=== PATIENT | female | born 1950 | race Caucasian/White ===

== ENCOUNTER 2018-04-23 22:34 | Inpatient (IN) ==
[2018-04-23] MEDS ORDERED: methylPREDNISolone SOD SUC 125 MG/2 ML VIAL IV STA (23:21)
[2018-04-23] MEDS ORDERED: FUROSEMIDE 100 MG/10 ML VIAL IV STA (23:21)
[2018-04-23] MEDS ORDERED: ONDANSETRON 4 MG/2 ML VIAL IV STA (23:21)
[2018-04-23] MEDS ORDERED: ALBUTEROL 2.5 MG/3 ML NEB RESP TX SCH (23:30)
[2018-04-23 23:50] LABS: Basophils # 0.1 10*3/uL (0.0-0.2); Basophils % 0.6 % (0.0-0.8); Eosinophils # 0.1 10*3/uL (0.0-0.87); Eosinophils % 1.5 % (0.00-10.9); Hemoglobin 10.6 GM/DL (12.0-16.0); Immature Granulocytes % 0.6 %; Immature Granulocytes Absolute 0.05 #; Lymphocytes # 0.7 10*3/uL (1.4-4.0); Lymphocytes % 8.8 % (21.3-54.2); Mean Corpuscular HGB Conc 30.3 GM/DL (32-36); Mean Corpuscular Hemoglobin 27 PG (27-34); Mean Corpuscular Volume 89.7 FL (87-102); Mean Platelet Volume 10.4 FL (9.6-12.0); Monocytes # 0.8 10*3/uL (0.11-0.8); Monocytes % 9.5 % (1.7-12.7); Neutrophils # 6.4 10*3/uL (1.4-7.4); Platelet Count 214 T/CUMM (130-400); Red Cell Distribution Width 15.9 % (9.3-17.3); White Blood Count 8.1 T/CUMM (4-12)
[2018-04-24 00:01] LABS: INR 2.1
[2018-04-24 00:07] LABS: PT Patient Result 22.9 SECS
[2018-04-24 00:11] LABS: Albumin 3.3 G/DL (3.4-5.0); Bilirubin,Total 1.1 MG/DL (0.2-1.0); Calcium 8.6 MG/DL (8.5-10.1); Potassium 4.3 MMOL/L (3.5-5.1); Total Protein 7.2 G/DL (6.4-8.3)
[2018-04-24 01:09] LABS: Apearance,Urine CLEAR (Clear); Bilirubin,Urine Negative (Negative); Blood, Urine Moderate mg/dL (Negative); Glucose,Urine (UA) Negative (Negative); Ketones,Urine Negative (Negative); Mucus,Urine Occasional /LPF (Occasional); Nitrite,Urine Negative (Negative); Protein,Urine Negative; RBC,Urine 7 /HPF (0-4); Urine Color Yellow (Yellow); Urine Specific Gravity 1.027 (1.001-1.035); Urine Urobilinogen < 2.0 EU/DL (0.2-1.0); WBC,Urine 2 /HPF (0-6)
[2018-04-24] MEDS ORDERED: MORPHINE 4 MG/1 ML VIAL IV PRN (02:35)
[2018-04-24] MEDS ORDERED: ONDANSETRON 4 MG/2 ML VIAL IV PRN (02:35)
[2018-04-24] MEDS ORDERED: GLUCAGON 1 MG VIAL IM PRN (02:35)
[2018-04-24] MEDS ORDERED: DEXTROSE 50% 25 GM/50 ML SYRINGE IV PRN (02:35)
[2018-04-24] MEDS ORDERED: ACETAMINOPHEN 325 MG TABLET PO PRN (02:35)
[2018-04-24] MEDS: ALBUTEROL/IPRATROPIUM 3 ML NEB RESP TX SCH ×6 (02:50→23:39)
[2018-04-24] MEDS: SODIUM CHLORIDE 0.9% 1,000 ML IV SCH (03:40)
[2018-04-24] MEDS: CEFTAROLINE 600 MG in SODIUM CHLORIDE 0.9% 100 ML IV SCH ×2 (03:45→15:40)
[2018-04-24 05:30] LABS: Basophils % 0.4 % (0.0-0.8); Eosinophils % 0.1 % (0.00-10.9); Hemoglobin 10.1 GM/DL (12.0-16.0); Immature Granulocytes % 0.6 %; Immature Granulocytes Absolute 0.05 #; Lymphocytes # 0.4 10*3/uL (1.4-4.0); Lymphocytes % 5.2 % (21.3-54.2); Mean Corpuscular HGB Conc 30.6 GM/DL (32-36); Mean Corpuscular Hemoglobin 27 PG (27-34); Mean Corpuscular Volume 89.2 FL (87-102); Mean Platelet Volume 10.9 FL (9.6-12.0); Monocytes # 0.1 10*3/uL (0.11-0.8); Monocytes % 1.8 % (1.7-12.7); Neutrophils # 7.3 10*3/uL (1.4-7.4); Neutrophils % 91.9 % (38.7-73.9); Platelet Count 184 T/CUMM (130-400); Red Cell Distribution Width 15.9 % (9.3-17.3); White Blood Count 7.9 T/CUMM (4-12)
[2018-04-24 05:45] LABS: Troponin I < 0.015 NG/ML (0.00-0.045)
[2018-04-24 05:48] LABS: Albumin 3.2 G/DL (3.4-5.0); Calcium 8.4 MG/DL (8.5-10.1); Osmolality,Calculated 284.8 MOS/KG (273-304); Potassium 4.3 MMOL/L (3.5-5.1); Risk Ratio 3.38; Total Protein 6.8 G/DL (6.4-8.3); VLDL CHOLESTEROL 17.2 MG/DL
[2018-04-24 05:56] LABS: Segmented Neutrophils 99 % (50-85); Total Cells Counted 100
[2018-04-24 05:57] LABS: Platelet Estimate Adequate; Polychromasia Few
[2018-04-24] MEDS: INSULIN REGULAR 100 UNIT/ML SUBCUT SCH ×3 (06:20→17:37)
[2018-04-24] MEDS ORDERED: FUROSEMIDE 40 MG TABLET PO SCH (08:00)
[2018-04-24] MEDS: CARVEDILOL 12.5 MG TABLET PO SCH ×2 (09:56→17:00)
[2018-04-24] MEDS: DOCUSATE SODIUM 100 MG CAPSULE PO SCH ×2 (09:57→22:11)
[2018-04-24] MEDS: LISINOPRIL 20 MG TABLET PO SCH (09:57)
[2018-04-24] MEDS: GABAPENTIN 300 MG CAPSULE PO SCH ×2 (09:58→22:11)
[2018-04-24] MEDS: busPIRone 5 MG TABLET PO SCH ×2 (10:03→22:10)
[2018-04-24] MEDS: PANTOPRAZOLE 40 MG VIAL IV SCH (12:08)
[2018-04-24] MEDS: methylPREDNISolone SOD SUC 40 MG/1 ML VIAL IV SCH ×2 (12:11→22:13)
[2018-04-24] MEDS: FUROSEMIDE 20 MG/2 ML VIAL IV SCH ×2 (12:12→17:09)
[2018-04-24 13:22] LABS: PT Patient Result 21.7 SECS
[2018-04-24] MEDS: PYRILAMINE PO SCH ×2 (15:33→22:15)
[2018-04-24] MEDS: CHLOPHEDIANOL PO SCH ×2 (15:33→22:15)
[2018-04-24] MEDS: PIOGLITAZONE HCL 30 MG PO SCH (15:34)
[2018-04-24] MEDS: BUDESONIDE/FORMOTEROL 160-4.5 INHALER 6 GM INH SCH ×3 (15:35→22:11)
[2018-04-24] MEDS: WARFARIN 4 MG TABLET PO SCH (17:37)
[2018-04-24] MEDS ORDERED: WARFARIN 3 MG TABLET PO SCH (18:00)
[2018-04-24] MEDS: MONTELUKAST 10 MG TABLET PO SCH (22:11)
[2018-04-24] MEDS: ATORVASTATIN 80 MG TABLET PO SCH (22:11)
[2018-04-25] MEDS: INSULIN REGULAR 100 UNIT/ML SUBCUT SCH ×4 (00:05→18:07)
[2018-04-25] MEDS: ALBUTEROL/IPRATROPIUM 3 ML NEB RESP TX SCH ×5 (02:51→20:09)
[2018-04-25] MEDS: methylPREDNISolone SOD SUC 40 MG/1 ML VIAL IV SCH ×3 (04:30→18:30)
[2018-04-25] MEDS: CEFTAROLINE 600 MG in SODIUM CHLORIDE 0.9% 100 ML IV SCH ×2 (04:32→15:38)
[2018-04-25 05:45] LABS: Basophils % 0.1 % (0.0-0.8); Hematocrit 32.6 VOL% (35.7-47.0); Hemoglobin 9.7 GM/DL (12.0-16.0); Immature Granulocytes % 1.1 %; Immature Granulocytes Absolute 0.12 #; Lymphocytes # 0.3 10*3/uL (1.4-4.0); Mean Corpuscular HGB Conc 29.8 GM/DL (32-36); Mean Corpuscular Hemoglobin 27 PG (27-34); Mean Corpuscular Volume 90.3 FL (87-102); Mean Platelet Volume 11.1 FL (9.6-12.0); Monocytes # 0.5 10*3/uL (0.11-0.8); Monocytes % 4.6 % (1.7-12.7); Neutrophils # 10.4 10*3/uL (1.4-7.4); Neutrophils % 91.2 % (38.7-73.9); Platelet Count 200 T/CUMM (130-400); Red Blood Count 3.61 MC/CUMM (3.8-5.5); Red Cell Distribution Width 15.8 % (9.3-17.3); White Blood Count 11.3 T/CUMM (4-12)
[2018-04-25 05:55] LABS: Calcium 8.3 MG/DL (8.5-10.1); INR 2.3; Osmolality,Calculated 289.8 MOS/KG (273-304); Potassium 4.4 MMOL/L (3.5-5.1)
[2018-04-25 06:12] LABS: Hypochromasia 1+; Lymphocytes 4 % (20-55); Platelet Estimate Adequate; Segmented Neutrophils 91 % (50-85); Total Cells Counted 100
[2018-04-25] MEDS: SODIUM CHLORIDE 0.9% 1,000 ML IV SCH (07:16)
[2018-04-25] MEDS: FUROSEMIDE 20 MG/2 ML VIAL IV SCH ×2 (08:40→15:41)
[2018-04-25] MEDS: PANTOPRAZOLE 40 MG VIAL IV SCH (08:42)
[2018-04-25] MEDS: PYRILAMINE PO SCH ×2 (09:15→20:43)
[2018-04-25] MEDS: CARVEDILOL 12.5 MG TABLET PO SCH ×2 (09:15→18:27)
[2018-04-25] MEDS: CHLOPHEDIANOL PO SCH ×2 (09:15→20:43)
[2018-04-25] MEDS: GABAPENTIN 300 MG CAPSULE PO SCH ×2 (09:15→20:41)
[2018-04-25] MEDS: LISINOPRIL 20 MG TABLET PO SCH (09:16)
[2018-04-25] MEDS: DOCUSATE SODIUM 100 MG CAPSULE PO SCH ×2 (09:16→20:41)
[2018-04-25] MEDS: PIOGLITAZONE HCL 30 MG PO SCH (09:16)
[2018-04-25] MEDS: busPIRone 5 MG TABLET PO SCH ×2 (09:16→20:41)
[2018-04-25] MEDS: BUDESONIDE/FORMOTEROL 160-4.5 INHALER 6 GM INH SCH (11:10)
[2018-04-25] MEDS: WARFARIN 4 MG TABLET PO SCH (18:27)
[2018-04-25] MEDS: MONTELUKAST 10 MG TABLET PO SCH (20:41)
[2018-04-25] MEDS: ATORVASTATIN 80 MG TABLET PO SCH (20:41)
[2018-04-26] MEDS: INSULIN REGULAR 100 UNIT/ML SUBCUT SCH ×4 (00:15→17:59)
[2018-04-26] MEDS: ALBUTEROL/IPRATROPIUM 3 ML NEB RESP TX SCH ×6 (00:37→20:08)
[2018-04-26] MEDS: CEFTAROLINE 600 MG in SODIUM CHLORIDE 0.9% 100 ML IV SCH ×2 (03:35→16:04)
[2018-04-26 05:24] LABS: Basophils % 0.2 % (0.0-0.8); Hematocrit 31.1 VOL% (35.7-47.0); Hemoglobin 9.2 GM/DL (12.0-16.0); Immature Granulocytes % 0.9 %; Lymphocytes # 0.9 10*3/uL (1.4-4.0); Lymphocytes % 8.6 % (21.3-54.2); Mean Corpuscular HGB Conc 29.6 GM/DL (32-36); Mean Corpuscular Hemoglobin 27 PG (27-34); Mean Corpuscular Volume 91.7 FL (87-102); Mean Platelet Volume 10.9 FL (9.6-12.0); Monocytes # 0.6 10*3/uL (0.11-0.8); Monocytes % 5.5 % (1.7-12.7); Neutrophils # 8.9 10*3/uL (1.4-7.4); Neutrophils % 84.8 % (38.7-73.9); Platelet Count 178 T/CUMM (130-400); Red Blood Count 3.39 MC/CUMM (3.8-5.5); Red Cell Distribution Width 15.7 % (9.3-17.3); White Blood Count 10.5 T/CUMM (4-12)
[2018-04-26 05:33] LABS: Calcium 8.1 MG/DL (8.5-10.1); Osmolality,Calculated 287.7 MOS/KG (273-304); Potassium 4.3 MMOL/L (3.5-5.1)
[2018-04-26 05:38] LABS: INR 3.4
[2018-04-26] MEDS: methylPREDNISolone SOD SUC 40 MG/1 ML VIAL IV SCH ×2 (05:41→20:21)
[2018-04-26 05:54] LABS: PT Patient Result 36.3 SECS
[2018-04-26] MEDS: CHLOPHEDIANOL PO SCH ×2 (08:48→20:12)
[2018-04-26] MEDS: PYRILAMINE PO SCH ×2 (08:48→20:12)
[2018-04-26] MEDS: PIOGLITAZONE HCL 30 MG PO SCH (08:48)
[2018-04-26] MEDS: LISINOPRIL 20 MG TABLET PO SCH (08:49)
[2018-04-26] MEDS: GABAPENTIN 300 MG CAPSULE PO SCH ×2 (08:50→20:08)
[2018-04-26] MEDS: FUROSEMIDE 20 MG/2 ML VIAL IV SCH ×2 (08:52→16:01)
[2018-04-26] MEDS: PANTOPRAZOLE 40 MG VIAL IV SCH (08:56)
[2018-04-26] MEDS: CARVEDILOL 12.5 MG TABLET PO SCH ×2 (09:21→16:01)
[2018-04-26] MEDS: DOCUSATE SODIUM 100 MG CAPSULE PO SCH ×2 (09:22→20:08)
[2018-04-26] MEDS: busPIRone 5 MG TABLET PO SCH ×2 (09:26→20:21)
[2018-04-26] MEDS: WARFARIN 4 MG TABLET PO SCH (18:33)
[2018-04-26] MEDS: ATORVASTATIN 80 MG TABLET PO SCH (20:08)
[2018-04-26] MEDS: MONTELUKAST 10 MG TABLET PO SCH (20:08)
[2018-04-26] MEDS: DORNASE ALFA 2.5 MG/2.5 ML VIAL RESP TX SCH (20:08)
[2018-04-26] MEDS: SODIUM CHLORIDE 0.9% 1,000 ML IV SCH (20:20)
[2018-04-27] MEDS: ALBUTEROL/IPRATROPIUM 3 ML NEB RESP TX SCH ×7 (00:16→23:59)
[2018-04-27] MEDS: INSULIN REGULAR 100 UNIT/ML SUBCUT SCH ×5 (00:37→23:41)
[2018-04-27] MEDS: CEFTAROLINE 600 MG in SODIUM CHLORIDE 0.9% 100 ML IV SCH ×2 (04:08→16:29)
[2018-04-27 04:56] LABS: INR 3.3; PT Patient Result 35.9 SECS
[2018-04-27] MEDS: SODIUM CHLORIDE 0.9% 1,000 ML IV SCH (05:24)
[2018-04-27] MEDS: DORNASE ALFA 2.5 MG/2.5 ML VIAL RESP TX SCH ×2 (07:57→19:03)
[2018-04-27] MEDS: LISINOPRIL 20 MG TABLET PO SCH (08:43)
[2018-04-27] MEDS: busPIRone 5 MG TABLET PO SCH ×2 (08:44→20:34)
[2018-04-27] MEDS: DOCUSATE SODIUM 100 MG CAPSULE PO SCH ×2 (08:44→20:34)
[2018-04-27] MEDS: methylPREDNISolone SOD SUC 40 MG/1 ML VIAL IV SCH ×2 (08:44→20:34)
[2018-04-27] MEDS: CARVEDILOL 12.5 MG TABLET PO SCH ×2 (08:44→16:30)
[2018-04-27] MEDS: GABAPENTIN 300 MG CAPSULE PO SCH ×2 (08:44→20:34)
[2018-04-27] MEDS: FUROSEMIDE 20 MG/2 ML VIAL IV SCH ×2 (08:45→16:29)
[2018-04-27] MEDS: PANTOPRAZOLE 40 MG VIAL IV SCH (08:45)
[2018-04-27] MEDS: BREO ELLIPTA RESP TX SCH (08:50)
[2018-04-27] MEDS: PIOGLITAZONE HCL 30 MG PO SCH (10:19)
[2018-04-27] MEDS: CHLOPHEDIANOL PO SCH ×2 (10:20→20:33)
[2018-04-27] MEDS: PYRILAMINE PO SCH ×2 (10:20→20:33)
[2018-04-27] MEDS: WARFARIN 4 MG TABLET PO SCH (17:40)
[2018-04-27] MEDS: ATORVASTATIN 80 MG TABLET PO SCH (20:34)
[2018-04-27] MEDS: MONTELUKAST 10 MG TABLET PO SCH (20:34)
[2018-04-28] MEDS: CEFTAROLINE 600 MG in SODIUM CHLORIDE 0.9% 100 ML IV SCH (03:40)
[2018-04-28] MEDS: ALBUTEROL/IPRATROPIUM 3 ML NEB RESP TX SCH ×3 (03:58→11:16)
[2018-04-28] MEDS: INSULIN REGULAR 100 UNIT/ML SUBCUT SCH ×2 (06:15→12:47)
[2018-04-28] MEDS: DORNASE ALFA 2.5 MG/2.5 ML VIAL RESP TX SCH (07:55)
[2018-04-28 08:19] VITALS: BP 128/77
[2018-04-28] MEDS: CARVEDILOL 12.5 MG TABLET PO SCH (09:12)
[2018-04-28] MEDS: GABAPENTIN 300 MG CAPSULE PO SCH (09:12)
[2018-04-28] MEDS: DOCUSATE SODIUM 100 MG CAPSULE PO SCH (09:12)
[2018-04-28] MEDS: LISINOPRIL 20 MG TABLET PO SCH (09:12)
[2018-04-28] MEDS: FUROSEMIDE 20 MG/2 ML VIAL IV SCH (09:13)
[2018-04-28] MEDS: methylPREDNISolone SOD SUC 40 MG/1 ML VIAL IV SCH (09:13)
[2018-04-28] MEDS: PIOGLITAZONE HCL 30 MG PO SCH (09:14)
[2018-04-28] MEDS: PANTOPRAZOLE 40 MG VIAL IV SCH (09:14)
[2018-04-28] MEDS: CHLOPHEDIANOL PO SCH (09:15)
[2018-04-28] MEDS: BREO ELLIPTA RESP TX SCH (09:15)
[2018-04-28] MEDS: PYRILAMINE PO SCH (09:15)
[2018-04-28] MEDS: busPIRone 5 MG TABLET PO SCH (09:27)
[2018-04-28 12:01] LABS: INR 3.9
[2018-04-28 12:06] LABS: PT Patient Result 41.8 SECS
== END 2018-04-28 13:37 | disposition home or self-care (01) | DRG 202 ==
LOC: N.ED 22:34 → N.EDINP 04-24 00:59 → N.TELEN 04-24 01:44
PROVIDERS: ADMIT Family Medicine; ATTEND Family Medicine

== ENCOUNTER 2019-03-31 15:07 | Inpatient (IN) ==
[2019-03-31] MEDS ORDERED: ALBUTEROL/IPRATROPIUM 3 ML NEB RESP TX STA (16:08)
[2019-03-31 16:16] LABS: Basophils % 0.3 % (0.0-0.8); Hematocrit 33.3 VOL% (35.7-47.0); Hemoglobin 9.7 GM/DL (12.0-16.0); Immature Granulocytes Absolute 0.14 #; Lymphocytes # 0.5 10*3/uL (1.4-4.0); Mean Corpuscular HGB Conc 29.1 GM/DL (32-36); Mean Platelet Volume 10.7 FL (9.6-12.0); Monocytes % 2.6 % (1.7-12.7); Neutrophils % 92.1 % (38.7-73.9); Platelet Count 240 T/CUMM (130-400); Red Cell Distribution Width 16.7 % (9.3-17.3); White Blood Count 13.5 T/CUMM (4-12)
[2019-03-31 16:27] LABS: Albumin 3.3 G/DL (3.4-5.0); Bilirubin,Total 0.4 MG/DL (0.2-1.0); Calcium 8.7 MG/DL (8.5-10.1); Osmolality,Calculated 287.8 MOS/KG (273-304); Total Protein 6.5 G/DL (6.4-8.3)
[2019-03-31 16:35] LABS: Band Neutrophils 1 % (0-10); Hypochromasia 1+; Lymphocytes 2 % (20-55); Segmented Neutrophils 94 % (50-85); Total Cells Counted 100
[2019-03-31 16:36] LABS: Elliptocytes Few
[2019-03-31 16:37] LABS: Platelet Estimate Adequate; Polychromasia Few; Tear Drop Cells Few
[2019-03-31] MEDS ORDERED: ONDANSETRON 4 MG/2 ML VIAL IV PRN (17:16)
[2019-03-31] MEDS ORDERED: ACETAMINOPHEN 325 MG TABLET PO PRN (17:16)
[2019-03-31] MEDS ORDERED: DEXTROSE 50% 25 GM/50 ML VIAL IV PRN (17:16)
[2019-03-31] MEDS ORDERED: GLUCAGON 1 MG VIAL IM PRN (17:16)
[2019-03-31] MEDS ORDERED: methylPREDNISolone SOD SUC 125 MG/2 ML VIAL IV SCH (17:30)
[2019-03-31] MEDS ORDERED: LEVOFLOXACIN INJ 750 MG in PREMIX 1 EACH IV SCH (17:30)
[2019-03-31] MEDS ORDERED: WARFARIN 3 MG TABLET PO SCH (19:52)
[2019-03-31] MEDS: GABAPENTIN 300 MG CAPSULE PO SCH (20:10)
[2019-03-31] MEDS: ALBUTEROL/IPRATROPIUM 3 ML NEB RESP TX SCH (21:08)
[2019-03-31] MEDS: INSULIN REGULAR 100 UNIT/ML SUBCUT SCH (22:02)
[2019-03-31] MEDS: MONTELUKAST 10 MG TABLET PO SCH (22:02)
[2019-03-31] MEDS: carvediloL 12.5 MG TABLET PO SCH (22:03)
[2019-03-31] MEDS: busPIRone 5 MG TABLET PO SCH (22:03)
[2019-03-31] MEDS: ATORVASTATIN 80 MG TABLET PO SCH (22:03)
[2019-04-01] MEDS: ALBUTEROL/IPRATROPIUM 3 ML NEB RESP TX SCH ×4 (01:10→19:05)
[2019-04-01] MEDS: methylPREDNISolone SOD SUC 40 MG/1 ML VIAL IV SCH ×2 (02:39→10:59)
[2019-04-01 05:03] LABS: Basophils % 0.2 % (0.0-0.8); Hematocrit 31.3 VOL% (35.7-47.0); Hemoglobin 9.3 GM/DL (12.0-16.0); Immature Granulocytes % 1.2 %; Immature Granulocytes Absolute 0.14 #; Lymphocytes # 0.5 10*3/uL (1.4-4.0); Mean Corpuscular HGB Conc 29.7 GM/DL (32-36); Mean Corpuscular Volume 89.4 FL (87-102); Mean Platelet Volume 10.9 FL (9.6-12.0); Monocytes % 0.9 % (1.7-12.7); Neutrophils % 93.7 % (38.7-73.9); Platelet Count 214 T/CUMM (130-400); Red Cell Distribution Width 16.4 % (9.3-17.3); White Blood Count 11.4 T/CUMM (4-12)
[2019-04-01 05:16] LABS: INR 2.1
[2019-04-01 05:18] LABS: Calcium 8.6 MG/DL (8.5-10.1); Osmolality,Calculated 293.7 MOS/KG (273-304)
[2019-04-01 05:25] LABS: Band Neutrophils 1 % (0-10); Hypochromasia 1+; Lymphocytes 2 % (20-55); Ovalocytes Slight; Platelet Estimate Adequate; Segmented Neutrophils 96 % (50-85); Total Cells Counted 100
[2019-04-01 05:29] LABS: PT Patient Result 22.7 SECS (9.6-12.2)
[2019-04-01] MEDS: metOLazone 5 MG TABLET PO SCH (05:29)
[2019-04-01] MEDS ORDERED: Fluticasone Furoate-Vilanterol [Breo Ellipta] 1 inh INH SCH (06:00)
[2019-04-01] MEDS ORDERED: carvediloL 25 MG TABLET PO SCH (08:00)
[2019-04-01] MEDS ORDERED: FUROSEMIDE 40 MG/4 ML VIAL IV SCH (08:00)
[2019-04-01] MEDS: INSULIN REGULAR 100 UNIT/ML SUBCUT SCH ×4 (09:06→21:50)
[2019-04-01] MEDS: PIOGLITAZONE 15 MG TABLET PO SCH (09:23)
[2019-04-01] MEDS: cefTRIAXone 1,000 MG in SYRINGE 1 EACH IV SCH (09:24)
[2019-04-01] MEDS: GABAPENTIN 300 MG CAPSULE PO SCH ×2 (09:24→21:41)
[2019-04-01] MEDS: PANTOPRAZOLE 40 MG TABLET PO SCH (09:25)
[2019-04-01] MEDS: POTASSIUM CHLORIDE 20 MEQ TABLET PO SCH (09:25)
[2019-04-01] MEDS: carvediloL 12.5 MG TABLET PO SCH ×2 (09:25→21:41)
[2019-04-01] MEDS: lisinopriL 20 MG TABLET PO SCH (09:25)
[2019-04-01] MEDS: busPIRone 5 MG TABLET PO SCH ×2 (09:25→21:42)
[2019-04-01] MEDS: FUROSEMIDE 80 MG TABLET PO SCH ×2 (09:27→17:02)
[2019-04-01] MEDS: FLUTICASONE 50 MCG NASAL SPRAY 16 GM BOTTLE BOTH NARES SCH (09:32)
[2019-04-01] MEDS ORDERED: FUROSEMIDE 20 MG/2 ML VIAL IV ONE (12:10)
[2019-04-01] MEDS: WARFARIN 5 MG TABLET PO SCH (17:02)
[2019-04-01] MEDS ORDERED: WARFARIN 4 MG TABLET PO SCH (18:00)
[2019-04-01] MEDS: MONTELUKAST 10 MG TABLET PO SCH (21:41)
[2019-04-01] MEDS: ATORVASTATIN 80 MG TABLET PO SCH (21:42)
[2019-04-02] MEDS: ALBUTEROL/IPRATROPIUM 3 ML NEB RESP TX SCH ×4 (00:05→20:46)
[2019-04-02] MEDS: methylPREDNISolone SOD SUC 40 MG/1 ML VIAL IV SCH ×2 (00:54→12:14)
[2019-04-02 06:44] LABS: INR 2.3
[2019-04-02 06:47] LABS: PT Patient Result 24.3 SECS (9.6-12.2)
[2019-04-02 07:10] LABS: Basophils % 0.2 % (0.0-0.8); Hematocrit 34.5 VOL% (35.7-47.0); Immature Granulocytes % 1.4 %; Lymphocytes # 0.8 10*3/uL (1.4-4.0); Lymphocytes % 5.4 % (21.3-54.2); Mean Corpuscular HGB Conc 29.6 GM/DL (32-36); Mean Corpuscular Volume 90.3 FL (87-102); Mean Platelet Volume 11.3 FL (9.6-12.0); Platelet Count 213 T/CUMM (130-400); Red Blood Count 3.82 MC/CUMM (3.8-5.5); Red Cell Distribution Width 16.5 % (9.3-17.3); White Blood Count 14.3 T/CUMM (4-12)
[2019-04-02 07:11] LABS: Hemoglobin 10.2 GM/DL (12.0-16.0)
[2019-04-02] MEDS ORDERED: FUROSEMIDE 20 MG/2 ML VIAL IV ONE ×2 (09:13→12:00)
[2019-04-02] MEDS: cefTRIAXone 1,000 MG in SYRINGE 1 EACH IV SCH (09:14)
[2019-04-02] MEDS: PIOGLITAZONE 15 MG TABLET PO SCH (09:14)
[2019-04-02] MEDS: FUROSEMIDE 80 MG TABLET PO SCH ×2 (09:15→17:02)
[2019-04-02] MEDS: INSULIN REGULAR 100 UNIT/ML SUBCUT SCH ×4 (09:15→20:37)
[2019-04-02] MEDS: lisinopriL 20 MG TABLET PO SCH (09:15)
[2019-04-02] MEDS: busPIRone 5 MG TABLET PO SCH ×2 (09:15→20:37)
[2019-04-02] MEDS: PANTOPRAZOLE 40 MG TABLET PO SCH (09:16)
[2019-04-02] MEDS: GABAPENTIN 300 MG CAPSULE PO SCH ×2 (09:16→20:36)
[2019-04-02] MEDS: carvediloL 12.5 MG TABLET PO SCH ×2 (09:16→20:38)
[2019-04-02] MEDS: POTASSIUM CHLORIDE 20 MEQ TABLET PO SCH (09:16)
[2019-04-02] MEDS: FLUTICASONE 50 MCG NASAL SPRAY 16 GM BOTTLE BOTH NARES SCH (09:20)
[2019-04-02] MEDS: WARFARIN 5 MG TABLET PO SCH (17:02)
[2019-04-02] MEDS: MONTELUKAST 10 MG TABLET PO SCH (18:06)
[2019-04-02] MEDS: ATORVASTATIN 80 MG TABLET PO SCH (20:36)
[2019-04-03] MEDS: methylPREDNISolone SOD SUC 40 MG/1 ML VIAL IV SCH ×2 (00:13→10:55)
[2019-04-03] MEDS: ALBUTEROL/IPRATROPIUM 3 ML NEB RESP TX SCH ×3 (02:29→14:30)
[2019-04-03 05:20] LABS: INR 2.6
[2019-04-03 05:21] LABS: PT Patient Result 27.9 SECS (9.6-12.2)
[2019-04-03] MEDS: metOLazone 5 MG TABLET PO SCH (06:10)
[2019-04-03] MEDS: INSULIN REGULAR 100 UNIT/ML SUBCUT SCH ×2 (08:42→12:48)
[2019-04-03] MEDS: PIOGLITAZONE 15 MG TABLET PO SCH (08:43)
[2019-04-03] MEDS: GABAPENTIN 300 MG CAPSULE PO SCH (08:43)
[2019-04-03] MEDS: PANTOPRAZOLE 40 MG TABLET PO SCH (08:43)
[2019-04-03] MEDS: cefTRIAXone 1,000 MG in SYRINGE 1 EACH IV SCH (08:43)
[2019-04-03] MEDS: busPIRone 5 MG TABLET PO SCH (08:44)
[2019-04-03] MEDS: FUROSEMIDE 80 MG TABLET PO SCH (08:44)
[2019-04-03] MEDS: carvediloL 12.5 MG TABLET PO SCH (08:44)
[2019-04-03] MEDS: lisinopriL 20 MG TABLET PO SCH (08:44)
[2019-04-03] MEDS: POTASSIUM CHLORIDE 20 MEQ TABLET PO SCH (08:44)
[2019-04-03] MEDS: FLUTICASONE 50 MCG NASAL SPRAY 16 GM BOTTLE BOTH NARES SCH (08:45)
[2019-04-03 11:47] VITALS: BP 135/83
== END 2019-04-03 14:45 | disposition home health service (06) | DRG 202 ==
LOC: N.ED 15:07 → N.EDINP 17:14 → N.TELES 17:42
PROVIDERS: ADMIT Family Medicine; ATTEND Family Medicine

== ENCOUNTER 2019-06-23 13:12 | Inpatient (IN) ==
[2019-06-23 14:31] LABS: Basophils # 0.1 10*3/uL (0.0-0.2); Basophils % 0.3 % (0.0-0.8); Hematocrit 33.8 VOL% (35.7-47.0); Hemoglobin 10.1 GM/DL (12.0-16.0); Immature Granulocytes % 0.9 %; Immature Granulocytes Absolute 0.23 #; Lymphocytes # 0.5 10*3/uL (1.4-4.0); Lymphocytes % 1.8 % (21.3-54.2); Mean Corpuscular HGB Conc 29.9 GM/DL (32-36); Mean Corpuscular Volume 86.4 FL (87-102); Mean Platelet Volume 10.5 FL (9.6-12.0); Monocytes % 3.9 % (1.7-12.7); Neutrophils % 93.1 % (38.7-73.9); Platelet Count 241 T/CUMM (130-400); Red Blood Count 3.91 MC/CUMM (3.8-5.5); Red Cell Distribution Width 16.5 % (9.3-17.3); White Blood Count 25.6 T/CUMM (4-12)
[2019-06-23 14:41] LABS: INR 3.9; PT Patient Result 38.6 SECS (9.8-11.9); Partial Thromboplastin Time 59.9 SECS (23.9-33.8)
[2019-06-23 14:50] LABS: Anisocytosis Slight; Band Neutrophils 2 % (0-10); Lymphocytes 1 % (20-55); Platelet Estimate Adequate; Polychromasia Few; Segmented Neutrophils 92 % (50-85); Total Cells Counted 100
[2019-06-23 14:51] LABS: Hypochromasia 1+
[2019-06-23 14:52] LABS: Alanine Aminotransferase 17 U/L (13-56); Albumin 3.1 G/DL (3.4-5.0); Alkaline Phosphatase 104 U/L (45-117); Aspartate Amino Transferase 13 U/L (0-37); Blood Urea Nitrogen 17 MG/DL (7-18); Calcium 8.5 MG/DL (8.5-10.1); Estimated Glom Filtration Rate 62 ML/MIN; Glucose 248 MG/DL (74-106); Osmolality,Calculated 279.1 MOS/KG (273-304)
[2019-06-23] MEDS ORDERED: SODIUM CHLORIDE 0.9% 1,000 ML IV STA (15:22)
[2019-06-23] MEDS ORDERED: VANCOMYCIN INJ 1,000 MG in SODIUM CHLORIDE 0.9% 250 ML IV STA (15:22)
[2019-06-23 16:18] LABS: Apearance,Urine CLOUDY (Clear); Bilirubin,Urine Negative (Negative); Blood, Urine Large mg/dL (Negative); Glucose,Urine (UA) 50 mg/dL (Negative); Ketones,Urine Negative (Negative); Mucus,Urine Occasional /LPF (Occasional); Nitrite,Urine Negative (Negative); Protein,Urine 30 MG/DL; RBC,Urine 65 /HPF (0-4); Squamous Epithelial Cell,Urine Few /HPF (0-10); Urine Color Yellow (Yellow); Urine Specific Gravity 1.024 (1.001-1.035); Urine Urobilinogen < 2.0 EU/DL (0.2-1.0); WBC,Urine 422 /HPF (0-6)
[2019-06-23] MEDS ORDERED: ALBUTEROL/IPRATROPIUM 3 ML NEB RESP TX ONE (17:34)
[2019-06-23] MEDS ORDERED: GLUCAGON 1 MG VIAL IM PRN (18:28)
[2019-06-23] MEDS ORDERED: ONDANSETRON 4 MG/2 ML VIAL IV PRN (18:28)
[2019-06-23] MEDS ORDERED: SODIUM CHLORIDE 0.9% 1,000 ML IV SCH (18:28)
[2019-06-23] MEDS ORDERED: traMADol 50 MG TABLET PO PRN (18:28)
[2019-06-23] MEDS ORDERED: ALBUTEROL 2.5 MG/3 ML NEB RESP TX PRN (18:28)
[2019-06-23] MEDS ORDERED: DEXTROSE 10% 250 ML BAG IV PRN (18:28)
[2019-06-23] MEDS ORDERED: ALBUTEROL/IPRATROPIUM 3 ML NEB RESP TX SCH (19:00)
[2019-06-23] MEDS: ACETAMINOPHEN 325 MG TABLET PO PRN (22:30)
[2019-06-23] MEDS: methylPREDNISolone SOD SUC 40 MG/1 ML VIAL IV SCH (22:41)
[2019-06-23] MEDS: DOCUSATE SODIUM 100 MG CAPSULE PO SCH (22:41)
[2019-06-23] MEDS: INSULIN REGULAR 100 UNIT/ML SUBCUT SCH (22:41)
[2019-06-23] MEDS: SODIUM CHLORIDE 0.9% 1,000 ML IV SCH (22:41)
[2019-06-23] MEDS: LEVOFLOXACIN INJ 750 MG in PREMIX 1 EACH IV SCH (22:41)
[2019-06-24] MEDS: ALBUTEROL INHALER 18 GM INH SCH ×4 (01:35→21:48)
[2019-06-24] MEDS: methylPREDNISolone SOD SUC 40 MG/1 ML VIAL IV SCH ×2 (05:59→14:20)
[2019-06-24 06:06] LABS: Basophils % 0.2 % (0.0-0.8); Hematocrit 32.7 VOL% (35.7-47.0); Hemoglobin 9.7 GM/DL (12.0-16.0); Immature Granulocytes % 0.9 %; Immature Granulocytes Absolute 0.16 #; Lymphocytes # 0.4 10*3/uL (1.4-4.0); Lymphocytes % 2.2 % (21.3-54.2); Mean Corpuscular HGB Conc 29.7 GM/DL (32-36); Mean Corpuscular Volume 86.1 FL (87-102); Mean Platelet Volume 12.6 FL (9.6-12.0); Monocytes % 2.1 % (1.7-12.7); Neutrophils % 94.6 % (38.7-73.9); Red Cell Distribution Width 16.7 % (9.3-17.3); White Blood Count 18.4 T/CUMM (4-12)
[2019-06-24 06:19] LABS: Platelet Count 128 T/CUMM (130-400)
[2019-06-24 06:22] LABS: Calcium 8.6 MG/DL (8.5-10.1); Osmolality,Calculated 274.2 MOS/KG (273-304)
[2019-06-24 06:33] LABS: Hypochromasia 1+; Lymphocytes 3 % (20-55); Microcytosis Slight; Segmented Neutrophils 96 % (50-85); Total Cells Counted 100
[2019-06-24] MEDS: INSULIN REGULAR 100 UNIT/ML SUBCUT SCH ×4 (08:18→22:26)
[2019-06-24] MEDS: DOCUSATE SODIUM 100 MG CAPSULE PO SCH ×2 (08:18→21:53)
[2019-06-24] MEDS: PANTOPRAZOLE 40 MG TABLET PO SCH (08:18)
[2019-06-24] MEDS: SODIUM CHLORIDE 0.9% 1,000 ML IV SCH ×2 (10:20→17:13)
[2019-06-24] MEDS ORDERED: buPROPion 75 MG TABLET PO PRN (11:38)
[2019-06-24 13:08] LABS: INR 3.3
[2019-06-24 13:09] LABS: PT Patient Result 32.5 SECS (9.8-11.9)
[2019-06-24] MEDS: busPIRone 5 MG TABLET PO SCH ×2 (16:58→21:53)
[2019-06-24] MEDS ORDERED: hydrALAZINE 20 MG/1 ML VIAL IV PRN (18:48)
[2019-06-24] MEDS ORDERED: FUROSEMIDE 40 MG/4 ML VIAL IM ONE (19:04)
[2019-06-24] MEDS: SPIRONOLACTONE 25 MG TABLET PO SCH (21:52)
[2019-06-24] MEDS: ATORVASTATIN 80 MG TABLET PO SCH (21:53)
[2019-06-24] MEDS: LEVOFLOXACIN INJ 750 MG in PREMIX 1 EACH IV SCH (21:53)
[2019-06-24] MEDS: MONTELUKAST 10 MG TABLET PO SCH (21:54)
[2019-06-24] MEDS: carvediloL 12.5 MG TABLET PO SCH (22:26)
[2019-06-25] MEDS: ALBUTEROL INHALER 18 GM INH SCH ×4 (01:25→19:03)
[2019-06-25 06:17] LABS: Basophils % 0.2 % (0.0-0.8); Eosinophils % 0.1 % (0.00-10.9); Hematocrit 32.5 VOL% (35.7-47.0); Hemoglobin 9.5 GM/DL (12.0-16.0); Immature Granulocytes % 0.8 %; Immature Granulocytes Absolute 0.13 #; Lymphocytes # 1.1 10*3/uL (1.4-4.0); Lymphocytes % 6.7 % (21.3-54.2); Mean Corpuscular HGB Conc 29.2 GM/DL (32-36); Mean Corpuscular Volume 88.6 FL (87-102); Mean Platelet Volume 10.7 FL (9.6-12.0); Monocytes % 7.5 % (1.7-12.7); Neutrophils % 84.7 % (38.7-73.9); Platelet Count 195 T/CUMM (130-400); Red Blood Count 3.67 MC/CUMM (3.8-5.5); Red Cell Distribution Width 16.6 % (9.3-17.3); White Blood Count 16.6 T/CUMM (4-12)
[2019-06-25 06:30] LABS: INR 3.7; PT Patient Result 36.9 SECS (9.8-11.9)
[2019-06-25 06:45] LABS: Calcium 8.4 MG/DL (8.5-10.1); Osmolality,Calculated 276.8 MOS/KG (273-304)
[2019-06-25] MEDS: lisinopriL 20 MG TABLET PO SCH (08:40)
[2019-06-25] MEDS: PANTOPRAZOLE 40 MG TABLET PO SCH (08:40)
[2019-06-25] MEDS: Fluticasone Furoate-Vilanterol [Breo Ellipta] INH SCH (08:40)
[2019-06-25] MEDS: POTASSIUM CHLORIDE 20 MEQ TABLET PO SCH (08:40)
[2019-06-25] MEDS: busPIRone 5 MG TABLET PO SCH ×3 (08:40→22:38)
[2019-06-25] MEDS: DOCUSATE SODIUM 100 MG CAPSULE PO SCH ×2 (08:40→22:38)
[2019-06-25] MEDS: SPIRONOLACTONE 25 MG TABLET PO SCH ×2 (08:40→22:38)
[2019-06-25] MEDS: carvediloL 12.5 MG TABLET PO SCH ×2 (08:40→22:39)
[2019-06-25] MEDS ORDERED: FUROSEMIDE 40 MG/4 ML VIAL IV SCH (09:00)
[2019-06-25] MEDS: INSULIN REGULAR 100 UNIT/ML SUBCUT SCH ×4 (09:55→22:55)
[2019-06-25] MEDS: FUROSEMIDE 80 MG TABLET PO SCH (11:15)
[2019-06-25] MEDS: LEVOFLOXACIN INJ 750 MG in PREMIX 1 EACH IV SCH ×2 (22:39→22:55)
[2019-06-25] MEDS: ATORVASTATIN 80 MG TABLET PO SCH (22:39)
[2019-06-25] MEDS: MONTELUKAST 10 MG TABLET PO SCH (22:39)
[2019-06-26] MEDS: ALBUTEROL INHALER 18 GM INH SCH ×4 (01:42→21:28)
[2019-06-26 04:34] LABS: Basophils # 0.1 10*3/uL (0.0-0.2); Basophils % 0.6 % (0.0-0.8); Eosinophils # 0.1 10*3/uL (0.0-0.87); Eosinophils % 1.4 % (0.00-10.9); Hematocrit 30.2 VOL% (35.7-47.0); Immature Granulocytes % 0.7 %; Immature Granulocytes Absolute 0.07 #; Lymphocytes # 1.2 10*3/uL (1.4-4.0); Lymphocytes % 12.1 % (21.3-54.2); Mean Corpuscular HGB Conc 29.8 GM/DL (32-36); Mean Corpuscular Volume 85.8 FL (87-102); Mean Platelet Volume 10.6 FL (9.6-12.0); Monocytes % 8.5 % (1.7-12.7); Neutrophils % 76.7 % (38.7-73.9); Platelet Count 215 T/CUMM (130-400); Red Blood Count 3.52 MC/CUMM (3.8-5.5); Red Cell Distribution Width 16.7 % (9.3-17.3); White Blood Count 9.6 T/CUMM (4-12)
[2019-06-26 04:47] LABS: INR 2.9; PT Patient Result 29.5 SECS (9.8-11.9)
[2019-06-26 04:57] LABS: Calcium 8.3 MG/DL (8.5-10.1); Osmolality,Calculated 281.7 MOS/KG (273-304)
[2019-06-26] MEDS: metOLazone 5 MG TABLET PO SCH (05:58)
[2019-06-26] MEDS: SPIRONOLACTONE 25 MG TABLET PO SCH ×2 (08:37→21:29)
[2019-06-26] MEDS: POTASSIUM CHLORIDE 20 MEQ TABLET PO SCH (08:38)
[2019-06-26] MEDS: DOCUSATE SODIUM 100 MG CAPSULE PO SCH ×2 (08:38→21:29)
[2019-06-26] MEDS: carvediloL 12.5 MG TABLET PO SCH ×2 (08:38→21:29)
[2019-06-26] MEDS: busPIRone 5 MG TABLET PO SCH ×3 (08:38→21:29)
[2019-06-26] MEDS: FUROSEMIDE 80 MG TABLET PO SCH (08:38)
[2019-06-26] MEDS: lisinopriL 20 MG TABLET PO SCH (08:39)
[2019-06-26] MEDS: Fluticasone Furoate-Vilanterol [Breo Ellipta] INH SCH (08:50)
[2019-06-26] MEDS: INSULIN REGULAR 100 UNIT/ML SUBCUT SCH ×4 (08:51→21:47)
[2019-06-26] MEDS: PANTOPRAZOLE 40 MG TABLET PO SCH (11:14)
[2019-06-26] MEDS: CEFDINIR 300 MG CAPSULE PO SCH (21:29)
[2019-06-26] MEDS: MONTELUKAST 10 MG TABLET PO SCH (21:29)
[2019-06-26] MEDS: ATORVASTATIN 80 MG TABLET PO SCH (21:29)
[2019-06-26] MEDS: ACETAMINOPHEN 325 MG TABLET PO PRN (21:47)
[2019-06-27] MEDS: ALBUTEROL INHALER 18 GM INH SCH ×4 (00:27→20:16)
[2019-06-27 06:39] LABS: Basophils % 0.5 % (0.0-0.8); Eosinophils # 0.1 10*3/uL (0.0-0.87); Eosinophils % 1.3 % (0.00-10.9); Hematocrit 33.3 VOL% (35.7-47.0); Hemoglobin 9.8 GM/DL (12.0-16.0); Immature Granulocytes % 1.1 %; Lymphocytes # 1.2 10*3/uL (1.4-4.0); Lymphocytes % 14.1 % (21.3-54.2); Mean Corpuscular HGB Conc 29.4 GM/DL (32-36); Mean Corpuscular Volume 86.3 FL (87-102); Monocytes % 8.4 % (1.7-12.7); Neutrophils % 74.6 % (38.7-73.9); Platelet Count 273 T/CUMM (130-400); Red Blood Count 3.86 MC/CUMM (3.8-5.5); Red Cell Distribution Width 16.3 % (9.3-17.3); White Blood Count 8.8 T/CUMM (4-12)
[2019-06-27 06:49] LABS: INR 2.3; PT Patient Result 23.8 SECS (9.8-11.9)
[2019-06-27 07:00] LABS: Calcium 9.1 MG/DL (8.5-10.1); Osmolality,Calculated 275.2 MOS/KG (273-304)
[2019-06-27] MEDS ORDERED: WARFARIN 5 MG TABLET PO SCH (08:30)
[2019-06-27] MEDS ORDERED: WARFARIN 5 MG TABLET PO ONE (09:00)
[2019-06-27] MEDS ORDERED: WARFARIN 3 MG TABLET PO SCH (09:00)
[2019-06-27] MEDS: busPIRone 5 MG TABLET PO SCH ×3 (09:38→21:21)
[2019-06-27] MEDS: SPIRONOLACTONE 25 MG TABLET PO SCH ×2 (09:38→21:21)
[2019-06-27] MEDS: DOCUSATE SODIUM 100 MG CAPSULE PO SCH ×2 (09:53→21:21)
[2019-06-27] MEDS: Fluticasone Furoate-Vilanterol [Breo Ellipta] INH SCH (09:56)
[2019-06-27] MEDS: PANTOPRAZOLE 40 MG TABLET PO SCH (09:56)
[2019-06-27] MEDS: carvediloL 12.5 MG TABLET PO SCH ×2 (09:56→21:21)
[2019-06-27] MEDS: FUROSEMIDE 80 MG TABLET PO SCH (09:56)
[2019-06-27] MEDS: CEFDINIR 300 MG CAPSULE PO SCH ×2 (09:56→21:22)
[2019-06-27] MEDS: lisinopriL 20 MG TABLET PO SCH (09:56)
[2019-06-27] MEDS: INSULIN REGULAR 100 UNIT/ML SUBCUT SCH ×4 (09:57→21:22)
[2019-06-27] MEDS: ACETAMINOPHEN 325 MG TABLET PO PRN (13:07)
[2019-06-27] MEDS: POTASSIUM CHLORIDE 20 MEQ TABLET PO SCH (13:07)
[2019-06-27] MEDS: ATORVASTATIN 80 MG TABLET PO SCH (21:21)
[2019-06-27] MEDS: MONTELUKAST 10 MG TABLET PO SCH (21:22)
[2019-06-27] MEDS: POTASSIUM CHLORIDE 20 MEQ/15 ML UDCUP PO ONE ×2 (21:23→22:14)
[2019-06-28] MEDS: ALBUTEROL INHALER 18 GM INH SCH ×3 (00:59→13:07)
[2019-06-28] MEDS: ACETAMINOPHEN 325 MG TABLET PO PRN ×2 (04:35→13:45)
[2019-06-28] MEDS: metOLazone 5 MG TABLET PO SCH (05:49)
[2019-06-28 06:34] LABS: Basophils # 0.1 10*3/uL (0.0-0.2); Basophils % 0.5 % (0.0-0.8); Eosinophils # 0.2 10*3/uL (0.0-0.87); Eosinophils % 1.6 % (0.00-10.9); Hematocrit 31.7 VOL% (35.7-47.0); Hemoglobin 9.4 GM/DL (12.0-16.0); Immature Granulocytes % 1.6 %; Immature Granulocytes Absolute 0.15 #; Lymphocytes # 1.4 10*3/uL (1.4-4.0); Lymphocytes % 14.3 % (21.3-54.2); Mean Corpuscular HGB Conc 29.7 GM/DL (32-36); Mean Corpuscular Volume 86.1 FL (87-102); Mean Platelet Volume 10.1 FL (9.6-12.0); Monocytes % 7.8 % (1.7-12.7); Neutrophils % 74.2 % (38.7-73.9); Platelet Count 252 T/CUMM (130-400); Red Blood Count 3.68 MC/CUMM (3.8-5.5); White Blood Count 9.7 T/CUMM (4-12)
[2019-06-28 06:42] LABS: PT Patient Result 20.8 SECS (9.8-11.9)
[2019-06-28 06:58] LABS: Calcium 8.7 MG/DL (8.5-10.1); Osmolality,Calculated 272.2 MOS/KG (273-304)
[2019-06-28] MEDS ORDERED: POTASSIUM CHLORIDE 20 MEQ TABLET PO ONE (07:43)
[2019-06-28] MEDS: busPIRone 5 MG TABLET PO SCH (08:15)
[2019-06-28] MEDS: INSULIN REGULAR 100 UNIT/ML SUBCUT SCH ×2 (08:15→13:07)
[2019-06-28] MEDS: lisinopriL 20 MG TABLET PO SCH (08:15)
[2019-06-28] MEDS: POTASSIUM CHLORIDE 20 MEQ TABLET PO SCH (08:15)
[2019-06-28] MEDS: Fluticasone Furoate-Vilanterol [Breo Ellipta] INH SCH (08:15)
[2019-06-28] MEDS: CEFDINIR 300 MG CAPSULE PO SCH (08:15)
[2019-06-28] MEDS: PANTOPRAZOLE 40 MG TABLET PO SCH (08:15)
[2019-06-28] MEDS ORDERED: WARFARIN 5 MG TABLET PO ONE (08:32)
[2019-06-28] MEDS ORDERED: METOPROLOL TARTRATE 25 MG TABLET PO SCH (09:00)
[2019-06-28] MEDS: SPIRONOLACTONE 25 MG TABLET PO SCH (10:28)
[2019-06-28] MEDS: DOCUSATE SODIUM 100 MG CAPSULE PO SCH (10:29)
[2019-06-28] MEDS: FUROSEMIDE 80 MG TABLET PO SCH (10:30)
[2019-06-28 13:13] VITALS: BP 113/54
[2019-06-28] MEDS ORDERED: WARFARIN 5 MG TABLET PO SCH (18:00)
== END 2019-06-28 14:35 | disposition home health service (06) | DRG 690 ==
LOC: N.ED 13:12 → N.EDINP 16:56 → N.2E 17:20
PROVIDERS: ADMIT Family Medicine; ATTEND Family Medicine

== ENCOUNTER 2020-01-21 14:32 | Inpatient (IN) ==
[2020-01-21] MEDS ORDERED: methylPREDNISolone SOD SUC 125 MG/2 ML VIAL IV STA (15:11)
[2020-01-21] MEDS ORDERED: ALBUTEROL NEB SOLN 5 MG/ML 20 ML/BOTTLE CONT NEB SCH (15:30)
[2020-01-21 16:00] LABS: Basophils # 0.1 10*3/uL (0.0-0.2); Basophils % 0.4 % (0.0-0.8); Eosinophils # 0.1 10*3/uL (0.0-0.87); Eosinophils % 0.9 % (0.00-10.9); Hematocrit 36.8 VOL% (35.7-47.0); Immature Granulocytes % 0.7 %; Immature Granulocytes Absolute 0.11 #; Lymphocytes # 1.2 10*3/uL (1.4-4.0); Lymphocytes % 7.6 % (21.3-54.2); Mean Corpuscular HGB Conc 29.9 GM/DL (32-36); Mean Corpuscular Volume 84.4 FL (87-102); Mean Platelet Volume 10.6 FL (9.6-12.0); Neutrophils % 84.4 % (38.7-73.9); Platelet Count 290 T/CUMM (130-400); Red Blood Count 4.36 MC/CUMM (3.8-5.5); Red Cell Distribution Width 17.2 % (9.3-17.3)
[2020-01-21 16:14] LABS: INR 3.6; PT Patient Result 36.1 SECS (9.8-11.9); Partial Thromboplastin Time 48.5 SECS (23.9-33.8)
[2020-01-21 16:19] LABS: Albumin 3.6 G/DL (3.4-5.0); Bilirubin,Total 0.5 MG/DL (0.2-1.0); Calcium 8.4 MG/DL (8.5-10.1); Osmolality,Calculated 287.7 MOS/KG (273-304); Total Protein 7.4 G/DL (6.4-8.3)
[2020-01-21] MEDS ORDERED: LEVOFLOXACIN INJ 750 MG in PREMIX 1 EACH IV STA (18:12)
[2020-01-21] MEDS ORDERED: GLUCAGON 1 MG VIAL IM PRN (21:22)
[2020-01-21] MEDS ORDERED: ACETAMINOPHEN 325 MG TABLET PO PRN (21:22)
[2020-01-21] MEDS ORDERED: DEXTROSE 50% 25 GM/50 ML SYRINGE IV PRN (21:22)
[2020-01-21] MEDS ORDERED: ALBUTEROL 2.5 MG/3 ML NEB RESP TX PRN (21:22)
[2020-01-21] MEDS ORDERED: ONDANSETRON 4 MG/2 ML VIAL IV PRN (21:22)
[2020-01-21] MEDS: methylPREDNISolone SOD SUC 125 MG/2 ML VIAL IV SCH (23:30)
[2020-01-21] MEDS: DOCUSATE SODIUM 100 MG CAPSULE PO SCH (23:30)
[2020-01-21] MEDS: INSULIN REGULAR 100 UNIT/ML SUBCUT SCH (23:31)
[2020-01-21] MEDS: SODIUM CHLORIDE 0.45% 1,000 ML IV SCH (23:33)
[2020-01-22] MEDS: ALBUTEROL/IPRATROPIUM 3 ML NEB RESP TX SCH ×4 (01:49→18:57)
[2020-01-22] MEDS: INSULIN REGULAR 100 UNIT/ML SUBCUT SCH ×5 (02:23→17:05)
[2020-01-22] MEDS: SODIUM CHLORIDE 0.45% 1,000 ML IV SCH ×2 (09:25→16:10)
[2020-01-22] MEDS: PANTOPRAZOLE 40 MG TABLET PO SCH (09:26)
[2020-01-22] MEDS: DOCUSATE SODIUM 100 MG CAPSULE PO SCH ×2 (09:26→20:32)
[2020-01-22] MEDS: methylPREDNISolone SOD SUC 125 MG/2 ML VIAL IV SCH ×2 (09:27→13:51)
[2020-01-22] MEDS ORDERED: hydrOXYzine HCL 25 MG TABLET PO PRN (15:11)
[2020-01-22] MEDS: cefTRIAXone 1,000 MG in SYRINGE 1 EACH IV SCH (16:59)
[2020-01-22] MEDS ORDERED: ALBUTEROL 2.5 MG/3 ML NEB RESP TX PRN (19:00)
[2020-01-22] MEDS: ATORVASTATIN 80 MG TABLET PO SCH (20:30)
[2020-01-22] MEDS: SPIRONOLACTONE 25 MG TABLET PO SCH (20:30)
[2020-01-22] MEDS: MONTELUKAST 10 MG TABLET PO SCH (20:30)
[2020-01-22] MEDS: METOPROLOL TARTRATE 25 MG TABLET PO SCH (20:31)
[2020-01-22] MEDS: busPIRone 5 MG TABLET PO SCH (20:32)
[2020-01-22] MEDS: INSULIN NPH/REGULAR 70/30 100 UNIT/ML SUBCUT SCH (20:32)
[2020-01-23] MEDS: INSULIN REGULAR 100 UNIT/ML SUBCUT SCH ×4 (00:32→18:26)
[2020-01-23] MEDS: ALBUTEROL/IPRATROPIUM 3 ML NEB RESP TX SCH ×4 (01:25→18:47)
[2020-01-23] MEDS: methylPREDNISolone SOD SUC 125 MG/2 ML VIAL IV SCH ×2 (02:43→15:36)
[2020-01-23] MEDS: PIOGLITAZONE 15 MG TABLET PO SCH (05:11)
[2020-01-23] MEDS: FLUTICASONE FUROATE VILANTEROL INH SCH (05:16)
[2020-01-23] MEDS: [UNRECOGNIZED DRUG - OTHER] INH SCH (05:16)
[2020-01-23 05:49] LABS: Basophils % 0.1 % (0.0-0.8); Hemoglobin 9.8 GM/DL (12.0-16.0); Immature Granulocytes % 1.4 %; Immature Granulocytes Absolute 0.21 #; Lymphocytes # 0.5 10*3/uL (1.4-4.0); Lymphocytes % 3.3 % (21.3-54.2); Mean Corpuscular HGB Conc 29.7 GM/DL (32-36); Mean Corpuscular Volume 84.6 FL (87-102); Mean Platelet Volume 10.7 FL (9.6-12.0); Monocytes % 2.9 % (1.7-12.7); Neutrophils % 92.3 % (38.7-73.9); Platelet Count 236 T/CUMM (130-400); Red Cell Distribution Width 17.2 % (9.3-17.3); White Blood Count 15.4 T/CUMM (4-12)
[2020-01-23 05:55] LABS: Calcium 8.6 MG/DL (8.5-10.1); Osmolality,Calculated 283.8 MOS/KG (273-304)
[2020-01-23 06:00] LABS: Hypochromasia 1+; Lymphocytes 6 % (20-55); Microcytosis 1+; Ovalocytes Slight; Segmented Neutrophils 93 % (50-85); Total Cells Counted 100
[2020-01-23 06:01] LABS: Platelet Estimate Normal
[2020-01-23] MEDS: PANTOPRAZOLE 40 MG TABLET PO SCH (09:37)
[2020-01-23] MEDS: SPIRONOLACTONE 25 MG TABLET PO SCH ×2 (09:37→21:07)
[2020-01-23] MEDS: busPIRone 5 MG TABLET PO SCH ×3 (09:37→21:07)
[2020-01-23] MEDS: METOPROLOL TARTRATE 25 MG TABLET PO SCH ×2 (09:38→21:09)
[2020-01-23] MEDS: POTASSIUM CHLORIDE 20 MEQ TABLET PO SCH (09:39)
[2020-01-23] MEDS: DOCUSATE SODIUM 100 MG CAPSULE PO SCH ×2 (09:39→21:07)
[2020-01-23] MEDS: lisinopriL 2.5 MG TABLET PO SCH (09:39)
[2020-01-23] MEDS: INSULIN NPH/REGULAR 70/30 100 UNIT/ML SUBCUT SCH ×2 (09:40→21:11)
[2020-01-23] MEDS: FUROSEMIDE 40 MG/4 ML VIAL IV SCH (09:40)
[2020-01-23 11:48] LABS: INR 3.4
[2020-01-23] MEDS: cefTRIAXone 1,000 MG in SYRINGE 1 EACH IV SCH (15:45)
[2020-01-23] MEDS ORDERED: WARFARIN 3 MG TABLET PO SCH (17:00)
[2020-01-23] MEDS: MONTELUKAST 10 MG TABLET PO SCH (21:07)
[2020-01-23] MEDS: ATORVASTATIN 80 MG TABLET PO SCH (21:07)
[2020-01-24] MEDS: ALBUTEROL/IPRATROPIUM 3 ML NEB RESP TX SCH ×4 (01:12→18:58)
[2020-01-24] MEDS: methylPREDNISolone SOD SUC 125 MG/2 ML VIAL IV SCH ×2 (02:50→15:54)
[2020-01-24] MEDS: [UNRECOGNIZED DRUG - OTHER] INH SCH (05:00)
[2020-01-24] MEDS: FLUTICASONE FUROATE VILANTEROL INH SCH (05:00)
[2020-01-24] MEDS: PIOGLITAZONE 15 MG TABLET PO SCH (06:00)
[2020-01-24 06:09] LABS: Calcium 8.4 MG/DL (8.5-10.1)
[2020-01-24] MEDS: INSULIN REGULAR 100 UNIT/ML SUBCUT SCH ×4 (06:33→17:51)
[2020-01-24 06:41] LABS: INR 2.8; PT Patient Result 28.2 SECS (9.8-11.9)
[2020-01-24 07:18] LABS: Basophils % 0.1 % (0.0-0.8); Eosinophils % 0.1 % (0.00-10.9); Hematocrit 31.7 VOL% (35.7-47.0); Hemoglobin 9.4 GM/DL (12.0-16.0); Immature Granulocytes % 2.1 %; Lymphocytes # 0.6 10*3/uL (1.4-4.0); Lymphocytes % 4.2 % (21.3-54.2); Mean Corpuscular HGB Conc 29.7 GM/DL (32-36); Mean Corpuscular Volume 83.9 FL (87-102); Mean Platelet Volume 10.7 FL (9.6-12.0); Monocytes % 3.2 % (1.7-12.7); Neutrophils % 90.3 % (38.7-73.9); Platelet Count 230 T/CUMM (130-400); Red Blood Count 3.78 MC/CUMM (3.8-5.5); Red Cell Distribution Width 17.3 % (9.3-17.3); White Blood Count 14.2 T/CUMM (4-12)
[2020-01-24 08:05] LABS: Band Neutrophils 1 % (0-10); Hypochromasia 2+; Lymphocytes 2 % (20-55); Microcytosis 1+; Ovalocytes Slight; Segmented Neutrophils 95 % (50-85); Total Cells Counted 100
[2020-01-24 08:06] LABS: Platelet Estimate Normal
[2020-01-24] MEDS: busPIRone 5 MG TABLET PO SCH ×3 (10:22→21:02)
[2020-01-24] MEDS: DOCUSATE SODIUM 100 MG CAPSULE PO SCH ×2 (10:22→21:01)
[2020-01-24] MEDS: POTASSIUM CHLORIDE 20 MEQ TABLET PO SCH (10:22)
[2020-01-24] MEDS: PANTOPRAZOLE 40 MG TABLET PO SCH (10:22)
[2020-01-24] MEDS ORDERED: FUROSEMIDE 20 MG/2 ML VIAL IV ONE (10:22)
[2020-01-24] MEDS: METOPROLOL TARTRATE 25 MG TABLET PO SCH ×2 (10:23→21:02)
[2020-01-24] MEDS: lisinopriL 2.5 MG TABLET PO SCH (10:23)
[2020-01-24] MEDS: SPIRONOLACTONE 25 MG TABLET PO SCH ×2 (10:23→21:01)
[2020-01-24] MEDS: INSULIN NPH/REGULAR 70/30 100 UNIT/ML SUBCUT SCH ×2 (10:25→21:02)
[2020-01-24] MEDS: FUROSEMIDE 40 MG/4 ML VIAL IV SCH (10:25)
[2020-01-24] MEDS: cefTRIAXone 1,000 MG in SYRINGE 1 EACH IV SCH (16:00)
[2020-01-24] MEDS: ATORVASTATIN 80 MG TABLET PO SCH (21:01)
[2020-01-24] MEDS: MONTELUKAST 10 MG TABLET PO SCH (21:01)
[2020-01-25] MEDS: ALBUTEROL/IPRATROPIUM 3 ML NEB RESP TX SCH ×4 (00:10→19:42)
[2020-01-25] MEDS: INSULIN REGULAR 100 UNIT/ML SUBCUT SCH ×4 (00:57→17:22)
[2020-01-25] MEDS: methylPREDNISolone SOD SUC 125 MG/2 ML VIAL IV SCH (01:09)
[2020-01-25] MEDS: PIOGLITAZONE 15 MG TABLET PO SCH (05:28)
[2020-01-25] MEDS: FLUTICASONE FUROATE VILANTEROL INH SCH (05:34)
[2020-01-25] MEDS: [UNRECOGNIZED DRUG - OTHER] INH SCH (05:34)
[2020-01-25 06:50] LABS: Calcium 8.4 MG/DL (8.5-10.1); Osmolality,Calculated 286.1 MOS/KG (273-304)
[2020-01-25 06:57] LABS: INR 1.9; PT Patient Result 19.7 SECS (9.8-11.9)
[2020-01-25 07:05] LABS: Basophils % 0.2 % (0.0-0.8); Eosinophils % 0.1 % (0.00-10.9); Hematocrit 35.9 VOL% (35.7-47.0); Hemoglobin 10.7 GM/DL (12.0-16.0); Immature Granulocytes % 4.6 %; Immature Granulocytes Absolute 0.78 #; Lymphocytes # 0.7 10*3/uL (1.4-4.0); Mean Corpuscular HGB Conc 29.8 GM/DL (32-36); Mean Corpuscular Volume 84.1 FL (87-102); Mean Platelet Volume 10.6 FL (9.6-12.0); Monocytes % 2.5 % (1.7-12.7); NRBC # 0.02 10*3/uL; Neutrophils % 88.6 % (38.7-73.9); Platelet Count 265 T/CUMM (130-400); Red Blood Count 4.27 MC/CUMM (3.8-5.5); Red Cell Distribution Width 17.3 % (9.3-17.3); White Blood Count 16.9 T/CUMM (4-12)
[2020-01-25 09:06] LABS: Band Neutrophils 1 % (0-10); Eosinophils 1 % (0-10); Lymphocytes 4 % (20-55); Metamyelocytes 1 %; Platelet Estimate Normal; Segmented Neutrophils 90 % (50-85); Total Cells Counted 100
[2020-01-25] MEDS: DOCUSATE SODIUM 100 MG CAPSULE PO SCH ×2 (09:20→20:43)
[2020-01-25] MEDS: busPIRone 5 MG TABLET PO SCH ×3 (09:20→20:44)
[2020-01-25] MEDS: lisinopriL 2.5 MG TABLET PO SCH (09:20)
[2020-01-25] MEDS: SPIRONOLACTONE 25 MG TABLET PO SCH ×2 (09:20→20:43)
[2020-01-25] MEDS: METOPROLOL TARTRATE 25 MG TABLET PO SCH ×2 (09:20→20:43)
[2020-01-25] MEDS: PANTOPRAZOLE 40 MG TABLET PO SCH (09:21)
[2020-01-25] MEDS: POTASSIUM CHLORIDE 20 MEQ TABLET PO SCH (09:21)
[2020-01-25] MEDS: INSULIN NPH/REGULAR 70/30 100 UNIT/ML SUBCUT SCH ×2 (09:24→20:43)
[2020-01-25] MEDS: FUROSEMIDE 40 MG/4 ML VIAL IV SCH (09:24)
[2020-01-25] MEDS: BUDESONIDE 0.25 MG/2 ML NEB RESP TX SCH ×2 (13:51→19:42)
[2020-01-25] MEDS: methylPREDNISolone SOD SUC 40 MG/1 ML VIAL IV SCH (16:49)
[2020-01-25] MEDS: cefTRIAXone 1,000 MG in SYRINGE 1 EACH IV SCH (16:52)
[2020-01-25] MEDS: MONTELUKAST 10 MG TABLET PO SCH (20:43)
[2020-01-25] MEDS: ATORVASTATIN 80 MG TABLET PO SCH (20:44)
[2020-01-26] MEDS: INSULIN REGULAR 100 UNIT/ML SUBCUT SCH ×4 (00:56→17:28)
[2020-01-26] MEDS: methylPREDNISolone SOD SUC 40 MG/1 ML VIAL IV SCH ×3 (00:57→16:14)
[2020-01-26] MEDS: ALBUTEROL/IPRATROPIUM 3 ML NEB RESP TX SCH ×4 (01:05→19:09)
[2020-01-26] MEDS: PIOGLITAZONE 15 MG TABLET PO SCH (05:14)
[2020-01-26 06:06] LABS: Basophils # 0.1 10*3/uL (0.0-0.2); Basophils % 0.4 % (0.0-0.8); Hematocrit 34.3 VOL% (35.7-47.0); Hemoglobin 10.1 GM/DL (12.0-16.0); Immature Granulocytes Absolute 0.68 #; Lymphocytes # 0.7 10*3/uL (1.4-4.0); Lymphocytes % 4.9 % (21.3-54.2); Mean Corpuscular HGB Conc 29.4 GM/DL (32-36); Mean Corpuscular Volume 84.3 FL (87-102); Mean Platelet Volume 10.7 FL (9.6-12.0); Monocytes % 2.6 % (1.7-12.7); Neutrophils % 87.1 % (38.7-73.9); Platelet Count 241 T/CUMM (130-400); Red Blood Count 4.07 MC/CUMM (3.8-5.5); Red Cell Distribution Width 17.2 % (9.3-17.3); White Blood Count 13.6 T/CUMM (4-12)
[2020-01-26 06:17] LABS: INR 1.5
[2020-01-26 06:30] LABS: Calcium 8.2 MG/DL (8.5-10.1); Osmolality,Calculated 279.2 MOS/KG (273-304)
[2020-01-26 06:42] LABS: Band Neutrophils 1 % (0-10); Lymphocytes 9 % (20-55); Platelet Estimate Normal; Segmented Neutrophils 87 % (50-85); Total Cells Counted 100
[2020-01-26 06:43] LABS: Anisocytosis 1+; Burr Cells Few; Hypochromasia Slight
[2020-01-26] MEDS: BUDESONIDE 0.25 MG/2 ML NEB RESP TX SCH ×2 (07:20→19:09)
[2020-01-26] MEDS: FUROSEMIDE 40 MG/4 ML VIAL IV SCH (08:51)
[2020-01-26] MEDS: busPIRone 5 MG TABLET PO SCH ×3 (08:52→21:39)
[2020-01-26] MEDS: PANTOPRAZOLE 40 MG TABLET PO SCH (08:52)
[2020-01-26] MEDS: DOCUSATE SODIUM 100 MG CAPSULE PO SCH ×2 (08:52→21:39)
[2020-01-26] MEDS: lisinopriL 10 MG TABLET PO SCH (08:52)
[2020-01-26] MEDS: SPIRONOLACTONE 25 MG TABLET PO SCH ×2 (08:53→21:39)
[2020-01-26] MEDS: METOPROLOL TARTRATE 25 MG TABLET PO SCH ×2 (08:53→21:39)
[2020-01-26] MEDS: POTASSIUM CHLORIDE 20 MEQ TABLET PO SCH (08:54)
[2020-01-26] MEDS: INSULIN NPH/REGULAR 70/30 100 UNIT/ML SUBCUT SCH ×2 (08:55→21:40)
[2020-01-26] MEDS: CETIRIZINE 10 MG TABLET PO SCH (14:50)
[2020-01-26] MEDS: cefTRIAXone 1,000 MG in SYRINGE 1 EACH IV SCH (16:13)
[2020-01-26] MEDS: ATORVASTATIN 80 MG TABLET PO SCH (21:39)
[2020-01-26] MEDS: MONTELUKAST 10 MG TABLET PO SCH (21:39)
[2020-01-27] MEDS: INSULIN REGULAR 100 UNIT/ML SUBCUT SCH ×4 (01:14→17:59)
[2020-01-27] MEDS: methylPREDNISolone SOD SUC 40 MG/1 ML VIAL IV SCH ×3 (01:14→18:00)
[2020-01-27] MEDS: INSULIN NPH/REGULAR 70/30 100 UNIT/ML SUBCUT SCH ×2 (01:22→21:43)
[2020-01-27] MEDS: ALBUTEROL/IPRATROPIUM 3 ML NEB RESP TX SCH ×4 (01:27→20:23)
[2020-01-27] MEDS: PIOGLITAZONE 15 MG TABLET PO SCH (05:21)
[2020-01-27 06:36] LABS: Basophils # 0.1 10*3/uL (0.0-0.2); Basophils % 0.3 % (0.0-0.8); Hematocrit 34.4 VOL% (35.7-47.0); Hemoglobin 10.2 GM/DL (12.0-16.0); Immature Granulocytes % 6.2 %; Immature Granulocytes Absolute 0.91 #; Lymphocytes # 0.7 10*3/uL (1.4-4.0); Lymphocytes % 4.5 % (21.3-54.2); Mean Corpuscular HGB Conc 29.7 GM/DL (32-36); Mean Corpuscular Volume 83.7 FL (87-102); Mean Platelet Volume 10.2 FL (9.6-12.0); Monocytes % 2.8 % (1.7-12.7); Neutrophils % 86.2 % (38.7-73.9); Platelet Count 232 T/CUMM (130-400); Red Blood Count 4.11 MC/CUMM (3.8-5.5); Red Cell Distribution Width 17.3 % (9.3-17.3); White Blood Count 14.7 T/CUMM (4-12)
[2020-01-27 06:44] LABS: INR 1.3; PT Patient Result 13.3 SECS (9.8-11.9)
[2020-01-27 07:03] LABS: Calcium 8.2 MG/DL (8.5-10.1); Osmolality,Calculated 286.1 MOS/KG (273-304)
[2020-01-27] MEDS: BUDESONIDE 0.25 MG/2 ML NEB RESP TX SCH ×2 (07:35→20:26)
[2020-01-27] MEDS ORDERED: WARFARIN 5 MG TABLET PO ONE (08:36)
[2020-01-27] MEDS ORDERED: FLUTICASONE 50 MCG NASAL SPRAY 16 GM BOTTLE BOTH NARES PRN (09:00)
[2020-01-27 09:10] LABS: Band Neutrophils 3 % (0-10); Lymphocytes 9 % (20-55); Myelocytes 3 %; Platelet Estimate Normal; Segmented Neutrophils 82 % (50-85); Total Cells Counted 100
[2020-01-27 09:11] LABS: Anisocytosis 2+; Ovalocytes Few; Polychromasia Slight
[2020-01-27] MEDS: DOCUSATE SODIUM 100 MG CAPSULE PO SCH ×2 (09:24→21:38)
[2020-01-27] MEDS: METOPROLOL TARTRATE 25 MG TABLET PO SCH ×2 (09:24→21:42)
[2020-01-27] MEDS: POTASSIUM CHLORIDE 20 MEQ TABLET PO SCH (09:24)
[2020-01-27] MEDS: CETIRIZINE 10 MG TABLET PO SCH (09:25)
[2020-01-27] MEDS: busPIRone 5 MG TABLET PO SCH ×3 (09:25→21:38)
[2020-01-27] MEDS: SPIRONOLACTONE 25 MG TABLET PO SCH ×2 (09:25→21:39)
[2020-01-27] MEDS: PANTOPRAZOLE 40 MG TABLET PO SCH (09:25)
[2020-01-27] MEDS: lisinopriL 10 MG TABLET PO SCH (09:25)
[2020-01-27] MEDS: FUROSEMIDE 40 MG/4 ML VIAL IV SCH (09:26)
[2020-01-27] MEDS: HEPARIN DRIP 25,000 UNITS/500 ML PREMIX IV SCH (10:03)
[2020-01-27] MEDS: cefTRIAXone 1,000 MG in SYRINGE 1 EACH IV SCH (15:17)
[2020-01-27] MEDS: MONTELUKAST 10 MG TABLET PO SCH (21:38)
[2020-01-27] MEDS: ATORVASTATIN 80 MG TABLET PO SCH (21:39)
[2020-01-28] MEDS: methylPREDNISolone SOD SUC 40 MG/1 ML VIAL IV SCH ×3 (00:44→16:35)
[2020-01-28] MEDS: INSULIN REGULAR 100 UNIT/ML SUBCUT SCH ×4 (00:50→18:15)
[2020-01-28] MEDS: ALBUTEROL/IPRATROPIUM 3 ML NEB RESP TX SCH ×4 (02:26→19:35)
[2020-01-28 06:05] LABS: Calcium 8.2 MG/DL (8.5-10.1); Osmolality,Calculated 283.4 MOS/KG (273-304)
[2020-01-28 06:07] LABS: INR 1.3; PT Patient Result 13.5 SECS (9.8-11.9)
[2020-01-28 06:15] LABS: Basophils # 0.1 10*3/uL (0.0-0.2); Basophils % 0.6 % (0.0-0.8); Eosinophils % 0.1 % (0.00-10.9); Hematocrit 35.9 VOL% (35.7-47.0); Hemoglobin 10.8 GM/DL (12.0-16.0); Immature Granulocytes % 6.7 %; Immature Granulocytes Absolute 1.18 #; Lymphocytes # 0.8 10*3/uL (1.4-4.0); Lymphocytes % 4.5 % (21.3-54.2); Mean Corpuscular HGB Conc 30.1 GM/DL (32-36); Mean Corpuscular Volume 83.9 FL (87-102); Mean Platelet Volume 11.1 FL (9.6-12.0); Monocytes % 3.9 % (1.7-12.7); NRBC # 0.02 10*3/uL; Neutrophils % 84.2 % (38.7-73.9); Platelet Count 260 T/CUMM (130-400); Red Blood Count 4.28 MC/CUMM (3.8-5.5); Red Cell Distribution Width 17.3 % (9.3-17.3); White Blood Count 17.6 T/CUMM (4-12)
[2020-01-28] MEDS: PIOGLITAZONE 15 MG TABLET PO SCH (06:22)
[2020-01-28] MEDS ORDERED: WARFARIN 5 MG TABLET PO ONE (07:25)
[2020-01-28 07:27] LABS: Anisocytosis 1+; Band Neutrophils 4 % (0-10); Lymphocytes 6 % (20-55); Metamyelocytes 3 %; Myelocytes 1 %; Platelet Estimate Normal; Segmented Neutrophils 79 % (50-85); Spherocytes Few; Total Cells Counted 100
[2020-01-28] MEDS: BUDESONIDE 0.25 MG/2 ML NEB RESP TX SCH ×2 (07:30→19:35)
[2020-01-28] MEDS: CETIRIZINE 10 MG TABLET PO SCH (08:47)
[2020-01-28] MEDS: PANTOPRAZOLE 40 MG TABLET PO SCH (08:47)
[2020-01-28] MEDS: METOPROLOL TARTRATE 25 MG TABLET PO SCH ×2 (08:47→21:20)
[2020-01-28] MEDS: POTASSIUM CHLORIDE 20 MEQ TABLET PO SCH (08:48)
[2020-01-28] MEDS: busPIRone 5 MG TABLET PO SCH ×3 (08:48→21:20)
[2020-01-28] MEDS: SPIRONOLACTONE 25 MG TABLET PO SCH ×2 (08:48→21:21)
[2020-01-28] MEDS: lisinopriL 10 MG TABLET PO SCH (08:48)
[2020-01-28] MEDS: DOCUSATE SODIUM 100 MG CAPSULE PO SCH ×2 (08:48→21:20)
[2020-01-28] MEDS: INSULIN NPH/REGULAR 70/30 100 UNIT/ML SUBCUT SCH ×2 (08:49→21:21)
[2020-01-28] MEDS: FUROSEMIDE 40 MG/4 ML VIAL IV SCH (08:50)
[2020-01-28] MEDS: HEPARIN DRIP 25,000 UNITS/500 ML PREMIX IV SCH ×2 (09:33→23:41)
[2020-01-28] MEDS: cefTRIAXone 1,000 MG in SYRINGE 1 EACH IV SCH (16:34)
[2020-01-28] MEDS: MONTELUKAST 10 MG TABLET PO SCH (21:20)
[2020-01-28] MEDS: ATORVASTATIN 80 MG TABLET PO SCH (21:20)
[2020-01-28] MEDS: NYSTATIN/TRIAMCINOLONE CREAM 15 GM TUBE TOP SCH (21:30)
[2020-01-29 01:19] LABS: Basophils # 0.1 10*3/uL (0.0-0.2); Basophils % 0.6 % (0.0-0.8); Hematocrit 36.3 VOL% (35.7-47.0); Lymphocytes # 1.2 10*3/uL (1.4-4.0); Lymphocytes % 5.6 % (21.3-54.2); Mean Corpuscular HGB Conc 30.3 GM/DL (32-36); Mean Corpuscular Volume 83.3 FL (87-102); Mean Platelet Volume 10.9 FL (9.6-12.0); Monocytes % 3.8 % (1.7-12.7); Platelet Count 281 T/CUMM (130-400); Red Blood Count 4.36 MC/CUMM (3.8-5.5); Red Cell Distribution Width 17.4 % (9.3-17.3); White Blood Count 21.6 T/CUMM (4-12)
[2020-01-29 01:29] LABS: Osmolality,Calculated 284.4 MOS/KG (273-304)
[2020-01-29 01:52] LABS: INR 1.5; PT Patient Result 15.6 SECS (9.8-11.9)
[2020-01-29] MEDS: INSULIN REGULAR 100 UNIT/ML SUBCUT SCH ×4 (01:58→17:34)
[2020-01-29] MEDS: methylPREDNISolone SOD SUC 40 MG/1 ML VIAL IV SCH ×4 (01:58→16:38)
[2020-01-29] MEDS: ALBUTEROL/IPRATROPIUM 3 ML NEB RESP TX SCH ×4 (02:16→19:46)
[2020-01-29 03:42] LABS: Band Neutrophils 4 % (0-10); Lymphocytes 6 % (20-55); Metamyelocytes 3 %; Platelet Estimate Normal; Segmented Neutrophils 83 % (50-85); Total Cells Counted 100
[2020-01-29 03:43] LABS: Hypochromasia 2+; Reactive Lymphocytes Few
[2020-01-29] MEDS: PIOGLITAZONE 15 MG TABLET PO SCH (06:24)
[2020-01-29] MEDS: BUDESONIDE 0.25 MG/2 ML NEB RESP TX SCH ×2 (07:25→19:46)
[2020-01-29] MEDS ORDERED: WARFARIN 5 MG TABLET PO ONE (08:43)
[2020-01-29] MEDS: HEPARIN DRIP 25,000 UNITS/500 ML PREMIX IV SCH ×2 (09:16→23:42)
[2020-01-29] MEDS: POTASSIUM CHLORIDE 20 MEQ TABLET PO SCH (09:17)
[2020-01-29] MEDS: lisinopriL 10 MG TABLET PO SCH (09:17)
[2020-01-29] MEDS: PANTOPRAZOLE 40 MG TABLET PO SCH (09:18)
[2020-01-29] MEDS: DOCUSATE SODIUM 100 MG CAPSULE PO SCH ×2 (09:18→21:43)
[2020-01-29] MEDS: NYSTATIN/TRIAMCINOLONE CREAM 15 GM TUBE TOP SCH ×2 (09:19→21:44)
[2020-01-29] MEDS: CETIRIZINE 10 MG TABLET PO SCH (09:19)
[2020-01-29] MEDS: METOPROLOL TARTRATE 25 MG TABLET PO SCH ×2 (09:20→21:44)
[2020-01-29] MEDS: SPIRONOLACTONE 25 MG TABLET PO SCH ×2 (09:21→21:43)
[2020-01-29] MEDS: busPIRone 5 MG TABLET PO SCH ×3 (09:21→21:43)
[2020-01-29] MEDS: FUROSEMIDE 40 MG/4 ML VIAL IV SCH (09:22)
[2020-01-29] MEDS: INSULIN NPH/REGULAR 70/30 100 UNIT/ML SUBCUT SCH ×2 (09:30→21:43)
[2020-01-29] MEDS ORDERED: WARFARIN 2 MG TABLET PO SCH (09:35)
[2020-01-29] MEDS: cefTRIAXone 1,000 MG in SYRINGE 1 EACH IV SCH (16:33)
[2020-01-29] MEDS: glipiZIDE 10 MG TABLET PO SCH (17:49)
[2020-01-29] MEDS: MONTELUKAST 10 MG TABLET PO SCH (21:42)
[2020-01-29] MEDS: ATORVASTATIN 80 MG TABLET PO SCH (21:43)
[2020-01-30] MEDS: methylPREDNISolone SOD SUC 40 MG/1 ML VIAL IV SCH ×3 (00:22→09:19)
[2020-01-30] MEDS: INSULIN REGULAR 100 UNIT/ML SUBCUT SCH ×2 (00:23→05:48)
[2020-01-30] MEDS: ALBUTEROL/IPRATROPIUM 3 ML NEB RESP TX SCH ×2 (00:43→07:18)
[2020-01-30 05:35] LABS: Basophils # 0.1 10*3/uL (0.0-0.2); Basophils % 0.5 % (0.0-0.8); Eosinophils % 0.1 % (0.00-10.9); Hematocrit 35.3 VOL% (35.7-47.0); Hemoglobin 10.5 GM/DL (12.0-16.0); Immature Granulocytes % 5.7 %; Immature Granulocytes Absolute 1.08 #; Lymphocytes % 5.2 % (21.3-54.2); Mean Corpuscular HGB Conc 29.7 GM/DL (32-36); Mean Corpuscular Volume 83.5 FL (87-102); Mean Platelet Volume 11.1 FL (9.6-12.0); Monocytes % 5.3 % (1.7-12.7); Neutrophils % 83.2 % (38.7-73.9); Platelet Count 248 T/CUMM (130-400); Red Blood Count 4.23 MC/CUMM (3.8-5.5); Red Cell Distribution Width 17.7 % (9.3-17.3); White Blood Count 18.9 T/CUMM (4-12)
[2020-01-30] MEDS: PIOGLITAZONE 15 MG TABLET PO SCH (05:48)
[2020-01-30 06:07] LABS: Calcium 8.2 MG/DL (8.5-10.1); Osmolality,Calculated 283.2 MOS/KG (273-304)
[2020-01-30 06:36] LABS: Anisocytosis 1+; Band Neutrophils 3 % (0-10); Lymphocytes 9 % (20-55); Metamyelocytes 1 %; Platelet Estimate Normal; Segmented Neutrophils 81 % (50-85); Total Cells Counted 100
[2020-01-30 06:37] LABS: Macrocytosis Slight; Ovalocytes Few
[2020-01-30] MEDS: BUDESONIDE 0.25 MG/2 ML NEB RESP TX SCH (07:18)
[2020-01-30 08:07] LABS: INR 2.4; PT Patient Result 24.5 SECS (9.8-11.9)
[2020-01-30 08:45] VITALS: BP 158/83
[2020-01-30] MEDS: METOPROLOL TARTRATE 25 MG TABLET PO SCH (09:15)
[2020-01-30] MEDS: PANTOPRAZOLE 40 MG TABLET PO SCH (09:16)
[2020-01-30] MEDS: CETIRIZINE 10 MG TABLET PO SCH (09:16)
[2020-01-30] MEDS: busPIRone 5 MG TABLET PO SCH (09:16)
[2020-01-30] MEDS: glipiZIDE 10 MG TABLET PO SCH (09:16)
[2020-01-30] MEDS: SPIRONOLACTONE 25 MG TABLET PO SCH (09:17)
[2020-01-30] MEDS: lisinopriL 10 MG TABLET PO SCH (09:17)
[2020-01-30] MEDS: INSULIN NPH/REGULAR 70/30 100 UNIT/ML SUBCUT SCH (09:18)
[2020-01-30] MEDS: FUROSEMIDE 40 MG/4 ML VIAL IV SCH (09:19)
[2020-01-30] MEDS: DOCUSATE SODIUM 100 MG CAPSULE PO SCH (09:20)
[2020-01-30] MEDS: POTASSIUM CHLORIDE 20 MEQ TABLET PO SCH (09:20)
[2020-01-30] MEDS: NYSTATIN/TRIAMCINOLONE CREAM 15 GM TUBE TOP SCH (09:24)
[2020-01-30] MEDS: HEPARIN DRIP 25,000 UNITS/500 ML PREMIX IV SCH (09:24)
[2020-01-30] MEDS ORDERED: glipiZIDE 10 MG TABLET PO SCH (17:14)
== END 2020-01-30 11:43 | disposition home health service (06) | DRG 202 ==
LOC: N.ED 14:32 → N.EDINP 18:13 → N.TELES 01-22 01:38
PROVIDERS: ADMIT Family Medicine; ATTEND Family Medicine

== ENCOUNTER 2020-03-17 15:40 | Inpatient (IN) ==
[2020-03-17] MEDS ORDERED: ONDANSETRON 4 MG/2 ML VIAL IV PRN (16:31)
[2020-03-17] MEDS ORDERED: ACETAMINOPHEN 325 MG TABLET PO PRN (16:31)
[2020-03-17] MEDS ORDERED: VANCOMYCIN INJ 1,000 MG in SODIUM CHLORIDE 0.9% 250 ML IV STA (16:35)
[2020-03-17] MEDS ORDERED: HydrOXYzine PAMOATE 25 MG CAPSULE PO STA (16:35)
[2020-03-17 17:45] LABS: Basophils # 0.1 10*3/uL (0.0-0.2); Basophils % 0.5 % (0.0-0.8); Eosinophils # 0.4 10*3/uL (0.0-0.87); Eosinophils % 2.7 % (0.00-10.9); Hematocrit 37.5 VOL% (35.7-47.0); Hemoglobin 11.2 GM/DL (12.0-16.0); Immature Granulocytes % 0.6 %; Immature Granulocytes Absolute 0.08 #; Lymphocytes # 1.4 10*3/uL (1.4-4.0); Lymphocytes % 10.3 % (21.3-54.2); Mean Corpuscular HGB Conc 29.9 GM/DL (32-36); Mean Corpuscular Volume 84.5 FL (87-102); Mean Platelet Volume 9.8 FL (9.6-12.0); Monocytes % 5.5 % (1.7-12.7); Neutrophils % 80.4 % (38.7-73.9); Platelet Count 324 T/CUMM (130-400); Red Blood Count 4.44 MC/CUMM (3.8-5.5); Red Cell Distribution Width 17.9 % (9.3-17.3); White Blood Count 13.1 T/CUMM (4-12)
[2020-03-17 17:59] LABS: Albumin 3.3 G/DL (3.4-5.0); Bilirubin,Total 0.5 MG/DL (0.2-1.0); Calcium 8.8 MG/DL (8.5-10.1); Potassium 3.5 MMOL/L (3.5-5.1); Total Protein 7.5 G/DL (6.4-8.3)
[2020-03-17] MEDS ORDERED: ALBUTEROL 2.5 MG/3 ML NEB RESP TX PRN (19:01)
[2020-03-17] MEDS ORDERED: hydrALAZINE 20 MG/1 ML VIAL IV PRN (19:04)
[2020-03-17 19:05] LABS: Bacteria,Urine Occasional /HPF (Few); Bilirubin,Urine Negative (Negative); Blood, Urine Small mg/dL (Negative); Glucose,Urine (UA) Negative (Negative); Hyaline Casts,Urine 8 /LPF (0-3); Ketones,Urine Negative (Negative); Mucus,Urine Occasional /LPF (Occasional); Nitrite,Urine Negative (Negative); Protein,Urine Negative; RBC,Urine 2 /HPF (0-4); Squamous Epithelial Cell,Urine Occasional /HPF (0-10); Urine Appearance CLEAR (Clear); Urine Color Straw (Yellow); Urine Specific Gravity 1.008 (1.001-1.035); Urine Urobilinogen < 2.0 EU/DL (0.2-1.0); WBC,Urine 1 /HPF (0-6)
[2020-03-17] MEDS ORDERED: GLUCAGON 1 MG VIAL IM PRN (19:10)
[2020-03-17] MEDS ORDERED: DEXTROSE 50% 25 GM/50 ML VIAL IV PRN (19:10)
[2020-03-17] MEDS ORDERED: WARFARIN 3 MG TABLET PO SCH (19:30)
[2020-03-17] MEDS ORDERED: INSULIN NPH/REGULAR 70/30 100 UNIT/ML SUBCUT SCH (21:00)
[2020-03-17] MEDS: FUROSEMIDE 40 MG/4 ML VIAL IV SCH (21:36)
[2020-03-17] MEDS: METOPROLOL TARTRATE 25 MG TABLET PO SCH (21:37)
[2020-03-17] MEDS: cilostazoL 50 MG TABLET PO SCH (21:37)
[2020-03-17] MEDS: PANTOPRAZOLE 40 MG TABLET PO SCH (21:38)
[2020-03-17] MEDS: busPIRone 5 MG TABLET PO SCH (21:38)
[2020-03-17] MEDS: DOCUSATE SODIUM 100 MG CAPSULE PO SCH (21:53)
[2020-03-17] MEDS: INSULIN REGULAR 100 UNIT/ML SUBCUT SCH (21:56)
[2020-03-17] MEDS: INSULIN NPH/REGULAR 70/30 100 UNIT/ML SUBCUT SCH (21:58)
[2020-03-17] MEDS: VANCOMYCIN INJ 2,000 MG in SODIUM CHLORIDE 0.9% 500 ML IV SCH (21:58)
[2020-03-17 22:10] LABS: INR 3.8; PT Patient Result 35.3 SECS (9.8-11.9)
[2020-03-18] MEDS: hydrOXYzine HCL 25 MG TABLET PO PRN (01:39)
[2020-03-18 05:11] LABS: Basophils % 0.4 % (0.0-0.8); Eosinophils # 0.4 10*3/uL (0.0-0.87); Eosinophils % 3.3 % (0.00-10.9); Hematocrit 33.1 VOL% (35.7-47.0); Hemoglobin 10.1 GM/DL (12.0-16.0); Immature Granulocytes % 0.6 %; Immature Granulocytes Absolute 0.07 #; Lymphocytes % 9.2 % (21.3-54.2); Mean Corpuscular HGB Conc 30.5 GM/DL (32-36); Mean Corpuscular Volume 82.8 FL (87-102); Mean Platelet Volume 9.8 FL (9.6-12.0); Monocytes % 6.5 % (1.7-12.7); Platelet Count 291 T/CUMM (130-400); Red Cell Distribution Width 17.9 % (9.3-17.3); White Blood Count 11.1 T/CUMM (4-12)
[2020-03-18 05:42] LABS: Calcium 8.4 MG/DL (8.5-10.1); Osmolality,Calculated 279.8 MOS/KG (273-304); Potassium 3.1 MMOL/L (3.5-5.1)
[2020-03-18] MEDS: PIOGLITAZONE 15 MG TABLET PO SCH (06:22)
[2020-03-18] MEDS: NON-FORMULARY MEDICATION (Fluticasone Furoate-Vilanterol [Breo Ellipta] 100-25 mcg/dose Bl INH SCH (06:23)
[2020-03-18] MEDS ORDERED: INSULIN NPH/REGULAR 70/30 100 UNIT/ML SUBCUT SCH (09:00)
[2020-03-18] MEDS: INSULIN NPH/REGULAR 70/30 100 UNIT/ML SUBCUT SCH ×2 (10:12→21:08)
[2020-03-18] MEDS: INSULIN REGULAR 100 UNIT/ML SUBCUT SCH ×4 (10:12→21:08)
[2020-03-18] MEDS: MONTELUKAST 10 MG TABLET PO SCH (10:12)
[2020-03-18] MEDS: SPIRONOLACTONE 25 MG TABLET PO SCH (10:13)
[2020-03-18] MEDS: cilostazoL 50 MG TABLET PO SCH ×2 (10:13→21:06)
[2020-03-18] MEDS: PANTOPRAZOLE 40 MG TABLET PO SCH (10:13)
[2020-03-18] MEDS: busPIRone 5 MG TABLET PO SCH ×3 (10:13→21:06)
[2020-03-18] MEDS: POTASSIUM CHLORIDE 20 MEQ TABLET PO SCH (10:13)
[2020-03-18] MEDS: ATORVASTATIN 80 MG TABLET PO SCH (10:13)
[2020-03-18] MEDS: FUROSEMIDE 40 MG/4 ML VIAL IV SCH ×2 (10:14→15:59)
[2020-03-18] MEDS: METOPROLOL TARTRATE 25 MG TABLET PO SCH ×2 (10:14→21:06)
[2020-03-18] MEDS: lisinopriL 10 MG TABLET PO SCH (10:14)
[2020-03-18] MEDS: DOCUSATE SODIUM 100 MG CAPSULE PO SCH ×2 (10:14→21:06)
[2020-03-18] MEDS: VANCOMYCIN INJ 2,000 MG in SODIUM CHLORIDE 0.9% 500 ML IV SCH ×2 (10:19→21:09)
[2020-03-18] MEDS: diphenhydrAMINE 50 MG/1 ML VIAL IV PRN (15:58)
[2020-03-18] MEDS ORDERED: WARFARIN 3 MG TABLET PO SCH (18:00)
[2020-03-19] MEDS: hydrOXYzine HCL 25 MG TABLET PO PRN ×2 (01:41→21:06)
[2020-03-19 05:32] LABS: Basophils % 0.4 % (0.0-0.8); Eosinophils # 0.4 10*3/uL (0.0-0.87); Eosinophils % 4.6 % (0.00-10.9); Hematocrit 31.6 VOL% (35.7-47.0); Hemoglobin 9.5 GM/DL (12.0-16.0); Immature Granulocytes % 0.9 %; Immature Granulocytes Absolute 0.08 #; Lymphocytes # 0.9 10*3/uL (1.4-4.0); Lymphocytes % 9.1 % (21.3-54.2); Mean Corpuscular HGB Conc 30.1 GM/DL (32-36); Mean Platelet Volume 9.9 FL (9.6-12.0); Monocytes % 6.3 % (1.7-12.7); Neutrophils % 78.7 % (38.7-73.9); Platelet Count 294 T/CUMM (130-400); Red Blood Count 3.76 MC/CUMM (3.8-5.5); Red Cell Distribution Width 17.9 % (9.3-17.3); White Blood Count 9.3 T/CUMM (4-12)
[2020-03-19] MEDS: PIOGLITAZONE 15 MG TABLET PO SCH (05:40)
[2020-03-19 05:41] LABS: INR 3.9; PT Patient Result 38.8 SECS (9.8-11.9)
[2020-03-19 06:09] LABS: Calcium 8.2 MG/DL (8.5-10.1); Osmolality,Calculated 278.1 MOS/KG (273-304); Potassium 3.2 MMOL/L (3.5-5.1)
[2020-03-19] MEDS: NON-FORMULARY MEDICATION (Fluticasone Furoate-Vilanterol [Breo Ellipta] 100-25 mcg/dose Bl INH SCH (06:54)
[2020-03-19] MEDS: ATORVASTATIN 80 MG TABLET PO SCH (09:57)
[2020-03-19] MEDS: INSULIN NPH/REGULAR 70/30 100 UNIT/ML SUBCUT SCH ×2 (09:57→21:08)
[2020-03-19] MEDS: DOCUSATE SODIUM 100 MG CAPSULE PO SCH ×2 (09:57→21:06)
[2020-03-19] MEDS: INSULIN REGULAR 100 UNIT/ML SUBCUT SCH ×4 (09:57→21:09)
[2020-03-19] MEDS: SPIRONOLACTONE 25 MG TABLET PO SCH (09:58)
[2020-03-19] MEDS: MONTELUKAST 10 MG TABLET PO SCH (09:58)
[2020-03-19] MEDS: POTASSIUM CHLORIDE 20 MEQ TABLET PO SCH (09:58)
[2020-03-19] MEDS: cilostazoL 50 MG TABLET PO SCH ×2 (09:58→21:06)
[2020-03-19] MEDS: PANTOPRAZOLE 40 MG TABLET PO SCH (09:58)
[2020-03-19] MEDS: METOPROLOL TARTRATE 25 MG TABLET PO SCH ×2 (09:58→21:50)
[2020-03-19] MEDS: busPIRone 5 MG TABLET PO SCH ×3 (09:58→21:07)
[2020-03-19] MEDS: lisinopriL 10 MG TABLET PO SCH (09:58)
[2020-03-19] MEDS: FUROSEMIDE 40 MG/4 ML VIAL IV SCH ×2 (10:03→16:09)
[2020-03-19] MEDS: diphenhydrAMINE 50 MG/1 ML VIAL IV PRN (10:05)
[2020-03-19] MEDS: VANCOMYCIN INJ 2,000 MG in SODIUM CHLORIDE 0.9% 500 ML IV SCH ×2 (10:06→21:11)
[2020-03-20] MEDS: PIOGLITAZONE 15 MG TABLET PO SCH (05:19)
[2020-03-20] MEDS: NON-FORMULARY MEDICATION (Fluticasone Furoate-Vilanterol [Breo Ellipta] 100-25 mcg/dose Bl INH SCH (05:20)
[2020-03-20 06:07] LABS: Basophils % 0.4 % (0.0-0.8); Eosinophils # 0.4 10*3/uL (0.0-0.87); Eosinophils % 4.7 % (0.00-10.9); Hematocrit 30.9 VOL% (35.7-47.0); Hemoglobin 9.5 GM/DL (12.0-16.0); Immature Granulocytes % 0.9 %; Immature Granulocytes Absolute 0.08 #; Lymphocytes % 10.8 % (21.3-54.2); Mean Corpuscular HGB Conc 30.7 GM/DL (32-36); Mean Corpuscular Volume 83.1 FL (87-102); Mean Platelet Volume 10.1 FL (9.6-12.0); Monocytes % 7.2 % (1.7-12.7); Platelet Count 279 T/CUMM (130-400); Red Blood Count 3.72 MC/CUMM (3.8-5.5); Red Cell Distribution Width 17.9 % (9.3-17.3); White Blood Count 9.1 T/CUMM (4-12)
[2020-03-20 06:17] LABS: INR 3.1
[2020-03-20 06:20] LABS: Calcium 8.1 MG/DL (8.5-10.1); Potassium 3.3 MMOL/L (3.5-5.1)
[2020-03-20] MEDS: INSULIN NPH/REGULAR 70/30 100 UNIT/ML SUBCUT SCH ×2 (08:55→21:48)
[2020-03-20] MEDS: INSULIN REGULAR 100 UNIT/ML SUBCUT SCH ×4 (08:56→21:49)
[2020-03-20] MEDS: cilostazoL 50 MG TABLET PO SCH ×2 (09:02→21:47)
[2020-03-20] MEDS: MONTELUKAST 10 MG TABLET PO SCH (09:02)
[2020-03-20] MEDS: lisinopriL 10 MG TABLET PO SCH (09:02)
[2020-03-20] MEDS: FUROSEMIDE 40 MG/4 ML VIAL IV SCH ×2 (09:02→15:18)
[2020-03-20] MEDS: DOCUSATE SODIUM 100 MG CAPSULE PO SCH ×2 (09:03→21:47)
[2020-03-20] MEDS: METOPROLOL TARTRATE 25 MG TABLET PO SCH ×2 (09:03→21:48)
[2020-03-20] MEDS: ATORVASTATIN 80 MG TABLET PO SCH (09:03)
[2020-03-20] MEDS: busPIRone 5 MG TABLET PO SCH ×3 (09:03→21:47)
[2020-03-20] MEDS: SPIRONOLACTONE 25 MG TABLET PO SCH (09:03)
[2020-03-20] MEDS: PANTOPRAZOLE 40 MG TABLET PO SCH (09:04)
[2020-03-20] MEDS: POTASSIUM CHLORIDE 20 MEQ TABLET PO SCH (09:04)
[2020-03-20] MEDS: VANCOMYCIN INJ 2,000 MG in SODIUM CHLORIDE 0.9% 500 ML IV SCH (10:46)
[2020-03-20] MEDS: hydrOXYzine HCL 25 MG TABLET PO PRN ×2 (15:12→21:48)
[2020-03-20] MEDS ORDERED: WARFARIN 3 MG TABLET PO SCH (18:00)
[2020-03-21] MEDS: NON-FORMULARY MEDICATION (Fluticasone Furoate-Vilanterol [Breo Ellipta] 100-25 mcg/dose Bl INH SCH (05:17)
[2020-03-21] MEDS: PIOGLITAZONE 15 MG TABLET PO SCH (05:17)
[2020-03-21] MEDS: hydrOXYzine HCL 25 MG TABLET PO PRN (05:19)
[2020-03-21 06:22] LABS: Basophils # 0.1 10*3/uL (0.0-0.2); Basophils % 0.5 % (0.0-0.8); Eosinophils # 0.5 10*3/uL (0.0-0.87); Eosinophils % 4.5 % (0.00-10.9); Immature Granulocytes % 0.7 %; Immature Granulocytes Absolute 0.07 #; Lymphocytes # 1.1 10*3/uL (1.4-4.0); Lymphocytes % 10.2 % (21.3-54.2); Mean Corpuscular HGB Conc 30.3 GM/DL (32-36); Mean Corpuscular Volume 83.5 FL (87-102); Monocytes % 7.1 % (1.7-12.7); Platelet Count 319 T/CUMM (130-400); Red Blood Count 3.95 MC/CUMM (3.8-5.5); White Blood Count 10.4 T/CUMM (4-12)
[2020-03-21 06:32] LABS: INR 2.7; PT Patient Result 27.8 SECS (9.8-11.9)
[2020-03-21 06:41] LABS: Calcium 8.2 MG/DL (8.5-10.1); Potassium 3.3 MMOL/L (3.5-5.1)
[2020-03-21] MEDS: busPIRone 5 MG TABLET PO SCH ×3 (08:41→21:03)
[2020-03-21] MEDS: ATORVASTATIN 80 MG TABLET PO SCH (08:41)
[2020-03-21] MEDS: MONTELUKAST 10 MG TABLET PO SCH (08:41)
[2020-03-21] MEDS: METOPROLOL TARTRATE 25 MG TABLET PO SCH ×2 (08:41→21:03)
[2020-03-21] MEDS: POTASSIUM CHLORIDE 20 MEQ TABLET PO SCH ×2 (08:42→21:03)
[2020-03-21] MEDS: PANTOPRAZOLE 40 MG TABLET PO SCH (08:42)
[2020-03-21] MEDS: lisinopriL 10 MG TABLET PO SCH (08:42)
[2020-03-21] MEDS: SPIRONOLACTONE 25 MG TABLET PO SCH (08:42)
[2020-03-21] MEDS: DOCUSATE SODIUM 100 MG CAPSULE PO SCH ×2 (08:42→21:03)
[2020-03-21] MEDS: cilostazoL 50 MG TABLET PO SCH ×2 (08:42→21:03)
[2020-03-21] MEDS: INSULIN REGULAR 100 UNIT/ML SUBCUT SCH ×4 (08:43→21:03)
[2020-03-21] MEDS: INSULIN NPH/REGULAR 70/30 100 UNIT/ML SUBCUT SCH ×2 (08:44→21:03)
[2020-03-21] MEDS: FUROSEMIDE 40 MG/4 ML VIAL IV SCH ×2 (08:50→15:32)
[2020-03-21] MEDS: diphenhydrAMINE 50 MG/1 ML VIAL IV PRN ×2 (09:59→22:39)
[2020-03-21] MEDS ORDERED: VANCOMYCIN INJ 2,000 MG in SODIUM CHLORIDE 0.9% 500 ML IV PRN (15:00)
[2020-03-21] MEDS ORDERED: VANCOMYCIN INJ 2,000 MG in SODIUM CHLORIDE 0.9% 500 ML IV ONE (16:00)
[2020-03-21] MEDS: WARFARIN 4 MG TABLET PO SCH (17:19)
[2020-03-22] MEDS: diphenhydrAMINE 50 MG/1 ML VIAL IV PRN (03:53)
[2020-03-22 05:37] LABS: Basophils # 0.1 10*3/uL (0.0-0.2); Basophils % 0.6 % (0.0-0.8); Eosinophils # 0.4 10*3/uL (0.0-0.87); Eosinophils % 4.3 % (0.00-10.9); Hematocrit 32.6 VOL% (35.7-47.0); Hemoglobin 9.9 GM/DL (12.0-16.0); Immature Granulocytes % 0.7 %; Immature Granulocytes Absolute 0.07 #; Lymphocytes % 10.8 % (21.3-54.2); Mean Corpuscular HGB Conc 30.4 GM/DL (32-36); Mean Corpuscular Volume 83.8 FL (87-102); Monocytes % 7.3 % (1.7-12.7); Neutrophils % 76.3 % (38.7-73.9); Platelet Count 327 T/CUMM (130-400); Red Blood Count 3.89 MC/CUMM (3.8-5.5); Red Cell Distribution Width 18.1 % (9.3-17.3); White Blood Count 9.5 T/CUMM (4-12)
[2020-03-22 06:08] LABS: Calcium 8.1 MG/DL (8.5-10.1); Osmolality,Calculated 281.8 MOS/KG (273-304); Potassium 3.6 MMOL/L (3.5-5.1)
[2020-03-22] MEDS: NON-FORMULARY MEDICATION (Fluticasone Furoate-Vilanterol [Breo Ellipta] 100-25 mcg/dose Bl INH SCH (06:11)
[2020-03-22] MEDS: PIOGLITAZONE 15 MG TABLET PO SCH (06:11)
[2020-03-22 07:23] LABS: INR 2.9; PT Patient Result 29.7 SECS (9.8-11.9)
[2020-03-22] MEDS: INSULIN REGULAR 100 UNIT/ML SUBCUT SCH ×4 (07:55→21:29)
[2020-03-22] MEDS: INSULIN NPH/REGULAR 70/30 100 UNIT/ML SUBCUT SCH ×2 (08:31→21:28)
[2020-03-22] MEDS: busPIRone 5 MG TABLET PO SCH ×3 (08:32→21:26)
[2020-03-22] MEDS: METOPROLOL TARTRATE 25 MG TABLET PO SCH ×2 (08:33→21:27)
[2020-03-22] MEDS: MONTELUKAST 10 MG TABLET PO SCH (08:33)
[2020-03-22] MEDS: DOCUSATE SODIUM 100 MG CAPSULE PO SCH ×2 (08:33→21:26)
[2020-03-22] MEDS: ATORVASTATIN 80 MG TABLET PO SCH (08:33)
[2020-03-22] MEDS: PANTOPRAZOLE 40 MG TABLET PO SCH (08:33)
[2020-03-22] MEDS: SPIRONOLACTONE 25 MG TABLET PO SCH (08:33)
[2020-03-22] MEDS: cilostazoL 50 MG TABLET PO SCH ×2 (08:34→21:27)
[2020-03-22] MEDS: POTASSIUM CHLORIDE 20 MEQ TABLET PO SCH ×2 (08:34→21:27)
[2020-03-22] MEDS: FUROSEMIDE 40 MG/4 ML VIAL IV SCH ×2 (08:49→15:55)
[2020-03-22] MEDS: lisinopriL 10 MG TABLET PO SCH (10:29)
[2020-03-22] MEDS: hydrOXYzine HCL 25 MG TABLET PO PRN (14:04)
[2020-03-22] MEDS: WARFARIN 4 MG TABLET PO SCH (17:09)
[2020-03-23] MEDS: diphenhydrAMINE 50 MG/1 ML VIAL IV PRN (00:30)
[2020-03-23] MEDS: hydrOXYzine HCL 25 MG TABLET PO PRN (01:37)
[2020-03-23] MEDS ORDERED: VANCOMYCIN INJ 2,000 MG in SODIUM CHLORIDE 0.9% 500 ML IV SCH (03:00)
[2020-03-23 04:20] LABS: Basophils # 0.1 10*3/uL (0.0-0.2); Basophils % 0.6 % (0.0-0.8); Eosinophils # 0.4 10*3/uL (0.0-0.87); Eosinophils % 3.8 % (0.00-10.9); Hematocrit 33.4 VOL% (35.7-47.0); Hemoglobin 10.2 GM/DL (12.0-16.0); Immature Granulocytes % 0.6 %; Immature Granulocytes Absolute 0.07 #; Lymphocytes # 1.2 10*3/uL (1.4-4.0); Lymphocytes % 10.5 % (21.3-54.2); Mean Corpuscular HGB Conc 30.5 GM/DL (32-36); Mean Corpuscular Volume 83.1 FL (87-102); Mean Platelet Volume 9.9 FL (9.6-12.0); Monocytes % 7.1 % (1.7-12.7); Neutrophils % 77.4 % (38.7-73.9); Platelet Count 346 T/CUMM (130-400); Red Blood Count 4.02 MC/CUMM (3.8-5.5); White Blood Count 11.1 T/CUMM (4-12)
[2020-03-23 04:37] LABS: Calcium 8.1 MG/DL (8.5-10.1); Osmolality,Calculated 277.8 MOS/KG (273-304); Potassium 3.6 MMOL/L (3.5-5.1)
[2020-03-23 04:42] LABS: INR 3.1; PT Patient Result 31.4 SECS (9.8-11.9)
[2020-03-23] MEDS: PIOGLITAZONE 15 MG TABLET PO SCH (07:14)
[2020-03-23] MEDS: NON-FORMULARY MEDICATION (Fluticasone Furoate-Vilanterol [Breo Ellipta] 100-25 mcg/dose Bl INH SCH (07:51)
[2020-03-23] MEDS: INSULIN REGULAR 100 UNIT/ML SUBCUT SCH ×2 (09:14→12:31)
[2020-03-23] MEDS: FUROSEMIDE 40 MG/4 ML VIAL IV SCH (09:14)
[2020-03-23] MEDS: DOCUSATE SODIUM 100 MG CAPSULE PO SCH (09:15)
[2020-03-23] MEDS: INSULIN NPH/REGULAR 70/30 100 UNIT/ML SUBCUT SCH (09:15)
[2020-03-23] MEDS: cilostazoL 50 MG TABLET PO SCH (09:15)
[2020-03-23] MEDS: busPIRone 5 MG TABLET PO SCH (09:15)
[2020-03-23] MEDS: lisinopriL 10 MG TABLET PO SCH (09:15)
[2020-03-23] MEDS: SPIRONOLACTONE 25 MG TABLET PO SCH (09:15)
[2020-03-23] MEDS: POTASSIUM CHLORIDE 20 MEQ TABLET PO SCH (09:16)
[2020-03-23] MEDS: ATORVASTATIN 80 MG TABLET PO SCH (09:16)
[2020-03-23] MEDS: MONTELUKAST 10 MG TABLET PO SCH (09:17)
[2020-03-23] MEDS: METOPROLOL TARTRATE 25 MG TABLET PO SCH (09:17)
[2020-03-23] MEDS: PANTOPRAZOLE 40 MG TABLET PO SCH (09:17)
[2020-03-23 11:32] VITALS: BP 122/75
== END 2020-03-23 12:43 | disposition home health service (06) | DRG 638 ==
LOC: N.EDINP 15:40 → N.ED 15:40 → N.3E 19:48
PROVIDERS: ADMIT Family Medicine; ATTEND Family Medicine

== ENCOUNTER 2020-11-27 13:34 | Inpatient (IN) ==
[2020-11-27] MEDS ORDERED: ALBUTEROL 2.5 MG/3 ML NEB RESP TX STA (13:59)
[2020-11-27] MEDS ORDERED: methylPREDNISolone SOD SUC 125 MG/2 ML VIAL IV STA (13:59)
[2020-11-27 14:50] LABS: Basophils # 0.1 10*3/uL (0.0-0.2); Basophils % 0.5 % (0.0-0.8); Eosinophils # 0.2 10*3/uL (0.0-0.87); Eosinophils % 1.3 % (0.00-10.9); Hematocrit 34.9 VOL% (35.7-47.0); Hemoglobin 10.8 GM/DL (12.0-16.0); Immature Granulocytes Absolute 0.16 #; Lymphocytes # 0.9 10*3/uL (1.4-4.0); Lymphocytes % 5.8 % (21.3-54.2); Mean Corpuscular HGB Conc 30.9 GM/DL (32-36); Mean Corpuscular Volume 84.7 FL (87-102); Mean Platelet Volume 10.9 FL (9.6-12.0); Monocytes % 7.2 % (1.7-12.7); Neutrophils % 84.2 % (38.7-73.9); Platelet Count 269 T/CUMM (130-400); Red Blood Count 4.12 MC/CUMM (3.8-5.5); Red Cell Distribution Width 16.4 % (9.3-17.3); White Blood Count 15.6 T/CUMM (4-12)
[2020-11-27 15:09] LABS: Albumin 3.3 G/DL (3.4-5.0); Bilirubin,Total 0.9 MG/DL (0.20-1.00); Calcium 8.5 MG/DL (8.5-10.1); Osmolality,Calculated 278.7 MOS/KG (273-304); PT Patient Result 73.3 SECS (10.5-12.0); Potassium 4.6 MMOL/L (3.5-5.1); Total Protein 6.9 G/DL (6.4-8.2)
[2020-11-27 15:15] LABS: INR 7.5
[2020-11-27] MEDS ORDERED: LEVOFLOXACIN INJ 500 MG/100 ML PREMIX IV STA (16:09)
[2020-11-27] MEDS ORDERED: SODIUM CHLORIDE 0.9% 500 ML IV STA (16:13)
[2020-11-27] MEDS ORDERED: DEXTROSE 50% 25 GM/50 ML VIAL IV PRN ×2 (16:15→21:42)
[2020-11-27] MEDS ORDERED: GLUCAGON 1 MG VIAL IM PRN ×2 (16:15→21:42)
[2020-11-27] MEDS ORDERED: ACETAMINOPHEN 325 MG TABLET PO PRN (16:15)
[2020-11-27] MEDS ORDERED: ONDANSETRON 4 MG/2 ML VIAL IV PRN (16:15)
[2020-11-27] MEDS ORDERED: methylPREDNISolone SOD SUC 40 MG/1 ML VIAL IV SCH (16:30)
[2020-11-27] MEDS ORDERED: ALBUTEROL 2.5 MG/3 ML NEB RESP TX PRN (17:00)
[2020-11-27] MEDS: SODIUM CHLORIDE 0.9% 1,000 ML IV SCH (17:51)
[2020-11-27] MEDS ORDERED: ALBUTEROL 2.5 MG/3 ML NEB RESP TX SCH (19:00)
[2020-11-27] MEDS ORDERED: FUROSEMIDE 40 MG TABLET PO SCH (21:00)
[2020-11-27] MEDS ORDERED: INFLUENZA VIRUS VACCINE 0.5 ML SYRINGE IM ONE (21:00)
[2020-11-27] MEDS ORDERED: FUROSEMIDE 40 MG/4 ML VIAL IV ONE (21:34)
[2020-11-27] MEDS ORDERED: BUDESONIDE 0.25 MG/2 ML NEB RESP TX ONE (21:36)
[2020-11-27] MEDS: PHENYTOIN ER 100 MG CAPSULE PO SCH (21:59)
[2020-11-27] MEDS: DOCUSATE SODIUM 100 MG CAPSULE PO SCH (21:59)
[2020-11-27] MEDS: levETIRAcetam 500 MG TABLET PO SCH (21:59)
[2020-11-27] MEDS: busPIRone 5 MG TABLET PO SCH (22:00)
[2020-11-27] MEDS: METOPROLOL TARTRATE 25 MG TABLET PO SCH (22:00)
[2020-11-27] MEDS: INSULIN NPH/REGULAR 70/30 100 UNIT/ML SUBCUT SCH (22:01)
[2020-11-27] MEDS: MONTELUKAST 10 MG TABLET PO SCH (22:27)
[2020-11-28] MEDS: ALBUTEROL/IPRATROPIUM 3 ML NEB RESP TX SCH ×5 (00:21→20:02)
[2020-11-28] MEDS: cefTRIAXone 1,000 MG in SODIUM CHLORIDE 0.9% 100 ML IV SCH ×2 (02:03→23:04)
[2020-11-28] MEDS: AZITHROMYCIN INJ 500 MG in SODIUM CHLORIDE 0.9% 250 ML IV SCH (02:44)
[2020-11-28] MEDS: methylPREDNISolone SOD SUC 40 MG/1 ML VIAL IV SCH ×4 (02:44→22:22)
[2020-11-28] MEDS: SODIUM CHLORIDE 0.9% 1,000 ML IV SCH ×3 (02:49→22:23)
[2020-11-28 04:26] LABS: Basophils % 0.2 % (0.0-0.8); Hematocrit 36.5 VOL% (35.7-47.0); Hemoglobin 11.2 GM/DL (12.0-16.0); Immature Granulocytes % 1.6 %; Immature Granulocytes Absolute 0.21 #; Lymphocytes # 0.3 10*3/uL (1.4-4.0); Lymphocytes % 2.1 % (21.3-54.2); Mean Corpuscular HGB Conc 30.7 GM/DL (32-36); Mean Corpuscular Volume 85.3 FL (87-102); Mean Platelet Volume 10.8 FL (9.6-12.0); Monocytes % 2.7 % (1.7-12.7); Neutrophils % 93.4 % (38.7-73.9); Platelet Count 260 T/CUMM (130-400); Red Blood Count 4.28 MC/CUMM (3.8-5.5); Red Cell Distribution Width 16.6 % (9.3-17.3); White Blood Count 13.2 T/CUMM (4-12)
[2020-11-28 04:45] LABS: Albumin 3.2 G/DL (3.4-5.0); Bilirubin,Total 0.4 MG/DL (0.20-1.00); Osmolality,Calculated 288.8 MOS/KG (273-304); Potassium 5.3 MMOL/L (3.5-5.1); Total Protein 6.8 G/DL (6.4-8.2)
[2020-11-28 05:09] LABS: Hypochromasia 1+; Lymphocytes 4 % (20-55); Microcytosis 1+; Platelet Estimate Normal; Segmented Neutrophils 95 % (50-85); Total Cells Counted 100
[2020-11-28 05:10] LABS: Anisocytosis Slight; Ovalocytes 1+; Polychromasia Few
[2020-11-28] MEDS ORDERED: ATORVASTATIN 80 MG TABLET PO SCH (09:00)
[2020-11-28] MEDS: PANTOPRAZOLE 40 MG TABLET PO SCH (09:42)
[2020-11-28] MEDS: lisinopriL 10 MG TABLET PO SCH (09:42)
[2020-11-28] MEDS: DOCUSATE SODIUM 100 MG CAPSULE PO SCH ×2 (09:42→22:16)
[2020-11-28] MEDS: BENZONATATE 100 MG CAPSULE PO PRN ×2 (09:43→17:37)
[2020-11-28] MEDS: INSULIN REGULAR 100 UNIT/ML SUBCUT SCH ×4 (09:43→22:17)
[2020-11-28] MEDS: busPIRone 5 MG TABLET PO SCH ×2 (09:43→22:16)
[2020-11-28] MEDS: levETIRAcetam 500 MG TABLET PO SCH ×2 (09:43→22:16)
[2020-11-28] MEDS: METOPROLOL TARTRATE 25 MG TABLET PO SCH ×2 (09:43→22:16)
[2020-11-28] MEDS: FUROSEMIDE 40 MG/4 ML VIAL IV SCH (09:44)
[2020-11-28] MEDS: BUDESONIDE 0.25 MG/2 ML NEB RESP TX SCH ×2 (11:23→20:02)
[2020-11-28] MEDS: FLUTICASONE 50 MCG NASAL SPRAY 16 GM BOTTLE BOTH NARES SCH (13:07)
[2020-11-28] MEDS: BACITRACIN OINT 0.9 GM PACK TOP SCH (22:15)
[2020-11-28] MEDS: PHENYTOIN ER 100 MG CAPSULE PO SCH (22:15)
[2020-11-28] MEDS: MONTELUKAST 10 MG TABLET PO SCH (22:16)
[2020-11-28] MEDS: INSULIN NPH/REGULAR 70/30 100 UNIT/ML SUBCUT SCH (22:18)
[2020-11-28] MEDS: MICONAZOLE 2% VAG CREAM 45 GM TUBE VAG SCH (23:02)
[2020-11-29] MEDS: ALBUTEROL/IPRATROPIUM 3 ML NEB RESP TX SCH ×4 (01:16→21:36)
[2020-11-29] MEDS: methylPREDNISolone SOD SUC 40 MG/1 ML VIAL IV SCH ×3 (01:26→17:40)
[2020-11-29] MEDS: BENZONATATE 100 MG CAPSULE PO PRN ×2 (01:26→17:42)
[2020-11-29] MEDS: AZITHROMYCIN INJ 500 MG in SODIUM CHLORIDE 0.9% 250 ML IV SCH (01:30)
[2020-11-29 05:39] LABS: Basophils % 0.3 % (0.0-0.8); Hematocrit 35.1 VOL% (35.7-47.0); Hemoglobin 10.8 GM/DL (12.0-16.0); Immature Granulocytes % 2.1 %; Immature Granulocytes Absolute 0.33 #; Lymphocytes # 0.5 10*3/uL (1.4-4.0); Lymphocytes % 3.1 % (21.3-54.2); Mean Corpuscular HGB Conc 30.8 GM/DL (32-36); Mean Corpuscular Volume 85.8 FL (87-102); Mean Platelet Volume 10.3 FL (9.6-12.0); Monocytes % 4.7 % (1.7-12.7); Neutrophils % 89.8 % (38.7-73.9); Platelet Count 253 T/CUMM (130-400); Red Blood Count 4.09 MC/CUMM (3.8-5.5); Red Cell Distribution Width 16.3 % (9.3-17.3); White Blood Count 15.4 T/CUMM (4-12)
[2020-11-29 05:45] LABS: INR 4.6; PT Patient Result 46.8 SECS (10.5-12.0)
[2020-11-29 06:12] LABS: Albumin 3.2 G/DL (3.4-5.0); Bilirubin,Total 0.8 MG/DL (0.20-1.00); Calcium 7.9 MG/DL (8.5-10.1); Osmolality,Calculated 290.1 MOS/KG (273-304); Total Protein 6.6 G/DL (6.4-8.2)
[2020-11-29 06:39] LABS: Anisocytosis 1+; Band Neutrophils 4 % (0-10); Lymphocytes 5 % (20-55); Ovalocytes Few; Platelet Estimate Normal; Segmented Neutrophils 85 % (50-85); Total Cells Counted 100
[2020-11-29] MEDS: BUDESONIDE 0.25 MG/2 ML NEB RESP TX SCH ×2 (07:55→21:36)
[2020-11-29] MEDS: SODIUM CHLORIDE 0.9% 1,000 ML IV SCH ×3 (08:23→19:03)
[2020-11-29] MEDS: FUROSEMIDE 40 MG/4 ML VIAL IV SCH ×2 (08:40→15:47)
[2020-11-29] MEDS: FLUTICASONE 50 MCG NASAL SPRAY 16 GM BOTTLE BOTH NARES SCH (08:47)
[2020-11-29] MEDS: INSULIN REGULAR 100 UNIT/ML SUBCUT SCH ×4 (08:48→20:07)
[2020-11-29] MEDS: lisinopriL 10 MG TABLET PO SCH (08:49)
[2020-11-29] MEDS: DOCUSATE SODIUM 100 MG CAPSULE PO SCH ×3 (08:49→21:49)
[2020-11-29] MEDS: busPIRone 5 MG TABLET PO SCH ×2 (08:49→21:48)
[2020-11-29] MEDS: PANTOPRAZOLE 40 MG TABLET PO SCH (08:50)
[2020-11-29] MEDS: levETIRAcetam 500 MG TABLET PO SCH ×2 (08:50→21:47)
[2020-11-29] MEDS: METOPROLOL TARTRATE 25 MG TABLET PO SCH ×2 (08:50→21:48)
[2020-11-29] MEDS: BACITRACIN OINT 0.9 GM PACK TOP SCH (08:51)
[2020-11-29] MEDS: INSULIN NPH/REGULAR 70/30 100 UNIT/ML SUBCUT SCH (08:51)
[2020-11-29] MEDS ORDERED: diphenhydrAMINE CAP 25 MG CAPSULE PO PRN (15:03)
[2020-11-29] MEDS: PHENYTOIN ER 100 MG CAPSULE PO SCH (21:48)
[2020-11-29] MEDS: MONTELUKAST 10 MG TABLET PO SCH (21:49)
[2020-11-29] MEDS: cilostazoL 50 MG TABLET PO SCH (21:49)
[2020-11-29] MEDS: TEMAZEPAM 15 MG CAPSULE PO SCH (21:49)
[2020-11-29] MEDS: INSULIN GLARGINE 100 UNIT/ML SUBCUT SCH (21:56)
[2020-11-29] MEDS: MICONAZOLE 2% VAG CREAM 45 GM TUBE VAG SCH (21:59)
[2020-11-29] MEDS: cefTRIAXone 1,000 MG in SODIUM CHLORIDE 0.9% 100 ML IV SCH (22:01)
[2020-11-30] MEDS: ALBUTEROL/IPRATROPIUM 3 ML NEB RESP TX SCH ×4 (00:39→19:13)
[2020-11-30] MEDS: methylPREDNISolone SOD SUC 40 MG/1 ML VIAL IV SCH ×3 (02:56→17:10)
[2020-11-30] MEDS: AZITHROMYCIN INJ 500 MG in SODIUM CHLORIDE 0.9% 250 ML IV SCH (02:56)
[2020-11-30 06:29] LABS: INR 2.1; PT Patient Result 22.2 SECS (10.5-12.0)
[2020-11-30 06:57] LABS: Albumin 3.2 G/DL (3.4-5.0); Bilirubin,Total 0.8 MG/DL (0.20-1.00); Calcium 8.3 MG/DL (8.5-10.1); Potassium 4.5 MMOL/L (3.5-5.1); Total Protein 6.6 G/DL (6.4-8.2)
[2020-11-30] MEDS: BUDESONIDE 0.25 MG/2 ML NEB RESP TX SCH ×2 (07:09→19:13)
[2020-11-30 07:27] LABS: Basophils # 0.1 10*3/uL (0.0-0.2); Basophils % 0.3 % (0.0-0.8); Eosinophils % 0.1 % (0.00-10.9); Hematocrit 36.3 VOL% (35.7-47.0); Immature Granulocytes % 2.1 %; Immature Granulocytes Absolute 0.34 #; Lymphocytes # 0.9 10*3/uL (1.4-4.0); Lymphocytes % 5.5 % (21.3-54.2); Mean Corpuscular HGB Conc 30.3 GM/DL (32-36); Mean Corpuscular Volume 86.2 FL (87-102); Mean Platelet Volume 10.5 FL (9.6-12.0); Monocytes % 6.1 % (1.7-12.7); Neutrophils % 85.9 % (38.7-73.9); Platelet Count 264 T/CUMM (130-400); Red Blood Count 4.21 MC/CUMM (3.8-5.5); Red Cell Distribution Width 16.6 % (9.3-17.3)
[2020-11-30] MEDS: DOCUSATE SODIUM 100 MG CAPSULE PO SCH ×4 (08:51→21:47)
[2020-11-30] MEDS: levETIRAcetam 500 MG TABLET PO SCH ×2 (08:52→21:37)
[2020-11-30] MEDS: cilostazoL 50 MG TABLET PO SCH ×2 (08:52→21:37)
[2020-11-30] MEDS: PANTOPRAZOLE 40 MG TABLET PO SCH (08:53)
[2020-11-30] MEDS: METOPROLOL TARTRATE 25 MG TABLET PO SCH ×2 (08:53→21:37)
[2020-11-30] MEDS: busPIRone 5 MG TABLET PO SCH ×2 (08:53→21:37)
[2020-11-30] MEDS: BACITRACIN OINT 0.9 GM PACK TOP SCH (08:54)
[2020-11-30] MEDS: FUROSEMIDE 40 MG/4 ML VIAL IV SCH ×2 (08:54→15:05)
[2020-11-30] MEDS: INSULIN REGULAR 100 UNIT/ML SUBCUT SCH ×4 (08:54→21:47)
[2020-11-30] MEDS: FLUTICASONE 50 MCG NASAL SPRAY 16 GM BOTTLE BOTH NARES SCH (08:55)
[2020-11-30] MEDS: SODIUM CHLORIDE 0.9% 1,000 ML IV SCH (08:55)
[2020-11-30] MEDS: INSULIN NPH/REGULAR 70/30 100 UNIT/ML SUBCUT SCH (08:55)
[2020-11-30] MEDS ORDERED: PHENYLEPH/MINERAL OIL/PETROLAT 57 GM TUBE TOP PRN (09:48)
[2020-11-30 10:50] LABS: Hepatitis B Core IgM Quant 0.12 Index; Hepatitis B Surface Ag Quant < 0.10 Index; Hepatitis B Surface Ag Result Non-Reactive (NonReactive); Hepatitis C Virus Ab Quant 0.02 Index; Hepatitis C Virus Ab Result Non-Reactive (NonReactive)
[2020-11-30] MEDS: WARFARIN 5 MG TABLET PO SCH (17:10)
[2020-11-30] MEDS: ARFORMOTEROL 15 MCG/2 ML NEB RESP TX SCH (19:13)
[2020-11-30] MEDS: TEMAZEPAM 15 MG CAPSULE PO SCH (21:37)
[2020-11-30] MEDS: MONTELUKAST 10 MG TABLET PO SCH (21:38)
[2020-11-30] MEDS: PHENYTOIN ER 100 MG CAPSULE PO SCH (21:38)
[2020-11-30] MEDS: INSULIN GLARGINE 100 UNIT/ML SUBCUT SCH (21:46)
[2020-11-30] MEDS: MICONAZOLE 2% VAG CREAM 45 GM TUBE VAG SCH (23:02)
[2020-12-01] MEDS: ALBUTEROL/IPRATROPIUM 3 ML NEB RESP TX SCH ×4 (00:36→19:50)
[2020-12-01] MEDS: cefTRIAXone 1,000 MG in SODIUM CHLORIDE 0.9% 100 ML IV SCH (02:12)
[2020-12-01] MEDS: methylPREDNISolone SOD SUC 40 MG/1 ML VIAL IV SCH ×3 (02:27→17:09)
[2020-12-01] MEDS: AZITHROMYCIN INJ 500 MG in SODIUM CHLORIDE 0.9% 250 ML IV SCH (02:31)
[2020-12-01 05:27] LABS: Alanine Aminotransferase 96 U/L (13-56); Albumin 3.2 G/DL (3.4-5.0); Alkaline Phosphatase 189 U/L (45-117); Aspartate Amino Transferase 60 U/L (0-37); Bilirubin,Total < 0.39 MG/DL (0.20-1.00); Blood Urea Nitrogen 26 MG/DL (7-18); Carbon Dioxide 34 MMOL/L (21-32); Estimated Glom Filtration Rate 100 ML/MIN; Glucose 181 MG/DL (74-106); Osmolality,Calculated 286.5 MOS/KG (273-304); Potassium 4.1 MMOL/L (3.5-5.1); Sodium 139 MMOL/L (136-145); Total Protein 6.5 G/DL (6.4-8.2)
[2020-12-01 05:42] LABS: INR 1.5; PT Patient Result 16.7 SECS (10.5-12.0)
[2020-12-01 05:44] LABS: Basophils % 0.3 % (0.0-0.8); Eosinophils # 0.1 10*3/uL (0.0-0.87); Eosinophils % 0.4 % (0.00-10.9); Hematocrit 35.6 VOL% (35.7-47.0); Hemoglobin 10.5 GM/DL (12.0-16.0); Immature Granulocytes % 2.6 %; Immature Granulocytes Absolute 0.33 #; Lymphocytes # 1.1 10*3/uL (1.4-4.0); Lymphocytes % 8.4 % (21.3-54.2); Mean Corpuscular HGB Conc 29.5 GM/DL (32-36); Mean Corpuscular Volume 87.3 FL (87-102); Mean Platelet Volume 10.5 FL (9.6-12.0); Monocytes % 6.2 % (1.7-12.7); Neutrophils % 82.1 % (38.7-73.9); Platelet Count 242 T/CUMM (130-400); Red Blood Count 4.08 MC/CUMM (3.8-5.5); Red Cell Distribution Width 16.7 % (9.3-17.3); White Blood Count 12.6 T/CUMM (4-12)
[2020-12-01] MEDS: ARFORMOTEROL 15 MCG/2 ML NEB RESP TX SCH ×2 (08:06→19:50)
[2020-12-01] MEDS: BUDESONIDE 0.25 MG/2 ML NEB RESP TX SCH ×2 (08:06→19:50)
[2020-12-01] MEDS: DOCUSATE SODIUM 100 MG CAPSULE PO SCH ×4 (09:09→22:59)
[2020-12-01] MEDS: levETIRAcetam 500 MG TABLET PO SCH ×2 (09:10→20:46)
[2020-12-01] MEDS: METOPROLOL TARTRATE 25 MG TABLET PO SCH ×2 (09:11→20:48)
[2020-12-01] MEDS: MULTIVITAMIN (BEROCCA) TABLET PO SCH (09:11)
[2020-12-01] MEDS: cilostazoL 50 MG TABLET PO SCH ×2 (09:12→20:48)
[2020-12-01] MEDS: PANTOPRAZOLE 40 MG TABLET PO SCH (09:13)
[2020-12-01] MEDS: busPIRone 5 MG TABLET PO SCH ×2 (09:13→20:48)
[2020-12-01] MEDS: BACITRACIN OINT 0.9 GM PACK TOP SCH (09:15)
[2020-12-01] MEDS: FLUTICASONE 50 MCG NASAL SPRAY 16 GM BOTTLE BOTH NARES SCH (09:15)
[2020-12-01] MEDS: FUROSEMIDE 40 MG/4 ML VIAL IV SCH ×2 (09:16→17:09)
[2020-12-01] MEDS: INSULIN REGULAR 100 UNIT/ML SUBCUT SCH ×4 (09:32→20:48)
[2020-12-01] MEDS: INSULIN NPH/REGULAR 70/30 100 UNIT/ML SUBCUT SCH (09:33)
[2020-12-01] MEDS: BENZONATATE 100 MG CAPSULE PO PRN ×2 (11:30→17:08)
[2020-12-01] MEDS: WARFARIN 5 MG TABLET PO SCH (17:09)
[2020-12-01] MEDS ORDERED: WARFARIN 3 MG TABLET PO ONE (18:00)
[2020-12-01] MEDS: MONTELUKAST 10 MG TABLET PO SCH (20:46)
[2020-12-01] MEDS: PHENYTOIN ER 100 MG CAPSULE PO SCH (20:47)
[2020-12-01] MEDS: TEMAZEPAM 15 MG CAPSULE PO SCH (20:48)
[2020-12-01] MEDS: INSULIN GLARGINE 100 UNIT/ML SUBCUT SCH (20:49)
[2020-12-01] MEDS: MICONAZOLE 2% VAG CREAM 45 GM TUBE VAG SCH (22:59)
[2020-12-02] MEDS: cefTRIAXone 1,000 MG in SODIUM CHLORIDE 0.9% 100 ML IV SCH ×2 (00:45→23:02)
[2020-12-02] MEDS: ALBUTEROL/IPRATROPIUM 3 ML NEB RESP TX SCH ×4 (01:18→19:20)
[2020-12-02] MEDS: methylPREDNISolone SOD SUC 40 MG/1 ML VIAL IV SCH ×3 (02:27→17:44)
[2020-12-02] MEDS: AZITHROMYCIN INJ 500 MG in SODIUM CHLORIDE 0.9% 250 ML IV SCH (02:28)
[2020-12-02] MEDS: BUDESONIDE 0.25 MG/2 ML NEB RESP TX SCH ×2 (07:05→19:20)
[2020-12-02] MEDS: ARFORMOTEROL 15 MCG/2 ML NEB RESP TX SCH ×2 (07:05→19:30)
[2020-12-02] MEDS: INSULIN NPH/REGULAR 70/30 100 UNIT/ML SUBCUT SCH (10:02)
[2020-12-02] MEDS: INSULIN REGULAR 100 UNIT/ML SUBCUT SCH ×4 (10:03→21:26)
[2020-12-02] MEDS: MULTIVITAMIN (BEROCCA) TABLET PO SCH (10:04)
[2020-12-02] MEDS: levETIRAcetam 500 MG TABLET PO SCH ×2 (10:04→21:23)
[2020-12-02] MEDS: DOCUSATE SODIUM 100 MG CAPSULE PO SCH ×4 (10:04→21:26)
[2020-12-02] MEDS: cilostazoL 50 MG TABLET PO SCH ×2 (10:05→21:23)
[2020-12-02] MEDS: busPIRone 5 MG TABLET PO SCH ×2 (10:05→21:24)
[2020-12-02] MEDS: PANTOPRAZOLE 40 MG TABLET PO SCH (10:05)
[2020-12-02] MEDS: METOPROLOL TARTRATE 25 MG TABLET PO SCH ×2 (10:05→21:24)
[2020-12-02] MEDS: FLUTICASONE 50 MCG NASAL SPRAY 16 GM BOTTLE BOTH NARES SCH (10:06)
[2020-12-02] MEDS: BACITRACIN OINT 0.9 GM PACK TOP SCH (10:06)
[2020-12-02] MEDS: FUROSEMIDE 40 MG/4 ML VIAL IV SCH ×2 (10:16→16:03)
[2020-12-02] MEDS ORDERED: FUROSEMIDE 40 MG/4 ML VIAL IV ONE (10:36)
[2020-12-02 11:19] LABS: INR 1.8; PT Patient Result 19.2 SECS (10.5-12.0)
[2020-12-02 11:27] LABS: Alanine Aminotransferase 76 U/L (13-56); Alkaline Phosphatase 180 U/L (45-117); Aspartate Amino Transferase 37 U/L (0-37); Bilirubin,Direct < 0.050 MG/DL (0.0-0.20); Bilirubin,Indirect 0.8 MG/DL (0.0-1.0); Blood Urea Nitrogen 22 MG/DL (7-18); Calcium 8.2 MG/DL (8.5-10.1); Carbon Dioxide 36 MMOL/L (21-32); Estimated Glom Filtration Rate 100 ML/MIN; Glucose 347 MG/DL (74-106); Potassium 4.2 MMOL/L (3.5-5.1); Sodium 136 MMOL/L (136-145); Total Protein 6.1 G/DL (6.4-8.2)
[2020-12-02] MEDS ORDERED: WARFARIN 2 MG TABLET PO ONE (13:24)
[2020-12-02] MEDS: WARFARIN 3 MG TABLET PO SCH (17:43)
[2020-12-02] MEDS: MONTELUKAST 10 MG TABLET PO SCH (21:24)
[2020-12-02] MEDS: TEMAZEPAM 15 MG CAPSULE PO SCH (21:24)
[2020-12-02] MEDS: PHENYTOIN ER 100 MG CAPSULE PO SCH (21:24)
[2020-12-02] MEDS: INSULIN GLARGINE 100 UNIT/ML SUBCUT SCH (21:25)
[2020-12-02] MEDS: MICONAZOLE 2% VAG CREAM 45 GM TUBE VAG SCH (21:27)
[2020-12-03] MEDS: BENZONATATE 100 MG CAPSULE PO PRN ×3 (01:17→20:54)
[2020-12-03] MEDS: methylPREDNISolone SOD SUC 40 MG/1 ML VIAL IV SCH ×4 (01:18→17:04)
[2020-12-03] MEDS: ALBUTEROL/IPRATROPIUM 3 ML NEB RESP TX SCH ×4 (01:40→19:14)
[2020-12-03] MEDS: ARFORMOTEROL 15 MCG/2 ML NEB RESP TX SCH ×2 (07:00→19:03)
[2020-12-03] MEDS: BUDESONIDE 0.25 MG/2 ML NEB RESP TX SCH ×2 (07:00→19:22)
[2020-12-03 09:07] LABS: INR 2.1; PT Patient Result 22.2 SECS (10.5-12.0)
[2020-12-03 09:09] LABS: Alanine Aminotransferase 67 U/L (13-56); Albumin 3.2 G/DL (3.4-5.0); Alkaline Phosphatase 170 U/L (45-117); Aspartate Amino Transferase 25 U/L (0-37); Bilirubin,Total < 0.39 MG/DL (0.20-1.00); Blood Urea Nitrogen 19 MG/DL (7-18); Calcium 8.5 MG/DL (8.5-10.1); Estimated Glom Filtration Rate 86 ML/MIN; Glucose 327 MG/DL (74-106); Potassium 4.1 MMOL/L (3.5-5.1); Total Protein 6.5 G/DL (6.4-8.2)
[2020-12-03] MEDS: DOCUSATE SODIUM 100 MG CAPSULE PO SCH ×4 (09:22→20:56)
[2020-12-03] MEDS: MULTIVITAMIN (BEROCCA) TABLET PO SCH (09:22)
[2020-12-03] MEDS: levETIRAcetam 500 MG TABLET PO SCH ×2 (09:22→20:55)
[2020-12-03] MEDS: PANTOPRAZOLE 40 MG TABLET PO SCH (09:23)
[2020-12-03] MEDS: cilostazoL 50 MG TABLET PO SCH ×2 (09:23→20:55)
[2020-12-03] MEDS: busPIRone 5 MG TABLET PO SCH ×2 (09:23→20:55)
[2020-12-03] MEDS: INSULIN NPH/REGULAR 70/30 100 UNIT/ML SUBCUT SCH (09:24)
[2020-12-03] MEDS: INSULIN REGULAR 100 UNIT/ML SUBCUT SCH ×4 (09:24→20:54)
[2020-12-03 09:26] LABS: Basophils # 0.1 10*3/uL (0.0-0.2); Basophils % 0.5 % (0.0-0.8); Eosinophils # 0.1 10*3/uL (0.0-0.87); Eosinophils % 0.6 % (0.00-10.9); Hematocrit 35.8 VOL% (35.7-47.0); Hemoglobin 10.7 GM/DL (12.0-16.0); Immature Granulocytes % 4.8 %; Immature Granulocytes Absolute 0.54 #; Lymphocytes # 1.3 10*3/uL (1.4-4.0); Lymphocytes % 11.4 % (21.3-54.2); Mean Corpuscular HGB Conc 29.9 GM/DL (32-36); Mean Corpuscular Volume 87.1 FL (87-102); Monocytes % 4.6 % (1.7-12.7); Neutrophils % 78.1 % (38.7-73.9); Platelet Count 231 T/CUMM (130-400); Red Blood Count 4.11 MC/CUMM (3.8-5.5); Red Cell Distribution Width 16.7 % (9.3-17.3); White Blood Count 11.1 T/CUMM (4-12)
[2020-12-03 09:27] LABS: Osmolality,Calculated 282.2 MOS/KG (273-304); Sodium 134 MMOL/L (136-145)
[2020-12-03 09:30] LABS: Carbon Dioxide 36 MMOL/L (21-32)
[2020-12-03] MEDS: METOPROLOL TARTRATE 25 MG TABLET PO SCH ×2 (09:30→20:56)
[2020-12-03] MEDS: FUROSEMIDE 40 MG/4 ML VIAL IV SCH ×2 (09:31→17:02)
[2020-12-03] MEDS: FLUTICASONE 50 MCG NASAL SPRAY 16 GM BOTTLE BOTH NARES SCH (09:34)
[2020-12-03] MEDS: BACITRACIN OINT 0.9 GM PACK TOP SCH (09:34)
[2020-12-03] MEDS: WARFARIN 3 MG TABLET PO SCH ×2 (16:56→17:04)
[2020-12-03] MEDS: INSULIN GLARGINE 100 UNIT/ML SUBCUT SCH (20:53)
[2020-12-03] MEDS: PHENYTOIN ER 100 MG CAPSULE PO SCH (20:54)
[2020-12-03] MEDS: MONTELUKAST 10 MG TABLET PO SCH (20:55)
[2020-12-03] MEDS: TEMAZEPAM 15 MG CAPSULE PO SCH (20:56)
[2020-12-03] MEDS: MICONAZOLE 2% VAG CREAM 45 GM TUBE VAG SCH (20:57)
[2020-12-03] MEDS: cefTRIAXone 1,000 MG in SODIUM CHLORIDE 0.9% 100 ML IV SCH (23:48)
[2020-12-04] MEDS: ALBUTEROL/IPRATROPIUM 3 ML NEB RESP TX SCH ×4 (01:55→18:39)
[2020-12-04] MEDS: methylPREDNISolone SOD SUC 40 MG/1 ML VIAL IV SCH ×3 (02:44→17:45)
[2020-12-04 05:15] LABS: Basophils % 0.4 % (0.0-0.8); Eosinophils # 0.2 10*3/uL (0.0-0.87); Eosinophils % 1.3 % (0.00-10.9); Hematocrit 36.6 VOL% (35.7-47.0); Hemoglobin 10.9 GM/DL (12.0-16.0); Immature Granulocytes % 2.8 %; Immature Granulocytes Absolute 0.31 #; Lymphocytes # 1.5 10*3/uL (1.4-4.0); Lymphocytes % 13.2 % (21.3-54.2); Mean Corpuscular HGB Conc 29.8 GM/DL (32-36); Mean Corpuscular Volume 86.7 FL (87-102); Mean Platelet Volume 9.8 FL (9.6-12.0); Monocytes % 5.6 % (1.7-12.7); Neutrophils % 76.7 % (38.7-73.9); Platelet Count 245 T/CUMM (130-400); Red Blood Count 4.22 MC/CUMM (3.8-5.5); Red Cell Distribution Width 16.9 % (9.3-17.3); White Blood Count 11.3 T/CUMM (4-12)
[2020-12-04 05:38] LABS: INR 2.4; PT Patient Result 25.4 SECS (10.5-12.0)
[2020-12-04 05:42] LABS: Bilirubin,Total 0.5 MG/DL (0.20-1.00); Calcium 8.3 MG/DL (8.5-10.1); Potassium 3.5 MMOL/L (3.5-5.1)
[2020-12-04 05:49] LABS: Osmolality,Calculated 278.8 MOS/KG (273-304)
[2020-12-04] MEDS: ARFORMOTEROL 15 MCG/2 ML NEB RESP TX SCH ×2 (07:03→18:39)
[2020-12-04] MEDS: BUDESONIDE 0.25 MG/2 ML NEB RESP TX SCH ×2 (07:03→18:39)
[2020-12-04] MEDS: INSULIN REGULAR 100 UNIT/ML SUBCUT SCH ×4 (08:51→22:21)
[2020-12-04] MEDS: INSULIN NPH/REGULAR 70/30 100 UNIT/ML SUBCUT SCH (08:51)
[2020-12-04] MEDS: levETIRAcetam 500 MG TABLET PO SCH ×2 (08:55→21:32)
[2020-12-04] MEDS: METOPROLOL TARTRATE 25 MG TABLET PO SCH ×2 (08:55→21:32)
[2020-12-04] MEDS: busPIRone 5 MG TABLET PO SCH ×2 (08:56→21:33)
[2020-12-04] MEDS: MULTIVITAMIN (BEROCCA) TABLET PO SCH (08:56)
[2020-12-04] MEDS: PANTOPRAZOLE 40 MG TABLET PO SCH (08:56)
[2020-12-04] MEDS: cilostazoL 50 MG TABLET PO SCH ×2 (08:56→21:32)
[2020-12-04] MEDS: DOCUSATE SODIUM 100 MG CAPSULE PO SCH ×4 (08:57→21:35)
[2020-12-04] MEDS: BACITRACIN OINT 0.9 GM PACK TOP SCH (08:57)
[2020-12-04] MEDS: FUROSEMIDE 40 MG/4 ML VIAL IV SCH ×2 (08:58→16:03)
[2020-12-04] MEDS: FLUTICASONE 50 MCG NASAL SPRAY 16 GM BOTTLE BOTH NARES SCH (08:59)
[2020-12-04] MEDS: BENZONATATE 100 MG CAPSULE PO PRN (13:31)
[2020-12-04] MEDS: NYSTATIN POWDER 15 GM BOTTLE TOP SCH ×2 (15:57→21:33)
[2020-12-04] MEDS: WARFARIN 3 MG TABLET PO SCH (17:42)
[2020-12-04] MEDS: MONTELUKAST 10 MG TABLET PO SCH (21:32)
[2020-12-04] MEDS: PHENYTOIN ER 100 MG CAPSULE PO SCH (21:33)
[2020-12-04] MEDS: TEMAZEPAM 15 MG CAPSULE PO SCH (21:33)
[2020-12-04] MEDS: MICONAZOLE 2% VAG CREAM 45 GM TUBE VAG SCH (21:34)
[2020-12-04] MEDS: INSULIN GLARGINE 100 UNIT/ML SUBCUT SCH (22:21)
[2020-12-04] MEDS: cefTRIAXone 1,000 MG in SODIUM CHLORIDE 0.9% 100 ML IV SCH (22:42)
[2020-12-05] MEDS: ACETYLCYSTEINE 20% 800 MG/4 ML VIAL RESP TX SCH
[2020-12-05] MEDS: ALBUTEROL/IPRATROPIUM 3 ML NEB RESP TX SCH ×5 (01:37→18:06)
[2020-12-05] MEDS: methylPREDNISolone SOD SUC 40 MG/1 ML VIAL IV SCH ×3 (03:16→21:20)
[2020-12-05] MEDS: ARFORMOTEROL 15 MCG/2 ML NEB RESP TX SCH ×2 (07:34→18:06)
[2020-12-05] MEDS: BUDESONIDE 0.25 MG/2 ML NEB RESP TX SCH ×2 (07:34→18:06)
[2020-12-05] MEDS: cilostazoL 50 MG TABLET PO SCH ×2 (09:12→21:20)
[2020-12-05] MEDS: DOCUSATE SODIUM 100 MG CAPSULE PO SCH ×4 (09:13→21:20)
[2020-12-05] MEDS: MULTIVITAMIN (BEROCCA) TABLET PO SCH (09:14)
[2020-12-05] MEDS: busPIRone 5 MG TABLET PO SCH ×2 (09:14→21:16)
[2020-12-05] MEDS: levETIRAcetam 500 MG TABLET PO SCH ×2 (09:14→21:18)
[2020-12-05] MEDS: PANTOPRAZOLE 40 MG TABLET PO SCH (09:14)
[2020-12-05] MEDS: METOPROLOL TARTRATE 25 MG TABLET PO SCH ×2 (09:15→21:19)
[2020-12-05] MEDS: INSULIN NPH/REGULAR 70/30 100 UNIT/ML SUBCUT SCH (09:16)
[2020-12-05] MEDS: INSULIN REGULAR 100 UNIT/ML SUBCUT SCH ×4 (09:17→21:20)
[2020-12-05] MEDS: FUROSEMIDE 40 MG/4 ML VIAL IV SCH ×2 (09:26→16:45)
[2020-12-05] MEDS: FLUTICASONE 50 MCG NASAL SPRAY 16 GM BOTTLE BOTH NARES SCH (09:26)
[2020-12-05] MEDS: NYSTATIN POWDER 15 GM BOTTLE TOP SCH ×3 (09:28→21:24)
[2020-12-05] MEDS: BACITRACIN OINT 0.9 GM PACK TOP SCH (09:31)
[2020-12-05 11:42] LABS: Basophils % 0.4 % (0.0-0.8); Eosinophils % 0.4 % (0.00-10.9); Hematocrit 37.5 VOL% (35.7-47.0); Hemoglobin 11.4 GM/DL (12.0-16.0); Immature Granulocytes % 1.4 %; Immature Granulocytes Absolute 0.16 #; Lymphocytes # 0.6 10*3/uL (1.4-4.0); Mean Corpuscular HGB Conc 30.4 GM/DL (32-36); Mean Corpuscular Volume 86.2 FL (87-102); Mean Platelet Volume 9.8 FL (9.6-12.0); Monocytes % 3.6 % (1.7-12.7); Neutrophils % 89.2 % (38.7-73.9); Platelet Count 262 T/CUMM (130-400); Red Blood Count 4.35 MC/CUMM (3.8-5.5); Red Cell Distribution Width 16.9 % (9.3-17.3); White Blood Count 11.4 T/CUMM (4-12)
[2020-12-05 12:04] LABS: INR 2.4; PT Patient Result 25.8 SECS (10.5-12.0)
[2020-12-05] MEDS: WARFARIN 5 MG TABLET PO SCH (18:02)
[2020-12-05] MEDS: THEOPHYLLINE ER (24 HR) 300 MG CAPSULE PO SCH (18:02)
[2020-12-05] MEDS: WARFARIN 2 MG TABLET PO SCH (18:02)
[2020-12-05] MEDS: MONTELUKAST 10 MG TABLET PO SCH (21:16)
[2020-12-05] MEDS: PHENYTOIN ER 100 MG CAPSULE PO SCH (21:19)
[2020-12-05] MEDS: TEMAZEPAM 15 MG CAPSULE PO SCH (21:19)
[2020-12-05] MEDS: INSULIN GLARGINE 100 UNIT/ML SUBCUT SCH (21:20)
[2020-12-06] MEDS: ACETYLCYSTEINE 20% 800 MG/4 ML VIAL RESP TX SCH ×2 (06:53→16:40)
[2020-12-06] MEDS: ALBUTEROL/IPRATROPIUM 3 ML NEB RESP TX SCH ×3 (06:53→19:20)
[2020-12-06] MEDS: BUDESONIDE 0.25 MG/2 ML NEB RESP TX SCH ×2 (06:53→19:20)
[2020-12-06] MEDS: ARFORMOTEROL 15 MCG/2 ML NEB RESP TX SCH ×2 (06:53→19:20)
[2020-12-06 07:03] LABS: Basophils # 0.1 10*3/uL (0.0-0.2); Basophils % 0.4 % (0.0-0.8); Eosinophils # 0.1 10*3/uL (0.0-0.87); Eosinophils % 0.8 % (0.00-10.9); Hematocrit 36.5 VOL% (35.7-47.0); Immature Granulocytes % 1.1 %; Immature Granulocytes Absolute 0.12 #; Lymphocytes # 1.2 10*3/uL (1.4-4.0); Mean Corpuscular HGB Conc 30.1 GM/DL (32-36); Mean Corpuscular Volume 87.3 FL (87-102); Mean Platelet Volume 9.7 FL (9.6-12.0); Monocytes % 4.9 % (1.7-12.7); Neutrophils % 81.8 % (38.7-73.9); Platelet Count 231 T/CUMM (130-400); Red Blood Count 4.18 MC/CUMM (3.8-5.5); Red Cell Distribution Width 16.9 % (9.3-17.3); White Blood Count 11.2 T/CUMM (4-12)
[2020-12-06 07:14] LABS: INR 2.6; PT Patient Result 27.7 SECS (10.5-12.0)
[2020-12-06 07:17] LABS: Alanine Aminotransferase 41 U/L (13-56); Albumin 2.9 G/DL (3.4-5.0); Alkaline Phosphatase 150 U/L (45-117); Aspartate Amino Transferase 19 U/L (0-37); Bilirubin,Total < 0.39 MG/DL (0.20-1.00); Blood Urea Nitrogen 20 MG/DL (7-18); Calcium 7.9 MG/DL (8.5-10.1); Carbon Dioxide 36 MMOL/L (21-32); Estimated Glom Filtration Rate 97 ML/MIN; Glucose 275 MG/DL (74-106); Osmolality,Calculated 280.2 MOS/KG (273-304); Potassium 3.7 MMOL/L (3.5-5.1); Sodium 134 MMOL/L (136-145); Total Protein 6.1 G/DL (6.4-8.2)
[2020-12-06] MEDS: DOCUSATE SODIUM 100 MG CAPSULE PO SCH ×4 (09:33→22:01)
[2020-12-06] MEDS: levETIRAcetam 500 MG TABLET PO SCH ×2 (09:34→22:01)
[2020-12-06] MEDS: MULTIVITAMIN (BEROCCA) TABLET PO SCH (09:34)
[2020-12-06] MEDS: cilostazoL 50 MG TABLET PO SCH ×2 (09:34→22:03)
[2020-12-06] MEDS: busPIRone 5 MG TABLET PO SCH ×2 (09:35→22:01)
[2020-12-06] MEDS: METOPROLOL TARTRATE 25 MG TABLET PO SCH ×2 (09:35→22:01)
[2020-12-06] MEDS: PANTOPRAZOLE 40 MG TABLET PO SCH (09:35)
[2020-12-06] MEDS: THEOPHYLLINE ER (24 HR) 300 MG CAPSULE PO SCH (09:36)
[2020-12-06] MEDS: BACITRACIN OINT 0.9 GM PACK TOP SCH (09:36)
[2020-12-06] MEDS: methylPREDNISolone SOD SUC 40 MG/1 ML VIAL IV SCH ×2 (09:38→22:04)
[2020-12-06] MEDS: FLUTICASONE 50 MCG NASAL SPRAY 16 GM BOTTLE BOTH NARES SCH (09:41)
[2020-12-06] MEDS: FUROSEMIDE 40 MG/4 ML VIAL IV SCH ×2 (09:41→17:57)
[2020-12-06] MEDS: INSULIN NPH/REGULAR 70/30 100 UNIT/ML SUBCUT SCH (09:42)
[2020-12-06] MEDS: INSULIN REGULAR 100 UNIT/ML SUBCUT SCH ×4 (09:42→22:01)
[2020-12-06] MEDS: NYSTATIN POWDER 15 GM BOTTLE TOP SCH ×3 (09:42→22:05)
[2020-12-06] MEDS: hydrOXYzine HCL 25 MG TABLET PO PRN (12:23)
[2020-12-06] MEDS: WARFARIN 5 MG TABLET PO SCH (17:53)
[2020-12-06] MEDS: WARFARIN 2 MG TABLET PO SCH (17:53)
[2020-12-06] MEDS: TEMAZEPAM 15 MG CAPSULE PO SCH (22:01)
[2020-12-06] MEDS: INSULIN GLARGINE 100 UNIT/ML SUBCUT SCH (22:02)
[2020-12-06] MEDS: MONTELUKAST 10 MG TABLET PO SCH (22:02)
[2020-12-06] MEDS: PHENYTOIN ER 100 MG CAPSULE PO SCH (22:02)
[2020-12-07] MEDS: BENZONATATE 100 MG CAPSULE PO PRN (00:08)
[2020-12-07] MEDS: ALBUTEROL/IPRATROPIUM 3 ML NEB RESP TX SCH ×3 (00:33→13:04)
[2020-12-07] MEDS: ACETYLCYSTEINE 20% 800 MG/4 ML VIAL RESP TX SCH ×3 (00:33→13:04)
[2020-12-07] MEDS: BUDESONIDE 0.25 MG/2 ML NEB RESP TX SCH (07:08)
[2020-12-07] MEDS: ARFORMOTEROL 15 MCG/2 ML NEB RESP TX SCH (07:08)
[2020-12-07] MEDS: hydrOXYzine HCL 25 MG TABLET PO PRN (08:13)
[2020-12-07 09:31] LABS: INR 2.8; PT Patient Result 29.1 SECS (10.5-12.0)
[2020-12-07] MEDS: DOCUSATE SODIUM 100 MG CAPSULE PO SCH ×2 (10:26→10:35)
[2020-12-07] MEDS: busPIRone 5 MG TABLET PO SCH (10:27)
[2020-12-07] MEDS: THEOPHYLLINE ER (24 HR) 300 MG CAPSULE PO SCH (10:27)
[2020-12-07] MEDS: PANTOPRAZOLE 40 MG TABLET PO SCH (10:27)
[2020-12-07] MEDS: levETIRAcetam 500 MG TABLET PO SCH (10:27)
[2020-12-07] MEDS: cilostazoL 50 MG TABLET PO SCH (10:27)
[2020-12-07] MEDS: METOPROLOL TARTRATE 25 MG TABLET PO SCH (10:27)
[2020-12-07] MEDS: INSULIN REGULAR 100 UNIT/ML SUBCUT SCH ×2 (10:28→13:02)
[2020-12-07] MEDS: MULTIVITAMIN (BEROCCA) TABLET PO SCH (10:28)
[2020-12-07] MEDS: INSULIN NPH/REGULAR 70/30 100 UNIT/ML SUBCUT SCH (10:29)
[2020-12-07] MEDS: FLUTICASONE 50 MCG NASAL SPRAY 16 GM BOTTLE BOTH NARES SCH (10:29)
[2020-12-07] MEDS: FUROSEMIDE 40 MG/4 ML VIAL IV SCH (10:29)
[2020-12-07] MEDS: methylPREDNISolone SOD SUC 40 MG/1 ML VIAL IV SCH (10:30)
[2020-12-07] MEDS: NYSTATIN POWDER 15 GM BOTTLE TOP SCH (10:35)
[2020-12-07] MEDS: BACITRACIN OINT 0.9 GM PACK TOP SCH ×2 (10:38→13:02)
[2020-12-07 11:40] VITALS: BP 123/87
== END 2020-12-07 13:45 | disposition home health service (06) | DRG 202 ==
LOC: N.ED 13:34 → N.EDINP 13:34 → N.TELES 18:15
PROVIDERS: ADMIT Family Medicine; ATTEND Family Medicine

== ENCOUNTER 2021-04-01 16:09 | Inpatient (IN) ==
[2021-04-01] MEDS ORDERED: methylPREDNISolone SOD SUC 125 MG/2 ML VIAL IV STA (18:59)
[2021-04-01] MEDS ORDERED: FUROSEMIDE 100 MG/10 ML VIAL IV STA (18:59)
[2021-04-01] MEDS ORDERED: ONDANSETRON 4 MG/2 ML VIAL IV STA (18:59)
[2021-04-01] MEDS ORDERED: ALBUTEROL NEB SOLN 5 MG/ML 20 ML/BOTTLE CONT NEB SCH (19:00)
[2021-04-01 21:05] LABS: Basophils % 0.3 % (0.0-0.8); Eosinophils # 0.3 10*3/uL (0.0-0.87); Eosinophils % 2.4 % (0.00-10.9); Hematocrit 36.6 VOL% (35.7-47.0); Hemoglobin 11.5 GM/DL (12.0-16.0); Immature Granulocytes % 0.8 %; Immature Granulocytes Absolute 0.09 #; Lymphocytes # 1.4 10*3/uL (1.4-4.0); Lymphocytes % 12.8 % (21.3-54.2); Mean Corpuscular HGB Conc 31.4 GM/DL (32-36); Mean Corpuscular Volume 88.4 FL (87-102); Mean Platelet Volume 9.3 FL (9.6-12.0); Monocytes % 6.2 % (1.7-12.7); Neutrophils % 77.5 % (38.7-73.9); Platelet Count 268 T/CUMM (130-400); Red Blood Count 4.14 MC/CUMM (3.8-5.5); Red Cell Distribution Width 15.7 % (9.3-17.3)
[2021-04-01 21:12] LABS: PT Patient Result 21.6 SECS (10.5-12.0)
[2021-04-01 21:34] LABS: Alanine Aminotransferase 27 U/L (13-56); Alkaline Phosphatase 194 U/L (45-117); Aspartate Amino Transferase 23 U/L (0-37); Bilirubin,Total < 0.39 MG/DL (0.20-1.00); Blood Urea Nitrogen 13 MG/DL (7-18); Calcium 8.3 MG/DL (8.5-10.1); Carbon Dioxide 31 MMOL/L (21-32); Estimated Glom Filtration Rate 84 ML/MIN; Glucose 149 MG/DL (74-106); Osmolality,Calculated 279.5 MOS/KG (273-304); Potassium 4.1 MMOL/L (3.5-5.1); Sodium 139 MMOL/L (136-145); Total Protein 6.1 G/DL (6.4-8.2)
[2021-04-01] MEDS ORDERED: GLUCAGON 1 MG VIAL IM PRN (22:20)
[2021-04-01] MEDS ORDERED: ONDANSETRON 4 MG/2 ML VIAL IV PRN (22:20)
[2021-04-01] MEDS ORDERED: ALBUTEROL 2.5 MG/3 ML NEB RESP TX PRN (22:20)
[2021-04-01] MEDS ORDERED: hydrOXYzine HCL 25 MG TABLET PO PRN (22:20)
[2021-04-01] MEDS ORDERED: BENZONATATE 200 MG PO PRN (22:20)
[2021-04-01] MEDS ORDERED: diphenhydrAMINE CAP 25 MG CAPSULE PO PRN (22:20)
[2021-04-01] MEDS ORDERED: busPIRone 10 MG TABLET PO PRN (22:20)
[2021-04-01] MEDS ORDERED: ACETAMINOPHEN 325 MG TABLET PO PRN (22:20)
[2021-04-01] MEDS ORDERED: DEXTROSE 10% 250 ML BAG IV PRN (22:34)
[2021-04-01] MEDS ORDERED: MORPHINE 4 MG/1 ML VIAL IV PRN (22:35)
[2021-04-02] MEDS: ALBUTEROL/IPRATROPIUM 3 ML NEB RESP TX SCH ×7 (00:48→23:52)
[2021-04-02] MEDS: methylPREDNISolone SOD SUC 40 MG/1 ML VIAL IV SCH ×4 (00:51→21:45)
[2021-04-02] MEDS: SODIUM CHLORIDE 0.9% 1,000 ML IV SCH ×2 (04:21→23:32)
[2021-04-02] MEDS: INSULIN REGULAR 100 UNIT/ML SUBCUT SCH ×4 (04:21→17:30)
[2021-04-02] MEDS ORDERED: ALBUTEROL/IPRATROPIUM 3 ML NEB RESP TX SCH (06:00)
[2021-04-02 06:01] LABS: Basophils # 0.1 10*3/uL (0.0-0.2); Basophils % 0.4 % (0.0-0.8); Eosinophils % 0.1 % (0.00-10.9); Hematocrit 32.9 VOL% (35.7-47.0); Hemoglobin 10.3 GM/DL (12.0-16.0); Immature Granulocytes % 1.2 %; Immature Granulocytes Absolute 0.15 #; Lymphocytes # 0.6 10*3/uL (1.4-4.0); Lymphocytes % 4.6 % (21.3-54.2); Mean Corpuscular HGB Conc 31.3 GM/DL (32-36); Mean Corpuscular Volume 88.7 FL (87-102); Mean Platelet Volume 9.7 FL (9.6-12.0); Monocytes % 2.6 % (1.7-12.7); Neutrophils % 91.1 % (38.7-73.9); Platelet Count 231 T/CUMM (130-400); Red Blood Count 3.71 MC/CUMM (3.8-5.5); Red Cell Distribution Width 15.5 % (9.3-17.3); White Blood Count 12.7 T/CUMM (4-12)
[2021-04-02 06:11] LABS: Albumin 2.6 G/DL (3.4-5.0); Bilirubin,Total 0.6 MG/DL (0.20-1.00); Calcium 8.1 MG/DL (8.5-10.1); Osmolality,Calculated 287.1 MOS/KG (273-304); Potassium 4.5 MMOL/L (3.5-5.1); Total Protein 6.1 G/DL (6.4-8.2)
[2021-04-02 06:25] LABS: Hypochromia 1+; Lymphocytes 5 % (20-55); Microcytosis 1+; Platelet Estimate Adequate; Segmented Neutrophils 94 % (50-85); Total Cells Counted 100
[2021-04-02] MEDS ORDERED: DOCUSATE SODIUM 100 MG CAPSULE PO SCH (09:00)
[2021-04-02] MEDS ORDERED: PANTOPRAZOLE 40 MG TABLET PO SCH (09:00)
[2021-04-02] MEDS: SPIRONOLACTONE 25 MG TABLET PO SCH (09:17)
[2021-04-02] MEDS: lisinopriL 10 MG TABLET PO SCH (09:17)
[2021-04-02] MEDS: levETIRAcetam 500 MG TABLET PO SCH ×2 (09:17→21:43)
[2021-04-02] MEDS: FUROSEMIDE 40 MG TABLET PO SCH (09:18)
[2021-04-02] MEDS: METOPROLOL TARTRATE 25 MG TABLET PO SCH ×2 (09:18→21:44)
[2021-04-02] MEDS: ATORVASTATIN 40 MG TABLET PO SCH (09:19)
[2021-04-02] MEDS: POTASSIUM CHLORIDE 20 MEQ TABLET PO SCH (09:19)
[2021-04-02] MEDS: PANTOPRAZOLE 40 MG TABLET PO SCH (09:19)
[2021-04-02] MEDS: DOCUSATE SODIUM 100 MG CAPSULE PO SCH ×2 (09:19→21:44)
[2021-04-02] MEDS: cilostazoL 50 MG TABLET PO SCH ×2 (09:19→21:43)
[2021-04-02] MEDS: WARFARIN 5 MG TABLET PO SCH (09:19)
[2021-04-02] MEDS: INSULIN NPH/REGULAR 70/30 100 UNIT/ML SUBCUT SCH (09:26)
[2021-04-02 11:36] LABS: PT Patient Result 20.8 SECS (10.5-12.0)
[2021-04-02] MEDS: DOXYCYCLINE HYCLATE INJ 100 MG in SODIUM CHLORIDE 0.9% 100 ML IV SCH ×2 (13:54→21:45)
[2021-04-02] MEDS: MONTELUKAST 10 MG TABLET PO SCH (21:44)
[2021-04-02] MEDS: PHENYTOIN ER 100 MG CAPSULE PO SCH (21:44)
[2021-04-02] MEDS ORDERED: ERGOCALCIFEROL 50,000 UNIT CAPSULE PO SCH (22:01)
[2021-04-03] MEDS: INSULIN REGULAR 100 UNIT/ML SUBCUT SCH ×4 (00:38→19:03)
[2021-04-03] MEDS: ALBUTEROL/IPRATROPIUM 3 ML NEB RESP TX SCH ×6 (03:24→23:45)
[2021-04-03 06:50] LABS: Basophils % 0.4 % (0.0-0.8); Eosinophils # 0.1 10*3/uL (0.0-0.87); Eosinophils % 0.6 % (0.00-10.9); Hematocrit 33.5 VOL% (35.7-47.0); Hemoglobin 10.6 GM/DL (12.0-16.0); Lymphocytes % 9.5 % (21.3-54.2); Mean Corpuscular HGB Conc 31.6 GM/DL (32-36); Mean Corpuscular Volume 87.9 FL (87-102); Mean Platelet Volume 9.9 FL (9.6-12.0); Monocytes % 3.7 % (1.7-12.7); Neutrophils % 84.8 % (38.7-73.9); Platelet Count 243 T/CUMM (130-400); Red Blood Count 3.81 MC/CUMM (3.8-5.5); Red Cell Distribution Width 15.3 % (9.3-17.3); White Blood Count 10.2 T/CUMM (4-12)
[2021-04-03 06:55] LABS: INR 2.2; PT Patient Result 23.4 SECS (10.5-12.0)
[2021-04-03 07:12] LABS: Albumin 2.6 G/DL (3.4-5.0); Bilirubin,Total 0.5 MG/DL (0.20-1.00); Calcium 8.4 MG/DL (8.5-10.1); Potassium 4.1 MMOL/L (3.5-5.1); Total Protein 6.3 G/DL (6.4-8.2)
[2021-04-03] MEDS: SPIRONOLACTONE 25 MG TABLET PO SCH (09:12)
[2021-04-03] MEDS: POTASSIUM CHLORIDE 20 MEQ TABLET PO SCH (09:12)
[2021-04-03] MEDS: DOCUSATE SODIUM 100 MG CAPSULE PO SCH ×2 (09:12→20:42)
[2021-04-03] MEDS: METOPROLOL TARTRATE 25 MG TABLET PO SCH ×2 (09:13→20:41)
[2021-04-03] MEDS: lisinopriL 10 MG TABLET PO SCH (09:13)
[2021-04-03] MEDS: FUROSEMIDE 40 MG TABLET PO SCH (09:13)
[2021-04-03] MEDS: cilostazoL 50 MG TABLET PO SCH ×2 (09:13→20:41)
[2021-04-03] MEDS: levETIRAcetam 500 MG TABLET PO SCH ×2 (09:13→20:41)
[2021-04-03] MEDS: ATORVASTATIN 40 MG TABLET PO SCH (09:13)
[2021-04-03] MEDS: methylPREDNISolone SOD SUC 40 MG/1 ML VIAL IV SCH ×2 (09:17→20:40)
[2021-04-03] MEDS: INSULIN NPH/REGULAR 70/30 100 UNIT/ML SUBCUT SCH (09:17)
[2021-04-03] MEDS: PANTOPRAZOLE 40 MG TABLET PO SCH (09:19)
[2021-04-03] MEDS: DOXYCYCLINE HYCLATE INJ 100 MG in SODIUM CHLORIDE 0.9% 100 ML IV SCH ×2 (11:52→22:20)
[2021-04-03] MEDS: WARFARIN 5 MG TABLET PO SCH ×2 (17:55→20:42)
[2021-04-03] MEDS: NYSTATIN POWDER 15 GM BOTTLE TOP SCH ×2 (17:55→20:42)
[2021-04-03] MEDS: PHENYTOIN ER 100 MG CAPSULE PO SCH (20:41)
[2021-04-03] MEDS: MONTELUKAST 10 MG TABLET PO SCH (20:41)
[2021-04-03] MEDS: SODIUM CHLORIDE 0.9% 1,000 ML IV SCH (22:26)
[2021-04-04] MEDS: INSULIN REGULAR 100 UNIT/ML SUBCUT SCH ×4 (01:09→18:05)
[2021-04-04] MEDS: ALBUTEROL/IPRATROPIUM 3 ML NEB RESP TX SCH ×6 (03:46→23:24)
[2021-04-04 06:52] LABS: Basophils # 0.1 10*3/uL (0.0-0.2); Basophils % 0.5 % (0.0-0.8); Eosinophils # 0.1 10*3/uL (0.0-0.87); Eosinophils % 0.8 % (0.00-10.9); Hematocrit 35.1 VOL% (35.7-47.0); Hemoglobin 11.1 GM/DL (12.0-16.0); Immature Granulocytes % 1.2 %; Immature Granulocytes Absolute 0.12 #; Lymphocytes # 1.4 10*3/uL (1.4-4.0); Lymphocytes % 13.9 % (21.3-54.2); Mean Corpuscular HGB Conc 31.6 GM/DL (32-36); Mean Corpuscular Volume 89.3 FL (87-102); Mean Platelet Volume 9.7 FL (9.6-12.0); Monocytes % 5.3 % (1.7-12.7); Neutrophils % 78.3 % (38.7-73.9); Platelet Count 260 T/CUMM (130-400); Red Blood Count 3.93 MC/CUMM (3.8-5.5); Red Cell Distribution Width 15.4 % (9.3-17.3); White Blood Count 10.2 T/CUMM (4-12)
[2021-04-04 07:09] LABS: Albumin 2.8 G/DL (3.4-5.0); Bilirubin,Total 0.5 MG/DL (0.20-1.00); Calcium 8.6 MG/DL (8.5-10.1); Osmolality,Calculated 276.1 MOS/KG (273-304); Potassium 4.4 MMOL/L (3.5-5.1); Total Protein 6.6 G/DL (6.4-8.2)
[2021-04-04 07:14] LABS: INR 1.9; PT Patient Result 20.4 SECS (10.5-12.0)
[2021-04-04] MEDS: cilostazoL 50 MG TABLET PO SCH ×2 (09:22→21:33)
[2021-04-04] MEDS: levETIRAcetam 500 MG TABLET PO SCH ×2 (09:22→21:33)
[2021-04-04] MEDS: METOPROLOL TARTRATE 25 MG TABLET PO SCH ×2 (09:22→21:33)
[2021-04-04] MEDS: DOCUSATE SODIUM 100 MG CAPSULE PO SCH ×2 (09:22→21:33)
[2021-04-04] MEDS: ATORVASTATIN 40 MG TABLET PO SCH (09:22)
[2021-04-04] MEDS: POTASSIUM CHLORIDE 20 MEQ TABLET PO SCH (09:22)
[2021-04-04] MEDS: lisinopriL 10 MG TABLET PO SCH (09:23)
[2021-04-04] MEDS: SPIRONOLACTONE 25 MG TABLET PO SCH (09:23)
[2021-04-04] MEDS: FUROSEMIDE 40 MG TABLET PO SCH (09:23)
[2021-04-04] MEDS: PANTOPRAZOLE 40 MG TABLET PO SCH (09:24)
[2021-04-04] MEDS: DOXYCYCLINE HYCLATE INJ 100 MG in SODIUM CHLORIDE 0.9% 100 ML IV SCH ×2 (09:28→21:34)
[2021-04-04] MEDS: NYSTATIN POWDER 15 GM BOTTLE TOP SCH ×3 (09:28→21:35)
[2021-04-04] MEDS: methylPREDNISolone SOD SUC 40 MG/1 ML VIAL IV SCH ×2 (09:30→21:34)
[2021-04-04] MEDS: INSULIN NPH/REGULAR 70/30 100 UNIT/ML SUBCUT SCH (09:31)
[2021-04-04] MEDS: PHENYTOIN ER 100 MG CAPSULE PO SCH (21:33)
[2021-04-04] MEDS: WARFARIN 5 MG TABLET PO SCH (21:33)
[2021-04-04] MEDS: MONTELUKAST 10 MG TABLET PO SCH (21:38)
[2021-04-05] MEDS: INSULIN REGULAR 100 UNIT/ML SUBCUT SCH ×5 (00:58→23:48)
[2021-04-05] MEDS: ALBUTEROL/IPRATROPIUM 3 ML NEB RESP TX SCH ×6 (03:15→23:15)
[2021-04-05 04:39] LABS: Basophils % 0.4 % (0.0-0.8); Eosinophils % 0.4 % (0.00-10.9); Hematocrit 32.6 VOL% (35.7-47.0); Hemoglobin 10.2 GM/DL (12.0-16.0); Immature Granulocytes % 1.6 %; Immature Granulocytes Absolute 0.16 #; Lymphocytes % 9.5 % (21.3-54.2); Mean Corpuscular HGB Conc 31.3 GM/DL (32-36); Mean Corpuscular Volume 88.3 FL (87-102); Mean Platelet Volume 9.3 FL (9.6-12.0); Monocytes % 3.1 % (1.7-12.7); Platelet Count 241 T/CUMM (130-400); Red Blood Count 3.69 MC/CUMM (3.8-5.5); Red Cell Distribution Width 15.3 % (9.3-17.3); White Blood Count 10.2 T/CUMM (4-12)
[2021-04-05 04:48] LABS: PT Patient Result 21.8 SECS (10.5-12.0)
[2021-04-05 04:55] LABS: Albumin 2.5 G/DL (3.4-5.0); Bilirubin,Total 0.4 MG/DL (0.20-1.00); Osmolality,Calculated 283.1 MOS/KG (273-304); Potassium 4.3 MMOL/L (3.5-5.1); Total Protein 5.8 G/DL (6.4-8.2)
[2021-04-05] MEDS: SPIRONOLACTONE 25 MG TABLET PO SCH (09:01)
[2021-04-05] MEDS: levETIRAcetam 500 MG TABLET PO SCH ×2 (09:02→21:54)
[2021-04-05] MEDS: POTASSIUM CHLORIDE 20 MEQ TABLET PO SCH (09:02)
[2021-04-05] MEDS: ATORVASTATIN 40 MG TABLET PO SCH (09:02)
[2021-04-05] MEDS: lisinopriL 10 MG TABLET PO SCH (09:02)
[2021-04-05] MEDS: METOPROLOL TARTRATE 25 MG TABLET PO SCH ×2 (09:02→21:55)
[2021-04-05] MEDS: FUROSEMIDE 40 MG TABLET PO SCH (09:03)
[2021-04-05] MEDS: DOXYCYCLINE HYCLATE INJ 100 MG in SODIUM CHLORIDE 0.9% 100 ML IV SCH ×2 (09:03→21:56)
[2021-04-05] MEDS: INSULIN NPH/REGULAR 70/30 100 UNIT/ML SUBCUT SCH (09:03)
[2021-04-05] MEDS: methylPREDNISolone SOD SUC 40 MG/1 ML VIAL IV SCH ×2 (09:03→21:55)
[2021-04-05] MEDS: PANTOPRAZOLE 40 MG TABLET PO SCH (09:03)
[2021-04-05] MEDS: DOCUSATE SODIUM 100 MG CAPSULE PO SCH ×2 (09:03→21:54)
[2021-04-05] MEDS: cilostazoL 50 MG TABLET PO SCH ×2 (09:03→21:54)
[2021-04-05] MEDS: NYSTATIN POWDER 15 GM BOTTLE TOP SCH ×3 (09:07→21:56)
[2021-04-05] MEDS: SODIUM CHLORIDE 0.9% 1,000 ML IV SCH ×3 (09:08→23:50)
[2021-04-05] MEDS ORDERED: WARFARIN 3 MG TABLET PO SCH (21:00)
[2021-04-05] MEDS: MONTELUKAST 10 MG TABLET PO SCH (21:54)
[2021-04-05] MEDS: PHENYTOIN ER 100 MG CAPSULE PO SCH (21:55)
[2021-04-06] MEDS: ALBUTEROL/IPRATROPIUM 3 ML NEB RESP TX SCH ×2 (04:00→07:05)
[2021-04-06 05:25] LABS: Basophils # 0.1 10*3/uL (0.0-0.2); Basophils % 0.5 % (0.0-0.8); Eosinophils # 0.1 10*3/uL (0.0-0.87); Eosinophils % 0.6 % (0.00-10.9); Hematocrit 33.1 VOL% (35.7-47.0); Hemoglobin 10.4 GM/DL (12.0-16.0); INR 2.2; Immature Granulocytes % 1.6 %; Immature Granulocytes Absolute 0.19 #; Lymphocytes # 1.6 10*3/uL (1.4-4.0); Lymphocytes % 13.3 % (21.3-54.2); Mean Corpuscular HGB Conc 31.4 GM/DL (32-36); Mean Platelet Volume 9.6 FL (9.6-12.0); Monocytes % 4.4 % (1.7-12.7); Neutrophils % 79.6 % (38.7-73.9); PT Patient Result 23.3 SECS (10.5-12.0); Platelet Count 253 T/CUMM (130-400); Red Blood Count 3.76 MC/CUMM (3.8-5.5); Red Cell Distribution Width 15.3 % (9.3-17.3); White Blood Count 11.7 T/CUMM (4-12)
[2021-04-06] MEDS: INSULIN REGULAR 100 UNIT/ML SUBCUT SCH ×2 (05:42→12:49)
[2021-04-06 05:54] LABS: Alanine Aminotransferase 19 U/L (13-56); Albumin 2.5 G/DL (3.4-5.0); Alkaline Phosphatase 162 U/L (45-117); Aspartate Amino Transferase 11 U/L (0-37); Bilirubin,Total < 0.39 MG/DL (0.20-1.00); Blood Urea Nitrogen 26 MG/DL (7-18); Calcium 8.7 MG/DL (8.5-10.1); Carbon Dioxide 29 MMOL/L (21-32); Estimated Glom Filtration Rate 82 ML/MIN; Glucose 238 MG/DL (74-106); Osmolality,Calculated 278.4 MOS/KG (273-304); Potassium 4.1 MMOL/L (3.5-5.1); Sodium 133 MMOL/L (136-145); Total Protein 5.8 G/DL (6.4-8.2)
[2021-04-06] MEDS: SPIRONOLACTONE 25 MG TABLET PO SCH (09:01)
[2021-04-06] MEDS: cilostazoL 50 MG TABLET PO SCH (09:01)
[2021-04-06] MEDS: lisinopriL 10 MG TABLET PO SCH (09:01)
[2021-04-06] MEDS: INSULIN NPH/REGULAR 70/30 100 UNIT/ML SUBCUT SCH (09:02)
[2021-04-06] MEDS: POTASSIUM CHLORIDE 20 MEQ TABLET PO SCH (09:02)
[2021-04-06] MEDS: ATORVASTATIN 40 MG TABLET PO SCH (09:02)
[2021-04-06] MEDS: DOCUSATE SODIUM 100 MG CAPSULE PO SCH (09:02)
[2021-04-06] MEDS: FUROSEMIDE 40 MG TABLET PO SCH (09:02)
[2021-04-06] MEDS: METOPROLOL TARTRATE 25 MG TABLET PO SCH (09:02)
[2021-04-06] MEDS: levETIRAcetam 500 MG TABLET PO SCH (09:02)
[2021-04-06] MEDS: PANTOPRAZOLE 40 MG TABLET PO SCH (09:02)
[2021-04-06] MEDS: methylPREDNISolone SOD SUC 40 MG/1 ML VIAL IV SCH (09:03)
[2021-04-06] MEDS: DOXYCYCLINE HYCLATE INJ 100 MG in SODIUM CHLORIDE 0.9% 100 ML IV SCH (09:03)
[2021-04-06] MEDS: NYSTATIN POWDER 15 GM BOTTLE TOP SCH (09:04)
[2021-04-06 11:30] VITALS: BP 130/63
== END 2021-04-06 15:14 | disposition home health service (06) | DRG 202 ==
LOC: N.EDINP 16:09 → N.ED 16:09 → N.3E 04-02 01:11
PROVIDERS: ADMIT Family Medicine; ATTEND Family Medicine

== ENCOUNTER 2021-07-25 12:54 | Inpatient (IN) ==
[2021-07-25] MEDS ORDERED: LEVOFLOXACIN INJ 750 MG/150 ML PREMIX IV STA (13:26)
[2021-07-25] MEDS ORDERED: ALBUTEROL NEB SOLN 5 MG/ML 20 ML/BOTTLE CONT NEB SCH (13:30)
[2021-07-25] MEDS ORDERED: ALBUTEROL 2.5 MG/3 ML NEB RESP TX ONE (13:35)
[2021-07-25] MEDS ORDERED: methylPREDNISolone SOD SUC 40 MG/1 ML VIAL IV STA (13:50)
[2021-07-25 14:27] LABS: Basophils % 0.2 % (0.0-0.8); Eosinophils # 0.1 10*3/uL (0.0-0.87); Eosinophils % 0.3 % (0.00-10.9); Hematocrit 35.4 VOL% (35.7-47.0); Hemoglobin 11.3 GM/DL (12.0-16.0); Immature Granulocytes % 0.6 %; Immature Granulocytes Absolute 0.12 #; Lymphocytes # 0.7 10*3/uL (1.4-4.0); Lymphocytes % 3.9 % (21.3-54.2); Mean Corpuscular HGB Conc 31.9 GM/DL (32-36); Mean Corpuscular Volume 88.3 FL (87-102); Monocytes # 0.8 10*3/uL (0.11-0.8); Monocytes % 4.4 % (1.7-12.7); Neutrophils % 90.6 % (38.7-73.9); Platelet Count 211 T/CUMM (130-400); Red Blood Count 4.01 MC/CUMM (3.8-5.5); Red Cell Distribution Width 14.7 % (9.3-17.3); White Blood Count 18.5 T/CUMM (4-12)
[2021-07-25] MEDS ORDERED: ACETAMINOPHEN 500 MG TABLET ONE (14:39)
[2021-07-25] MEDS ORDERED: ACETAMINOPHEN 500 MG TABLET PO STA (14:40)
[2021-07-25] MEDS ORDERED: GLUCAGON 1 MG VIAL IM PRN (14:52)
[2021-07-25] MEDS ORDERED: ONDANSETRON 4 MG/2 ML VIAL IV PRN (14:52)
[2021-07-25] MEDS ORDERED: ACETAMINOPHEN 325 MG TABLET PO PRN (14:52)
[2021-07-25 14:53] LABS: Eosinophils 1 % (0-10); Lymphocytes 2 % (20-55); Total Cells Counted 100
[2021-07-25 14:54] LABS: Platelet Estimate Increased; Polychromasia Slight
[2021-07-25 14:55] LABS: Albumin 3.2 G/DL (3.4-5.0); Bilirubin,Total 0.5 MG/DL (0.20-1.00); Calcium 8.2 MG/DL (8.5-10.1); Osmolality,Calculated 273.2 MOS/KG (273-304); Potassium 4.4 MMOL/L (3.5-5.1); Total Protein 6.2 G/DL (6.4-8.2)
[2021-07-25] MEDS ORDERED: DEXTROSE 10% 250 ML BAG IV PRN (14:59)
[2021-07-25] MEDS ORDERED: ALBUTEROL 2.5 MG/3 ML NEB RESP TX SCH (15:00)
[2021-07-25 15:06] LABS: PT Patient Result 30.5 SECS (10.5-12.0)
[2021-07-25] MEDS: SODIUM CHLORIDE 0.45% 1,000 ML IV SCH (16:33)
[2021-07-25] MEDS: INSULIN LISPRO 100 UNIT/ML SUBCUT SCH ×2 (16:40→22:04)
[2021-07-25] MEDS ORDERED: BENZONATATE 100 MG CAPSULE PO PRN (17:28)
[2021-07-25] MEDS: FUROSEMIDE 40 MG TABLET PO SCH (18:31)
[2021-07-25] MEDS: WARFARIN 5 MG TABLET PO SCH (18:31)
[2021-07-25] MEDS: ALBUTEROL/IPRATROPIUM 3 ML NEB RESP TX SCH ×2 (19:43→23:34)
[2021-07-25] MEDS: levETIRAcetam 500 MG TABLET PO SCH (21:55)
[2021-07-25] MEDS: DOCUSATE SODIUM 100 MG CAPSULE PO SCH (21:55)
[2021-07-25] MEDS: MONTELUKAST 10 MG TABLET PO SCH (21:55)
[2021-07-25] MEDS: PHENYTOIN ER 100 MG CAPSULE PO SCH (21:55)
[2021-07-25] MEDS: METOPROLOL TARTRATE 25 MG TABLET PO SCH (21:56)
[2021-07-25] MEDS: methylPREDNISolone SOD SUC 40 MG/1 ML VIAL IV SCH (21:57)
[2021-07-26] MEDS: ALBUTEROL/IPRATROPIUM 3 ML NEB RESP TX SCH ×5 (03:44→20:10)
[2021-07-26 04:41] LABS: Basophils % 0.1 % (0.0-0.8); Hematocrit 33.5 VOL% (35.7-47.0); Hemoglobin 10.6 GM/DL (12.0-16.0); Immature Granulocytes % 0.8 %; Immature Granulocytes Absolute 0.12 #; Lymphocytes # 0.5 10*3/uL (1.4-4.0); Lymphocytes % 3.5 % (21.3-54.2); Mean Corpuscular HGB Conc 31.6 GM/DL (32-36); Mean Corpuscular Volume 87.9 FL (87-102); Mean Platelet Volume 10.3 FL (9.6-12.0); Monocytes # 0.4 10*3/uL (0.11-0.8); Neutrophils % 92.6 % (38.7-73.9); Platelet Count 185 T/CUMM (130-400); Red Blood Count 3.81 MC/CUMM (3.8-5.5); Red Cell Distribution Width 14.6 % (9.3-17.3); White Blood Count 14.5 T/CUMM (4-12)
[2021-07-26 04:59] LABS: Hypochromia Slight; Lymphocytes 1 % (20-55); Microcytosis Slight; Platelet Estimate Adequate; Total Cells Counted 100
[2021-07-26 05:05] LABS: Alanine Aminotransferase 22 U/L (13-56); Albumin 2.5 G/DL (3.4-5.0); Alkaline Phosphatase 136 U/L (45-117); Aspartate Amino Transferase 15 U/L (0-37); Bilirubin,Total < 0.39 MG/DL (0.20-1.00); Blood Urea Nitrogen 13 MG/DL (7-18); Calcium 8.1 MG/DL (8.5-10.1); Carbon Dioxide 23 MMOL/L (21-32); Chloride 103 MMOL/L (98-107); Glucose 354 MG/DL (74-106); Osmolality,Calculated 279.4 MOS/KG (273-304); Potassium 4.4 MMOL/L (3.5-5.1); Sodium 133 MMOL/L (136-145); Total Protein 6.5 G/DL (6.4-8.2)
[2021-07-26 05:23] LABS: INR 3.8; PT Patient Result 38.1 SECS (10.5-12.0)
[2021-07-26] MEDS: methylPREDNISolone SOD SUC 40 MG/1 ML VIAL IV SCH ×3 (06:25→22:22)
[2021-07-26] MEDS: levETIRAcetam 500 MG TABLET PO SCH ×2 (10:41→22:21)
[2021-07-26] MEDS: METOPROLOL TARTRATE 25 MG TABLET PO SCH ×2 (10:41→22:21)
[2021-07-26] MEDS: SPIRONOLACTONE 25 MG TABLET PO SCH (10:41)
[2021-07-26] MEDS: PANTOPRAZOLE 40 MG TABLET PO SCH (10:41)
[2021-07-26] MEDS: FUROSEMIDE 80 MG TABLET PO SCH (10:41)
[2021-07-26] MEDS: lisinopriL 10 MG TABLET PO SCH (10:41)
[2021-07-26] MEDS: DOCUSATE SODIUM 100 MG CAPSULE PO SCH ×2 (10:42→22:22)
[2021-07-26] MEDS: INSULIN LISPRO 100 UNIT/ML SUBCUT SCH ×4 (10:43→22:23)
[2021-07-26] MEDS: LEVOFLOXACIN INJ 750 MG/150 ML PREMIX IV SCH (14:56)
[2021-07-26] MEDS: SODIUM CHLORIDE 0.45% 1,000 ML IV SCH (16:29)
[2021-07-26] MEDS: FUROSEMIDE 40 MG TABLET PO SCH (16:39)
[2021-07-26] MEDS: MONTELUKAST 10 MG TABLET PO SCH (22:22)
[2021-07-26] MEDS: ATORVASTATIN 80 MG TABLET PO SCH (22:22)
[2021-07-26] MEDS: PHENYTOIN ER 100 MG CAPSULE PO SCH (22:22)
[2021-07-26] MEDS: NYSTATIN POWDER 15 GM BOTTLE TOP SCH (22:31)
[2021-07-27] MEDS: ALBUTEROL/IPRATROPIUM 3 ML NEB RESP TX SCH ×7 (00:57→23:43)
[2021-07-27 04:36] LABS: Basophils % 0.1 % (0.0-0.8); Hematocrit 32.8 VOL% (35.7-47.0); Hemoglobin 10.2 GM/DL (12.0-16.0); Immature Granulocytes % 1.1 %; Immature Granulocytes Absolute 0.16 #; Lymphocytes # 0.6 10*3/uL (1.4-4.0); Lymphocytes % 4.3 % (21.3-54.2); Mean Corpuscular HGB Conc 31.1 GM/DL (32-36); Mean Corpuscular Volume 88.9 FL (87-102); Mean Platelet Volume 10.2 FL (9.6-12.0); Monocytes # 0.6 10*3/uL (0.11-0.8); Monocytes % 4.2 % (1.7-12.7); Neutrophils % 90.3 % (38.7-73.9); Platelet Count 201 T/CUMM (130-400); Red Blood Count 3.69 MC/CUMM (3.8-5.5); Red Cell Distribution Width 14.5 % (9.3-17.3); White Blood Count 14.5 T/CUMM (4-12)
[2021-07-27 04:50] LABS: INR 4.7; PT Patient Result 46.1 SECS (10.5-12.0)
[2021-07-27 04:57] LABS: Hypochromia Slight; Lymphocytes 2 % (20-55); Platelet Estimate Adequate; Total Cells Counted 100
[2021-07-27 04:58] LABS: Microcytosis Slight
[2021-07-27 05:08] LABS: Alanine Aminotransferase 25 U/L (13-56); Albumin 2.8 G/DL (3.4-5.0); Alkaline Phosphatase 141 U/L (45-117); Aspartate Amino Transferase 16 U/L (0-37); Bilirubin,Total < 0.39 MG/DL (0.20-1.00); Blood Urea Nitrogen 20 MG/DL (7-18); Calcium 8.2 MG/DL (8.5-10.1); Carbon Dioxide 30 MMOL/L (21-32); Chloride 100 MMOL/L (98-107); Glucose 337 MG/DL (74-106); Osmolality,Calculated 285.1 MOS/KG (273-304); Sodium 135 MMOL/L (136-145); Total Protein 6.2 G/DL (6.4-8.2)
[2021-07-27] MEDS: methylPREDNISolone SOD SUC 40 MG/1 ML VIAL IV SCH ×3 (06:30→21:18)
[2021-07-27] MEDS: PANTOPRAZOLE 40 MG TABLET PO SCH (09:35)
[2021-07-27] MEDS: METOPROLOL TARTRATE 25 MG TABLET PO SCH ×2 (09:36→21:17)
[2021-07-27] MEDS: SPIRONOLACTONE 25 MG TABLET PO SCH (09:36)
[2021-07-27] MEDS: FUROSEMIDE 80 MG TABLET PO SCH (09:36)
[2021-07-27] MEDS: levETIRAcetam 500 MG TABLET PO SCH ×2 (09:36→21:17)
[2021-07-27] MEDS: lisinopriL 10 MG TABLET PO SCH (09:36)
[2021-07-27] MEDS: ENOXAPARIN 100 MG/ML SYRINGE SUBCUT SCH ×2 (09:37→21:24)
[2021-07-27] MEDS: INSULIN LISPRO 100 UNIT/ML SUBCUT SCH ×4 (09:37→21:18)
[2021-07-27] MEDS: NYSTATIN POWDER 15 GM BOTTLE TOP SCH ×2 (09:40→21:25)
[2021-07-27] MEDS: DOCUSATE SODIUM 100 MG CAPSULE PO SCH ×3 (09:41→21:24)
[2021-07-27] MEDS: LEVOFLOXACIN INJ 750 MG/150 ML PREMIX IV SCH (14:51)
[2021-07-27] MEDS: FUROSEMIDE 40 MG TABLET PO SCH (16:38)
[2021-07-27] MEDS: MONTELUKAST 10 MG TABLET PO SCH (21:17)
[2021-07-27] MEDS: PHENYTOIN ER 100 MG CAPSULE PO SCH (21:17)
[2021-07-27] MEDS: ATORVASTATIN 80 MG TABLET PO SCH (21:17)
[2021-07-28] MEDS: ALBUTEROL/IPRATROPIUM 3 ML NEB RESP TX SCH ×5 (03:35→19:05)
[2021-07-28 05:04] LABS: Basophils % 0.2 % (0.0-0.8); Eosinophils % 0.1 % (0.00-10.9); Hematocrit 35.6 VOL% (35.7-47.0); Hemoglobin 11.2 GM/DL (12.0-16.0); Immature Granulocytes % 1.4 %; Immature Granulocytes Absolute 0.16 #; Lymphocytes # 0.8 10*3/uL (1.4-4.0); Lymphocytes % 7.2 % (21.3-54.2); Mean Corpuscular HGB Conc 31.5 GM/DL (32-36); Mean Corpuscular Volume 87.7 FL (87-102); Mean Platelet Volume 10.2 FL (9.6-12.0); Monocytes # 0.6 10*3/uL (0.11-0.8); Neutrophils % 86.1 % (38.7-73.9); Platelet Count 253 T/CUMM (130-400); Red Blood Count 4.06 MC/CUMM (3.8-5.5); Red Cell Distribution Width 14.5 % (9.3-17.3); White Blood Count 11.3 T/CUMM (4-12)
[2021-07-28 05:09] LABS: INR 3.6; PT Patient Result 36.7 SECS (10.5-12.0)
[2021-07-28] MEDS: methylPREDNISolone SOD SUC 40 MG/1 ML VIAL IV SCH ×3 (05:10→22:31)
[2021-07-28 05:24] LABS: Alanine Aminotransferase 25 U/L (13-56); Alkaline Phosphatase 157 U/L (45-117); Aspartate Amino Transferase 17 U/L (0-37); Bilirubin,Total < 0.39 MG/DL (0.20-1.00); Blood Urea Nitrogen 22 MG/DL (7-18); Calcium 8.3 MG/DL (8.5-10.1); Carbon Dioxide 29 MMOL/L (21-32); Chloride 98 MMOL/L (98-107); Glucose 348 MG/DL (74-106); Osmolality,Calculated 286.1 MOS/KG (273-304); Potassium 4.2 MMOL/L (3.5-5.1); Sodium 135 MMOL/L (136-145); Total Protein 6.9 G/DL (6.4-8.2)
[2021-07-28 05:55] LABS: Bacteria,Urine Occasional /HPF (Few); Bilirubin,Urine Negative (Negative); Blood, Urine Negative (Negative); Glucose,Urine (UA) >1000 mg/dL (Negative); Ketones,Urine Negative (Negative); Mucus,Urine Occasional /LPF (Occasional); Nitrite,Urine Negative (Negative); Protein,Urine Negative (Negative); RBC,Urine 2 /HPF (0-4); Squamous Epithelial Cell,Urine Occasional /HPF (0-10); Urine Appearance Clear (Clear); Urine Color Yellow (Yellow)
[2021-07-28 05:56] LABS: Urine Urobilinogen 0.2 eU/dL (<2.0)
[2021-07-28] MEDS: ENOXAPARIN 100 MG/ML SYRINGE SUBCUT SCH ×2 (08:10→22:30)
[2021-07-28] MEDS: DOCUSATE SODIUM 100 MG CAPSULE PO SCH ×3 (08:10→22:34)
[2021-07-28] MEDS: PANTOPRAZOLE 40 MG TABLET PO SCH (08:10)
[2021-07-28] MEDS: levETIRAcetam 500 MG TABLET PO SCH ×2 (08:10→22:32)
[2021-07-28] MEDS: FUROSEMIDE 80 MG TABLET PO SCH (08:10)
[2021-07-28] MEDS: lisinopriL 10 MG TABLET PO SCH (08:11)
[2021-07-28] MEDS: METOPROLOL TARTRATE 25 MG TABLET PO SCH ×2 (08:11→22:33)
[2021-07-28] MEDS: SPIRONOLACTONE 25 MG TABLET PO SCH (08:11)
[2021-07-28] MEDS: INSULIN LISPRO 100 UNIT/ML SUBCUT SCH ×4 (08:31→22:30)
[2021-07-28] MEDS: NYSTATIN POWDER 15 GM BOTTLE TOP SCH ×2 (08:48→22:31)
[2021-07-28] MEDS: LEVOFLOXACIN INJ 750 MG/150 ML PREMIX IV SCH (14:30)
[2021-07-28] MEDS: FUROSEMIDE 40 MG TABLET PO SCH (16:59)
[2021-07-28] MEDS: PHENYTOIN ER 100 MG CAPSULE PO SCH (22:32)
[2021-07-28] MEDS: MONTELUKAST 10 MG TABLET PO SCH (22:32)
[2021-07-28] MEDS: ATORVASTATIN 80 MG TABLET PO SCH (22:33)
[2021-07-29] MEDS: ALBUTEROL/IPRATROPIUM 3 ML NEB RESP TX SCH ×7 (00:05→23:22)
[2021-07-29 04:30] LABS: Basophils % 0.4 % (0.0-0.8); Eosinophils % 0.2 % (0.00-10.9); Hematocrit 36.7 VOL% (35.7-47.0); Hemoglobin 11.4 GM/DL (12.0-16.0); Immature Granulocytes % 2.1 %; Immature Granulocytes Absolute 0.21 #; Lymphocytes # 0.9 10*3/uL (1.4-4.0); Lymphocytes % 8.9 % (21.3-54.2); Mean Corpuscular HGB Conc 31.1 GM/DL (32-36); Mean Corpuscular Volume 88.6 FL (87-102); Mean Platelet Volume 9.8 FL (9.6-12.0); Monocytes # 0.6 10*3/uL (0.11-0.8); Monocytes % 5.9 % (1.7-12.7); Neutrophils % 82.5 % (38.7-73.9); Platelet Count 251 T/CUMM (130-400); Red Blood Count 4.14 MC/CUMM (3.8-5.5); Red Cell Distribution Width 14.6 % (9.3-17.3); White Blood Count 9.9 T/CUMM (4-12)
[2021-07-29 04:37] LABS: INR 2.1; PT Patient Result 22.3 SECS (10.5-12.0)
[2021-07-29 04:57] LABS: Alanine Aminotransferase 22 U/L (13-56); Alkaline Phosphatase 139 U/L (45-117); Aspartate Amino Transferase 17 U/L (0-37); Bilirubin,Total < 0.39 MG/DL (0.20-1.00); Blood Urea Nitrogen 19 MG/DL (7-18); Calcium 8.5 MG/DL (8.5-10.1); Carbon Dioxide 33 MMOL/L (21-32); Chloride 99 MMOL/L (98-107); Glucose 182 MG/DL (74-106); Potassium 3.9 MMOL/L (3.5-5.1); Sodium 136 MMOL/L (136-145); Total Protein 6.8 G/DL (6.4-8.2)
[2021-07-29] MEDS: methylPREDNISolone SOD SUC 40 MG/1 ML VIAL IV SCH ×3 (06:09→21:07)
[2021-07-29] MEDS ORDERED: MEPERIDINE 50 MG/1 ML VIAL IM ONE (07:00)
[2021-07-29] MEDS ORDERED: PROMETHAZINE 25 MG/1 ML VIAL IM ONE (07:00)
[2021-07-29] MEDS ORDERED: LIDOCAINE 2% VISCOUS 100 ML BOTTLE SWISH/SPIT ONE (07:30)
[2021-07-29] MEDS ORDERED: LIDOCAINE 1% 20 ML VIAL MISC INJ ONE (07:30)
[2021-07-29] MEDS ORDERED: LIDOCAINE 2% 20 ML VIAL RESP TX ONE (07:30)
[2021-07-29] MEDS ORDERED: MIDAZOLAM 2 MG/2 ML VIAL IV ONE (07:30)
[2021-07-29] MEDS: ENOXAPARIN 100 MG/ML SYRINGE SUBCUT SCH ×2 (09:32→21:06)
[2021-07-29] MEDS: levETIRAcetam 500 MG TABLET PO SCH ×2 (09:33→21:07)
[2021-07-29] MEDS: METOPROLOL TARTRATE 25 MG TABLET PO SCH ×2 (09:33→21:07)
[2021-07-29] MEDS: SPIRONOLACTONE 25 MG TABLET PO SCH (09:33)
[2021-07-29] MEDS: lisinopriL 10 MG TABLET PO SCH (09:33)
[2021-07-29] MEDS: FUROSEMIDE 80 MG TABLET PO SCH (09:33)
[2021-07-29] MEDS: DOCUSATE SODIUM 100 MG CAPSULE PO SCH ×2 (09:33→21:07)
[2021-07-29] MEDS: PANTOPRAZOLE 40 MG TABLET PO SCH (09:34)
[2021-07-29] MEDS: INSULIN LISPRO 100 UNIT/ML SUBCUT SCH ×4 (09:34→21:06)
[2021-07-29] MEDS: NYSTATIN POWDER 15 GM BOTTLE TOP SCH ×2 (10:47→21:09)
[2021-07-29] MEDS: LEVOFLOXACIN INJ 750 MG/150 ML PREMIX IV SCH (13:17)
[2021-07-29] MEDS: FUROSEMIDE 40 MG TABLET PO SCH (16:01)
[2021-07-29] MEDS ORDERED: WARFARIN 7.5 MG TABLET PO SCH (18:00)
[2021-07-29] MEDS: PHENYTOIN ER 100 MG CAPSULE PO SCH (21:07)
[2021-07-29] MEDS: ATORVASTATIN 80 MG TABLET PO SCH (21:07)
[2021-07-29] MEDS: MONTELUKAST 10 MG TABLET PO SCH (21:07)
[2021-07-30] MEDS: ALBUTEROL/IPRATROPIUM 3 ML NEB RESP TX SCH ×6 (03:03→23:07)
[2021-07-30 04:55] LABS: Basophils # 0.1 10*3/uL (0.0-0.2); Basophils % 0.4 % (0.0-0.8); Eosinophils % 0.2 % (0.00-10.9); Hematocrit 35.3 VOL% (35.7-47.0); Hemoglobin 10.8 GM/DL (12.0-16.0); Immature Granulocytes % 2.2 %; Immature Granulocytes Absolute 0.25 #; Lymphocytes # 1.1 10*3/uL (1.4-4.0); Mean Corpuscular HGB Conc 30.6 GM/DL (32-36); Mean Corpuscular Volume 90.3 FL (87-102); Mean Platelet Volume 9.9 FL (9.6-12.0); Monocytes # 0.4 10*3/uL (0.11-0.8); Monocytes % 3.9 % (1.7-12.7); Neutrophils % 83.3 % (38.7-73.9); Platelet Count 217 T/CUMM (130-400); Red Blood Count 3.91 MC/CUMM (3.8-5.5); Red Cell Distribution Width 14.5 % (9.3-17.3); White Blood Count 11.3 T/CUMM (4-12)
[2021-07-30 05:19] LABS: INR 1.5; PT Patient Result 16.6 SECS (10.5-12.0)
[2021-07-30 05:21] LABS: Alanine Aminotransferase 20 U/L (13-56); Albumin 2.8 G/DL (3.4-5.0); Alkaline Phosphatase 137 U/L (45-117); Aspartate Amino Transferase 12 U/L (0-37); Bilirubin,Total < 0.39 MG/DL (0.20-1.00); Blood Urea Nitrogen 21 MG/DL (7-18); Calcium 8.6 MG/DL (8.5-10.1); Carbon Dioxide 37 MMOL/L (21-32); Chloride 96 MMOL/L (98-107); Glucose 324 MG/DL (74-106); Sodium 136 MMOL/L (136-145); Total Protein 6.3 G/DL (6.4-8.2)
[2021-07-30] MEDS: methylPREDNISolone SOD SUC 40 MG/1 ML VIAL IV SCH ×3 (06:27→21:47)
[2021-07-30] MEDS: DOCUSATE SODIUM 100 MG CAPSULE PO SCH ×2 (09:55→21:48)
[2021-07-30] MEDS: THEOPHYLLINE ER (24 HR) 400 MG CAPSULE PO SCH (09:55)
[2021-07-30] MEDS: SPIRONOLACTONE 25 MG TABLET PO SCH (09:55)
[2021-07-30] MEDS: lisinopriL 10 MG TABLET PO SCH (09:55)
[2021-07-30] MEDS: FUROSEMIDE 80 MG TABLET PO SCH (09:55)
[2021-07-30] MEDS: ENOXAPARIN 100 MG/ML SYRINGE SUBCUT SCH ×2 (09:56→21:47)
[2021-07-30] MEDS: METOPROLOL TARTRATE 25 MG TABLET PO SCH ×2 (09:56→21:48)
[2021-07-30] MEDS: PANTOPRAZOLE 40 MG TABLET PO SCH (09:56)
[2021-07-30] MEDS: levETIRAcetam 500 MG TABLET PO SCH ×2 (09:56→21:48)
[2021-07-30] MEDS: INSULIN LISPRO 100 UNIT/ML SUBCUT SCH ×4 (09:57→21:46)
[2021-07-30] MEDS: DORNASE ALFA 2.5 MG/2.5 ML VIAL RESP TX SCH ×2 (10:26→19:22)
[2021-07-30] MEDS: NYSTATIN POWDER 15 GM BOTTLE TOP SCH ×2 (10:42→21:49)
[2021-07-30] MEDS: LEVOFLOXACIN INJ 750 MG/150 ML PREMIX IV SCH (14:27)
[2021-07-30] MEDS: FUROSEMIDE 40 MG TABLET PO SCH (16:06)
[2021-07-30] MEDS: PHENYTOIN ER 100 MG CAPSULE PO SCH (21:48)
[2021-07-30] MEDS: MONTELUKAST 10 MG TABLET PO SCH (21:48)
[2021-07-30] MEDS: ATORVASTATIN 80 MG TABLET PO SCH (21:48)
[2021-07-31] MEDS: diphenhydrAMINE CAP 25 MG CAPSULE PO PRN (01:08)
[2021-07-31] MEDS: ALBUTEROL/IPRATROPIUM 3 ML NEB RESP TX SCH ×6 (02:42→23:44)
[2021-07-31 04:59] LABS: Basophils # 0.1 10*3/uL (0.0-0.2); Basophils % 0.5 % (0.0-0.8); Eosinophils % 0.2 % (0.00-10.9); Hematocrit 36.9 VOL% (35.7-47.0); Hemoglobin 11.5 GM/DL (12.0-16.0); Immature Granulocytes % 3.6 %; Immature Granulocytes Absolute 0.44 #; Lymphocytes # 1.1 10*3/uL (1.4-4.0); Lymphocytes % 8.8 % (21.3-54.2); Mean Corpuscular HGB Conc 31.2 GM/DL (32-36); Mean Corpuscular Volume 88.7 FL (87-102); Mean Platelet Volume 10.1 FL (9.6-12.0); Monocytes # 0.6 10*3/uL (0.11-0.8); Monocytes % 4.5 % (1.7-12.7); Neutrophils % 82.4 % (38.7-73.9); Platelet Count 239 T/CUMM (130-400); Red Blood Count 4.16 MC/CUMM (3.8-5.5); Red Cell Distribution Width 14.3 % (9.3-17.3); White Blood Count 12.3 T/CUMM (4-12)
[2021-07-31 05:09] LABS: INR 1.3; PT Patient Result 13.6 SECS (10.5-12.0)
[2021-07-31 05:18] LABS: Alanine Aminotransferase 21 U/L (13-56); Alkaline Phosphatase 143 U/L (45-117); Aspartate Amino Transferase 14 U/L (0-37); Bilirubin,Total < 0.39 MG/DL (0.20-1.00); Blood Urea Nitrogen 25 MG/DL (7-18); Calcium 8.9 MG/DL (8.5-10.1); Carbon Dioxide 39 MMOL/L (21-32); Chloride 92 MMOL/L (98-107); Glucose 324 MG/DL (74-106); Osmolality,Calculated 286.1 MOS/KG (273-304); Potassium 3.9 MMOL/L (3.5-5.1); Sodium 135 MMOL/L (136-145); Total Protein 6.5 G/DL (6.4-8.2)
[2021-07-31] MEDS: methylPREDNISolone SOD SUC 40 MG/1 ML VIAL IV SCH ×3 (05:33→21:21)
[2021-07-31] MEDS: DORNASE ALFA 2.5 MG/2.5 ML VIAL RESP TX SCH ×2 (07:23→19:32)
[2021-07-31] MEDS: levETIRAcetam 500 MG TABLET PO SCH ×2 (09:32→21:22)
[2021-07-31] MEDS: lisinopriL 10 MG TABLET PO SCH (09:33)
[2021-07-31] MEDS: THEOPHYLLINE ER (24 HR) 400 MG CAPSULE PO SCH (09:33)
[2021-07-31] MEDS: PANTOPRAZOLE 40 MG TABLET PO SCH (09:33)
[2021-07-31] MEDS: FUROSEMIDE 80 MG TABLET PO SCH (09:33)
[2021-07-31] MEDS: DOCUSATE SODIUM 100 MG CAPSULE PO SCH ×2 (09:33→21:22)
[2021-07-31] MEDS: SPIRONOLACTONE 25 MG TABLET PO SCH (09:33)
[2021-07-31] MEDS: METOPROLOL TARTRATE 25 MG TABLET PO SCH ×2 (09:33→21:21)
[2021-07-31] MEDS: INSULIN LISPRO 100 UNIT/ML SUBCUT SCH ×4 (09:36→21:22)
[2021-07-31] MEDS: WARFARIN 5 MG TABLET PO SCH (10:08)
[2021-07-31] MEDS: ENOXAPARIN 100 MG/ML SYRINGE SUBCUT SCH ×2 (10:53→21:23)
[2021-07-31] MEDS: NYSTATIN POWDER 15 GM BOTTLE TOP SCH ×2 (10:56→21:23)
[2021-07-31] MEDS: LEVOFLOXACIN INJ 750 MG/150 ML PREMIX IV SCH (15:01)
[2021-07-31] MEDS: FUROSEMIDE 40 MG TABLET PO SCH (17:12)
[2021-07-31] MEDS: MONTELUKAST 10 MG TABLET PO SCH (21:21)
[2021-07-31] MEDS: PHENYTOIN ER 100 MG CAPSULE PO SCH (21:21)
[2021-07-31] MEDS: ATORVASTATIN 80 MG TABLET PO SCH (21:21)
[2021-07-31] MEDS: busPIRone 10 MG TABLET PO PRN (21:36)
[2021-08-01] MEDS: ALBUTEROL/IPRATROPIUM 3 ML NEB RESP TX SCH ×6 (03:22→23:49)
[2021-08-01 05:16] LABS: Basophils # 0.1 10*3/uL (0.0-0.2); Basophils % 0.5 % (0.0-0.8); Eosinophils # 0.1 10*3/uL (0.0-0.87); Eosinophils % 0.5 % (0.00-10.9); Hematocrit 36.5 VOL% (35.7-47.0); Hemoglobin 11.2 GM/DL (12.0-16.0); Immature Granulocytes % 3.7 %; Immature Granulocytes Absolute 0.49 #; Lymphocytes # 1.7 10*3/uL (1.4-4.0); Mean Corpuscular HGB Conc 30.7 GM/DL (32-36); Mean Corpuscular Volume 89.5 FL (87-102); Mean Platelet Volume 9.7 FL (9.6-12.0); Monocytes # 0.6 10*3/uL (0.11-0.8); Monocytes % 4.8 % (1.7-12.7); Neutrophils % 77.5 % (38.7-73.9); Platelet Count 228 T/CUMM (130-400); Red Blood Count 4.08 MC/CUMM (3.8-5.5); Red Cell Distribution Width 14.4 % (9.3-17.3); White Blood Count 13.3 T/CUMM (4-12)
[2021-08-01 05:41] LABS: Calcium 8.4 MG/DL (8.5-10.1); Potassium 3.5 MMOL/L (3.5-5.1)
[2021-08-01] MEDS: methylPREDNISolone SOD SUC 40 MG/1 ML VIAL IV SCH ×3 (05:49→22:03)
[2021-08-01 05:53] LABS: INR 1.1; PT Patient Result 11.9 SECS (10.5-12.0)
[2021-08-01] MEDS: DORNASE ALFA 2.5 MG/2.5 ML VIAL RESP TX SCH ×2 (07:13→20:07)
[2021-08-01] MEDS: THEOPHYLLINE ER (24 HR) 400 MG CAPSULE PO SCH (08:44)
[2021-08-01] MEDS: SPIRONOLACTONE 25 MG TABLET PO SCH (08:44)
[2021-08-01] MEDS: METOPROLOL TARTRATE 25 MG TABLET PO SCH ×2 (08:44→22:02)
[2021-08-01] MEDS: PANTOPRAZOLE 40 MG TABLET PO SCH (08:44)
[2021-08-01] MEDS: levETIRAcetam 500 MG TABLET PO SCH ×2 (08:44→22:02)
[2021-08-01] MEDS: lisinopriL 10 MG TABLET PO SCH (08:45)
[2021-08-01] MEDS: FUROSEMIDE 80 MG TABLET PO SCH (08:45)
[2021-08-01] MEDS: ENOXAPARIN 100 MG/ML SYRINGE SUBCUT SCH ×2 (08:45→22:02)
[2021-08-01] MEDS: INSULIN LISPRO 100 UNIT/ML SUBCUT SCH ×4 (08:45→22:02)
[2021-08-01] MEDS: NYSTATIN POWDER 15 GM BOTTLE TOP SCH ×2 (08:48→22:04)
[2021-08-01] MEDS: DOCUSATE SODIUM 100 MG CAPSULE PO SCH ×2 (08:56→22:03)
[2021-08-01] MEDS: CLINDAMYCIN INJ 900 MG/50 ML PREMIX IV SCH ×2 (13:55→22:03)
[2021-08-01] MEDS: MICAFUNGIN 150 MG in SODIUM CHLORIDE 0.9% 100 ML IV SCH (14:47)
[2021-08-01] MEDS: diphenhydrAMINE CAP 25 MG CAPSULE PO PRN (14:49)
[2021-08-01] MEDS: FUROSEMIDE 40 MG TABLET PO SCH (16:46)
[2021-08-01] MEDS: BUDESONIDE 0.5 MG/2 ML NEB RESP TX SCH (19:56)
[2021-08-01] MEDS: ARFORMOTEROL 15 MCG/2 ML NEB RESP TX SCH (19:57)
[2021-08-01] MEDS: MONTELUKAST 10 MG TABLET PO SCH (22:02)
[2021-08-01] MEDS: ATORVASTATIN 80 MG TABLET PO SCH (22:02)
[2021-08-01] MEDS: PHENYTOIN ER 100 MG CAPSULE PO SCH (22:02)
[2021-08-01] MEDS: busPIRone 10 MG TABLET PO PRN (23:06)
[2021-08-02] MEDS: ALBUTEROL/IPRATROPIUM 3 ML NEB RESP TX SCH ×5 (02:55→19:28)
[2021-08-02 05:24] LABS: PT Patient Result 10.9 SECS (10.5-12.0)
[2021-08-02] MEDS: methylPREDNISolone SOD SUC 40 MG/1 ML VIAL IV SCH ×3 (05:28→21:13)
[2021-08-02] MEDS: CLINDAMYCIN INJ 900 MG/50 ML PREMIX IV SCH ×3 (05:28→21:15)
[2021-08-02] MEDS: ARFORMOTEROL 15 MCG/2 ML NEB RESP TX SCH ×2 (07:13→19:28)
[2021-08-02] MEDS: DORNASE ALFA 2.5 MG/2.5 ML VIAL RESP TX SCH ×2 (07:14→19:48)
[2021-08-02] MEDS: BUDESONIDE 0.5 MG/2 ML NEB RESP TX SCH ×2 (07:14→19:28)
[2021-08-02] MEDS: INSULIN LISPRO 100 UNIT/ML SUBCUT SCH ×4 (09:00→21:14)
[2021-08-02] MEDS: ENOXAPARIN 100 MG/ML SYRINGE SUBCUT SCH ×2 (09:00→21:14)
[2021-08-02] MEDS: lisinopriL 10 MG TABLET PO SCH (09:01)
[2021-08-02] MEDS: DOCUSATE SODIUM 100 MG CAPSULE PO SCH ×2 (09:01→21:15)
[2021-08-02] MEDS: PANTOPRAZOLE 40 MG TABLET PO SCH (09:01)
[2021-08-02] MEDS: levETIRAcetam 500 MG TABLET PO SCH ×2 (09:01→21:13)
[2021-08-02] MEDS: SPIRONOLACTONE 25 MG TABLET PO SCH (09:02)
[2021-08-02] MEDS: METOPROLOL TARTRATE 25 MG TABLET PO SCH ×2 (09:02→21:13)
[2021-08-02] MEDS: FUROSEMIDE 80 MG TABLET PO SCH (09:02)
[2021-08-02] MEDS: THEOPHYLLINE ER (24 HR) 400 MG CAPSULE PO SCH (09:02)
[2021-08-02] MEDS: NYSTATIN POWDER 15 GM BOTTLE TOP SCH ×2 (09:03→21:14)
[2021-08-02] MEDS: MICAFUNGIN 150 MG in SODIUM CHLORIDE 0.9% 100 ML IV SCH (15:55)
[2021-08-02] MEDS: WARFARIN 5 MG TABLET PO SCH (17:11)
[2021-08-02] MEDS: FUROSEMIDE 40 MG TABLET PO SCH (17:12)
[2021-08-02] MEDS: MONTELUKAST 10 MG TABLET PO SCH (21:13)
[2021-08-02] MEDS: ATORVASTATIN 80 MG TABLET PO SCH (21:13)
[2021-08-02] MEDS: PHENYTOIN ER 100 MG CAPSULE PO SCH (21:13)
[2021-08-02] MEDS: busPIRone 10 MG TABLET PO PRN (21:22)
[2021-08-03] MEDS: ALBUTEROL/IPRATROPIUM 3 ML NEB RESP TX SCH ×7 (00:11→23:45)
[2021-08-03] MEDS: diphenhydrAMINE CAP 25 MG CAPSULE PO PRN ×2 (00:15→12:21)
[2021-08-03 05:37] LABS: Basophils # 0.1 10*3/uL (0.0-0.2); Basophils % 0.5 % (0.0-0.8); Eosinophils # 0.1 10*3/uL (0.0-0.87); Eosinophils % 0.8 % (0.00-10.9); Hematocrit 37.2 VOL% (35.7-47.0); Hemoglobin 11.6 GM/DL (12.0-16.0); Immature Granulocytes Absolute 0.55 #; Lymphocytes # 1.3 10*3/uL (1.4-4.0); Lymphocytes % 9.2 % (21.3-54.2); Mean Corpuscular HGB Conc 31.2 GM/DL (32-36); Mean Corpuscular Volume 89.6 FL (87-102); Mean Platelet Volume 9.9 FL (9.6-12.0); Monocytes # 0.5 10*3/uL (0.11-0.8); Neutrophils % 81.5 % (38.7-73.9); Platelet Count 231 T/CUMM (130-400); Red Blood Count 4.15 MC/CUMM (3.8-5.5); Red Cell Distribution Width 14.6 % (9.3-17.3); White Blood Count 13.6 T/CUMM (4-12)
[2021-08-03] MEDS: CLINDAMYCIN INJ 900 MG/50 ML PREMIX IV SCH ×3 (05:41→21:56)
[2021-08-03] MEDS: methylPREDNISolone SOD SUC 40 MG/1 ML VIAL IV SCH ×2 (05:41→14:11)
[2021-08-03 05:51] LABS: PT Patient Result 10.9 SECS (10.5-12.0)
[2021-08-03 05:52] LABS: Calcium 8.5 MG/DL (8.5-10.1); Potassium 3.7 MMOL/L (3.5-5.1)
[2021-08-03 06:02] LABS: Hypochromia 1+; Lymphocytes 18 % (20-55); Total Cells Counted 100
[2021-08-03 06:03] LABS: Microcytosis 1+; Platelet Estimate Normal; Polychromasia Slight
[2021-08-03] MEDS: BUDESONIDE 0.5 MG/2 ML NEB RESP TX SCH ×2 (07:15→19:30)
[2021-08-03] MEDS: ARFORMOTEROL 15 MCG/2 ML NEB RESP TX SCH ×2 (07:15→19:30)
[2021-08-03] MEDS: INSULIN LISPRO 100 UNIT/ML SUBCUT SCH ×4 (08:45→21:54)
[2021-08-03] MEDS: NYSTATIN POWDER 15 GM BOTTLE TOP SCH ×2 (08:45→21:55)
[2021-08-03] MEDS: THEOPHYLLINE ER (24 HR) 400 MG CAPSULE PO SCH (08:46)
[2021-08-03] MEDS: lisinopriL 10 MG TABLET PO SCH (08:46)
[2021-08-03] MEDS: PANTOPRAZOLE 40 MG TABLET PO SCH (08:46)
[2021-08-03] MEDS: SPIRONOLACTONE 25 MG TABLET PO SCH (08:46)
[2021-08-03] MEDS: levETIRAcetam 500 MG TABLET PO SCH ×2 (08:47→21:53)
[2021-08-03] MEDS: METOPROLOL TARTRATE 25 MG TABLET PO SCH ×2 (08:48→21:54)
[2021-08-03] MEDS: DOCUSATE SODIUM 100 MG CAPSULE PO SCH ×2 (08:48→21:55)
[2021-08-03] MEDS: FUROSEMIDE 80 MG TABLET PO SCH (08:48)
[2021-08-03] MEDS: ENOXAPARIN 100 MG/ML SYRINGE SUBCUT SCH ×2 (08:49→21:55)
[2021-08-03] MEDS ORDERED: DESITIN 4OZ/NYSTATIN 15 GRAM MIXTURE PASTE TOP PRN (14:29)
[2021-08-03] MEDS: MICAFUNGIN 150 MG in SODIUM CHLORIDE 0.9% 100 ML IV SCH (17:10)
[2021-08-03] MEDS: FUROSEMIDE 40 MG TABLET PO SCH (17:11)
[2021-08-03] MEDS: WARFARIN 5 MG TABLET PO SCH (18:54)
[2021-08-03] MEDS: PHENYTOIN ER 100 MG CAPSULE PO SCH (21:53)
[2021-08-03] MEDS: ATORVASTATIN 80 MG TABLET PO SCH (21:54)
[2021-08-03] MEDS: MONTELUKAST 10 MG TABLET PO SCH (21:54)
[2021-08-03] MEDS: busPIRone 10 MG TABLET PO PRN (21:54)
[2021-08-04] MEDS ORDERED: methylPREDNISolone SOD SUC 40 MG/1 ML VIAL IV SCH (02:00)
[2021-08-04] MEDS: diphenhydrAMINE CAP 25 MG CAPSULE PO PRN (03:39)
[2021-08-04] MEDS: ALBUTEROL/IPRATROPIUM 3 ML NEB RESP TX SCH ×5 (03:50→19:58)
[2021-08-04 04:56] LABS: INR 1.1; PT Patient Result 11.9 SECS (10.5-12.0)
[2021-08-04] MEDS: CLINDAMYCIN INJ 900 MG/50 ML PREMIX IV SCH ×3 (05:01→22:31)
[2021-08-04 05:03] LABS: Calcium 8.5 MG/DL (8.5-10.1); Osmolality,Calculated 279.4 MOS/KG (273-304); Potassium 3.5 MMOL/L (3.5-5.1)
[2021-08-04] MEDS: BUDESONIDE 0.5 MG/2 ML NEB RESP TX SCH ×3 (07:12→19:58)
[2021-08-04] MEDS: ARFORMOTEROL 15 MCG/2 ML NEB RESP TX SCH ×2 (07:12→19:58)
[2021-08-04] MEDS: SPIRONOLACTONE 25 MG TABLET PO SCH (08:57)
[2021-08-04] MEDS: lisinopriL 10 MG TABLET PO SCH (08:57)
[2021-08-04] MEDS: FUROSEMIDE 80 MG TABLET PO SCH (08:57)
[2021-08-04] MEDS: METOPROLOL TARTRATE 25 MG TABLET PO SCH ×2 (08:57→22:22)
[2021-08-04] MEDS: levETIRAcetam 500 MG TABLET PO SCH ×2 (08:57→22:24)
[2021-08-04] MEDS: THEOPHYLLINE ER (24 HR) 400 MG CAPSULE PO SCH (08:57)
[2021-08-04] MEDS: PANTOPRAZOLE 40 MG TABLET PO SCH (08:58)
[2021-08-04] MEDS: INSULIN LISPRO 100 UNIT/ML SUBCUT SCH ×4 (08:58→22:22)
[2021-08-04] MEDS: ENOXAPARIN 100 MG/ML SYRINGE SUBCUT SCH ×2 (08:59→22:22)
[2021-08-04] MEDS: DOCUSATE SODIUM 100 MG CAPSULE PO SCH ×2 (09:02→22:23)
[2021-08-04] MEDS: NYSTATIN POWDER 15 GM BOTTLE TOP SCH ×2 (11:10→22:22)
[2021-08-04] MEDS: methylPREDNISolone SOD SUC 40 MG/1 ML VIAL IV SCH ×3 (11:41→22:22)
[2021-08-04] MEDS: DORNASE ALFA 2.5 MG/2.5 ML VIAL RESP TX SCH ×2 (11:55→20:14)
[2021-08-04] MEDS ORDERED: WARFARIN 7.5 MG TABLET PO ONE (12:58)
[2021-08-04] MEDS: FUROSEMIDE 40 MG TABLET PO SCH (16:52)
[2021-08-04] MEDS: MICAFUNGIN 150 MG in SODIUM CHLORIDE 0.9% 100 ML IV SCH (16:57)
[2021-08-04] MEDS: WARFARIN 5 MG TABLET PO SCH (17:02)
[2021-08-04] MEDS: PHENYTOIN ER 100 MG CAPSULE PO SCH (22:21)
[2021-08-04] MEDS: ATORVASTATIN 80 MG TABLET PO SCH (22:21)
[2021-08-04] MEDS: ZALEPLON 5 MG CAPSULE PO PRN (22:21)
[2021-08-04] MEDS: MONTELUKAST 10 MG TABLET PO SCH (22:22)
[2021-08-05] MEDS: ALBUTEROL/IPRATROPIUM 3 ML NEB RESP TX SCH ×6 (00:14→19:34)
[2021-08-05] MEDS: diphenhydrAMINE CAP 25 MG CAPSULE PO PRN (01:54)
[2021-08-05] MEDS: methylPREDNISolone SOD SUC 40 MG/1 ML VIAL IV SCH ×4 (03:44→22:22)
[2021-08-05] MEDS: CLINDAMYCIN INJ 900 MG/50 ML PREMIX IV SCH ×3 (05:16→22:17)
[2021-08-05 05:46] LABS: Basophils # 0.1 10*3/uL (0.0-0.2); Basophils % 0.3 % (0.0-0.8); Hematocrit 38.8 VOL% (35.7-47.0); Hemoglobin 12.3 GM/DL (12.0-16.0); Immature Granulocytes % 2.4 %; Immature Granulocytes Absolute 0.42 #; Lymphocytes # 0.7 10*3/uL (1.4-4.0); Lymphocytes % 3.7 % (21.3-54.2); Mean Corpuscular HGB Conc 31.7 GM/DL (32-36); Mean Corpuscular Volume 88.2 FL (87-102); Mean Platelet Volume 10.1 FL (9.6-12.0); Monocytes # 0.4 10*3/uL (0.11-0.8); Neutrophils % 91.6 % (38.7-73.9); Platelet Count 209 T/CUMM (130-400); Red Cell Distribution Width 14.6 % (9.3-17.3); White Blood Count 17.8 T/CUMM (4-12)
[2021-08-05 05:55] LABS: INR 1.8; PT Patient Result 18.8 SECS (10.5-12.0)
[2021-08-05 06:04] LABS: Hypochromia Slight; Lymphocytes 4 % (20-55); Microcytosis Slight; Platelet Estimate Adequate; Total Cells Counted 100
[2021-08-05 06:05] LABS: Calcium 8.5 MG/DL (8.5-10.1); Osmolality,Calculated 283.5 MOS/KG (273-304); Potassium 4.2 MMOL/L (3.5-5.1)
[2021-08-05] MEDS: DORNASE ALFA 2.5 MG/2.5 ML VIAL RESP TX SCH ×2 (07:20→19:44)
[2021-08-05] MEDS: BUDESONIDE 0.5 MG/2 ML NEB RESP TX SCH ×2 (07:26→19:34)
[2021-08-05] MEDS: ARFORMOTEROL 15 MCG/2 ML NEB RESP TX SCH ×2 (07:26→19:40)
[2021-08-05] MEDS: THEOPHYLLINE ER (24 HR) 400 MG CAPSULE PO SCH (09:15)
[2021-08-05] MEDS: lisinopriL 10 MG TABLET PO SCH (09:15)
[2021-08-05] MEDS: METOPROLOL TARTRATE 25 MG TABLET PO SCH ×2 (09:15→22:21)
[2021-08-05] MEDS: SPIRONOLACTONE 25 MG TABLET PO SCH (09:15)
[2021-08-05] MEDS: FUROSEMIDE 80 MG TABLET PO SCH (09:15)
[2021-08-05] MEDS: PANTOPRAZOLE 40 MG TABLET PO SCH (09:15)
[2021-08-05] MEDS: INSULIN LISPRO 100 UNIT/ML SUBCUT SCH ×4 (09:16→22:21)
[2021-08-05] MEDS: DOCUSATE SODIUM 100 MG CAPSULE PO SCH ×2 (09:19→22:18)
[2021-08-05] MEDS: levETIRAcetam 500 MG TABLET PO SCH ×2 (10:45→22:18)
[2021-08-05] MEDS: ENOXAPARIN 100 MG/ML SYRINGE SUBCUT SCH ×2 (10:46→22:21)
[2021-08-05] MEDS: NYSTATIN POWDER 15 GM BOTTLE TOP SCH ×2 (10:47→22:20)
[2021-08-05] MEDS: INSULIN GLARGINE 100 UNIT/ML SUBCUT SCH (13:08)
[2021-08-05] MEDS: MICAFUNGIN 150 MG in SODIUM CHLORIDE 0.9% 100 ML IV SCH (15:22)
[2021-08-05] MEDS: FUROSEMIDE 40 MG TABLET PO SCH (17:13)
[2021-08-05] MEDS: WARFARIN 5 MG TABLET PO SCH (17:15)
[2021-08-05] MEDS: PHENYTOIN ER 100 MG CAPSULE PO SCH (22:18)
[2021-08-05] MEDS: ATORVASTATIN 80 MG TABLET PO SCH (22:19)
[2021-08-05] MEDS: MONTELUKAST 10 MG TABLET PO SCH (22:19)
[2021-08-05] MEDS: ZALEPLON 5 MG CAPSULE PO PRN (22:25)
[2021-08-06] MEDS: ALBUTEROL/IPRATROPIUM 3 ML NEB RESP TX SCH ×7 (00:15→23:40)
[2021-08-06] MEDS: diphenhydrAMINE CAP 25 MG CAPSULE PO PRN (00:58)
[2021-08-06] MEDS: methylPREDNISolone SOD SUC 40 MG/1 ML VIAL IV SCH ×4 (03:38→21:59)
[2021-08-06 04:55] LABS: PT Patient Result 20.9 SECS (10.5-12.0)
[2021-08-06 05:06] LABS: Calcium 8.5 MG/DL (8.5-10.1); Osmolality,Calculated 287.5 MOS/KG (273-304); Potassium 4.3 MMOL/L (3.5-5.1)
[2021-08-06] MEDS: CLINDAMYCIN INJ 900 MG/50 ML PREMIX IV SCH ×3 (05:58→21:59)
[2021-08-06] MEDS: BUDESONIDE 0.5 MG/2 ML NEB RESP TX SCH ×2 (07:07→19:45)
[2021-08-06] MEDS: DORNASE ALFA 2.5 MG/2.5 ML VIAL RESP TX SCH ×2 (07:07→19:45)
[2021-08-06] MEDS: ARFORMOTEROL 15 MCG/2 ML NEB RESP TX SCH ×2 (07:07→19:45)
[2021-08-06] MEDS: INSULIN GLARGINE 100 UNIT/ML SUBCUT SCH ×2 (09:56→10:45)
[2021-08-06] MEDS: lisinopriL 10 MG TABLET PO SCH (09:57)
[2021-08-06] MEDS: SPIRONOLACTONE 25 MG TABLET PO SCH (09:57)
[2021-08-06] MEDS: INSULIN LISPRO 100 UNIT/ML SUBCUT SCH ×5 (09:57→21:57)
[2021-08-06] MEDS: THEOPHYLLINE ER (24 HR) 400 MG CAPSULE PO SCH (09:57)
[2021-08-06] MEDS: METOPROLOL TARTRATE 25 MG TABLET PO SCH ×2 (09:57→21:58)
[2021-08-06] MEDS: DOCUSATE SODIUM 100 MG CAPSULE PO SCH ×2 (09:58→21:00)
[2021-08-06] MEDS: FUROSEMIDE 80 MG TABLET PO SCH (09:58)
[2021-08-06] MEDS: levETIRAcetam 500 MG TABLET PO SCH ×2 (09:59→21:58)
[2021-08-06] MEDS: PANTOPRAZOLE 40 MG TABLET PO SCH (10:01)
[2021-08-06] MEDS: ENOXAPARIN 100 MG/ML SYRINGE SUBCUT SCH ×2 (10:02→21:58)
[2021-08-06] MEDS: NYSTATIN POWDER 15 GM BOTTLE TOP SCH ×2 (10:03→21:59)
[2021-08-06] MEDS: MICAFUNGIN 150 MG in SODIUM CHLORIDE 0.9% 100 ML IV SCH (16:16)
[2021-08-06] MEDS: FUROSEMIDE 40 MG TABLET PO SCH (17:09)
[2021-08-06] MEDS: WARFARIN 5 MG TABLET PO SCH (17:10)
[2021-08-06] MEDS: PHENYTOIN ER 100 MG CAPSULE PO SCH (21:57)
[2021-08-06] MEDS: ATORVASTATIN 80 MG TABLET PO SCH (21:58)
[2021-08-06] MEDS: MONTELUKAST 10 MG TABLET PO SCH (21:59)
[2021-08-07] MEDS: DILTIAZEM INJ 100 MG in SODIUM CHLORIDE 0.9% 100 ML IV SCH (00:49)
[2021-08-07] MEDS: ALBUTEROL/IPRATROPIUM 3 ML NEB RESP TX SCH ×3 (03:40→10:49)
[2021-08-07] MEDS: methylPREDNISolone SOD SUC 40 MG/1 ML VIAL IV SCH ×2 (03:52→10:03)
[2021-08-07 05:52] LABS: INR 2.9; PT Patient Result 29.5 SECS (10.5-12.0)
[2021-08-07] MEDS: CLINDAMYCIN INJ 900 MG/50 ML PREMIX IV SCH ×3 (06:06→22:25)
[2021-08-07 06:09] LABS: Calcium 8.2 MG/DL (8.5-10.1); Osmolality,Calculated 290.2 MOS/KG (273-304); Potassium 4.2 MMOL/L (3.5-5.1)
[2021-08-07] MEDS: ARFORMOTEROL 15 MCG/2 ML NEB RESP TX SCH (07:32)
[2021-08-07] MEDS: BUDESONIDE 0.5 MG/2 ML NEB RESP TX SCH ×2 (07:32→19:52)
[2021-08-07] MEDS: DORNASE ALFA 2.5 MG/2.5 ML VIAL RESP TX SCH ×2 (07:32→19:52)
[2021-08-07] MEDS: THEOPHYLLINE ER (24 HR) 400 MG CAPSULE PO SCH (09:22)
[2021-08-07] MEDS: SPIRONOLACTONE 25 MG TABLET PO SCH (09:22)
[2021-08-07] MEDS: levETIRAcetam 500 MG TABLET PO SCH ×2 (09:22→22:24)
[2021-08-07] MEDS: ASCORBIC ACID 500 MG TABLET PO SCH ×2 (09:23→22:25)
[2021-08-07] MEDS: lisinopriL 10 MG TABLET PO SCH (09:23)
[2021-08-07] MEDS: FUROSEMIDE 80 MG TABLET PO SCH (09:23)
[2021-08-07] MEDS: METOPROLOL TARTRATE 50 MG TABLET PO SCH ×2 (09:23→22:24)
[2021-08-07] MEDS: PANTOPRAZOLE 40 MG TABLET PO SCH (09:23)
[2021-08-07] MEDS: ENOXAPARIN 100 MG/ML SYRINGE SUBCUT SCH ×2 (09:24→22:25)
[2021-08-07] MEDS: DOCUSATE SODIUM 100 MG CAPSULE PO SCH ×2 (09:24→22:23)
[2021-08-07] MEDS: NYSTATIN POWDER 15 GM BOTTLE TOP SCH ×2 (09:24→22:25)
[2021-08-07] MEDS: INSULIN LISPRO 100 UNIT/ML SUBCUT SCH ×4 (09:25→22:23)
[2021-08-07] MEDS: INSULIN GLARGINE 100 UNIT/ML SUBCUT SCH (09:25)
[2021-08-07] MEDS: IPRATROPIUM 500 MCG/2.5 ML NEB RESP TX SCH ×2 (13:02→19:52)
[2021-08-07] MEDS: LEVALBUTEROL 1.25 MG/3 ML NEB RESP TX SCH ×2 (13:02→19:52)
[2021-08-07] MEDS: predniSONE 20 MG TABLET PO SCH (15:00)
[2021-08-07] MEDS: MICAFUNGIN 150 MG in SODIUM CHLORIDE 0.9% 100 ML IV SCH (15:38)
[2021-08-07] MEDS: WARFARIN 5 MG TABLET PO SCH (17:36)
[2021-08-07] MEDS: FUROSEMIDE 40 MG TABLET PO SCH (17:36)
[2021-08-07] MEDS: DILTIAZEM 60 MG TABLET PO SCH (22:22)
[2021-08-07] MEDS: PHENYTOIN ER 100 MG CAPSULE PO SCH (22:23)
[2021-08-07] MEDS: ATORVASTATIN 80 MG TABLET PO SCH (22:24)
[2021-08-07] MEDS: MONTELUKAST 10 MG TABLET PO SCH (22:25)
[2021-08-08] MEDS: IPRATROPIUM 500 MCG/2.5 ML NEB RESP TX SCH ×4 (00:48→19:40)
[2021-08-08] MEDS: LEVALBUTEROL 1.25 MG/3 ML NEB RESP TX SCH ×4 (00:49→19:40)
[2021-08-08 05:20] LABS: Basophils % 0.2 % (0.0-0.8); Eosinophils % 0.1 % (0.00-10.9); Hematocrit 38.6 VOL% (35.7-47.0); Hemoglobin 11.9 GM/DL (12.0-16.0); Immature Granulocytes % 2.8 %; Immature Granulocytes Absolute 0.49 #; Lymphocytes # 1.2 10*3/uL (1.4-4.0); Lymphocytes % 7.1 % (21.3-54.2); Mean Corpuscular HGB Conc 30.8 GM/DL (32-36); Mean Corpuscular Volume 90.2 FL (87-102); Mean Platelet Volume 11.1 FL (9.6-12.0); Monocytes # 0.9 10*3/uL (0.11-0.8); Neutrophils % 84.8 % (38.7-73.9); Platelet Count 220 T/CUMM (130-400); Red Blood Count 4.28 MC/CUMM (3.8-5.5); White Blood Count 17.5 T/CUMM (4-12)
[2021-08-08 05:27] LABS: INR 3.2; PT Patient Result 32.9 SECS (10.5-12.0)
[2021-08-08 05:39] LABS: Calcium 8.3 MG/DL (8.5-10.1); Osmolality,Calculated 288.2 MOS/KG (273-304); Potassium 3.8 MMOL/L (3.5-5.1)
[2021-08-08] MEDS: CLINDAMYCIN INJ 900 MG/50 ML PREMIX IV SCH ×3 (06:15→22:00)
[2021-08-08] MEDS: BUDESONIDE 0.5 MG/2 ML NEB RESP TX SCH ×2 (07:25→19:40)
[2021-08-08] MEDS: DORNASE ALFA 2.5 MG/2.5 ML VIAL RESP TX SCH ×2 (07:30→19:55)
[2021-08-08] MEDS ORDERED: INSULIN GLARGINE 100 UNIT/ML SUBCUT SCH (09:00)
[2021-08-08] MEDS: SPIRONOLACTONE 25 MG TABLET PO SCH (09:27)
[2021-08-08] MEDS: DILTIAZEM 60 MG TABLET PO SCH ×4 (09:30→21:12)
[2021-08-08] MEDS: lisinopriL 10 MG TABLET PO SCH (09:30)
[2021-08-08] MEDS: METOPROLOL TARTRATE 50 MG TABLET PO SCH ×2 (09:30→21:13)
[2021-08-08] MEDS: levETIRAcetam 500 MG TABLET PO SCH ×2 (09:31→21:13)
[2021-08-08] MEDS: ASCORBIC ACID 500 MG TABLET PO SCH ×2 (09:31→21:14)
[2021-08-08] MEDS: PANTOPRAZOLE 40 MG TABLET PO SCH (09:31)
[2021-08-08] MEDS: predniSONE 20 MG TABLET PO SCH (09:31)
[2021-08-08] MEDS: FUROSEMIDE 80 MG TABLET PO SCH (09:31)
[2021-08-08] MEDS: THEOPHYLLINE ER (24 HR) 400 MG CAPSULE PO SCH (09:31)
[2021-08-08] MEDS: INSULIN LISPRO 100 UNIT/ML SUBCUT SCH ×4 (09:32→21:10)
[2021-08-08] MEDS: DILTIAZEM INJ 100 MG in SODIUM CHLORIDE 0.9% 100 ML IV SCH (09:33)
[2021-08-08] MEDS: NYSTATIN POWDER 15 GM BOTTLE TOP SCH ×2 (09:34→21:14)
[2021-08-08] MEDS: ENOXAPARIN 100 MG/ML SYRINGE SUBCUT SCH ×2 (09:35→21:14)
[2021-08-08] MEDS: DOCUSATE SODIUM 100 MG CAPSULE PO SCH ×2 (09:48→21:12)
[2021-08-08] MEDS ORDERED: DIGOXIN 0.5 MG/2 ML AMP IV ONE (14:21)
[2021-08-08] MEDS: MICAFUNGIN 150 MG in SODIUM CHLORIDE 0.9% 100 ML IV SCH (16:19)
[2021-08-08] MEDS: FUROSEMIDE 40 MG TABLET PO SCH (17:15)
[2021-08-08] MEDS: WARFARIN 5 MG TABLET PO SCH (17:15)
[2021-08-08] MEDS: PHENYTOIN ER 100 MG CAPSULE PO SCH (21:12)
[2021-08-08] MEDS: ATORVASTATIN 80 MG TABLET PO SCH (21:13)
[2021-08-08] MEDS: MONTELUKAST 10 MG TABLET PO SCH (21:14)
[2021-08-09] MEDS: IPRATROPIUM 500 MCG/2.5 ML NEB RESP TX SCH ×4 (00:24→20:43)
[2021-08-09] MEDS: LEVALBUTEROL 1.25 MG/3 ML NEB RESP TX SCH ×4 (00:24→20:43)
[2021-08-09] MEDS: INSULIN LISPRO 100 UNIT/ML SUBCUT SCH ×9 (01:30→20:05)
[2021-08-09 05:36] LABS: Basophils % 0.3 % (0.0-0.8); Hemoglobin 11.8 GM/DL (12.0-16.0); Immature Granulocytes % 2.9 %; Immature Granulocytes Absolute 0.45 #; Lymphocytes # 1.8 10*3/uL (1.4-4.0); Lymphocytes % 11.9 % (21.3-54.2); Mean Corpuscular HGB Conc 31.1 GM/DL (32-36); Mean Corpuscular Volume 89.8 FL (87-102); Mean Platelet Volume 11.3 FL (9.6-12.0); Monocytes # 0.9 10*3/uL (0.11-0.8); Neutrophils % 78.9 % (38.7-73.9); Platelet Count 202 T/CUMM (130-400); Red Blood Count 4.23 MC/CUMM (3.8-5.5); Red Cell Distribution Width 14.9 % (9.3-17.3); White Blood Count 15.5 T/CUMM (4-12)
[2021-08-09 05:55] LABS: Calcium 8.7 MG/DL (8.5-10.1); Potassium 3.7 MMOL/L (3.5-5.1)
[2021-08-09] MEDS: CLINDAMYCIN INJ 900 MG/50 ML PREMIX IV SCH ×3 (06:05→22:00)
[2021-08-09] MEDS: DILTIAZEM INJ 100 MG in SODIUM CHLORIDE 0.9% 100 ML IV SCH (07:33)
[2021-08-09] MEDS: BUDESONIDE 0.5 MG/2 ML NEB RESP TX SCH ×2 (07:45→20:43)
[2021-08-09] MEDS: DORNASE ALFA 2.5 MG/2.5 ML VIAL RESP TX SCH ×2 (07:55→20:43)
[2021-08-09] MEDS: FUROSEMIDE 80 MG TABLET PO SCH (09:13)
[2021-08-09] MEDS: ASCORBIC ACID 500 MG TABLET PO SCH ×2 (09:13→21:30)
[2021-08-09] MEDS: THEOPHYLLINE ER (24 HR) 400 MG CAPSULE PO SCH (09:13)
[2021-08-09] MEDS: levETIRAcetam 500 MG TABLET PO SCH ×2 (09:13→21:30)
[2021-08-09] MEDS: DILTIAZEM 60 MG TABLET PO SCH ×4 (09:13→21:30)
[2021-08-09] MEDS: NYSTATIN POWDER 15 GM BOTTLE TOP SCH ×2 (09:13→21:30)
[2021-08-09] MEDS: predniSONE 20 MG TABLET PO SCH (09:14)
[2021-08-09] MEDS: DOCUSATE SODIUM 100 MG CAPSULE PO SCH ×3 (09:14→22:49)
[2021-08-09] MEDS: PANTOPRAZOLE 40 MG TABLET PO SCH (09:14)
[2021-08-09] MEDS: SPIRONOLACTONE 25 MG TABLET PO SCH (09:14)
[2021-08-09] MEDS: lisinopriL 10 MG TABLET PO SCH (09:14)
[2021-08-09] MEDS: METOPROLOL TARTRATE 50 MG TABLET PO SCH ×2 (09:14→21:30)
[2021-08-09] MEDS: INSULIN GLARGINE 100 UNIT/ML SUBCUT SCH (09:23)
[2021-08-09] MEDS: ENOXAPARIN 100 MG/ML SYRINGE SUBCUT SCH ×2 (09:24→21:30)
[2021-08-09] MEDS: DIGOXIN 0.25 MG TABLET PO SCH (12:31)
[2021-08-09] MEDS: MICAFUNGIN 150 MG in SODIUM CHLORIDE 0.9% 100 ML IV SCH (16:04)
[2021-08-09] MEDS: WARFARIN 5 MG TABLET PO SCH (17:05)
[2021-08-09] MEDS: FUROSEMIDE 40 MG TABLET PO SCH (17:05)
[2021-08-09] MEDS: PHENYTOIN ER 100 MG CAPSULE PO SCH (21:30)
[2021-08-09] MEDS: ATORVASTATIN 80 MG TABLET PO SCH (21:30)
[2021-08-09] MEDS: MONTELUKAST 10 MG TABLET PO SCH (21:30)
[2021-08-09] MEDS: ZALEPLON 5 MG CAPSULE PO PRN (22:00)
[2021-08-10] MEDS: IPRATROPIUM 500 MCG/2.5 ML NEB RESP TX SCH ×4 (00:36→19:04)
[2021-08-10] MEDS: LEVALBUTEROL 1.25 MG/3 ML NEB RESP TX SCH ×4 (00:36→19:04)
[2021-08-10] MEDS: INSULIN LISPRO 100 UNIT/ML SUBCUT SCH ×5 (00:57→16:41)
[2021-08-10 04:55] LABS: Calcium 8.2 MG/DL (8.5-10.1); Osmolality,Calculated 280.8 MOS/KG (273-304); Potassium 3.5 MMOL/L (3.5-5.1)
[2021-08-10] MEDS: CLINDAMYCIN INJ 900 MG/50 ML PREMIX IV SCH (06:03)
[2021-08-10] MEDS: BUDESONIDE 0.5 MG/2 ML NEB RESP TX SCH ×2 (07:22→19:04)
[2021-08-10] MEDS: DORNASE ALFA 2.5 MG/2.5 ML VIAL RESP TX SCH ×2 (07:44→19:04)
[2021-08-10] MEDS: THEOPHYLLINE ER (24 HR) 400 MG CAPSULE PO SCH (09:18)
[2021-08-10] MEDS: ASCORBIC ACID 500 MG TABLET PO SCH (09:19)
[2021-08-10] MEDS: levETIRAcetam 500 MG TABLET PO SCH (09:19)
[2021-08-10] MEDS: predniSONE 20 MG TABLET PO SCH (09:20)
[2021-08-10] MEDS: lisinopriL 10 MG TABLET PO SCH (09:20)
[2021-08-10] MEDS: PANTOPRAZOLE 40 MG TABLET PO SCH (09:21)
[2021-08-10] MEDS: METOPROLOL TARTRATE 50 MG TABLET PO SCH (09:22)
[2021-08-10] MEDS: SPIRONOLACTONE 25 MG TABLET PO SCH (09:22)
[2021-08-10] MEDS: FUROSEMIDE 80 MG TABLET PO SCH (09:22)
[2021-08-10] MEDS: DOCUSATE SODIUM 100 MG CAPSULE PO SCH (09:23)
[2021-08-10] MEDS: INSULIN GLARGINE 100 UNIT/ML SUBCUT SCH (09:24)
[2021-08-10] MEDS: ENOXAPARIN 100 MG/ML SYRINGE SUBCUT SCH (09:24)
[2021-08-10] MEDS: NYSTATIN POWDER 15 GM BOTTLE TOP SCH (09:24)
[2021-08-10] MEDS ORDERED: DILTIAZEM CD 240 MG CAPSULE PO SCH (09:30)
[2021-08-10] MEDS: DILTIAZEM INJ 100 MG in SODIUM CHLORIDE 0.9% 100 ML IV SCH (09:51)
[2021-08-10] MEDS: DILTIAZEM 60 MG TABLET PO SCH (09:52)
[2021-08-10 09:58] LABS: PT Patient Result 49.7 SECS (10.5-12.0)
[2021-08-10 10:03] LABS: INR 5.1
[2021-08-10] MEDS: DIGOXIN 0.25 MG TABLET PO SCH (13:35)
[2021-08-10] MEDS: FUROSEMIDE 40 MG TABLET PO SCH (16:41)
[2021-08-10] MEDS: WARFARIN 5 MG TABLET PO SCH (17:54)
[2021-08-10 17:55] VITALS: BP 95/68
[2021-08-11] MEDS ORDERED: DAPAGLIFLOZIN 10 MG TABLET PO SCH (09:00)
== END 2021-08-10 18:40 | disposition home health service (06) | DRG 190 ==
LOC: N.ED 12:54 → N.EDINP 14:52 → N.TELEN 17:06
PROVIDERS: ADMIT Family Medicine; ATTEND Family Medicine

== ENCOUNTER 2021-11-12 11:37 | Inpatient (IN) ==
[2021-11-12] MEDS ORDERED: FUROSEMIDE 40 MG/4 ML VIAL IV STA (12:19)
[2021-11-12] MEDS ORDERED: methylPREDNISolone SOD SUC 125 MG/2 ML VIAL IV STA (12:19)
[2021-11-12] MEDS ORDERED: ALBUTEROL NEB SOLN 5 MG/ML 20 ML/BOTTLE CONT NEB SCH (12:30)
[2021-11-12 13:28] LABS: Basophils % 0.3 % (0.0-0.8); Eosinophils # 0.2 10*3/uL (0.0-0.87); Eosinophils % 1.2 % (0.00-10.9); Hematocrit 39.5 VOL% (35.7-47.0); Hemoglobin 11.6 GM/DL (12.0-16.0); Immature Granulocytes % 0.6 %; Lymphocytes # 0.9 10*3/uL (1.4-4.0); Lymphocytes % 5.4 % (21.3-54.2); Mean Corpuscular HGB Conc 29.4 GM/DL (32-36); Mean Corpuscular Volume 88.8 FL (87-102); Monocytes # 0.8 10*3/uL (0.11-0.8); Monocytes % 5.2 % (1.7-12.7); Neutrophils % 87.3 % (38.7-73.9); Platelet Count 257 T/CUMM (130-400); Red Blood Count 4.45 MC/CUMM (3.8-5.5); Red Cell Distribution Width 15.5 % (9.3-17.3); White Blood Count 15.7 T/CUMM (4-12)
[2021-11-12 13:54] LABS: Alanine Aminotransferase 17 U/L (13-56); Albumin 3.3 G/DL (3.4-5.0); Alkaline Phosphatase 132 U/L (45-117); Aspartate Amino Transferase 12 U/L (0-37); Bilirubin,Total < 0.39 MG/DL (0.20-1.00); Blood Urea Nitrogen 6 MG/DL (7-18); Calcium 8.8 MG/DL (8.5-10.1); Carbon Dioxide 34 MMOL/L (21-32); Chloride 102 MMOL/L (98-107); Glucose 200 MG/DL (74-106); Osmolality,Calculated 282.4 MOS/KG (273-304); Potassium 4.1 MMOL/L (3.5-5.1); Sodium 140 MMOL/L (136-145); Total Protein 7.1 G/DL (6.4-8.2)
[2021-11-12] MEDS ORDERED: LEVOFLOXACIN INJ 500 MG/100 ML PREMIX IV STA (14:37)
[2021-11-12] MEDS ORDERED: ONDANSETRON 4 MG/2 ML VIAL IV PRN (14:55)
[2021-11-12] MEDS ORDERED: ACETAMINOPHEN 325 MG TABLET PO PRN (14:55)
[2021-11-12] MEDS ORDERED: hydrOXYzine HCL 25 MG TABLET PO PRN (14:58)
[2021-11-12] MEDS ORDERED: diphenhydrAMINE CAP 25 MG CAPSULE PO PRN (14:58)
[2021-11-12] MEDS ORDERED: DOCUSATE SODIUM 100 MG CAPSULE PO PRN (14:58)
[2021-11-12] MEDS ORDERED: SODIUM CHLORIDE 0.9% 1,000 ML IV STA (15:23)
[2021-11-12] MEDS ORDERED: ENOXAPARIN 40 MG/0.4 ML SYRINGE SUBCUT SCH (16:00)
[2021-11-12] MEDS: SODIUM CHLORIDE 0.45% 1,000 ML IV SCH (17:52)
[2021-11-12 18:00] LABS: INR 3.5; PT Patient Result 35.3 SECS (10.1-12.1)
[2021-11-12] MEDS ORDERED: BUDESONIDE 0.5 MG/2 ML NEB RESP TX ONE (18:58)
[2021-11-12] MEDS: IPRATROPIUM 500 MCG/2.5 ML NEB RESP TX SCH (19:00)
[2021-11-12] MEDS: BUDESONIDE 0.5 MG/2 ML NEB RESP TX SCH (19:00)
[2021-11-12] MEDS: levETIRAcetam 500 MG TABLET PO SCH (20:55)
[2021-11-12] MEDS: MONTELUKAST 10 MG TABLET PO SCH (20:56)
[2021-11-12] MEDS: lisinopriL 10 MG TABLET PO SCH (20:57)
[2021-11-12] MEDS: DOCUSATE SODIUM 100 MG CAPSULE PO SCH (20:57)
[2021-11-12] MEDS: FUROSEMIDE 40 MG TABLET PO SCH (20:58)
[2021-11-12] MEDS: ASCORBIC ACID 500 MG TABLET PO SCH (20:58)
[2021-11-12] MEDS: PHENYTOIN ER 100 MG CAPSULE PO SCH (21:55)
[2021-11-12] MEDS: INSULIN NPH/REGULAR 70/30 100 UNIT/ML SUBCUT SCH (21:55)
[2021-11-12] MEDS: WARFARIN 2.5 MG TABLET PO SCH (21:56)
[2021-11-13] MEDS: IPRATROPIUM 500 MCG/2.5 ML NEB RESP TX SCH ×4 (00:35→19:00)
[2021-11-13 02:07] LABS: Basophils % 0.2 % (0.0-0.8); Hematocrit 34.5 VOL% (35.7-47.0); Hemoglobin 10.3 GM/DL (12.0-16.0); Immature Granulocytes % 0.7 %; Immature Granulocytes Absolute 0.11 #; Lymphocytes # 0.3 10*3/uL (1.4-4.0); Lymphocytes % 1.8 % (21.3-54.2); Mean Corpuscular HGB Conc 29.9 GM/DL (32-36); Mean Corpuscular Volume 86.5 FL (87-102); Mean Platelet Volume 10.1 FL (9.6-12.0); Monocytes # 0.5 10*3/uL (0.11-0.8); Neutrophils % 94.3 % (38.7-73.9); Platelet Count 227 T/CUMM (130-400); Red Blood Count 3.99 MC/CUMM (3.8-5.5); Red Cell Distribution Width 15.4 % (9.3-17.3); White Blood Count 15.7 T/CUMM (4-12)
[2021-11-13 02:29] LABS: Lymphocytes 1 % (20-55); Platelet Estimate Normal; Total Cells Counted 100
[2021-11-13 02:30] LABS: Anisocytosis Slight; Hypochromia Slight; Microcytosis Slight
[2021-11-13 02:31] LABS: Polychromasia Slight
[2021-11-13 02:32] LABS: Calcium 8.1 MG/DL (8.5-10.1); Osmolality,Calculated 286.7 MOS/KG (273-304)
[2021-11-13] MEDS: BUDESONIDE 0.5 MG/2 ML NEB RESP TX SCH ×2 (07:00→19:00)
[2021-11-13] MEDS: ALBUTEROL 2.5 MG/3 ML NEB RESP TX PRN ×3 (07:03→19:00)
[2021-11-13] MEDS: INSULIN NPH/REGULAR 70/30 100 UNIT/ML SUBCUT SCH ×2 (07:45→21:01)
[2021-11-13] MEDS: SPIRONOLACTONE 25 MG TABLET PO SCH (08:31)
[2021-11-13] MEDS: NEBIVOLOL 10 MG TABLET PO SCH (08:31)
[2021-11-13] MEDS: levETIRAcetam 500 MG TABLET PO SCH ×2 (08:32→20:59)
[2021-11-13] MEDS: ATORVASTATIN 40 MG TABLET PO SCH (08:32)
[2021-11-13] MEDS: DIGOXIN 0.25 MG TABLET PO SCH (08:32)
[2021-11-13] MEDS: PANTOPRAZOLE 40 MG TABLET PO SCH (08:32)
[2021-11-13] MEDS: FUROSEMIDE 80 MG TABLET PO SCH (08:32)
[2021-11-13] MEDS: DILTIAZEM CD 120 MG CAPSULE PO SCH (08:32)
[2021-11-13] MEDS: DOCUSATE SODIUM 100 MG CAPSULE PO SCH ×2 (08:32→20:57)
[2021-11-13] MEDS: ASCORBIC ACID 500 MG TABLET PO SCH ×2 (08:33→21:00)
[2021-11-13] MEDS: BENZONATATE 100 MG CAPSULE PO PRN ×2 (08:33→16:45)
[2021-11-13] MEDS: CHOLECALCIFEROL 1,000 UNIT TABLET PO SCH (08:33)
[2021-11-13] MEDS: busPIRone 5 MG TABLET PO PRN (08:33)
[2021-11-13] MEDS: SODIUM CHLORIDE 0.45% 1,000 ML IV SCH (11:15)
[2021-11-13] MEDS: methylPREDNISolone SOD SUC 40 MG/1 ML VIAL IV SCH ×3 (11:15→23:50)
[2021-11-13] MEDS: LEVOFLOXACIN INJ 500 MG/100 ML PREMIX IV SCH (11:15)
[2021-11-13] MEDS: INSULIN LISPRO 100 UNIT/ML SUBCUT SCH ×3 (11:59→21:00)
[2021-11-13] MEDS ORDERED: WARFARIN 5 MG TABLET PO SCH (18:00)
[2021-11-13] MEDS: PHENYTOIN ER 100 MG CAPSULE PO SCH (20:58)
[2021-11-13] MEDS: lisinopriL 10 MG TABLET PO SCH (20:59)
[2021-11-13] MEDS: FUROSEMIDE 40 MG TABLET PO SCH (20:59)
[2021-11-13] MEDS: MONTELUKAST 10 MG TABLET PO SCH (21:01)
[2021-11-14] MEDS: IPRATROPIUM 500 MCG/2.5 ML NEB RESP TX SCH ×4 (00:45→19:08)
[2021-11-14] MEDS: ALBUTEROL 2.5 MG/3 ML NEB RESP TX PRN (00:45)
[2021-11-14] MEDS: methylPREDNISolone SOD SUC 40 MG/1 ML VIAL IV SCH ×3 (05:50→16:53)
[2021-11-14 06:12] LABS: INR 4.2; PT Patient Result 41.6 SECS (10.1-12.1)
[2021-11-14 06:26] LABS: Calcium 8.6 MG/DL (8.5-10.1); Osmolality,Calculated 283.8 MOS/KG (273-304); Potassium 4.1 MMOL/L (3.5-5.1)
[2021-11-14 06:28] LABS: Basophils % 0.2 % (0.0-0.8); Hematocrit 38.8 VOL% (35.7-47.0); Hemoglobin 11.4 GM/DL (12.0-16.0); Immature Granulocytes % 2.2 %; Immature Granulocytes Absolute 0.25 #; Lymphocytes # 0.4 10*3/uL (1.4-4.0); Lymphocytes % 3.5 % (21.3-54.2); Mean Corpuscular HGB Conc 29.4 GM/DL (32-36); Mean Corpuscular Volume 88.6 FL (87-102); Mean Platelet Volume 10.4 FL (9.6-12.0); Monocytes # 0.3 10*3/uL (0.11-0.8); Monocytes % 2.8 % (1.7-12.7); Neutrophils % 91.3 % (38.7-73.9); Platelet Count 248 T/CUMM (130-400); Red Blood Count 4.38 MC/CUMM (3.8-5.5); Red Cell Distribution Width 15.3 % (9.3-17.3); White Blood Count 11.3 T/CUMM (4-12)
[2021-11-14 06:33] LABS: Band Neutrophils 1 % (0-10); Hypochromia Slight; Lymphocytes 1 % (20-55); Microcytosis Slight; Platelet Estimate Adequate; Total Cells Counted 100
[2021-11-14 06:58] LABS: Phenytoin (Dilantin) 1.5 UG/ML (10-20)
[2021-11-14] MEDS: BUDESONIDE 0.5 MG/2 ML NEB RESP TX SCH ×2 (07:00→19:03)
[2021-11-14] MEDS: INSULIN LISPRO 100 UNIT/ML SUBCUT SCH ×4 (07:09→21:05)
[2021-11-14] MEDS: INSULIN NPH/REGULAR 70/30 100 UNIT/ML SUBCUT SCH ×2 (07:09→21:06)
[2021-11-14] MEDS: SPIRONOLACTONE 25 MG TABLET PO SCH (09:05)
[2021-11-14] MEDS: DILTIAZEM CD 120 MG CAPSULE PO SCH (09:05)
[2021-11-14] MEDS: NEBIVOLOL 10 MG TABLET PO SCH (09:05)
[2021-11-14] MEDS: FUROSEMIDE 80 MG TABLET PO SCH (09:06)
[2021-11-14] MEDS: levETIRAcetam 500 MG TABLET PO SCH ×2 (09:06→20:53)
[2021-11-14] MEDS: ATORVASTATIN 40 MG TABLET PO SCH (09:06)
[2021-11-14] MEDS: DIGOXIN 0.25 MG TABLET PO SCH (09:06)
[2021-11-14] MEDS: DOCUSATE SODIUM 100 MG CAPSULE PO SCH ×2 (09:06→21:05)
[2021-11-14] MEDS: PANTOPRAZOLE 40 MG TABLET PO SCH (09:06)
[2021-11-14] MEDS: ASCORBIC ACID 500 MG TABLET PO SCH ×2 (09:06→21:05)
[2021-11-14] MEDS: CHOLECALCIFEROL 1,000 UNIT TABLET PO SCH (09:07)
[2021-11-14] MEDS: LEVOFLOXACIN INJ 500 MG/100 ML PREMIX IV SCH (11:18)
[2021-11-14] MEDS: SODIUM CHLORIDE 0.45% 1,000 ML IV SCH (12:34)
[2021-11-14] MEDS: lisinopriL 10 MG TABLET PO SCH (20:54)
[2021-11-14] MEDS: MONTELUKAST 10 MG TABLET PO SCH (20:54)
[2021-11-14] MEDS: FUROSEMIDE 40 MG TABLET PO SCH (20:55)
[2021-11-14] MEDS: PHENYTOIN ER 100 MG CAPSULE PO SCH (21:05)
[2021-11-15] MEDS: IPRATROPIUM 500 MCG/2.5 ML NEB RESP TX SCH ×4 (00:09→19:24)
[2021-11-15] MEDS: methylPREDNISolone SOD SUC 40 MG/1 ML VIAL IV SCH ×5 (00:20→22:28)
[2021-11-15] MEDS: SODIUM CHLORIDE 0.45% 1,000 ML IV SCH (06:19)
[2021-11-15 06:38] LABS: Basophils % 0.2 % (0.0-0.8); Hemoglobin 11.6 GM/DL (12.0-16.0); Immature Granulocytes % 1.4 %; Immature Granulocytes Absolute 0.18 #; Lymphocytes # 0.9 10*3/uL (1.4-4.0); Lymphocytes % 7.4 % (21.3-54.2); Mean Corpuscular HGB Conc 29.7 GM/DL (32-36); Mean Platelet Volume 10.3 FL (9.6-12.0); Monocytes # 0.8 10*3/uL (0.11-0.8); Monocytes % 6.3 % (1.7-12.7); Neutrophils % 84.7 % (38.7-73.9); Platelet Count 267 T/CUMM (130-400); Red Blood Count 4.43 MC/CUMM (3.8-5.5); Red Cell Distribution Width 15.1 % (9.3-17.3); White Blood Count 12.5 T/CUMM (4-12)
[2021-11-15 06:45] LABS: INR 4.1; PT Patient Result 41.3 SECS (10.1-12.1)
[2021-11-15 06:59] LABS: Calcium 8.1 MG/DL (8.5-10.1); Osmolality,Calculated 285.5 MOS/KG (273-304); Potassium 3.6 MMOL/L (3.5-5.1)
[2021-11-15] MEDS: BUDESONIDE 0.5 MG/2 ML NEB RESP TX SCH ×2 (07:20→19:24)
[2021-11-15] MEDS: INSULIN LISPRO 100 UNIT/ML SUBCUT SCH ×4 (07:46→20:54)
[2021-11-15] MEDS: INSULIN NPH/REGULAR 70/30 100 UNIT/ML SUBCUT SCH ×2 (07:47→20:54)
[2021-11-15] MEDS: BENZONATATE 100 MG CAPSULE PO PRN (07:53)
[2021-11-15] MEDS: busPIRone 5 MG TABLET PO PRN (07:53)
[2021-11-15] MEDS: DILTIAZEM CD 120 MG CAPSULE PO SCH (08:50)
[2021-11-15] MEDS: NEBIVOLOL 10 MG TABLET PO SCH (08:50)
[2021-11-15] MEDS: SPIRONOLACTONE 25 MG TABLET PO SCH (08:50)
[2021-11-15] MEDS: FUROSEMIDE 80 MG TABLET PO SCH (08:51)
[2021-11-15] MEDS: PANTOPRAZOLE 40 MG TABLET PO SCH (08:51)
[2021-11-15] MEDS: CHOLECALCIFEROL 1,000 UNIT TABLET PO SCH (08:51)
[2021-11-15] MEDS: ASCORBIC ACID 500 MG TABLET PO SCH ×2 (08:51→20:55)
[2021-11-15] MEDS: levETIRAcetam 500 MG TABLET PO SCH ×2 (08:51→20:54)
[2021-11-15] MEDS: ATORVASTATIN 40 MG TABLET PO SCH (08:51)
[2021-11-15] MEDS: DIGOXIN 0.25 MG TABLET PO SCH (08:51)
[2021-11-15] MEDS: DOCUSATE SODIUM 100 MG CAPSULE PO SCH ×2 (08:51→20:53)
[2021-11-15] MEDS: LEVOFLOXACIN INJ 500 MG/100 ML PREMIX IV SCH (13:03)
[2021-11-15] MEDS: MONTELUKAST 10 MG TABLET PO SCH (20:53)
[2021-11-15] MEDS: FUROSEMIDE 40 MG TABLET PO SCH (20:54)
[2021-11-15] MEDS: PHENYTOIN ER 100 MG CAPSULE PO SCH (20:55)
[2021-11-15] MEDS: lisinopriL 10 MG TABLET PO SCH (20:55)
[2021-11-16] MEDS: IPRATROPIUM 500 MCG/2.5 ML NEB RESP TX SCH ×4 (00:54→19:28)
[2021-11-16] MEDS: methylPREDNISolone SOD SUC 40 MG/1 ML VIAL IV SCH ×4 (05:51→23:18)
[2021-11-16 06:01] LABS: INR 2.9; PT Patient Result 29.9 SECS (10.1-12.1)
[2021-11-16 06:11] LABS: Calcium 8.5 MG/DL (8.5-10.1); Osmolality,Calculated 292.5 MOS/KG (273-304); Potassium 3.8 MMOL/L (3.5-5.1)
[2021-11-16] MEDS: BUDESONIDE 0.5 MG/2 ML NEB RESP TX SCH ×2 (07:14→19:28)
[2021-11-16] MEDS: INSULIN LISPRO 100 UNIT/ML SUBCUT SCH ×4 (08:40→20:48)
[2021-11-16] MEDS: DIGOXIN 0.25 MG TABLET PO SCH (08:41)
[2021-11-16] MEDS: FUROSEMIDE 80 MG TABLET PO SCH (08:41)
[2021-11-16] MEDS: levETIRAcetam 500 MG TABLET PO SCH ×2 (08:41→20:48)
[2021-11-16] MEDS: DILTIAZEM CD 120 MG CAPSULE PO SCH (08:41)
[2021-11-16] MEDS: CHOLECALCIFEROL 1,000 UNIT TABLET PO SCH (08:41)
[2021-11-16] MEDS: PANTOPRAZOLE 40 MG TABLET PO SCH (08:41)
[2021-11-16] MEDS: NEBIVOLOL 10 MG TABLET PO SCH (08:41)
[2021-11-16] MEDS: DOCUSATE SODIUM 100 MG CAPSULE PO SCH ×2 (08:41→20:47)
[2021-11-16] MEDS: ATORVASTATIN 40 MG TABLET PO SCH (08:42)
[2021-11-16] MEDS: ASCORBIC ACID 500 MG TABLET PO SCH ×2 (08:42→20:49)
[2021-11-16] MEDS: SPIRONOLACTONE 25 MG TABLET PO SCH (08:42)
[2021-11-16] MEDS: WARFARIN 2.5 MG TABLET PO SCH (09:18)
[2021-11-16] MEDS: INSULIN NPH/REGULAR 70/30 100 UNIT/ML SUBCUT SCH ×2 (09:19→16:46)
[2021-11-16] MEDS: LEVOFLOXACIN INJ 500 MG/100 ML PREMIX IV SCH (11:36)
[2021-11-16] MEDS: LEVOFLOXACIN 500 MG TABLET PO SCH (13:35)
[2021-11-16] MEDS: WARFARIN 2 MG TABLET PO SCH (13:35)
[2021-11-16] MEDS: MONTELUKAST 10 MG TABLET PO SCH (20:47)
[2021-11-16] MEDS: PHENYTOIN ER 100 MG CAPSULE PO SCH (20:48)
[2021-11-16] MEDS: busPIRone 5 MG TABLET PO PRN (20:49)
[2021-11-16] MEDS: lisinopriL 10 MG TABLET PO SCH (20:49)
[2021-11-16] MEDS: FUROSEMIDE 40 MG TABLET PO SCH (20:49)
[2021-11-17] MEDS: IPRATROPIUM 500 MCG/2.5 ML NEB RESP TX SCH ×4 (00:02→19:30)
[2021-11-17 05:09] LABS: INR 2.5; PT Patient Result 25.7 SECS (10.1-12.1)
[2021-11-17] MEDS: methylPREDNISolone SOD SUC 40 MG/1 ML VIAL IV SCH ×3 (05:25→21:55)
[2021-11-17] MEDS: BUDESONIDE 0.5 MG/2 ML NEB RESP TX SCH ×2 (07:41→19:30)
[2021-11-17] MEDS: INSULIN LISPRO 100 UNIT/ML SUBCUT SCH ×4 (09:13→21:57)
[2021-11-17] MEDS: INSULIN NPH/REGULAR 70/30 100 UNIT/ML SUBCUT SCH ×2 (09:14→17:09)
[2021-11-17] MEDS: DIGOXIN 0.25 MG TABLET PO SCH (09:14)
[2021-11-17] MEDS: DILTIAZEM CD 120 MG CAPSULE PO SCH (09:15)
[2021-11-17] MEDS: ATORVASTATIN 40 MG TABLET PO SCH (09:15)
[2021-11-17] MEDS: ASCORBIC ACID 500 MG TABLET PO SCH ×2 (09:15→21:56)
[2021-11-17] MEDS: NEBIVOLOL 10 MG TABLET PO SCH (09:15)
[2021-11-17] MEDS: levETIRAcetam 500 MG TABLET PO SCH ×2 (09:16→21:57)
[2021-11-17] MEDS: WARFARIN 2 MG TABLET PO SCH (09:16)
[2021-11-17] MEDS: LEVOFLOXACIN 500 MG TABLET PO SCH (09:16)
[2021-11-17] MEDS: SPIRONOLACTONE 25 MG TABLET PO SCH (09:17)
[2021-11-17] MEDS: DOCUSATE SODIUM 100 MG CAPSULE PO SCH ×2 (09:18→21:57)
[2021-11-17] MEDS: FUROSEMIDE 80 MG TABLET PO SCH (09:26)
[2021-11-17] MEDS: CHOLECALCIFEROL 1,000 UNIT TABLET PO SCH (09:26)
[2021-11-17] MEDS: PANTOPRAZOLE 40 MG TABLET PO SCH (09:27)
[2021-11-17] MEDS: MONTELUKAST 10 MG TABLET PO SCH (18:20)
[2021-11-17] MEDS: lisinopriL 10 MG TABLET PO SCH (21:56)
[2021-11-17] MEDS: PHENYTOIN ER 100 MG CAPSULE PO SCH (21:56)
[2021-11-17] MEDS: busPIRone 5 MG TABLET PO PRN (21:56)
[2021-11-17] MEDS: FUROSEMIDE 40 MG TABLET PO SCH (21:56)
[2021-11-18] MEDS: IPRATROPIUM 500 MCG/2.5 ML NEB RESP TX SCH ×4 (00:10→19:00)
[2021-11-18] MEDS: methylPREDNISolone SOD SUC 40 MG/1 ML VIAL IV SCH ×4 (02:54→21:14)
[2021-11-18 06:05] LABS: INR 2.3; PT Patient Result 23.9 SECS (10.1-12.1)
[2021-11-18 06:29] LABS: Basophils % 0.2 % (0.0-0.8); Hemoglobin 13.1 GM/DL (12.0-16.0); Immature Granulocytes Absolute 0.31 #; Lymphocytes # 0.5 10*3/uL (1.4-4.0); Mean Corpuscular HGB Conc 30.1 GM/DL (32-36); Mean Corpuscular Volume 86.8 FL (87-102); Mean Platelet Volume 10.2 FL (9.6-12.0); Monocytes # 0.3 10*3/uL (0.11-0.8); Monocytes % 2.2 % (1.7-12.7); Neutrophils % 92.6 % (38.7-73.9); Platelet Count 299 T/CUMM (130-400); Red Blood Count 5.01 MC/CUMM (3.8-5.5); Red Cell Distribution Width 15.1 % (9.3-17.3); White Blood Count 15.4 T/CUMM (4-12)
[2021-11-18 06:31] LABS: Hematocrit 43.5 VOL% (35.7-47.0)
[2021-11-18 06:40] LABS: Lymphocytes 2 % (20-55); Total Cells Counted 100
[2021-11-18 06:41] LABS: Hypochromia Slight; Microcytosis Slight; Platelet Estimate Adequate
[2021-11-18] MEDS ORDERED: PROMETHAZINE 25 MG/1 ML VIAL IM ONE (07:00)
[2021-11-18] MEDS ORDERED: MEPERIDINE 50 MG/1 ML VIAL IM ONE (07:00)
[2021-11-18] MEDS: BUDESONIDE 0.5 MG/2 ML NEB RESP TX SCH ×2 (07:21→19:00)
[2021-11-18] MEDS ORDERED: LIDOCAINE 1% 20 ML VIAL MISC INJ ONE (07:30)
[2021-11-18] MEDS ORDERED: LIDOCAINE 2% VISCOUS 100 ML BOTTLE SWISH/SPIT ONE (07:30)
[2021-11-18] MEDS ORDERED: LIDOCAINE 2% 20 ML VIAL RESP TX ONE (07:30)
[2021-11-18] MEDS ORDERED: MIDAZOLAM 2 MG/2 ML VIAL IV ONE (07:30)
[2021-11-18 10:18] LABS: Alanine Aminotransferase 21 U/L (13-56); Albumin 3.3 G/DL (3.4-5.0); Alkaline Phosphatase 97 U/L (45-117); Aspartate Amino Transferase 10 U/L (0-37); Bilirubin,Total < 0.39 MG/DL (0.20-1.00); Blood Urea Nitrogen 28 MG/DL (7-18); Calcium 8.5 MG/DL (8.5-10.1); Carbon Dioxide 58 MMOL/L (21-32); Chloride 88 MMOL/L (98-107); Glucose 289 MG/DL (74-106); Osmolality,Calculated 293.5 MOS/KG (273-304); Potassium 3.8 MMOL/L (3.5-5.1); Sodium 139 MMOL/L (136-145); Total Protein 6.5 G/DL (6.4-8.2)
[2021-11-18] MEDS: ATORVASTATIN 40 MG TABLET PO SCH (10:31)
[2021-11-18] MEDS: DILTIAZEM CD 120 MG CAPSULE PO SCH (10:32)
[2021-11-18] MEDS: DOCUSATE SODIUM 100 MG CAPSULE PO SCH ×2 (10:32→21:13)
[2021-11-18] MEDS: NEBIVOLOL 10 MG TABLET PO SCH (10:32)
[2021-11-18] MEDS: levETIRAcetam 500 MG TABLET PO SCH ×2 (10:33→21:13)
[2021-11-18] MEDS: FUROSEMIDE 80 MG TABLET PO SCH (10:33)
[2021-11-18] MEDS: LEVOFLOXACIN 500 MG TABLET PO SCH (10:34)
[2021-11-18] MEDS: PANTOPRAZOLE 40 MG TABLET PO SCH (10:34)
[2021-11-18] MEDS: DIGOXIN 0.25 MG TABLET PO SCH (10:34)
[2021-11-18] MEDS: ASCORBIC ACID 500 MG TABLET PO SCH ×2 (10:34→21:13)
[2021-11-18] MEDS: WARFARIN 2 MG TABLET PO SCH (10:35)
[2021-11-18] MEDS: SPIRONOLACTONE 25 MG TABLET PO SCH (11:13)
[2021-11-18] MEDS: CHOLECALCIFEROL 1,000 UNIT TABLET PO SCH (11:15)
[2021-11-18] MEDS: INSULIN LISPRO 100 UNIT/ML SUBCUT SCH ×4 (12:48→21:14)
[2021-11-18] MEDS: INSULIN NPH/REGULAR 70/30 100 UNIT/ML SUBCUT SCH ×2 (17:10→17:13)
[2021-11-18] MEDS: PHENYTOIN ER 100 MG CAPSULE PO SCH (21:12)
[2021-11-18] MEDS: FUROSEMIDE 40 MG TABLET PO SCH (21:13)
[2021-11-18] MEDS: MONTELUKAST 10 MG TABLET PO SCH (21:13)
[2021-11-18] MEDS: lisinopriL 10 MG TABLET PO SCH (21:13)
[2021-11-19] MEDS: methylPREDNISolone SOD SUC 40 MG/1 ML VIAL IV SCH ×2 (03:58→09:16)
[2021-11-19] MEDS: BUDESONIDE 0.5 MG/2 ML NEB RESP TX SCH (07:15)
[2021-11-19] MEDS: IPRATROPIUM 500 MCG/2.5 ML NEB RESP TX SCH ×2 (07:15)
[2021-11-19] MEDS: INSULIN NPH/REGULAR 70/30 100 UNIT/ML SUBCUT SCH (09:15)
[2021-11-19] MEDS: INSULIN LISPRO 100 UNIT/ML SUBCUT SCH ×2 (09:15→12:49)
[2021-11-19] MEDS: levETIRAcetam 500 MG TABLET PO SCH (09:16)
[2021-11-19] MEDS: NEBIVOLOL 10 MG TABLET PO SCH (09:16)
[2021-11-19] MEDS: PANTOPRAZOLE 40 MG TABLET PO SCH (09:17)
[2021-11-19] MEDS: ATORVASTATIN 40 MG TABLET PO SCH (09:17)
[2021-11-19] MEDS: DOCUSATE SODIUM 100 MG CAPSULE PO SCH (09:17)
[2021-11-19] MEDS: ASCORBIC ACID 500 MG TABLET PO SCH (09:17)
[2021-11-19] MEDS: LEVOFLOXACIN 500 MG TABLET PO SCH (09:17)
[2021-11-19] MEDS: BENZONATATE 100 MG CAPSULE PO PRN (09:18)
[2021-11-19] MEDS: CHOLECALCIFEROL 1,000 UNIT TABLET PO SCH (09:18)
[2021-11-19] MEDS: WARFARIN 2 MG TABLET PO SCH (09:18)
[2021-11-19] MEDS: FUROSEMIDE 80 MG TABLET PO SCH (09:18)
[2021-11-19] MEDS: SPIRONOLACTONE 25 MG TABLET PO SCH (09:18)
[2021-11-19] MEDS: DILTIAZEM CD 120 MG CAPSULE PO SCH (10:57)
[2021-11-19] MEDS: DIGOXIN 0.25 MG TABLET PO SCH (10:57)
[2021-11-19] MEDS ORDERED: ARFORMOTEROL 15 MCG/2 ML NEB RESP TX SCH (11:00)
[2021-11-19 12:19] VITALS: BP 119/53
== END 2021-11-19 13:27 | disposition home or self-care (01) | DRG 190 ==
LOC: N.ED 11:37 → N.EDINP 11:37 → N.2W 18:29 → N.5E 11-15 11:30
PROVIDERS: ADMIT Family Medicine; ATTEND Family Medicine

== ENCOUNTER 2022-01-04 16:55 | Inpatient (IN) ==
[2022-01-04] MEDS ORDERED: ONDANSETRON 4 MG/2 ML VIAL IV STA (19:59)
[2022-01-04] MEDS ORDERED: FUROSEMIDE 100 MG/10 ML VIAL IV STA (19:59)
[2022-01-04] MEDS ORDERED: methylPREDNISolone SOD SUC 125 MG/2 ML VIAL IV STA (19:59)
[2022-01-04] MEDS ORDERED: ALBUTEROL/IPRATROPIUM 3 ML NEB RESP TX STA (19:59)
[2022-01-04] MEDS ORDERED: ALBUTEROL NEB SOLN 5 MG/ML 20 ML/BOTTLE CONT NEB SCH (20:00)
[2022-01-04 20:49] LABS: Basophils % 0.3 % (0.0-0.8); Eosinophils % 0.2 % (0.00-10.9); Hematocrit 35.7 VOL% (35.7-47.0); Hemoglobin 10.7 GM/DL (12.0-16.0); Immature Granulocytes % 1.7 %; Immature Granulocytes Absolute 0.19 #; Lymphocytes # 0.4 10*3/uL (1.4-4.0); Lymphocytes % 3.6 % (21.3-54.2); Mean Platelet Volume 8.9 FL (9.6-12.0); Monocytes # 0.7 10*3/uL (0.11-0.8); Monocytes % 5.8 % (1.7-12.7); Neutrophils % 88.4 % (38.7-73.9); Platelet Count 231 T/CUMM (130-400); Red Blood Count 4.15 MC/CUMM (3.8-5.5); Red Cell Distribution Width 16.8 % (9.3-17.3); White Blood Count 11.5 T/CUMM (4-12)
[2022-01-04] MEDS ORDERED: OSELTAMIVIR 75 MG CAPSULE PO ONE (20:49)
[2022-01-04 21:07] LABS: Alanine Aminotransferase 24 U/L (13-56); Alkaline Phosphatase 135 U/L (45-117); Aspartate Amino Transferase 44 U/L (0-37); Bilirubin,Total < 0.39 MG/DL (0.20-1.00); Blood Urea Nitrogen 11 MG/DL (7-18); Calcium 8.6 MG/DL (8.5-10.1); Carbon Dioxide 37 MMOL/L (21-32); Chloride 98 MMOL/L (98-107); Glucose 88 MG/DL (74-106); INR 2.3; Osmolality,Calculated 272.7 MOS/KG (273-304); PT Patient Result 23.7 SECS (10.1-12.1); Potassium 4.4 MMOL/L (3.5-5.1); Sodium 138 MMOL/L (136-145); Total Protein 6.9 G/DL (6.4-8.2)
[2022-01-04 21:15] LABS: Anisocytosis 1+; Band Neutrophils 11 % (0-10); Lymphocytes 2 % (20-55); Platelet Estimate Normal; Total Cells Counted 100
[2022-01-04 21:42] LABS: Bacteria,Urine Occasional /HPF (Few); Hyaline Casts,Urine 3 /LPF (0-3); Mucus,Urine Occasional /LPF (Occasional); RBC,Urine 2 /HPF (0-4); Squamous Epithelial Cell,Urine Occasional /HPF (0-10)
[2022-01-04 21:44] LABS: Glucose,Urine (UA) Negative (Negative); Ketones,Urine Negative (Negative); Nitrite,Urine Negative (Negative); Protein,Urine Negative (Negative); Urine Appearance Clear (Clear); Urine Color Yellow (Yellow); Urine Specific Gravity 1.025 (1.001-1.035)
[2022-01-04 21:45] LABS: Bilirubin,Urine Negative (Negative); Blood, Urine Trace mg/dL (Negative); Urine Urobilinogen 0.2 eU/dL (<2.0)
[2022-01-05] MEDS ORDERED: ACETAMINOPHEN 325 MG TABLET PO PRN (00:43)
[2022-01-05] MEDS ORDERED: SODIUM CHLORIDE 0.9% 1,000 ML IV SCH (00:43)
[2022-01-05] MEDS ORDERED: busPIRone 5 MG TABLET PO PRN (00:43)
[2022-01-05] MEDS ORDERED: ONDANSETRON 4 MG/2 ML VIAL IV PRN (00:43)
[2022-01-05] MEDS ORDERED: ALBUTEROL 2.5 MG/3 ML NEB RESP TX PRN (00:43)
[2022-01-05] MEDS ORDERED: hydrOXYzine HCL 25 MG TABLET PO PRN (00:43)
[2022-01-05] MEDS ORDERED: GLUCAGON 1 MG VIAL IM PRN (00:43)
[2022-01-05] MEDS ORDERED: DOCUSATE SODIUM 100 MG CAPSULE PO PRN (00:43)
[2022-01-05] MEDS ORDERED: DEXTROSE 10% 250 ML BAG IV PRN (00:50)
[2022-01-05] MEDS: ALBUTEROL/IPRATROPIUM 3 ML NEB RESP TX SCH ×7 (00:56→23:42)
[2022-01-05] MEDS ORDERED: IPRATROPIUM 500 MCG/2.5 ML NEB RESP TX SCH (01:00)
[2022-01-05 03:37] LABS: Basophils % 0.2 % (0.0-0.8); Eosinophils % 0.1 % (0.00-10.9); Hematocrit 34.3 VOL% (35.7-47.0); Hemoglobin 10.2 GM/DL (12.0-16.0); Immature Granulocytes % 2.1 %; Immature Granulocytes Absolute 0.28 #; Lymphocytes # 0.2 10*3/uL (1.4-4.0); Lymphocytes % 1.7 % (21.3-54.2); Mean Corpuscular HGB Conc 29.7 GM/DL (32-36); Mean Corpuscular Volume 87.5 FL (87-102); Mean Platelet Volume 9.5 FL (9.6-12.0); Monocytes # 0.3 10*3/uL (0.11-0.8); Monocytes % 2.1 % (1.7-12.7); Neutrophils % 93.8 % (38.7-73.9); Platelet Count 246 T/CUMM (130-400); Red Blood Count 3.92 MC/CUMM (3.8-5.5); White Blood Count 13.6 T/CUMM (4-12)
[2022-01-05 03:57] LABS: Lymphocytes 4 % (20-55); Platelet Estimate Adequate; Total Cells Counted 100
[2022-01-05 03:58] LABS: Hypochromia Slight; Microcytosis Slight
[2022-01-05 04:06] LABS: Alanine Aminotransferase 24 U/L (13-56); Albumin 2.8 G/DL (3.4-5.0); Alkaline Phosphatase 127 U/L (45-117); Aspartate Amino Transferase 48 U/L (0-37); Bilirubin,Total < 0.39 MG/DL (0.20-1.00); Blood Urea Nitrogen 13 MG/DL (7-18); Calcium 8.3 MG/DL (8.5-10.1); Carbon Dioxide 35 MMOL/L (21-32); Chloride 95 MMOL/L (98-107); Glucose 210 MG/DL (74-106); Osmolality,Calculated 269.5 MOS/KG (273-304); Potassium 4.6 MMOL/L (3.5-5.1); Sodium 132 MMOL/L (136-145); Total Protein 6.9 G/DL (6.4-8.2)
[2022-01-05] MEDS: INSULIN REGULAR 100 UNIT/ML SUBCUT SCH ×4 (05:00→17:54)
[2022-01-05] MEDS: methylPREDNISolone SOD SUC 40 MG/1 ML VIAL IV SCH ×3 (05:08→21:00)
[2022-01-05] MEDS: WARFARIN 5 MG TABLET PO SCH (05:10)
[2022-01-05] MEDS: BUDESONIDE 0.5 MG/2 ML NEB RESP TX SCH ×2 (07:46→22:07)
[2022-01-05] MEDS: SPIRONOLACTONE 25 MG TABLET PO SCH (08:51)
[2022-01-05] MEDS: NEBIVOLOL 10 MG TABLET PO SCH (08:51)
[2022-01-05] MEDS: PANTOPRAZOLE 40 MG TABLET PO SCH (08:52)
[2022-01-05] MEDS: FUROSEMIDE 40 MG TABLET PO SCH ×2 (08:52→20:59)
[2022-01-05] MEDS: DILTIAZEM CD 120 MG CAPSULE PO SCH (08:52)
[2022-01-05] MEDS: ASCORBIC ACID 500 MG TABLET PO SCH ×2 (08:53→20:59)
[2022-01-05] MEDS: levETIRAcetam 500 MG TABLET PO SCH ×2 (08:53→20:59)
[2022-01-05] MEDS: CHOLECALCIFEROL 1,000 UNIT TABLET PO SCH (08:53)
[2022-01-05] MEDS: OSELTAMIVIR 75 MG CAPSULE PO SCH ×2 (08:53→21:01)
[2022-01-05] MEDS: DOCUSATE SODIUM 100 MG CAPSULE PO SCH ×2 (08:53→21:00)
[2022-01-05] MEDS: ATORVASTATIN 40 MG TABLET PO SCH (08:54)
[2022-01-05] MEDS: WARFARIN 2.5 MG TABLET PO SCH (09:47)
[2022-01-05] MEDS: INSULIN NPH/REG 70/30 100 UNIT/ML SUBCUT SCH ×2 (09:48→21:26)
[2022-01-05] MEDS: DIGOXIN 0.25 MG TABLET PO SCH (09:48)
[2022-01-05] MEDS: cefTRIAXone 1,000 MG in SODIUM CHLORIDE 0.9% 100 ML IV SCH (16:11)
[2022-01-05] MEDS: PHENYTOIN ER 100 MG CAPSULE PO SCH (20:59)
[2022-01-05] MEDS: lisinopriL 10 MG TABLET PO SCH (21:00)
[2022-01-05] MEDS: MONTELUKAST 10 MG TABLET PO SCH (21:00)
[2022-01-05 22:14] LABS: INR 2.8; PT Patient Result 28.7 SECS (10.1-12.1)
[2022-01-06] MEDS: methylPREDNISolone SOD SUC 40 MG/1 ML VIAL IV SCH ×4 (01:20→21:21)
[2022-01-06] MEDS: INSULIN REGULAR 100 UNIT/ML SUBCUT SCH ×4 (01:20→19:20)
[2022-01-06 04:50] LABS: Basophils % 0.2 % (0.0-0.8); Hematocrit 33.6 VOL% (35.7-47.0); Hemoglobin 9.9 GM/DL (12.0-16.0); Immature Granulocytes % 1.2 %; Immature Granulocytes Absolute 0.07 #; Lymphocytes # 0.3 10*3/uL (1.4-4.0); Lymphocytes % 5.1 % (21.3-54.2); Mean Corpuscular HGB Conc 29.5 GM/DL (32-36); Mean Platelet Volume 9.3 FL (9.6-12.0); Monocytes # 0.3 10*3/uL (0.11-0.8); Monocytes % 4.7 % (1.7-12.7); Neutrophils % 88.8 % (38.7-73.9); Platelet Count 214 T/CUMM (130-400); Red Blood Count 3.82 MC/CUMM (3.8-5.5); White Blood Count 5.9 T/CUMM (4-12)
[2022-01-06 04:59] LABS: PT Patient Result 30.6 SECS (10.1-12.1)
[2022-01-06 05:11] LABS: Alanine Aminotransferase 20 U/L (13-56); Albumin 2.7 G/DL (3.4-5.0); Alkaline Phosphatase 101 U/L (45-117); Aspartate Amino Transferase 44 U/L (0-37); Bilirubin,Total < 0.39 MG/DL (0.20-1.00); Blood Urea Nitrogen 16 MG/DL (7-18); Calcium 7.9 MG/DL (8.5-10.1); Glucose 101 MG/DL (74-106); Total Protein 6.4 G/DL (6.4-8.2)
[2022-01-06 05:14] LABS: Chloride 94 MMOL/L (98-107); Osmolality,Calculated 270.1 MOS/KG (273-304); Potassium 4.5 MMOL/L (3.5-5.1); Sodium 135 MMOL/L (136-145)
[2022-01-06 05:17] LABS: Carbon Dioxide 40 MMOL/L (21-32)
[2022-01-06] MEDS: ALBUTEROL/IPRATROPIUM 3 ML NEB RESP TX SCH ×6 (06:03→23:25)
[2022-01-06] MEDS: BUDESONIDE 0.5 MG/2 ML NEB RESP TX SCH ×2 (07:36→19:27)
[2022-01-06] MEDS: NEBIVOLOL 10 MG TABLET PO SCH (09:54)
[2022-01-06] MEDS: DIGOXIN 0.25 MG TABLET PO SCH (09:54)
[2022-01-06] MEDS: PANTOPRAZOLE 40 MG TABLET PO SCH (09:54)
[2022-01-06] MEDS: FUROSEMIDE 40 MG TABLET PO SCH ×2 (09:54→21:22)
[2022-01-06] MEDS: ASCORBIC ACID 500 MG TABLET PO SCH ×2 (09:55→21:23)
[2022-01-06] MEDS: ATORVASTATIN 40 MG TABLET PO SCH (09:55)
[2022-01-06] MEDS: CHOLECALCIFEROL 1,000 UNIT TABLET PO SCH (09:55)
[2022-01-06] MEDS: levETIRAcetam 500 MG TABLET PO SCH ×2 (09:55→21:23)
[2022-01-06] MEDS: OSELTAMIVIR 75 MG CAPSULE PO SCH ×2 (09:55→21:21)
[2022-01-06] MEDS: DILTIAZEM CD 120 MG CAPSULE PO SCH (09:55)
[2022-01-06] MEDS: DOCUSATE SODIUM 100 MG CAPSULE PO SCH ×2 (09:55→21:26)
[2022-01-06] MEDS: SPIRONOLACTONE 25 MG TABLET PO SCH (09:55)
[2022-01-06] MEDS: INSULIN NPH/REG 70/30 100 UNIT/ML SUBCUT SCH ×2 (10:19→21:24)
[2022-01-06] MEDS: cefTRIAXone 1,000 MG in SODIUM CHLORIDE 0.9% 100 ML IV SCH (13:53)
[2022-01-06] MEDS: DEXTROSE 5% NACL 0.9% 1,000 ML IV SCH (14:58)
[2022-01-06] MEDS: PHENYTOIN ER 100 MG CAPSULE PO SCH (21:22)
[2022-01-06] MEDS: MONTELUKAST 10 MG TABLET PO SCH (21:22)
[2022-01-06] MEDS: lisinopriL 10 MG TABLET PO SCH (21:22)
[2022-01-06] MEDS: BENZONATATE 100 MG CAPSULE PO PRN (21:23)
[2022-01-07] MEDS: INSULIN REGULAR 100 UNIT/ML SUBCUT SCH ×4 (01:08→18:12)
[2022-01-07] MEDS: methylPREDNISolone SOD SUC 40 MG/1 ML VIAL IV SCH ×4 (01:09→21:15)
[2022-01-07] MEDS: ALBUTEROL/IPRATROPIUM 3 ML NEB RESP TX SCH ×6 (03:30→23:09)
[2022-01-07] MEDS: BENZONATATE 100 MG CAPSULE PO PRN (04:52)
[2022-01-07] MEDS: BUDESONIDE 0.5 MG/2 ML NEB RESP TX SCH ×2 (07:09→19:44)
[2022-01-07 09:11] LABS: Hematocrit 35.5 VOL% (35.7-47.0); Hemoglobin 10.6 GM/DL (12.0-16.0); Immature Granulocytes % 0.8 %; Immature Granulocytes Absolute 0.04 #; Lymphocytes # 0.4 10*3/uL (1.4-4.0); Lymphocytes % 8.5 % (21.3-54.2); Mean Corpuscular HGB Conc 29.9 GM/DL (32-36); Mean Corpuscular Volume 87.9 FL (87-102); Mean Platelet Volume 9.2 FL (9.6-12.0); Monocytes # 0.2 10*3/uL (0.11-0.8); Monocytes % 3.8 % (1.7-12.7); Neutrophils % 86.9 % (38.7-73.9); Platelet Count 208 T/CUMM (130-400); Red Blood Count 4.04 MC/CUMM (3.8-5.5); Red Cell Distribution Width 16.4 % (9.3-17.3)
[2022-01-07 09:21] LABS: INR 3.8; PT Patient Result 37.8 SECS (10.1-12.1)
[2022-01-07] MEDS: SPIRONOLACTONE 25 MG TABLET PO SCH (09:40)
[2022-01-07] MEDS: INSULIN NPH/REG 70/30 100 UNIT/ML SUBCUT SCH ×2 (09:40→21:15)
[2022-01-07] MEDS: levETIRAcetam 500 MG TABLET PO SCH ×2 (09:41→21:14)
[2022-01-07] MEDS: DIGOXIN 0.25 MG TABLET PO SCH ×2 (09:41→12:17)
[2022-01-07] MEDS: FUROSEMIDE 40 MG TABLET PO SCH ×2 (09:41→21:14)
[2022-01-07] MEDS: DILTIAZEM CD 120 MG CAPSULE PO SCH (09:41)
[2022-01-07] MEDS: WARFARIN 2.5 MG TABLET PO SCH (09:41)
[2022-01-07] MEDS: NEBIVOLOL 10 MG TABLET PO SCH (09:41)
[2022-01-07] MEDS: OSELTAMIVIR 75 MG CAPSULE PO SCH ×2 (09:41→21:14)
[2022-01-07] MEDS: ATORVASTATIN 40 MG TABLET PO SCH (09:41)
[2022-01-07] MEDS: PANTOPRAZOLE 40 MG TABLET PO SCH (09:41)
[2022-01-07] MEDS: DOCUSATE SODIUM 100 MG CAPSULE PO SCH ×2 (09:41→21:14)
[2022-01-07] MEDS: CHOLECALCIFEROL 1,000 UNIT TABLET PO SCH (09:42)
[2022-01-07] MEDS: ASCORBIC ACID 500 MG TABLET PO SCH ×2 (09:42→21:14)
[2022-01-07 09:43] LABS: Alanine Aminotransferase 24 U/L (13-56); Albumin 2.9 G/DL (3.4-5.0); Alkaline Phosphatase 107 U/L (45-117); Aspartate Amino Transferase 43 U/L (0-37); Bilirubin,Total < 0.39 MG/DL (0.20-1.00); Blood Urea Nitrogen 25 MG/DL (7-18); Calcium 7.8 MG/DL (8.5-10.1); Carbon Dioxide 43 MMOL/L (21-32); Chloride 92 MMOL/L (98-107); Glucose 289 MG/DL (74-106); Osmolality,Calculated 289.7 MOS/KG (273-304); Potassium 4.8 MMOL/L (3.5-5.1); Sodium 138 MMOL/L (136-145); Total Protein 5.9 G/DL (6.4-8.2)
[2022-01-07] MEDS: cefTRIAXone 1,000 MG in SODIUM CHLORIDE 0.9% 100 ML IV SCH (13:25)
[2022-01-07] MEDS: DEXTROSE 5% NACL 0.9% 1,000 ML IV SCH (18:12)
[2022-01-07] MEDS: MONTELUKAST 10 MG TABLET PO SCH (21:14)
[2022-01-07] MEDS: PHENYTOIN ER 100 MG CAPSULE PO SCH (21:14)
[2022-01-07] MEDS: lisinopriL 10 MG TABLET PO SCH (21:34)
[2022-01-08] MEDS: INSULIN REGULAR 100 UNIT/ML SUBCUT SCH ×4 (00:24→17:18)
[2022-01-08] MEDS: ALBUTEROL/IPRATROPIUM 3 ML NEB RESP TX SCH ×6 (02:49→23:40)
[2022-01-08] MEDS: methylPREDNISolone SOD SUC 40 MG/1 ML VIAL IV SCH ×4 (04:33→21:59)
[2022-01-08 05:25] LABS: Basophils % 0.1 % (0.0-0.8); Hematocrit 35.7 VOL% (35.7-47.0); Hemoglobin 10.6 GM/DL (12.0-16.0); Immature Granulocytes % 1.3 %; Immature Granulocytes Absolute 0.09 #; Lymphocytes # 0.6 10*3/uL (1.4-4.0); Lymphocytes % 8.5 % (21.3-54.2); Mean Corpuscular HGB Conc 29.7 GM/DL (32-36); Mean Corpuscular Volume 86.9 FL (87-102); Mean Platelet Volume 9.7 FL (9.6-12.0); Monocytes # 0.2 10*3/uL (0.11-0.8); Monocytes % 3.6 % (1.7-12.7); Neutrophils % 86.5 % (38.7-73.9); Platelet Count 191 T/CUMM (130-400); Red Blood Count 4.11 MC/CUMM (3.8-5.5); White Blood Count 6.7 T/CUMM (4-12)
[2022-01-08 05:37] LABS: INR 4.1; PT Patient Result 40.9 SECS (10.1-12.1)
[2022-01-08 05:44] LABS: Alanine Aminotransferase 19 U/L (13-56); Albumin 2.7 G/DL (3.4-5.0); Alkaline Phosphatase 93 U/L (45-117); Aspartate Amino Transferase 24 U/L (0-37); Bilirubin,Total < 0.39 MG/DL (0.20-1.00); Blood Urea Nitrogen 25 MG/DL (7-18); Calcium 7.8 MG/DL (8.5-10.1); Carbon Dioxide 39 MMOL/L (21-32); Chloride 92 MMOL/L (98-107); Glucose 279 MG/DL (74-106); Osmolality,Calculated 286.8 MOS/KG (273-304); Potassium 3.7 MMOL/L (3.5-5.1); Sodium 137 MMOL/L (136-145); Total Protein 6.2 G/DL (6.4-8.2)
[2022-01-08] MEDS: BUDESONIDE 0.5 MG/2 ML NEB RESP TX SCH ×2 (07:02→19:51)
[2022-01-08] MEDS: BENZONATATE 100 MG CAPSULE PO PRN (10:28)
[2022-01-08] MEDS: SPIRONOLACTONE 25 MG TABLET PO SCH (10:28)
[2022-01-08] MEDS: NEBIVOLOL 10 MG TABLET PO SCH (10:28)
[2022-01-08] MEDS: DILTIAZEM CD 120 MG CAPSULE PO SCH (10:29)
[2022-01-08] MEDS: CHOLECALCIFEROL 1,000 UNIT TABLET PO SCH (10:29)
[2022-01-08] MEDS: levETIRAcetam 500 MG TABLET PO SCH ×2 (10:29→21:59)
[2022-01-08] MEDS: ASCORBIC ACID 500 MG TABLET PO SCH ×2 (10:29→21:59)
[2022-01-08] MEDS: DOCUSATE SODIUM 100 MG CAPSULE PO SCH ×2 (10:29→21:58)
[2022-01-08] MEDS: ATORVASTATIN 40 MG TABLET PO SCH (10:29)
[2022-01-08] MEDS: DIGOXIN 0.25 MG TABLET PO SCH (10:30)
[2022-01-08] MEDS: OSELTAMIVIR 75 MG CAPSULE PO SCH ×2 (10:30→21:59)
[2022-01-08] MEDS: PANTOPRAZOLE 40 MG TABLET PO SCH (10:30)
[2022-01-08] MEDS: FUROSEMIDE 40 MG TABLET PO SCH ×2 (10:30→21:59)
[2022-01-08] MEDS: INSULIN NPH/REG 70/30 100 UNIT/ML SUBCUT SCH ×2 (10:31→21:48)
[2022-01-08] MEDS: cefTRIAXone 1,000 MG in SODIUM CHLORIDE 0.9% 100 ML IV SCH (13:53)
[2022-01-08] MEDS: NYSTATIN 500,000 UNIT/5 ML UDCUP SWISH/SWAL SCH ×2 (17:18→21:59)
[2022-01-08] MEDS: lisinopriL 10 MG TABLET PO SCH (21:59)
[2022-01-08] MEDS: PHENYTOIN ER 100 MG CAPSULE PO SCH (21:59)
[2022-01-08] MEDS: MONTELUKAST 10 MG TABLET PO SCH (21:59)
[2022-01-08] MEDS: NYSTATIN POWDER 15 GM BOTTLE TOP SCH (22:33)
[2022-01-09] MEDS: INSULIN REGULAR 100 UNIT/ML SUBCUT SCH ×4 (00:16→17:59)
[2022-01-09] MEDS: methylPREDNISolone SOD SUC 40 MG/1 ML VIAL IV SCH ×4 (03:19→21:48)
[2022-01-09] MEDS: ALBUTEROL/IPRATROPIUM 3 ML NEB RESP TX SCH ×6 (03:20→23:48)
[2022-01-09 05:45] LABS: Basophils % 0.1 % (0.0-0.8); Hematocrit 37.3 VOL% (35.7-47.0); Hemoglobin 11.2 GM/DL (12.0-16.0); Immature Granulocytes Absolute 0.16 #; Lymphocytes # 0.7 10*3/uL (1.4-4.0); Lymphocytes % 8.8 % (21.3-54.2); Mean Corpuscular Volume 85.6 FL (87-102); Mean Platelet Volume 9.7 FL (9.6-12.0); Monocytes # 0.2 10*3/uL (0.11-0.8); Monocytes % 2.7 % (1.7-12.7); Neutrophils % 86.4 % (38.7-73.9); Platelet Count 177 T/CUMM (130-400); Red Blood Count 4.36 MC/CUMM (3.8-5.5); Red Cell Distribution Width 15.9 % (9.3-17.3); White Blood Count 7.8 T/CUMM (4-12)
[2022-01-09 07:03] LABS: INR 3.5; PT Patient Result 35.8 SECS (10.1-12.1)
[2022-01-09] MEDS: BUDESONIDE 0.5 MG/2 ML NEB RESP TX SCH ×2 (07:10→19:20)
[2022-01-09 07:12] LABS: Alanine Aminotransferase 17 U/L (13-56); Albumin 2.7 G/DL (3.4-5.0); Alkaline Phosphatase 89 U/L (45-117); Aspartate Amino Transferase 17 U/L (0-37); Bilirubin,Total < 0.39 MG/DL (0.20-1.00); Blood Urea Nitrogen 22 MG/DL (7-18); Carbon Dioxide 40 MMOL/L (21-32); Chloride 92 MMOL/L (98-107); Glucose 289 MG/DL (74-106); Osmolality,Calculated 288.7 MOS/KG (273-304); Potassium 3.9 MMOL/L (3.5-5.1); Sodium 138 MMOL/L (136-145); Total Protein 6.1 G/DL (6.4-8.2)
[2022-01-09] MEDS ORDERED: FLUCONAZOLE 100 MG TABLET PO SCH (09:00)
[2022-01-09] MEDS: DILTIAZEM CD 120 MG CAPSULE PO SCH (11:04)
[2022-01-09] MEDS: INSULIN NPH/REG 70/30 100 UNIT/ML SUBCUT SCH ×2 (11:04→21:47)
[2022-01-09] MEDS: DOCUSATE SODIUM 100 MG CAPSULE PO SCH ×2 (11:04→21:46)
[2022-01-09] MEDS: NEBIVOLOL 10 MG TABLET PO SCH (11:04)
[2022-01-09] MEDS: SPIRONOLACTONE 25 MG TABLET PO SCH (11:04)
[2022-01-09] MEDS: levETIRAcetam 500 MG TABLET PO SCH ×2 (11:05→21:47)
[2022-01-09] MEDS: NYSTATIN POWDER 15 GM BOTTLE TOP SCH ×2 (11:05→21:48)
[2022-01-09] MEDS: FUROSEMIDE 40 MG TABLET PO SCH ×2 (11:05→21:47)
[2022-01-09] MEDS: NYSTATIN 500,000 UNIT/5 ML UDCUP SWISH/SWAL SCH ×4 (11:05→21:47)
[2022-01-09] MEDS: DIGOXIN 0.25 MG TABLET PO SCH (11:05)
[2022-01-09] MEDS: ATORVASTATIN 40 MG TABLET PO SCH (11:05)
[2022-01-09] MEDS: PANTOPRAZOLE 40 MG TABLET PO SCH (11:06)
[2022-01-09] MEDS: ASCORBIC ACID 500 MG TABLET PO SCH ×2 (11:06→21:48)
[2022-01-09] MEDS: OSELTAMIVIR 75 MG CAPSULE PO SCH ×2 (11:06→21:48)
[2022-01-09] MEDS: CHOLECALCIFEROL 1,000 UNIT TABLET PO SCH (11:06)
[2022-01-09] MEDS: cefTRIAXone 1,000 MG in SODIUM CHLORIDE 0.9% 100 ML IV SCH (13:46)
[2022-01-09] MEDS: DEXTROSE 5% NACL 0.9% 1,000 ML IV SCH (16:12)
[2022-01-09] MEDS: PHENYTOIN ER 100 MG CAPSULE PO SCH (21:46)
[2022-01-09] MEDS: MONTELUKAST 10 MG TABLET PO SCH (21:47)
[2022-01-09] MEDS: lisinopriL 10 MG TABLET PO SCH (21:47)
[2022-01-10] MEDS: INSULIN REGULAR 100 UNIT/ML SUBCUT SCH ×4 (00:22→17:06)
[2022-01-10] MEDS: ALBUTEROL/IPRATROPIUM 3 ML NEB RESP TX SCH ×5 (04:04→20:21)
[2022-01-10] MEDS: methylPREDNISolone SOD SUC 40 MG/1 ML VIAL IV SCH ×4 (04:52→21:47)
[2022-01-10 05:30] LABS: Basophils % 0.2 % (0.0-0.8); Hematocrit 36.5 VOL% (35.7-47.0); Hemoglobin 10.9 GM/DL (12.0-16.0); Immature Granulocytes % 3.2 %; Immature Granulocytes Absolute 0.28 #; Lymphocytes # 1.1 10*3/uL (1.4-4.0); Lymphocytes % 12.4 % (21.3-54.2); Mean Corpuscular HGB Conc 29.9 GM/DL (32-36); Mean Corpuscular Volume 85.7 FL (87-102); Mean Platelet Volume 9.5 FL (9.6-12.0); Monocytes # 0.3 10*3/uL (0.11-0.8); Monocytes % 3.7 % (1.7-12.7); Neutrophils % 80.5 % (38.7-73.9); Platelet Count 211 T/CUMM (130-400); Red Blood Count 4.26 MC/CUMM (3.8-5.5); Red Cell Distribution Width 15.9 % (9.3-17.3); White Blood Count 8.8 T/CUMM (4-12)
[2022-01-10 05:39] LABS: INR 2.5; PT Patient Result 26.1 SECS (10.1-12.1)
[2022-01-10 06:01] LABS: Alanine Aminotransferase 17 U/L (13-56); Albumin 2.8 G/DL (3.4-5.0); Alkaline Phosphatase 86 U/L (45-117); Aspartate Amino Transferase 13 U/L (0-37); Bilirubin,Total < 0.39 MG/DL (0.20-1.00); Blood Urea Nitrogen 20 MG/DL (7-18); Carbon Dioxide 41 MMOL/L (21-32); Chloride 90 MMOL/L (98-107); Glucose 295 MG/DL (74-106); Osmolality,Calculated 288.7 MOS/KG (273-304); Potassium 3.5 MMOL/L (3.5-5.1); Sodium 138 MMOL/L (136-145); Total Protein 6.2 G/DL (6.4-8.2)
[2022-01-10] MEDS: BUDESONIDE 0.5 MG/2 ML NEB RESP TX SCH ×2 (07:33→20:21)
[2022-01-10] MEDS: NYSTATIN POWDER 15 GM BOTTLE TOP SCH ×2 (09:43→21:48)
[2022-01-10] MEDS: NYSTATIN 500,000 UNIT/5 ML UDCUP SWISH/SWAL SCH ×4 (09:43→21:47)
[2022-01-10] MEDS: levETIRAcetam 500 MG TABLET PO SCH ×2 (09:43→21:47)
[2022-01-10] MEDS: DOCUSATE SODIUM 100 MG CAPSULE PO SCH ×2 (09:44→21:47)
[2022-01-10] MEDS: DILTIAZEM CD 120 MG CAPSULE PO SCH (09:44)
[2022-01-10] MEDS: NEBIVOLOL 10 MG TABLET PO SCH (09:44)
[2022-01-10] MEDS: SPIRONOLACTONE 25 MG TABLET PO SCH (09:44)
[2022-01-10] MEDS: ASCORBIC ACID 500 MG TABLET PO SCH ×2 (09:44→21:48)
[2022-01-10] MEDS: PANTOPRAZOLE 40 MG TABLET PO SCH (09:45)
[2022-01-10] MEDS: FUROSEMIDE 40 MG TABLET PO SCH ×2 (09:45→21:48)
[2022-01-10] MEDS: DIGOXIN 0.25 MG TABLET PO SCH (09:45)
[2022-01-10] MEDS: ATORVASTATIN 40 MG TABLET PO SCH (09:45)
[2022-01-10] MEDS: CHOLECALCIFEROL 1,000 UNIT TABLET PO SCH (09:45)
[2022-01-10] MEDS: INSULIN NPH/REG 70/30 100 UNIT/ML SUBCUT SCH ×2 (09:46→21:46)
[2022-01-10] MEDS ORDERED: DIAZEPAM 2 MG TABLET PO ONE (11:24)
[2022-01-10] MEDS: cefTRIAXone 1,000 MG in SODIUM CHLORIDE 0.9% 100 ML IV SCH (15:50)
[2022-01-10] MEDS: WARFARIN 5 MG TABLET PO SCH (17:04)
[2022-01-10] MEDS: diphenhydrAMINE CAP 25 MG CAPSULE PO PRN (17:05)
[2022-01-10] MEDS: lisinopriL 10 MG TABLET PO SCH (21:48)
[2022-01-10] MEDS: MONTELUKAST 10 MG TABLET PO SCH (21:48)
[2022-01-10] MEDS: PHENYTOIN ER 100 MG CAPSULE PO SCH (21:48)
[2022-01-11] MEDS: INSULIN REGULAR 100 UNIT/ML SUBCUT SCH ×4 (00:33→18:45)
[2022-01-11] MEDS: ALBUTEROL/IPRATROPIUM 3 ML NEB RESP TX SCH ×7 (00:49→23:55)
[2022-01-11] MEDS: methylPREDNISolone SOD SUC 40 MG/1 ML VIAL IV SCH ×4 (02:48→21:24)
[2022-01-11 04:28] LABS: Basophils % 0.2 % (0.0-0.8); Hematocrit 36.7 VOL% (35.7-47.0); Hemoglobin 11.1 GM/DL (12.0-16.0); Immature Granulocytes % 4.3 %; Immature Granulocytes Absolute 0.43 #; Lymphocytes # 0.8 10*3/uL (1.4-4.0); Lymphocytes % 8.2 % (21.3-54.2); Mean Corpuscular HGB Conc 30.2 GM/DL (32-36); Mean Corpuscular Volume 85.5 FL (87-102); Mean Platelet Volume 9.5 FL (9.6-12.0); Monocytes # 0.2 10*3/uL (0.11-0.8); Monocytes % 2.2 % (1.7-12.7); Neutrophils % 85.1 % (38.7-73.9); Platelet Count 216 T/CUMM (130-400); Red Blood Count 4.29 MC/CUMM (3.8-5.5); Red Cell Distribution Width 15.9 % (9.3-17.3); White Blood Count 9.9 T/CUMM (4-12)
[2022-01-11 04:47] LABS: INR 2.1; PT Patient Result 22.4 SECS (10.1-12.1)
[2022-01-11 05:09] LABS: Alanine Aminotransferase 17 U/L (13-56); Albumin 2.8 G/DL (3.4-5.0); Alkaline Phosphatase 91 U/L (45-117); Aspartate Amino Transferase 14 U/L (0-37); Bilirubin,Total < 0.39 MG/DL (0.20-1.00); Blood Urea Nitrogen 22 MG/DL (7-18); Calcium 7.9 MG/DL (8.5-10.1); Carbon Dioxide 38 MMOL/L (21-32); Chloride 89 MMOL/L (98-107); Glucose 355 MG/DL (74-106); Osmolality,Calculated 276.8 MOS/KG (273-304); Potassium 3.6 MMOL/L (3.5-5.1); Sodium 130 MMOL/L (136-145); Total Protein 6.3 G/DL (6.4-8.2)
[2022-01-11] MEDS: BUDESONIDE 0.5 MG/2 ML NEB RESP TX SCH ×2 (08:40→19:30)
[2022-01-11] MEDS: CHOLECALCIFEROL 1,000 UNIT TABLET PO SCH (09:26)
[2022-01-11] MEDS: DOCUSATE SODIUM 100 MG CAPSULE PO SCH ×2 (09:26→21:22)
[2022-01-11] MEDS: ASCORBIC ACID 500 MG TABLET PO SCH ×2 (09:26→21:23)
[2022-01-11] MEDS: DILTIAZEM CD 120 MG CAPSULE PO SCH (09:26)
[2022-01-11] MEDS: ATORVASTATIN 40 MG TABLET PO SCH (09:26)
[2022-01-11] MEDS: levETIRAcetam 500 MG TABLET PO SCH ×2 (09:27→21:24)
[2022-01-11] MEDS: SPIRONOLACTONE 25 MG TABLET PO SCH (09:27)
[2022-01-11] MEDS: NEBIVOLOL 10 MG TABLET PO SCH (09:27)
[2022-01-11] MEDS: PANTOPRAZOLE 40 MG TABLET PO SCH (09:27)
[2022-01-11] MEDS: NYSTATIN 500,000 UNIT/5 ML UDCUP SWISH/SWAL SCH ×4 (09:27→21:23)
[2022-01-11] MEDS: FUROSEMIDE 40 MG TABLET PO SCH ×2 (09:27→21:24)
[2022-01-11] MEDS: DIGOXIN 0.25 MG TABLET PO SCH (09:27)
[2022-01-11] MEDS: INSULIN NPH/REG 70/30 100 UNIT/ML SUBCUT SCH ×2 (09:29→21:22)
[2022-01-11] MEDS: NYSTATIN POWDER 15 GM BOTTLE TOP SCH ×2 (09:34→21:22)
[2022-01-11] MEDS: cefTRIAXone 1,000 MG in SODIUM CHLORIDE 0.9% 100 ML IV SCH (14:40)
[2022-01-11] MEDS: WARFARIN 5 MG TABLET PO SCH (18:44)
[2022-01-11] MEDS: PHENYTOIN ER 100 MG CAPSULE PO SCH (21:23)
[2022-01-11] MEDS: lisinopriL 10 MG TABLET PO SCH (21:24)
[2022-01-11] MEDS: MONTELUKAST 10 MG TABLET PO SCH (21:24)
[2022-01-11] MEDS: diphenhydrAMINE CAP 25 MG CAPSULE PO PRN (22:00)
[2022-01-12] MEDS: INSULIN REGULAR 100 UNIT/ML SUBCUT SCH ×4 (00:34→17:10)
[2022-01-12] MEDS: methylPREDNISolone SOD SUC 40 MG/1 ML VIAL IV SCH ×4 (02:52→21:29)
[2022-01-12] MEDS: ALBUTEROL/IPRATROPIUM 3 ML NEB RESP TX SCH ×6 (03:55→23:40)
[2022-01-12 04:51] LABS: Basophils % 0.3 % (0.0-0.8); Hematocrit 38.5 VOL% (35.7-47.0); Hemoglobin 11.8 GM/DL (12.0-16.0); Immature Granulocytes % 4.1 %; Immature Granulocytes Absolute 0.62 #; Lymphocytes # 0.8 10*3/uL (1.4-4.0); Lymphocytes % 5.5 % (21.3-54.2); Mean Corpuscular HGB Conc 30.6 GM/DL (32-36); Mean Corpuscular Volume 86.1 FL (87-102); Mean Platelet Volume 9.9 FL (9.6-12.0); Monocytes # 0.4 10*3/uL (0.11-0.8); Monocytes % 2.8 % (1.7-12.7); Neutrophils % 87.3 % (38.7-73.9); Platelet Count 288 T/CUMM (130-400); Red Blood Count 4.47 MC/CUMM (3.8-5.5); Red Cell Distribution Width 16.1 % (9.3-17.3); White Blood Count 15.3 T/CUMM (4-12)
[2022-01-12 05:03] LABS: INR 2.9; PT Patient Result 29.4 SECS (10.1-12.1)
[2022-01-12 05:20] LABS: Hypochromia Slight; Lymphocytes 7 % (20-55); Microcytosis Slight; Platelet Estimate Adequate; Total Cells Counted 100
[2022-01-12 05:23] LABS: Alanine Aminotransferase 20 U/L (13-56); Albumin 3.1 G/DL (3.4-5.0); Alkaline Phosphatase 89 U/L (45-117); Aspartate Amino Transferase 10 U/L (0-37); Bilirubin,Total < 0.39 MG/DL (0.20-1.00); Blood Urea Nitrogen 23 MG/DL (7-18); Calcium 8.5 MG/DL (8.5-10.1); Carbon Dioxide 38 MMOL/L (21-32); Chloride 89 MMOL/L (98-107); Glucose 246 MG/DL (74-106); Osmolality,Calculated 284.8 MOS/KG (273-304); Potassium 3.6 MMOL/L (3.5-5.1); Sodium 137 MMOL/L (136-145); Total Protein 6.5 G/DL (6.4-8.2)
[2022-01-12] MEDS ORDERED: MEPERIDINE 25 MG/1 ML VIAL IM ONE (07:00)
[2022-01-12] MEDS ORDERED: MEPERIDINE 50 MG/1 ML VIAL IM ONE (07:00)
[2022-01-12] MEDS ORDERED: PROMETHAZINE 25 MG/1 ML VIAL IM ONE (07:00)
[2022-01-12] MEDS: BUDESONIDE 0.5 MG/2 ML NEB RESP TX SCH ×2 (07:05→19:20)
[2022-01-12] MEDS ORDERED: LIDOCAINE 2% 20 ML VIAL RESP TX ONE (07:30)
[2022-01-12] MEDS ORDERED: LIDOCAINE 2% VISCOUS 100 ML BOTTLE SWISH/SPIT ONE (07:30)
[2022-01-12] MEDS ORDERED: MIDAZOLAM 2 MG/2 ML VIAL IV ONE (07:30)
[2022-01-12] MEDS ORDERED: LIDOCAINE 1% 20 ML VIAL MISC INJ ONE (07:30)
[2022-01-12] MEDS: NYSTATIN 500,000 UNIT/5 ML UDCUP SWISH/SWAL SCH ×4 (11:30→21:26)
[2022-01-12] MEDS: INSULIN NPH/REG 70/30 100 UNIT/ML SUBCUT SCH ×2 (11:30→21:26)
[2022-01-12] MEDS: ATORVASTATIN 40 MG TABLET PO SCH (11:31)
[2022-01-12] MEDS: DIGOXIN 0.25 MG TABLET PO SCH (11:31)
[2022-01-12] MEDS: CHOLECALCIFEROL 1,000 UNIT TABLET PO SCH (11:31)
[2022-01-12] MEDS: ASCORBIC ACID 500 MG TABLET PO SCH ×2 (11:31→21:27)
[2022-01-12] MEDS: DOCUSATE SODIUM 100 MG CAPSULE PO SCH ×2 (11:31→21:27)
[2022-01-12] MEDS: levETIRAcetam 500 MG TABLET PO SCH ×2 (11:31→21:28)
[2022-01-12] MEDS: FUROSEMIDE 40 MG TABLET PO SCH ×2 (11:32→21:28)
[2022-01-12] MEDS: PANTOPRAZOLE 40 MG TABLET PO SCH (11:32)
[2022-01-12] MEDS: WARFARIN 2.5 MG TABLET PO SCH (11:33)
[2022-01-12] MEDS: DILTIAZEM CD 120 MG CAPSULE PO SCH (11:33)
[2022-01-12] MEDS: NEBIVOLOL 10 MG TABLET PO SCH (11:33)
[2022-01-12] MEDS: SPIRONOLACTONE 25 MG TABLET PO SCH (11:33)
[2022-01-12] MEDS: NYSTATIN POWDER 15 GM BOTTLE TOP SCH ×2 (11:49→21:29)
[2022-01-12] MEDS: cefTRIAXone 1,000 MG in SODIUM CHLORIDE 0.9% 100 ML IV SCH (14:28)
[2022-01-12] MEDS: PHENYTOIN ER 100 MG CAPSULE PO SCH (21:27)
[2022-01-12] MEDS: MONTELUKAST 10 MG TABLET PO SCH (21:27)
[2022-01-12] MEDS: lisinopriL 10 MG TABLET PO SCH (21:27)
[2022-01-13] MEDS: INSULIN REGULAR 100 UNIT/ML SUBCUT SCH ×4 (01:22→17:00)
[2022-01-13] MEDS: methylPREDNISolone SOD SUC 40 MG/1 ML VIAL IV SCH ×4 (03:19→21:15)
[2022-01-13] MEDS: ALBUTEROL/IPRATROPIUM 3 ML NEB RESP TX SCH ×6 (03:30→23:46)
[2022-01-13 06:06] LABS: Basophils % 0.2 % (0.0-0.8); Hematocrit 37.9 VOL% (35.7-47.0); Hemoglobin 11.3 GM/DL (12.0-16.0); Immature Granulocytes % 4.8 %; Immature Granulocytes Absolute 0.61 #; Lymphocytes # 0.6 10*3/uL (1.4-4.0); Lymphocytes % 4.4 % (21.3-54.2); Mean Corpuscular HGB Conc 29.8 GM/DL (32-36); Mean Corpuscular Volume 85.7 FL (87-102); Mean Platelet Volume 9.8 FL (9.6-12.0); Monocytes # 0.4 10*3/uL (0.11-0.8); Monocytes % 2.8 % (1.7-12.7); Neutrophils % 87.8 % (38.7-73.9); Platelet Count 286 T/CUMM (130-400); Red Blood Count 4.42 MC/CUMM (3.8-5.5); Red Cell Distribution Width 16.2 % (9.3-17.3); White Blood Count 12.8 T/CUMM (4-12)
[2022-01-13 06:16] LABS: INR 4.1; PT Patient Result 40.7 SECS (10.1-12.1)
[2022-01-13 06:23] LABS: Alanine Aminotransferase 18 U/L (13-56); Albumin 2.8 G/DL (3.4-5.0); Alkaline Phosphatase 92 U/L (45-117); Aspartate Amino Transferase 8 U/L (0-37); Bilirubin,Total < 0.39 MG/DL (0.20-1.00); Blood Urea Nitrogen 25 MG/DL (7-18); Calcium 8.3 MG/DL (8.5-10.1); Carbon Dioxide 40 MMOL/L (21-32); Chloride 91 MMOL/L (98-107); Glucose 265 MG/DL (74-106); Osmolality,Calculated 280.2 MOS/KG (273-304); Potassium 3.7 MMOL/L (3.5-5.1); Sodium 134 MMOL/L (136-145); Total Protein 6.3 G/DL (6.4-8.2)
[2022-01-13 06:33] LABS: Hypochromia Slight; Lymphocytes 5 % (20-55); Microcytosis Slight; Platelet Estimate Adequate; Total Cells Counted 100
[2022-01-13] MEDS: BUDESONIDE 0.5 MG/2 ML NEB RESP TX SCH ×2 (07:05→21:08)
[2022-01-13] MEDS: DILTIAZEM CD 120 MG CAPSULE PO SCH (09:01)
[2022-01-13] MEDS: DOCUSATE SODIUM 100 MG CAPSULE PO SCH ×2 (09:01→21:11)
[2022-01-13] MEDS: ASCORBIC ACID 500 MG TABLET PO SCH ×2 (09:01→21:11)
[2022-01-13] MEDS: INSULIN NPH/REG 70/30 100 UNIT/ML SUBCUT SCH ×2 (09:01→21:13)
[2022-01-13] MEDS: ATORVASTATIN 40 MG TABLET PO SCH (09:01)
[2022-01-13] MEDS: SPIRONOLACTONE 25 MG TABLET PO SCH (09:02)
[2022-01-13] MEDS: FUROSEMIDE 40 MG TABLET PO SCH ×2 (09:02→21:12)
[2022-01-13] MEDS: NEBIVOLOL 10 MG TABLET PO SCH (09:02)
[2022-01-13] MEDS: levETIRAcetam 500 MG TABLET PO SCH ×2 (09:03→21:10)
[2022-01-13] MEDS: PANTOPRAZOLE 40 MG TABLET PO SCH (09:03)
[2022-01-13] MEDS: NYSTATIN 500,000 UNIT/5 ML UDCUP SWISH/SWAL SCH ×4 (09:03→21:12)
[2022-01-13] MEDS: DIGOXIN 0.25 MG TABLET PO SCH (09:03)
[2022-01-13] MEDS: CHOLECALCIFEROL 1,000 UNIT TABLET PO SCH (09:03)
[2022-01-13] MEDS: NYSTATIN POWDER 15 GM BOTTLE TOP SCH ×2 (09:05→21:12)
[2022-01-13] MEDS: BENZONATATE 100 MG CAPSULE PO PRN (21:11)
[2022-01-13] MEDS: PHENYTOIN ER 100 MG CAPSULE PO SCH (21:11)
[2022-01-13] MEDS: MONTELUKAST 10 MG TABLET PO SCH (21:11)
[2022-01-13] MEDS: lisinopriL 10 MG TABLET PO SCH (21:12)
[2022-01-13] MEDS: diphenhydrAMINE CAP 25 MG CAPSULE PO PRN (21:17)
[2022-01-14] MEDS: INSULIN REGULAR 100 UNIT/ML SUBCUT SCH ×3 (00:29→12:58)
[2022-01-14] MEDS: methylPREDNISolone SOD SUC 40 MG/1 ML VIAL IV SCH ×2 (03:33→09:01)
[2022-01-14] MEDS: ALBUTEROL/IPRATROPIUM 3 ML NEB RESP TX SCH ×2 (03:40→07:03)
[2022-01-14] MEDS: BUDESONIDE 0.5 MG/2 ML NEB RESP TX SCH (07:03)
[2022-01-14] MEDS: INSULIN NPH/REG 70/30 100 UNIT/ML SUBCUT SCH (08:59)
[2022-01-14] MEDS: levETIRAcetam 500 MG TABLET PO SCH (09:02)
[2022-01-14] MEDS: ASCORBIC ACID 500 MG TABLET PO SCH (09:02)
[2022-01-14] MEDS: NEBIVOLOL 10 MG TABLET PO SCH (09:02)
[2022-01-14] MEDS: DOCUSATE SODIUM 100 MG CAPSULE PO SCH (09:02)
[2022-01-14] MEDS: SPIRONOLACTONE 25 MG TABLET PO SCH (09:03)
[2022-01-14] MEDS: DIGOXIN 0.25 MG TABLET PO SCH (09:03)
[2022-01-14] MEDS: CHOLECALCIFEROL 1,000 UNIT TABLET PO SCH (09:03)
[2022-01-14] MEDS: DILTIAZEM CD 120 MG CAPSULE PO SCH (09:03)
[2022-01-14] MEDS: FUROSEMIDE 40 MG TABLET PO SCH (09:04)
[2022-01-14] MEDS: PANTOPRAZOLE 40 MG TABLET PO SCH (09:04)
[2022-01-14] MEDS: ATORVASTATIN 40 MG TABLET PO SCH (09:04)
[2022-01-14] MEDS: NYSTATIN 500,000 UNIT/5 ML UDCUP SWISH/SWAL SCH ×2 (09:04→12:58)
[2022-01-14] MEDS: NYSTATIN POWDER 15 GM BOTTLE TOP SCH (09:05)
[2022-01-14] MEDS ORDERED: predniSONE 20 MG TABLET PO SCH (10:00)
[2022-01-14] MEDS: WARFARIN 2.5 MG TABLET PO SCH (12:23)
[2022-01-14 12:58] VITALS: BP 133/54
== END 2022-01-14 14:30 | disposition home health service (06) | DRG 190 ==
LOC: N.ED 16:55 → N.EDINP 21:30 → N.TELEN 01-05 13:30
PROVIDERS: ADMIT Family Medicine; ATTEND Family Medicine

== ENCOUNTER 2022-02-25 07:10 | Inpatient (IN) ==
[2022-02-25] MEDS ORDERED: ALBUTEROL 2.5 MG/3 ML NEB RESP TX STA (07:45)
[2022-02-25] MEDS ORDERED: methylPREDNISolone SOD SUC 40 MG/1 ML VIAL IV STA (07:45)
[2022-02-25 08:27] LABS: Basophils # 0.1 10*3/uL (0.0-0.2); Basophils % 0.5 % (0.0-0.8); Eosinophils # 0.1 10*3/uL (0.0-0.87); Eosinophils % 0.6 % (0.00-10.9); Hematocrit 36.2 VOL% (35.7-47.0); Hemoglobin 11.2 GM/DL (12.0-16.0); Immature Granulocytes % 1.7 %; Immature Granulocytes Absolute 0.16 #; Lymphocytes # 0.9 10*3/uL (1.4-4.0); Lymphocytes % 9.5 % (21.3-54.2); Mean Corpuscular HGB Conc 30.9 GM/DL (32-36); Mean Corpuscular Volume 87.2 FL (87-102); Mean Platelet Volume 9.1 FL (9.6-12.0); Monocytes # 0.7 10*3/uL (0.11-0.8); Monocytes % 7.9 % (1.7-12.7); Neutrophils % 79.8 % (38.7-73.9); Platelet Count 211 T/CUMM (130-400); Red Blood Count 4.15 MC/CUMM (3.8-5.5); Red Cell Distribution Width 17.2 % (9.3-17.3); White Blood Count 9.4 T/CUMM (4-12)
[2022-02-25 08:47] LABS: Alanine Aminotransferase 53 U/L (13-56); Albumin 3.2 G/DL (3.4-5.0); Alkaline Phosphatase 150 U/L (45-117); Aspartate Amino Transferase 109 U/L (0-37); Bilirubin,Total < 0.39 MG/DL (0.20-1.00); Blood Urea Nitrogen 13 MG/DL (7-18); Calcium 8.2 MG/DL (8.5-10.1); Carbon Dioxide 39 MMOL/L (21-32); Chloride 95 MMOL/L (98-107); Glucose 221 MG/DL (74-106); Osmolality,Calculated 279.8 MOS/KG (273-304); Potassium 3.7 MMOL/L (3.5-5.1); Sodium 137 MMOL/L (136-145); Total Protein 6.7 G/DL (6.4-8.2)
[2022-02-25] MEDS ORDERED: ACETAMINOPHEN 325 MG TABLET PO PRN (10:57)
[2022-02-25] MEDS ORDERED: ONDANSETRON 4 MG/2 ML VIAL IV PRN (10:57)
[2022-02-25] MEDS ORDERED: GLUCAGON 1 MG VIAL IM PRN (10:57)
[2022-02-25] MEDS ORDERED: diphenhydrAMINE CAP 25 MG CAPSULE PO PRN (11:03)
[2022-02-25] MEDS ORDERED: hydrOXYzine HCL 25 MG TABLET PO PRN (11:03)
[2022-02-25] MEDS ORDERED: DOCUSATE SODIUM 100 MG CAPSULE PO PRN (11:03)
[2022-02-25] MEDS ORDERED: ALBUTEROL 2.5 MG/3 ML NEB RESP TX PRN (11:03)
[2022-02-25] MEDS ORDERED: DEXTROSE 10% 250 ML BAG IV PRN ×2 (11:03→11:30)
[2022-02-25] MEDS ORDERED: MAGNESIUM SULF RIDER 4 GM/100 ML PREMIX IV PRN (11:22)
[2022-02-25] MEDS ORDERED: POTASSIUM CHLORIDE RIDER 10 MEQ/100 ML PREMIX IV PRN (11:22)
[2022-02-25] MEDS ORDERED: MAGNESIUM SULF RIDER 2 GM/50 ML PREMIX IV PRN (11:22)
[2022-02-25] MEDS ORDERED: POTASSIUM CHLORIDE 20 MEQ TABLET PO PRN (11:22)
[2022-02-25] MEDS: LEVOFLOXACIN INJ 500 MG/100 ML PREMIX IV SCH (12:00)
[2022-02-25] MEDS ORDERED: IPRATROPIUM 500 MCG/2.5 ML NEB RESP TX SCH (13:00)
[2022-02-25] MEDS: INSULIN REGULAR 100 UNIT/ML SUBCUT SCH ×3 (13:39→22:16)
[2022-02-25] MEDS ORDERED: BENZONATATE 100 MG CAPSULE PO PRN (13:54)
[2022-02-25] MEDS: ALBUTEROL/IPRATROPIUM 3 ML NEB RESP TX SCH ×3 (14:13→23:05)
[2022-02-25] MEDS: INSULIN NPH/REG 70/30 100 UNIT/ML SUBCUT SCH (16:52)
[2022-02-25] MEDS: FUROSEMIDE 40 MG TABLET PO SCH (16:52)
[2022-02-25] MEDS: SODIUM CHLORIDE 0.45% 1,000 ML IV SCH (16:53)
[2022-02-25] MEDS: BUDESONIDE 0.5 MG/2 ML NEB RESP TX SCH (19:50)
[2022-02-25] MEDS: ASCORBIC ACID 500 MG TABLET PO SCH (22:14)
[2022-02-25] MEDS: levETIRAcetam 500 MG TABLET PO SCH (22:15)
[2022-02-25] MEDS: MONTELUKAST 10 MG TABLET PO SCH (22:15)
[2022-02-25] MEDS: DOCUSATE SODIUM 100 MG CAPSULE PO SCH (22:15)
[2022-02-25] MEDS: lisinopriL 10 MG TABLET PO SCH (22:15)
[2022-02-25] MEDS: methylPREDNISolone SOD SUC 40 MG/1 ML VIAL IV SCH (22:17)
[2022-02-25] MEDS: PHENYTOIN ER 100 MG CAPSULE PO SCH (22:22)
[2022-02-26] MEDS: ALBUTEROL/IPRATROPIUM 3 ML NEB RESP TX SCH ×6 (02:15→22:43)
[2022-02-26] MEDS: SODIUM CHLORIDE 0.45% 1,000 ML IV SCH ×2 (05:29→18:38)
[2022-02-26 05:48] LABS: Basophils % 0.5 % (0.0-0.8); Eosinophils % 0.1 % (0.00-10.9); Hematocrit 34.2 VOL% (35.7-47.0); Hemoglobin 10.6 GM/DL (12.0-16.0); Immature Granulocytes % 1.6 %; Immature Granulocytes Absolute 0.14 #; Lymphocytes # 0.6 10*3/uL (1.4-4.0); Mean Corpuscular Volume 88.4 FL (87-102); Mean Platelet Volume 9.6 FL (9.6-12.0); Monocytes # 0.4 10*3/uL (0.11-0.8); Monocytes % 4.4 % (1.7-12.7); Neutrophils % 86.4 % (38.7-73.9); Platelet Count 199 T/CUMM (130-400); Red Blood Count 3.87 MC/CUMM (3.8-5.5); Red Cell Distribution Width 17.2 % (9.3-17.3); White Blood Count 8.5 T/CUMM (4-12)
[2022-02-26 06:02] LABS: INR 1.7; PT Patient Result 18.3 SECS (10.1-12.1)
[2022-02-26 06:08] LABS: Alanine Aminotransferase 55 U/L (13-56); Alkaline Phosphatase 140 U/L (45-117); Aspartate Amino Transferase 91 U/L (0-37); Bilirubin,Total < 0.39 MG/DL (0.20-1.00); Blood Urea Nitrogen 16 MG/DL (7-18); Calcium 8.2 MG/DL (8.5-10.1); Carbon Dioxide 35 MMOL/L (21-32); Chloride 96 MMOL/L (98-107); Glucose 300 MG/DL (74-106); Osmolality,Calculated 277.4 MOS/KG (273-304); Potassium 4.4 MMOL/L (3.5-5.1); Sodium 133 MMOL/L (136-145); Total Protein 6.4 G/DL (6.4-8.2)
[2022-02-26] MEDS: BUDESONIDE 0.5 MG/2 ML NEB RESP TX SCH ×2 (08:49→19:40)
[2022-02-26] MEDS: NEBIVOLOL 10 MG TABLET PO SCH (08:58)
[2022-02-26] MEDS: methylPREDNISolone SOD SUC 40 MG/1 ML VIAL IV SCH ×2 (08:58→21:56)
[2022-02-26] MEDS: ATORVASTATIN 40 MG TABLET PO SCH (08:59)
[2022-02-26] MEDS: DIGOXIN 0.25 MG TABLET PO SCH (08:59)
[2022-02-26] MEDS: ASCORBIC ACID 500 MG TABLET PO SCH ×2 (09:00→21:55)
[2022-02-26] MEDS: levETIRAcetam 500 MG TABLET PO SCH ×2 (09:00→21:55)
[2022-02-26] MEDS: busPIRone 5 MG TABLET PO PRN (09:00)
[2022-02-26] MEDS: SPIRONOLACTONE 25 MG TABLET PO SCH (09:01)
[2022-02-26] MEDS: DOCUSATE SODIUM 100 MG CAPSULE PO SCH ×2 (09:01→21:55)
[2022-02-26] MEDS: DILTIAZEM CD 120 MG CAPSULE PO SCH (09:02)
[2022-02-26] MEDS: FUROSEMIDE 80 MG TABLET PO SCH (09:02)
[2022-02-26] MEDS: INSULIN NPH/REG 70/30 100 UNIT/ML SUBCUT SCH ×2 (09:02→16:45)
[2022-02-26] MEDS: INSULIN REGULAR 100 UNIT/ML SUBCUT SCH ×4 (09:03→21:55)
[2022-02-26] MEDS: PANTOPRAZOLE 40 MG TABLET PO SCH (09:04)
[2022-02-26] MEDS: WARFARIN 5 MG TABLET PO SCH (09:06)
[2022-02-26] MEDS: CHOLECALCIFEROL 1,000 UNIT TABLET PO SCH (11:33)
[2022-02-26] MEDS: LEVOFLOXACIN INJ 500 MG/100 ML PREMIX IV SCH (12:52)
[2022-02-26] MEDS: FUROSEMIDE 40 MG TABLET PO SCH (16:43)
[2022-02-26] MEDS: lisinopriL 10 MG TABLET PO SCH (21:55)
[2022-02-26] MEDS: MONTELUKAST 10 MG TABLET PO SCH (21:55)
[2022-02-26] MEDS: PHENYTOIN ER 100 MG CAPSULE PO SCH (21:56)
[2022-02-27] MEDS: ALBUTEROL/IPRATROPIUM 3 ML NEB RESP TX SCH ×6 (02:11→23:00)
[2022-02-27 05:12] LABS: Basophils % 0.4 % (0.0-0.8); Hematocrit 32.2 VOL% (35.7-47.0); Immature Granulocytes % 1.8 %; Immature Granulocytes Absolute 0.19 #; Lymphocytes # 1.1 10*3/uL (1.4-4.0); Lymphocytes % 10.5 % (21.3-54.2); Mean Corpuscular HGB Conc 31.1 GM/DL (32-36); Mean Corpuscular Volume 88.5 FL (87-102); Mean Platelet Volume 9.8 FL (9.6-12.0); Monocytes # 0.4 10*3/uL (0.11-0.8); Neutrophils % 83.3 % (38.7-73.9); Platelet Count 210 T/CUMM (130-400); Red Blood Count 3.64 MC/CUMM (3.8-5.5); Red Cell Distribution Width 16.9 % (9.3-17.3); White Blood Count 10.6 T/CUMM (4-12)
[2022-02-27 05:20] LABS: INR 1.7; PT Patient Result 18.3 SECS (10.1-12.1)
[2022-02-27 05:36] LABS: Alanine Aminotransferase 38 U/L (13-56); Albumin 3.2 G/DL (3.4-5.0); Alkaline Phosphatase 125 U/L (45-117); Aspartate Amino Transferase 37 U/L (0-37); Bilirubin,Total < 0.39 MG/DL (0.20-1.00); Blood Urea Nitrogen 17 MG/DL (7-18); Calcium 8.3 MG/DL (8.5-10.1); Carbon Dioxide 36 MMOL/L (21-32); Chloride 95 MMOL/L (98-107); Glucose 335 MG/DL (74-106); Osmolality,Calculated 284.1 MOS/KG (273-304); Sodium 135 MMOL/L (136-145); Total Protein 6.2 G/DL (6.4-8.2)
[2022-02-27] MEDS: BUDESONIDE 0.5 MG/2 ML NEB RESP TX SCH ×2 (07:34→19:15)
[2022-02-27] MEDS ORDERED: WARFARIN 2.5 MG TABLET PO SCH (09:00)
[2022-02-27] MEDS: INSULIN REGULAR 100 UNIT/ML SUBCUT SCH ×4 (09:32→21:29)
[2022-02-27] MEDS: INSULIN NPH/REG 70/30 100 UNIT/ML SUBCUT SCH ×2 (09:32→16:05)
[2022-02-27] MEDS: levETIRAcetam 500 MG TABLET PO SCH ×2 (09:33→21:28)
[2022-02-27] MEDS: methylPREDNISolone SOD SUC 40 MG/1 ML VIAL IV SCH ×2 (09:33→21:28)
[2022-02-27] MEDS: NEBIVOLOL 10 MG TABLET PO SCH (09:33)
[2022-02-27] MEDS: SPIRONOLACTONE 25 MG TABLET PO SCH (09:34)
[2022-02-27] MEDS: DOCUSATE SODIUM 100 MG CAPSULE PO SCH ×2 (09:34→21:29)
[2022-02-27] MEDS: ASCORBIC ACID 500 MG TABLET PO SCH ×2 (09:35→21:28)
[2022-02-27] MEDS: FUROSEMIDE 80 MG TABLET PO SCH (09:35)
[2022-02-27] MEDS: CHOLECALCIFEROL 1,000 UNIT TABLET PO SCH (09:35)
[2022-02-27] MEDS: ATORVASTATIN 40 MG TABLET PO SCH (09:35)
[2022-02-27] MEDS: DIGOXIN 0.25 MG TABLET PO SCH (09:36)
[2022-02-27] MEDS: PANTOPRAZOLE 40 MG TABLET PO SCH (09:36)
[2022-02-27] MEDS: busPIRone 5 MG TABLET PO PRN (09:36)
[2022-02-27] MEDS: DILTIAZEM CD 120 MG CAPSULE PO SCH (09:37)
[2022-02-27] MEDS: LEVOFLOXACIN INJ 500 MG/100 ML PREMIX IV SCH (12:46)
[2022-02-27] MEDS: FUROSEMIDE 40 MG TABLET PO SCH (16:05)
[2022-02-27] MEDS: PHENYTOIN ER 100 MG CAPSULE PO SCH (21:28)
[2022-02-27] MEDS: lisinopriL 10 MG TABLET PO SCH (21:28)
[2022-02-27] MEDS: MONTELUKAST 10 MG TABLET PO SCH (21:29)
[2022-02-27] MEDS: ZALEPLON 5 MG CAPSULE PO PRN (22:26)
[2022-02-28] MEDS: ALBUTEROL/IPRATROPIUM 3 ML NEB RESP TX SCH ×5 (02:00→19:30)
[2022-02-28 05:09] LABS: Basophils % 0.3 % (0.0-0.8); Hematocrit 35.5 VOL% (35.7-47.0); Hemoglobin 10.8 GM/DL (12.0-16.0); Immature Granulocytes % 2.6 %; Immature Granulocytes Absolute 0.25 #; Lymphocytes % 10.1 % (21.3-54.2); Mean Corpuscular HGB Conc 30.4 GM/DL (32-36); Mean Corpuscular Volume 88.3 FL (87-102); Mean Platelet Volume 9.5 FL (9.6-12.0); Monocytes # 0.3 10*3/uL (0.11-0.8); Monocytes % 2.9 % (1.7-12.7); Neutrophils % 84.1 % (38.7-73.9); Platelet Count 219 T/CUMM (130-400); Red Blood Count 4.02 MC/CUMM (3.8-5.5); Red Cell Distribution Width 16.9 % (9.3-17.3); White Blood Count 9.6 T/CUMM (4-12)
[2022-02-28 05:20] LABS: INR 1.9; PT Patient Result 19.6 SECS (10.1-12.1)
[2022-02-28 05:29] LABS: Alanine Aminotransferase 33 U/L (13-56); Albumin 3.4 G/DL (3.4-5.0); Alkaline Phosphatase 141 U/L (45-117); Aspartate Amino Transferase 18 U/L (0-37); Bilirubin,Total < 0.39 MG/DL (0.20-1.00); Blood Urea Nitrogen 16 MG/DL (7-18); Calcium 8.5 MG/DL (8.5-10.1); Carbon Dioxide 40 MMOL/L (21-32); Chloride 94 MMOL/L (98-107); Glucose 380 MG/DL (74-106); Osmolality,Calculated 286.1 MOS/KG (273-304); Potassium 4.9 MMOL/L (3.5-5.1); Sodium 135 MMOL/L (136-145); Total Protein 6.6 G/DL (6.4-8.2)
[2022-02-28] MEDS: BUDESONIDE 0.5 MG/2 ML NEB RESP TX SCH ×2 (07:32→19:30)
[2022-02-28] MEDS: INSULIN REGULAR 100 UNIT/ML SUBCUT SCH ×4 (08:46→20:47)
[2022-02-28] MEDS: INSULIN NPH/REG 70/30 100 UNIT/ML SUBCUT SCH ×2 (08:50→16:45)
[2022-02-28] MEDS: methylPREDNISolone SOD SUC 40 MG/1 ML VIAL IV SCH ×2 (11:15→20:49)
[2022-02-28] MEDS: NEBIVOLOL 10 MG TABLET PO SCH (11:24)
[2022-02-28] MEDS: levETIRAcetam 500 MG TABLET PO SCH ×2 (11:25→20:46)
[2022-02-28] MEDS: ASCORBIC ACID 500 MG TABLET PO SCH ×2 (11:27→20:45)
[2022-02-28] MEDS: DILTIAZEM CD 120 MG CAPSULE PO SCH (11:27)
[2022-02-28] MEDS: DIGOXIN 0.25 MG TABLET PO SCH (11:29)
[2022-02-28] MEDS: ATORVASTATIN 40 MG TABLET PO SCH (11:29)
[2022-02-28] MEDS: SPIRONOLACTONE 25 MG TABLET PO SCH (11:30)
[2022-02-28] MEDS: WARFARIN 5 MG TABLET PO SCH (11:31)
[2022-02-28] MEDS: FUROSEMIDE 80 MG TABLET PO SCH (11:31)
[2022-02-28] MEDS: PANTOPRAZOLE 40 MG TABLET PO SCH (11:32)
[2022-02-28] MEDS: DOCUSATE SODIUM 100 MG CAPSULE PO SCH ×2 (11:32→20:50)
[2022-02-28] MEDS: CHOLECALCIFEROL 1,000 UNIT TABLET PO SCH (11:32)
[2022-02-28] MEDS: LEVOFLOXACIN INJ 500 MG/100 ML PREMIX IV SCH (11:41)
[2022-02-28] MEDS: FUROSEMIDE 40 MG TABLET PO SCH (16:43)
[2022-02-28] MEDS: NYSTATIN CREAM 15 GM TUBE TOP SCH (20:44)
[2022-02-28] MEDS: PHENYTOIN ER 100 MG CAPSULE PO SCH (20:45)
[2022-02-28] MEDS: ZALEPLON 5 MG CAPSULE PO PRN (20:46)
[2022-02-28] MEDS: lisinopriL 10 MG TABLET PO SCH (20:46)
[2022-02-28] MEDS: busPIRone 5 MG TABLET PO PRN (20:46)
[2022-02-28] MEDS: MONTELUKAST 10 MG TABLET PO SCH (20:46)
[2022-03-01] MEDS: ALBUTEROL/IPRATROPIUM 3 ML NEB RESP TX SCH ×7 (00:10→22:47)
[2022-03-01 05:36] LABS: Basophils # 0.1 10*3/uL (0.0-0.2); Basophils % 0.4 % (0.0-0.8); Hematocrit 39.4 VOL% (35.7-47.0); Immature Granulocytes % 3.4 %; Immature Granulocytes Absolute 0.47 #; Lymphocytes # 1.2 10*3/uL (1.4-4.0); Lymphocytes % 8.7 % (21.3-54.2); Mean Corpuscular HGB Conc 30.5 GM/DL (32-36); Mean Corpuscular Volume 90.2 FL (87-102); Mean Platelet Volume 10.5 FL (9.6-12.0); Monocytes # 0.4 10*3/uL (0.11-0.8); Monocytes % 3.2 % (1.7-12.7); Neutrophils % 84.3 % (38.7-73.9); Platelet Count 249 T/CUMM (130-400); Red Blood Count 4.37 MC/CUMM (3.8-5.5); Red Cell Distribution Width 16.7 % (9.3-17.3); White Blood Count 13.6 T/CUMM (4-12)
[2022-03-01 05:56] LABS: INR 2.1; PT Patient Result 22.4 SECS (10.1-12.1)
[2022-03-01 06:05] LABS: Alanine Aminotransferase 29 U/L (13-56); Albumin 3.7 G/DL (3.4-5.0); Alkaline Phosphatase 144 U/L (45-117); Aspartate Amino Transferase 14 U/L (0-37); Bilirubin,Total < 0.39 MG/DL (0.20-1.00); Blood Urea Nitrogen 20 MG/DL (7-18); Calcium 8.9 MG/DL (8.5-10.1); Carbon Dioxide 40 MMOL/L (21-32); Chloride 92 MMOL/L (98-107); Glucose 341 MG/DL (74-106); Osmolality,Calculated 285.1 MOS/KG (273-304); Potassium 4.1 MMOL/L (3.5-5.1); Sodium 135 MMOL/L (136-145); Total Protein 7.4 G/DL (6.4-8.2)
[2022-03-01] MEDS: BUDESONIDE 0.5 MG/2 ML NEB RESP TX SCH ×2 (06:58→19:06)
[2022-03-01] MEDS ORDERED: MEPERIDINE 50 MG/1 ML VIAL IM ONE (07:30)
[2022-03-01] MEDS ORDERED: PROMETHAZINE 25 MG/1 ML VIAL IM ONE (07:30)
[2022-03-01] MEDS ORDERED: LIDOCAINE 1% 20 ML VIAL MISC INJ ONE (08:00)
[2022-03-01] MEDS ORDERED: MIDAZOLAM 2 MG/2 ML VIAL IV ONE (08:00)
[2022-03-01] MEDS ORDERED: LIDOCAINE 2% VISCOUS 100 ML BOTTLE SWISH/SPIT ONE (08:00)
[2022-03-01] MEDS: NYSTATIN CREAM 15 GM TUBE TOP SCH ×2 (08:02→21:41)
[2022-03-01] MEDS: INSULIN NPH/REG 70/30 100 UNIT/ML SUBCUT SCH ×2 (08:05→16:48)
[2022-03-01] MEDS: LEVOFLOXACIN INJ 500 MG/100 ML PREMIX IV SCH (10:20)
[2022-03-01] MEDS: INSULIN REGULAR 100 UNIT/ML SUBCUT SCH ×4 (10:44→21:00)
[2022-03-01] MEDS: ASCORBIC ACID 500 MG TABLET PO SCH ×2 (11:13→21:41)
[2022-03-01] MEDS: ATORVASTATIN 40 MG TABLET PO SCH (11:13)
[2022-03-01] MEDS: CHOLECALCIFEROL 1,000 UNIT TABLET PO SCH (11:14)
[2022-03-01] MEDS: levETIRAcetam 500 MG TABLET PO SCH ×2 (11:14→21:41)
[2022-03-01] MEDS: PANTOPRAZOLE 40 MG TABLET PO SCH (11:14)
[2022-03-01] MEDS: FUROSEMIDE 80 MG TABLET PO SCH (11:14)
[2022-03-01] MEDS: DIGOXIN 0.25 MG TABLET PO SCH (11:14)
[2022-03-01] MEDS: SPIRONOLACTONE 25 MG TABLET PO SCH (11:15)
[2022-03-01] MEDS: DOCUSATE SODIUM 100 MG CAPSULE PO SCH ×2 (11:15→21:41)
[2022-03-01] MEDS: NEBIVOLOL 10 MG TABLET PO SCH (11:15)
[2022-03-01] MEDS: DILTIAZEM CD 120 MG CAPSULE PO SCH (11:15)
[2022-03-01] MEDS: WARFARIN 5 MG TABLET PO SCH (11:25)
[2022-03-01] MEDS: methylPREDNISolone SOD SUC 40 MG/1 ML VIAL IV SCH ×2 (11:26→21:41)
[2022-03-01] MEDS ORDERED: LIDOCAINE 2% 20 ML VIAL RESP TX ONE (14:00)
[2022-03-01] MEDS: FUROSEMIDE 40 MG TABLET PO SCH (16:47)
[2022-03-01] MEDS: lisinopriL 10 MG TABLET PO SCH (21:41)
[2022-03-01] MEDS: MONTELUKAST 10 MG TABLET PO SCH (21:41)
[2022-03-01] MEDS: PHENYTOIN ER 100 MG CAPSULE PO SCH (21:41)
[2022-03-01] MEDS: ZALEPLON 5 MG CAPSULE PO PRN (21:42)
[2022-03-02] MEDS: ALBUTEROL/IPRATROPIUM 3 ML NEB RESP TX SCH ×6 (02:33→22:45)
[2022-03-02 06:21] LABS: Basophils # 0.1 10*3/uL (0.0-0.2); Basophils % 0.6 % (0.0-0.8); Eosinophils % 0.1 % (0.00-10.9); Hematocrit 35.6 VOL% (35.7-47.0); Immature Granulocytes % 3.9 %; Immature Granulocytes Absolute 0.48 #; Lymphocytes # 1.4 10*3/uL (1.4-4.0); Lymphocytes % 11.1 % (21.3-54.2); Mean Corpuscular HGB Conc 30.9 GM/DL (32-36); Mean Corpuscular Volume 89.2 FL (87-102); Mean Platelet Volume 10.8 FL (9.6-12.0); Monocytes # 0.5 10*3/uL (0.11-0.8); Monocytes % 3.8 % (1.7-12.7); Neutrophils % 80.5 % (38.7-73.9); Platelet Count 219 T/CUMM (130-400); Red Blood Count 3.99 MC/CUMM (3.8-5.5); Red Cell Distribution Width 16.7 % (9.3-17.3); White Blood Count 12.2 T/CUMM (4-12)
[2022-03-02 06:28] LABS: INR 2.7
[2022-03-02 06:42] LABS: Alanine Aminotransferase 25 U/L (13-56); Albumin 3.1 G/DL (3.4-5.0); Alkaline Phosphatase 114 U/L (45-117); Aspartate Amino Transferase 8 U/L (0-37); Bilirubin,Total < 0.39 MG/DL (0.20-1.00); Blood Urea Nitrogen 24 MG/DL (7-18); Calcium 8.8 MG/DL (8.5-10.1); Carbon Dioxide 40 MMOL/L (21-32); Chloride 94 MMOL/L (98-107); Glucose 300 MG/DL (74-106); Osmolality,Calculated 289.7 MOS/KG (273-304); Potassium 3.9 MMOL/L (3.5-5.1); Sodium 138 MMOL/L (136-145); Total Protein 6.7 G/DL (6.4-8.2)
[2022-03-02] MEDS: NYSTATIN CREAM 15 GM TUBE TOP SCH ×2 (09:30→20:44)
[2022-03-02] MEDS: DILTIAZEM CD 120 MG CAPSULE PO SCH (09:30)
[2022-03-02] MEDS: DIGOXIN 0.25 MG TABLET PO SCH (09:30)
[2022-03-02] MEDS: BUDESONIDE 0.5 MG/2 ML NEB RESP TX SCH ×2 (09:30→19:00)
[2022-03-02] MEDS: DOCUSATE SODIUM 100 MG CAPSULE PO SCH ×2 (09:30→20:29)
[2022-03-02] MEDS: ASCORBIC ACID 500 MG TABLET PO SCH ×2 (09:30→20:42)
[2022-03-02] MEDS: SPIRONOLACTONE 25 MG TABLET PO SCH (09:30)
[2022-03-02] MEDS: NEBIVOLOL 10 MG TABLET PO SCH (09:30)
[2022-03-02] MEDS: CHOLECALCIFEROL 1,000 UNIT TABLET PO SCH (09:30)
[2022-03-02] MEDS: INSULIN NPH/REG 70/30 100 UNIT/ML SUBCUT SCH ×2 (09:30→16:46)
[2022-03-02] MEDS: FUROSEMIDE 80 MG TABLET PO SCH (09:30)
[2022-03-02] MEDS: INSULIN REGULAR 100 UNIT/ML SUBCUT SCH ×4 (09:30→20:43)
[2022-03-02] MEDS: levETIRAcetam 500 MG TABLET PO SCH ×2 (09:30→20:37)
[2022-03-02] MEDS: ATORVASTATIN 40 MG TABLET PO SCH (09:30)
[2022-03-02] MEDS: PANTOPRAZOLE 40 MG TABLET PO SCH (09:30)
[2022-03-02] MEDS: methylPREDNISolone SOD SUC 40 MG/1 ML VIAL IV SCH ×2 (09:49→20:23)
[2022-03-02] MEDS: FUROSEMIDE 40 MG TABLET PO SCH (15:47)
[2022-03-02] MEDS: PHENYTOIN ER 100 MG CAPSULE PO SCH (20:27)
[2022-03-02] MEDS: MONTELUKAST 10 MG TABLET PO SCH (20:27)
[2022-03-02] MEDS: lisinopriL 10 MG TABLET PO SCH (20:29)
[2022-03-02] MEDS: ZALEPLON 5 MG CAPSULE PO PRN (20:37)
[2022-03-03] MEDS: ALBUTEROL/IPRATROPIUM 3 ML NEB RESP TX SCH ×3 (02:20→11:39)
[2022-03-03 05:31] LABS: Basophils # 0.1 10*3/uL (0.0-0.2); Basophils % 0.6 % (0.0-0.8); Eosinophils % 0.1 % (0.00-10.9); Hemoglobin 11.1 GM/DL (12.0-16.0); Immature Granulocytes % 4.3 %; Lymphocytes # 1.8 10*3/uL (1.4-4.0); Lymphocytes % 12.6 % (21.3-54.2); Mean Platelet Volume 9.6 FL (9.6-12.0); Monocytes # 0.7 10*3/uL (0.11-0.8); Neutrophils % 77.4 % (38.7-73.9); Platelet Count 270 T/CUMM (130-400); Red Blood Count 4.11 MC/CUMM (3.8-5.5); Red Cell Distribution Width 16.8 % (9.3-17.3); White Blood Count 14.1 T/CUMM (4-12)
[2022-03-03 05:51] LABS: INR 3.7; PT Patient Result 36.9 SECS (10.1-12.1)
[2022-03-03 05:57] LABS: Anisocytosis Slight; Lymphocytes 14 % (20-55); Platelet Estimate Normal; Total Cells Counted 100
[2022-03-03 06:01] LABS: Alanine Aminotransferase 22 U/L (13-56); Albumin 3.1 G/DL (3.4-5.0); Alkaline Phosphatase 104 U/L (45-117); Aspartate Amino Transferase 17 U/L (0-37); Bilirubin,Total < 0.39 MG/DL (0.20-1.00); Blood Urea Nitrogen 26 MG/DL (7-18); Calcium 9.3 MG/DL (8.5-10.1); Carbon Dioxide 38 MMOL/L (21-32); Chloride 95 MMOL/L (98-107); Glucose 155 MG/DL (74-106); Osmolality,Calculated 280.8 MOS/KG (273-304); Potassium 4.1 MMOL/L (3.5-5.1); Sodium 137 MMOL/L (136-145); Total Protein 6.6 G/DL (6.4-8.2)
[2022-03-03] MEDS: BUDESONIDE 0.5 MG/2 ML NEB RESP TX SCH (07:17)
[2022-03-03] MEDS: NEBIVOLOL 10 MG TABLET PO SCH (08:52)
[2022-03-03] MEDS: DIGOXIN 0.25 MG TABLET PO SCH (08:52)
[2022-03-03] MEDS: ASCORBIC ACID 500 MG TABLET PO SCH (08:54)
[2022-03-03] MEDS: DILTIAZEM CD 120 MG CAPSULE PO SCH (08:54)
[2022-03-03] MEDS: WARFARIN 5 MG TABLET PO SCH (08:54)
[2022-03-03] MEDS: FUROSEMIDE 80 MG TABLET PO SCH (08:55)
[2022-03-03] MEDS: PANTOPRAZOLE 40 MG TABLET PO SCH (08:55)
[2022-03-03] MEDS: levETIRAcetam 500 MG TABLET PO SCH (08:55)
[2022-03-03] MEDS: CHOLECALCIFEROL 1,000 UNIT TABLET PO SCH (08:55)
[2022-03-03] MEDS: SPIRONOLACTONE 25 MG TABLET PO SCH (08:56)
[2022-03-03] MEDS: DOCUSATE SODIUM 100 MG CAPSULE PO SCH (08:57)
[2022-03-03] MEDS: ATORVASTATIN 40 MG TABLET PO SCH (08:57)
[2022-03-03] MEDS: methylPREDNISolone SOD SUC 40 MG/1 ML VIAL IV SCH (08:59)
[2022-03-03] MEDS: INSULIN NPH/REG 70/30 100 UNIT/ML SUBCUT SCH (09:00)
[2022-03-03] MEDS: INSULIN REGULAR 100 UNIT/ML SUBCUT SCH ×2 (09:01→12:15)
[2022-03-03] MEDS: NYSTATIN CREAM 15 GM TUBE TOP SCH (09:06)
[2022-03-03 11:46] VITALS: BP 130/74
== END 2022-03-03 12:55 | disposition home health service (06) | DRG 190 ==
LOC: N.ED 07:10 → N.EDINP 10:57 → N.2E 12:50
PROVIDERS: ADMIT Family Medicine; ATTEND Family Medicine

== ENCOUNTER 2022-03-30 09:31 | Inpatient (IN) ==
[2022-03-30 10:37] LABS: Basophils % 0.3 % (0.0-0.8); Eosinophils # 0.1 10*3/uL (0.0-0.87); Hemoglobin 10.7 GM/DL (12.0-16.0); Immature Granulocytes % 0.8 %; Immature Granulocytes Absolute 0.12 #; Lymphocytes % 6.7 % (21.3-54.2); Mean Corpuscular HGB Conc 30.6 GM/DL (32-36); Mean Corpuscular Volume 89.3 FL (87-102); Mean Platelet Volume 9.8 FL (9.6-12.0); Monocytes # 0.6 10*3/uL (0.11-0.8); Monocytes % 4.3 % (1.7-12.7); Neutrophils % 86.9 % (38.7-73.9); Platelet Count 278 T/CUMM (130-400); Red Blood Count 3.92 MC/CUMM (3.8-5.5); Red Cell Distribution Width 16.3 % (9.3-17.3); White Blood Count 14.58 T/CUMM (4-12)
[2022-03-30] MEDS ORDERED: ALBUTEROL/IPRATROPIUM 3 ML NEB RESP TX STA (10:47)
[2022-03-30 11:04] LABS: Alanine Aminotransferase 17 U/L (13-56); Albumin 3.2 G/DL (3.4-5.0); Alkaline Phosphatase 120 U/L (45-117); Aspartate Amino Transferase 14 U/L (0-37); Bilirubin,Total < 0.39 MG/DL (0.20-1.00); Blood Urea Nitrogen 8 MG/DL (7-18); Calcium 8.5 MG/DL (8.5-10.1); Carbon Dioxide 36 MMOL/L (21-32); Chloride 100 MMOL/L (98-107); Glucose 177 MG/DL (74-106); Osmolality,Calculated 284.1 MOS/KG (273-304); Potassium 3.9 MMOL/L (3.5-5.1); Sodium 142 MMOL/L (136-145); Total Protein 6.5 G/DL (6.4-8.2)
[2022-03-30 11:17] LABS: INR 2.3; PT Patient Result 24.3 SECS (10.1-12.1)
[2022-03-30] MEDS ORDERED: methylPREDNISolone SOD SUC 125 MG/2 ML VIAL IV STA (11:31)
[2022-03-30] MEDS ORDERED: ONDANSETRON 4 MG/2 ML VIAL IV PRN (13:06)
[2022-03-30] MEDS ORDERED: ACETAMINOPHEN 325 MG TABLET PO PRN (13:06)
[2022-03-30] MEDS ORDERED: GLUCAGON 1 MG VIAL IM PRN (13:06)
[2022-03-30] MEDS ORDERED: DEXTROSE 10% 250 ML BAG IV PRN (13:09)
[2022-03-30] MEDS ORDERED: DOCUSATE SODIUM 100 MG CAPSULE PO PRN (15:52)
[2022-03-30] MEDS ORDERED: diphenhydrAMINE CAP 25 MG CAPSULE PO PRN (15:52)
[2022-03-30] MEDS ORDERED: MAGNESIUM SULF RIDER 4 GM/100 ML PREMIX IV PRN (15:58)
[2022-03-30] MEDS ORDERED: POTASSIUM CHLORIDE RIDER 10 MEQ/100 ML PREMIX IV PRN (15:58)
[2022-03-30] MEDS ORDERED: MAGNESIUM SULF RIDER 2 GM/50 ML PREMIX IV PRN (15:58)
[2022-03-30] MEDS: SPIRONOLACTONE 25 MG TABLET PO SCH (17:02)
[2022-03-30] MEDS: DILTIAZEM CD 120 MG CAPSULE PO SCH (17:03)
[2022-03-30] MEDS: INSULIN LISPRO 100 UNIT/ML SUBCUT SCH ×2 (17:03→22:49)
[2022-03-30] MEDS: FUROSEMIDE 80 MG TABLET PO SCH (17:03)
[2022-03-30] MEDS: cefTRIAXone 1,000 MG in SODIUM CHLORIDE 0.9% 100 ML IV SCH (17:03)
[2022-03-30] MEDS ORDERED: WARFARIN 2.5 MG TABLET PO SCH (18:00)
[2022-03-30] MEDS: PHENYTOIN ER 100 MG CAPSULE PO SCH (21:02)
[2022-03-30] MEDS: levETIRAcetam 500 MG TABLET PO SCH (21:02)
[2022-03-30] MEDS: hydrOXYzine HCL 25 MG TABLET PO SCH (21:03)
[2022-03-30] MEDS: DOCUSATE SODIUM 100 MG CAPSULE PO SCH (21:03)
[2022-03-30] MEDS: ASCORBIC ACID 500 MG TABLET PO SCH (21:03)
[2022-03-30] MEDS: MONTELUKAST 10 MG TABLET PO SCH (21:03)
[2022-03-30] MEDS: lisinopriL 10 MG TABLET PO SCH (21:03)
[2022-03-30] MEDS: ATORVASTATIN 40 MG TABLET PO SCH (21:03)
[2022-03-30] MEDS: BUDESONIDE 0.5 MG/2 ML NEB RESP TX SCH (21:25)
[2022-03-30] MEDS: ALBUTEROL/IPRATROPIUM 3 ML NEB RESP TX SCH (21:25)
[2022-03-30] MEDS: BENZONATATE 100 MG CAPSULE PO PRN (22:01)
[2022-03-30] MEDS: INSULIN NPH/REG 70/30 100 UNIT/ML SUBCUT SCH (22:49)
[2022-03-31] MEDS: ALBUTEROL/IPRATROPIUM 3 ML NEB RESP TX SCH ×7 (01:31→23:48)
[2022-03-31 04:52] LABS: Basophils % 0.3 % (0.0-0.8); Eosinophils # 0.1 10*3/uL (0.0-0.87); Eosinophils % 0.4 % (0.00-10.9); Hematocrit 35.8 VOL% (35.7-47.0); Hemoglobin 11.1 GM/DL (12.0-16.0); Immature Granulocytes Absolute 0.13 #; Lymphocytes # 0.6 10*3/uL (1.4-4.0); Lymphocytes % 4.3 % (21.3-54.2); Mean Corpuscular Volume 88.6 FL (87-102); Mean Platelet Volume 9.7 FL (9.6-12.0); Monocytes # 0.7 10*3/uL (0.11-0.8); Monocytes % 5.2 % (1.7-12.7); Neutrophils % 88.8 % (38.7-73.9); Platelet Count 266 T/CUMM (130-400); Red Blood Count 4.04 MC/CUMM (3.8-5.5); Red Cell Distribution Width 16.5 % (9.3-17.3); White Blood Count 13.39 T/CUMM (4-12)
[2022-03-31 05:02] LABS: INR 2.1; PT Patient Result 21.7 SECS (10.1-12.1)
[2022-03-31 05:12] LABS: Alanine Aminotransferase 17 U/L (13-56); Albumin 3.1 G/DL (3.4-5.0); Alkaline Phosphatase 116 U/L (45-117); Aspartate Amino Transferase 11 U/L (0-37); Bilirubin,Total < 0.39 MG/DL (0.20-1.00); Blood Urea Nitrogen 13 MG/DL (7-18); Calcium 8.9 MG/DL (8.5-10.1); Carbon Dioxide 39 MMOL/L (21-32); Chloride 97 MMOL/L (98-107); Glucose 155 MG/DL (74-106); Osmolality,Calculated 279.5 MOS/KG (273-304); Potassium 3.4 MMOL/L (3.5-5.1); Sodium 139 MMOL/L (136-145); Total Protein 7.3 G/DL (6.4-8.2)
[2022-03-31 05:19] LABS: Eosinophils 1 % (0-10); Hypochromia Slight; Lymphocytes 3 % (20-55); Microcytosis Slight; Platelet Estimate Adequate; Total Cells Counted 100
[2022-03-31] MEDS: BUDESONIDE 0.5 MG/2 ML NEB RESP TX SCH ×2 (07:29→20:23)
[2022-03-31] MEDS: BENZONATATE 100 MG CAPSULE PO PRN (07:31)
[2022-03-31] MEDS: levETIRAcetam 500 MG TABLET PO SCH ×2 (08:33→20:45)
[2022-03-31] MEDS: DIGOXIN 0.25 MG TABLET PO SCH (08:33)
[2022-03-31] MEDS: PANTOPRAZOLE 40 MG TABLET PO SCH (08:34)
[2022-03-31] MEDS: POTASSIUM CHLORIDE 20 MEQ TABLET PO PRN ×3 (08:34→17:52)
[2022-03-31] MEDS: hydrOXYzine HCL 25 MG TABLET PO SCH ×2 (08:34→20:46)
[2022-03-31] MEDS: ASCORBIC ACID 500 MG TABLET PO SCH ×2 (08:34→20:46)
[2022-03-31] MEDS: SPIRONOLACTONE 25 MG TABLET PO SCH (08:34)
[2022-03-31] MEDS: FUROSEMIDE 80 MG TABLET PO SCH (08:34)
[2022-03-31] MEDS: NEBIVOLOL 10 MG TABLET PO SCH (08:35)
[2022-03-31] MEDS: DOCUSATE SODIUM 100 MG CAPSULE PO SCH ×2 (08:35→20:46)
[2022-03-31] MEDS: INSULIN NPH/REG 70/30 100 UNIT/ML SUBCUT SCH ×2 (08:36→20:45)
[2022-03-31] MEDS: INSULIN LISPRO 100 UNIT/ML SUBCUT SCH ×4 (08:49→20:45)
[2022-03-31] MEDS: DILTIAZEM CD 120 MG CAPSULE PO SCH (08:50)
[2022-03-31] MEDS: methylPREDNISolone SOD SUC 40 MG/1 ML VIAL IV SCH ×2 (12:07→23:29)
[2022-03-31] MEDS: FUROSEMIDE 40 MG TABLET PO SCH (15:50)
[2022-03-31] MEDS: cefTRIAXone 1,000 MG in SODIUM CHLORIDE 0.9% 100 ML IV SCH (17:52)
[2022-03-31] MEDS ORDERED: WARFARIN 5 MG TABLET PO SCH (18:00)
[2022-03-31] MEDS: MONTELUKAST 10 MG TABLET PO SCH (20:46)
[2022-03-31] MEDS: lisinopriL 10 MG TABLET PO SCH (20:46)
[2022-03-31] MEDS: ATORVASTATIN 40 MG TABLET PO SCH (20:46)
[2022-03-31] MEDS: PHENYTOIN ER 100 MG CAPSULE PO SCH (20:46)
[2022-03-31] MEDS: busPIRone 5 MG TABLET PO PRN (20:46)
[2022-03-31] MEDS: DESITIN 4OZ/NYSTATIN 15 GRAM MIXTURE PASTE TOP SCH (20:56)
[2022-04-01] MEDS: ALBUTEROL/IPRATROPIUM 3 ML NEB RESP TX SCH ×6 (03:50→23:35)
[2022-04-01 06:01] LABS: PT Patient Result 20.9 SECS (10.1-12.1)
[2022-04-01] MEDS: BUDESONIDE 0.5 MG/2 ML NEB RESP TX SCH ×2 (06:41→19:03)
[2022-04-01 08:22] LABS: Basophils % 0.3 % (0.0-0.8); Hematocrit 33.6 VOL% (35.7-47.0); Hemoglobin 9.9 GM/DL (12.0-16.0); Immature Granulocytes % 1.4 %; Immature Granulocytes Absolute 0.11 #; Lymphocytes # 0.4 10*3/uL (1.4-4.0); Lymphocytes % 5.4 % (21.3-54.2); Mean Corpuscular HGB Conc 29.5 GM/DL (32-36); Mean Corpuscular Volume 92.3 FL (87-102); Mean Platelet Volume 10.1 FL (9.6-12.0); Monocytes # 0.3 10*3/uL (0.11-0.8); Monocytes % 4.3 % (1.7-12.7); Neutrophils % 88.6 % (38.7-73.9); Platelet Count 255 T/CUMM (130-400); Red Blood Count 3.64 MC/CUMM (3.8-5.5); Red Cell Distribution Width 16.9 % (9.3-17.3); White Blood Count 7.91 T/CUMM (4-12)
[2022-04-01 08:32] LABS: Calcium 8.3 MG/DL (8.5-10.1); Potassium 4.3 MMOL/L (3.5-5.1)
[2022-04-01] MEDS: levETIRAcetam 500 MG TABLET PO SCH ×2 (09:56→21:39)
[2022-04-01] MEDS: DILTIAZEM CD 120 MG CAPSULE PO SCH (09:57)
[2022-04-01] MEDS: ASCORBIC ACID 500 MG TABLET PO SCH ×2 (09:57→21:39)
[2022-04-01] MEDS: PANTOPRAZOLE 40 MG TABLET PO SCH (09:57)
[2022-04-01] MEDS: hydrOXYzine HCL 25 MG TABLET PO SCH ×2 (09:58→21:38)
[2022-04-01] MEDS: DOCUSATE SODIUM 100 MG CAPSULE PO SCH ×2 (10:00→21:39)
[2022-04-01] MEDS: NEBIVOLOL 10 MG TABLET PO SCH (10:00)
[2022-04-01] MEDS: SPIRONOLACTONE 25 MG TABLET PO SCH (10:01)
[2022-04-01] MEDS: INSULIN LISPRO 100 UNIT/ML SUBCUT SCH ×4 (10:07→21:38)
[2022-04-01] MEDS: INSULIN NPH/REG 70/30 100 UNIT/ML SUBCUT SCH ×2 (10:08→21:38)
[2022-04-01] MEDS: DESITIN 4OZ/NYSTATIN 15 GRAM MIXTURE PASTE TOP SCH ×2 (10:12→21:40)
[2022-04-01] MEDS: DIGOXIN 0.25 MG TABLET PO SCH (10:12)
[2022-04-01] MEDS: FUROSEMIDE 80 MG TABLET PO SCH (10:14)
[2022-04-01] MEDS: methylPREDNISolone SOD SUC 40 MG/1 ML VIAL IV SCH ×2 (12:36→23:44)
[2022-04-01] MEDS: FUROSEMIDE 40 MG TABLET PO SCH (15:29)
[2022-04-01] MEDS: cefTRIAXone 1,000 MG in SODIUM CHLORIDE 0.9% 100 ML IV SCH (17:34)
[2022-04-01] MEDS: WARFARIN 5 MG TABLET PO SCH (17:34)
[2022-04-01] MEDS: lisinopriL 10 MG TABLET PO SCH (21:38)
[2022-04-01] MEDS: PHENYTOIN ER 100 MG CAPSULE PO SCH (21:38)
[2022-04-01] MEDS: busPIRone 5 MG TABLET PO PRN (21:39)
[2022-04-01] MEDS: ATORVASTATIN 40 MG TABLET PO SCH (21:39)
[2022-04-01] MEDS: MONTELUKAST 10 MG TABLET PO SCH (21:39)
[2022-04-01] MEDS: BENZONATATE 100 MG CAPSULE PO PRN (23:44)
[2022-04-02] MEDS: ALBUTEROL/IPRATROPIUM 3 ML NEB RESP TX SCH ×5 (03:34→18:52)
[2022-04-02 05:05] LABS: Basophils % 0.2 % (0.0-0.8); Hematocrit 34.6 VOL% (35.7-47.0); Hemoglobin 10.6 GM/DL (12.0-16.0); Immature Granulocytes % 2.4 %; Immature Granulocytes Absolute 0.24 #; Lymphocytes # 0.6 10*3/uL (1.4-4.0); Lymphocytes % 6.1 % (21.3-54.2); Mean Corpuscular HGB Conc 30.6 GM/DL (32-36); Mean Corpuscular Volume 89.6 FL (87-102); Mean Platelet Volume 9.4 FL (9.6-12.0); Monocytes # 0.6 10*3/uL (0.11-0.8); Monocytes % 5.6 % (1.7-12.7); Neutrophils % 85.7 % (38.7-73.9); Platelet Count 272 T/CUMM (130-400); Red Blood Count 3.86 MC/CUMM (3.8-5.5); Red Cell Distribution Width 16.5 % (9.3-17.3); White Blood Count 9.88 T/CUMM (4-12)
[2022-04-02 05:15] LABS: INR 2.1; PT Patient Result 22.2 SECS (10.1-12.1)
[2022-04-02 05:24] LABS: Calcium 8.5 MG/DL (8.5-10.1); Potassium 4.6 MMOL/L (3.5-5.1)
[2022-04-02] MEDS: BUDESONIDE 0.5 MG/2 ML NEB RESP TX SCH ×2 (06:50→18:52)
[2022-04-02] MEDS: DILTIAZEM CD 120 MG CAPSULE PO SCH (09:31)
[2022-04-02] MEDS: NEBIVOLOL 10 MG TABLET PO SCH (09:31)
[2022-04-02] MEDS: levETIRAcetam 500 MG TABLET PO SCH ×2 (09:31→21:18)
[2022-04-02] MEDS: DOCUSATE SODIUM 100 MG CAPSULE PO SCH ×2 (09:31→21:18)
[2022-04-02] MEDS: DIGOXIN 0.25 MG TABLET PO SCH (09:31)
[2022-04-02] MEDS: PANTOPRAZOLE 40 MG TABLET PO SCH (09:32)
[2022-04-02] MEDS: hydrOXYzine HCL 25 MG TABLET PO SCH ×2 (09:32→21:19)
[2022-04-02] MEDS: ASCORBIC ACID 500 MG TABLET PO SCH ×2 (09:32→21:17)
[2022-04-02] MEDS: DESITIN 4OZ/NYSTATIN 15 GRAM MIXTURE PASTE TOP SCH ×2 (09:37→23:32)
[2022-04-02] MEDS: SPIRONOLACTONE 25 MG TABLET PO SCH (09:37)
[2022-04-02] MEDS: INSULIN NPH/REG 70/30 100 UNIT/ML SUBCUT SCH ×2 (09:38→21:20)
[2022-04-02] MEDS: INSULIN LISPRO 100 UNIT/ML SUBCUT SCH ×4 (09:38→21:19)
[2022-04-02] MEDS: FUROSEMIDE 80 MG TABLET PO SCH (09:42)
[2022-04-02] MEDS ORDERED: PSEUDOEPHEDRINE 30 MG TABLET PO PRN (11:58)
[2022-04-02] MEDS: methylPREDNISolone SOD SUC 40 MG/1 ML VIAL IV SCH (12:08)
[2022-04-02] MEDS: FUROSEMIDE 40 MG TABLET PO SCH (17:52)
[2022-04-02] MEDS: WARFARIN 5 MG TABLET PO SCH (17:53)
[2022-04-02] MEDS: cefTRIAXone 1,000 MG in SODIUM CHLORIDE 0.9% 100 ML IV SCH (17:54)
[2022-04-02] MEDS: PHENYTOIN ER 100 MG CAPSULE PO SCH (21:18)
[2022-04-02] MEDS: ATORVASTATIN 40 MG TABLET PO SCH (21:18)
[2022-04-02] MEDS: BENZONATATE 100 MG CAPSULE PO PRN (21:19)
[2022-04-02] MEDS: lisinopriL 10 MG TABLET PO SCH (21:19)
[2022-04-02] MEDS: MONTELUKAST 10 MG TABLET PO SCH (21:19)
[2022-04-03] MEDS: ALBUTEROL/IPRATROPIUM 3 ML NEB RESP TX SCH ×7 (00:05→23:00)
[2022-04-03 05:07] LABS: INR 2.8; PT Patient Result 29.1 SECS (10.1-12.1)
[2022-04-03] MEDS: BUDESONIDE 0.5 MG/2 ML NEB RESP TX SCH ×2 (06:54→19:20)
[2022-04-03] MEDS: NEBIVOLOL 10 MG TABLET PO SCH (09:15)
[2022-04-03] MEDS: INSULIN NPH/REG 70/30 100 UNIT/ML SUBCUT SCH ×2 (09:15→21:16)
[2022-04-03] MEDS: SPIRONOLACTONE 25 MG TABLET PO SCH (09:16)
[2022-04-03] MEDS: DIGOXIN 0.25 MG TABLET PO SCH (09:17)
[2022-04-03] MEDS: ASCORBIC ACID 500 MG TABLET PO SCH ×2 (09:17→21:17)
[2022-04-03] MEDS: PANTOPRAZOLE 40 MG TABLET PO SCH (09:17)
[2022-04-03] MEDS: DILTIAZEM CD 120 MG CAPSULE PO SCH (09:18)
[2022-04-03] MEDS: FUROSEMIDE 80 MG TABLET PO SCH (09:18)
[2022-04-03] MEDS: hydrOXYzine HCL 25 MG TABLET PO SCH ×2 (09:18→21:18)
[2022-04-03] MEDS: levETIRAcetam 500 MG TABLET PO SCH ×2 (09:18→21:18)
[2022-04-03] MEDS: DOCUSATE SODIUM 100 MG CAPSULE PO SCH ×2 (09:19→21:18)
[2022-04-03] MEDS: INSULIN LISPRO 100 UNIT/ML SUBCUT SCH ×4 (09:19→21:16)
[2022-04-03] MEDS: DESITIN 4OZ/NYSTATIN 15 GRAM MIXTURE PASTE TOP SCH ×2 (09:30→21:18)
[2022-04-03] MEDS: methylPREDNISolone SOD SUC 40 MG/1 ML VIAL IV SCH (09:44)
[2022-04-03] MEDS: FUROSEMIDE 40 MG TABLET PO SCH (16:01)
[2022-04-03] MEDS: cefTRIAXone 1,000 MG in SODIUM CHLORIDE 0.9% 100 ML IV SCH (16:02)
[2022-04-03] MEDS: PHENYTOIN ER 100 MG CAPSULE PO SCH (21:17)
[2022-04-03] MEDS: MONTELUKAST 10 MG TABLET PO SCH (21:18)
[2022-04-03] MEDS: WARFARIN 5 MG TABLET PO SCH (21:18)
[2022-04-03] MEDS: lisinopriL 10 MG TABLET PO SCH (21:18)
[2022-04-03] MEDS: ATORVASTATIN 40 MG TABLET PO SCH (21:18)
[2022-04-03] MEDS: BENZONATATE 100 MG CAPSULE PO PRN (21:38)
[2022-04-04] MEDS: ALBUTEROL/IPRATROPIUM 3 ML NEB RESP TX SCH ×5 (03:00→19:06)
[2022-04-04 05:22] LABS: INR 3.2; PT Patient Result 32.1 SECS (10.1-12.1)
[2022-04-04] MEDS ORDERED: MEPERIDINE 50 MG/1 ML VIAL IM ONE (07:00)
[2022-04-04] MEDS ORDERED: PROMETHAZINE 25 MG/1 ML VIAL IM ONE (07:00)
[2022-04-04] MEDS ORDERED: LIDOCAINE 1% 20 ML VIAL MISC INJ ONE (07:00)
[2022-04-04] MEDS ORDERED: MIDAZOLAM 2 MG/2 ML VIAL IV ONE (07:00)
[2022-04-04] MEDS ORDERED: LIDOCAINE 2% 20 ML VIAL RESP TX ONE (07:00)
[2022-04-04] MEDS ORDERED: LIDOCAINE 2% VISCOUS 100 ML BOTTLE SWISH/SPIT ONE (07:00)
[2022-04-04] MEDS: INSULIN LISPRO 100 UNIT/ML SUBCUT SCH ×4 (09:26→22:04)
[2022-04-04] MEDS: DOCUSATE SODIUM 100 MG CAPSULE PO SCH ×2 (10:10→22:07)
[2022-04-04] MEDS: NEBIVOLOL 10 MG TABLET PO SCH (10:10)
[2022-04-04] MEDS: levETIRAcetam 500 MG TABLET PO SCH ×2 (10:10→22:05)
[2022-04-04] MEDS: hydrOXYzine HCL 25 MG TABLET PO SCH ×2 (10:11→22:07)
[2022-04-04] MEDS: FUROSEMIDE 80 MG TABLET PO SCH (10:11)
[2022-04-04] MEDS: ASCORBIC ACID 500 MG TABLET PO SCH ×2 (10:11→22:06)
[2022-04-04] MEDS: PANTOPRAZOLE 40 MG TABLET PO SCH (10:13)
[2022-04-04] MEDS: DILTIAZEM CD 120 MG CAPSULE PO SCH (10:14)
[2022-04-04] MEDS: SPIRONOLACTONE 25 MG TABLET PO SCH (10:14)
[2022-04-04] MEDS: INSULIN NPH/REG 70/30 100 UNIT/ML SUBCUT SCH ×2 (10:15→22:05)
[2022-04-04] MEDS: methylPREDNISolone SOD SUC 40 MG/1 ML VIAL IV SCH (10:15)
[2022-04-04] MEDS: DIGOXIN 0.25 MG TABLET PO SCH (10:18)
[2022-04-04] MEDS: DESITIN 4OZ/NYSTATIN 15 GRAM MIXTURE PASTE TOP SCH ×2 (10:29→22:07)
[2022-04-04] MEDS: BUDESONIDE 0.5 MG/2 ML NEB RESP TX SCH ×2 (11:32→19:06)
[2022-04-04] MEDS: FUROSEMIDE 40 MG TABLET PO SCH (15:58)
[2022-04-04] MEDS: cefTRIAXone 1,000 MG in SODIUM CHLORIDE 0.9% 100 ML IV SCH (16:00)
[2022-04-04] MEDS: WARFARIN 5 MG TABLET PO SCH (17:58)
[2022-04-04] MEDS: PHENYTOIN ER 100 MG CAPSULE PO SCH (22:05)
[2022-04-04] MEDS: ATORVASTATIN 40 MG TABLET PO SCH (22:06)
[2022-04-04] MEDS: MONTELUKAST 10 MG TABLET PO SCH (22:06)
[2022-04-04] MEDS: lisinopriL 10 MG TABLET PO SCH (22:06)
[2022-04-05] MEDS: ALBUTEROL/IPRATROPIUM 3 ML NEB RESP TX SCH ×4 (00:02→11:33)
[2022-04-05 04:34] LABS: Basophils % 0.3 % (0.0-0.8); Eosinophils % 0.3 % (0.00-10.9); Hematocrit 36.4 VOL% (35.7-47.0); Hemoglobin 10.9 GM/DL (12.0-16.0); Immature Granulocytes % 0.9 %; Immature Granulocytes Absolute 0.11 #; Lymphocytes # 1.7 10*3/uL (1.4-4.0); Lymphocytes % 14.9 % (21.3-54.2); Mean Corpuscular HGB Conc 29.9 GM/DL (32-36); Mean Corpuscular Volume 91.5 FL (87-102); Mean Platelet Volume 9.7 FL (9.6-12.0); Monocytes # 0.8 10*3/uL (0.11-0.8); Monocytes % 6.9 % (1.7-12.7); Neutrophils % 76.7 % (38.7-73.9); Platelet Count 292 T/CUMM (130-400); Red Blood Count 3.98 MC/CUMM (3.8-5.5); Red Cell Distribution Width 16.2 % (9.3-17.3); White Blood Count 11.59 T/CUMM (4-12)
[2022-04-05 04:44] LABS: PT Patient Result 40.3 SECS (10.1-12.1)
[2022-04-05 04:55] LABS: Alanine Aminotransferase 71 U/L (13-56); Albumin 2.9 G/DL (3.4-5.0); Alkaline Phosphatase 127 U/L (45-117); Aspartate Amino Transferase 71 U/L (0-37); Bilirubin,Total < 0.39 MG/DL (0.20-1.00); Blood Urea Nitrogen 18 MG/DL (7-18); Calcium 8.5 MG/DL (8.5-10.1); Carbon Dioxide 45 MMOL/L (21-32); Chloride 91 MMOL/L (98-107); Glucose 112 MG/DL (74-106); Osmolality,Calculated 283.3 MOS/KG (273-304); Potassium 3.1 MMOL/L (3.5-5.1); Sodium 141 MMOL/L (136-145); Total Protein 6.6 G/DL (6.4-8.2)
[2022-04-05] MEDS: BUDESONIDE 0.5 MG/2 ML NEB RESP TX SCH (07:50)
[2022-04-05] MEDS: INSULIN LISPRO 100 UNIT/ML SUBCUT SCH ×2 (08:30→12:37)
[2022-04-05] MEDS: busPIRone 5 MG TABLET PO PRN (09:42)
[2022-04-05] MEDS: hydrOXYzine HCL 25 MG TABLET PO SCH (09:42)
[2022-04-05] MEDS: NEBIVOLOL 10 MG TABLET PO SCH (09:42)
[2022-04-05] MEDS: DIGOXIN 0.25 MG TABLET PO SCH (09:43)
[2022-04-05] MEDS: ASCORBIC ACID 500 MG TABLET PO SCH (09:43)
[2022-04-05] MEDS: DOCUSATE SODIUM 100 MG CAPSULE PO SCH (09:43)
[2022-04-05] MEDS: levETIRAcetam 500 MG TABLET PO SCH (09:43)
[2022-04-05] MEDS: BENZONATATE 100 MG CAPSULE PO PRN (09:44)
[2022-04-05] MEDS: SPIRONOLACTONE 25 MG TABLET PO SCH (09:44)
[2022-04-05] MEDS: PANTOPRAZOLE 40 MG TABLET PO SCH (09:44)
[2022-04-05] MEDS: methylPREDNISolone SOD SUC 40 MG/1 ML VIAL IV SCH (09:45)
[2022-04-05] MEDS: DILTIAZEM CD 120 MG CAPSULE PO SCH (09:45)
[2022-04-05] MEDS: DESITIN 4OZ/NYSTATIN 15 GRAM MIXTURE PASTE TOP SCH (09:45)
[2022-04-05] MEDS: FUROSEMIDE 80 MG TABLET PO SCH (09:45)
[2022-04-05] MEDS: INSULIN NPH/REG 70/30 100 UNIT/ML SUBCUT SCH (09:48)
[2022-04-05 12:40] VITALS: BP 127/66
== END 2022-04-05 14:19 | disposition home health service (06) | DRG 190 ==
LOC: N.TELEN 09:31 → N.ED 09:31 → N.TELEN 16:30
PROVIDERS: ADMIT Family Medicine; ATTEND Family Medicine